=== PATIENT | male | born 1970 | race Caucasian/White ===

== ENCOUNTER 2021-05-03 09:24 | Inpatient (IN) | payer BC ==
[2021-05-03] MEDS ORDERED: REMDESIVIR 200 MG in Sodium Chloride 0.9% 250 ML IV ONE ×2 (09:53→10:30)
[2021-05-03] MEDS ORDERED: Dexamethasone 4 MG/ML SDV IVPUSH ONE (09:53)
[2021-05-03] MEDS ORDERED: Sodium Chloride 0.9% 1,000 ML IV SCH (10:00)
[2021-05-03] MEDS: Sodium Chloride 0.9% 10 ML Syringe FLUSH PRN (10:12)
--- NOTE | 2021-05-03 10:59 | CR ---
Chest: Portable view of the chest was obtained. Comparison: Prior chest CT of 12/24/10, no prior chest x-ray is available. Heart is enlarged. Pulmonary vessels are felt to be slightly increased. Lungs otherwise are clear. Bony structures show nothing acute. Impression: 1. Findings are suspicious for mild CHF. Diagnostic code #3
[2021-05-03] MEDS ORDERED: Sodium Chloride 0.9% 10 ML Syringe FLUSH PRN (11:10)
[2021-05-03] MEDS ORDERED: Iopamidol 755 Mg/ML 100 ML Bottle IVPUSH ONE (11:10)
[2021-05-03] MEDS ORDERED: Sodium Chloride 0.9% 45 ML IV SCH (11:15)
--- NOTE | 2021-05-03 12:11 | CT ---
CT chest Technique: Multiple axial sections through the chest were obtained. Intravenous contrast was utilized. Study performed as a pulmonary angiogram protocol. Findings: Ascending aorta is aneurysmal with AP dimension of 4.2 cm. Descending aorta is normal in measurement. Pulmonary arteries are well opacified. No filling defects are seen to indicate pulmonary embolism. No pericardial thickening is seen. Mediastinum and hilar regions show no adenopathy. No axillary adenopathy is appreciated. Heart is somewhat enlarged. Diffuse parenchymal change is seen within both lungs. This does not represent pulmonary vascular congestion but has the appearance of prominent Covid pneumonia. No pleural effusions are seen. Visualized upper abdominal structures show fatty infiltration within the liver. No acute upper abdominal anomaly is seen. Bone window settings were reviewed. No acute osseous abnormality is appreciated. Impression: 1. Dilated ascending aorta with AP dimension of 4.1 cm compatible with aneurysm. 2. No findings of pulmonary embolism. 3. Mild cardiomegaly. 4. Diffuse parenchymal densities within both sides of the chest having the appearance of prominent Covid pneumonia. Diagnostic code #3
--- NOTE | 2021-05-03 13:07 | EDM.PDOC ---
ED HPI GENERAL MEDICAL PROBLEM - General Chief Complaint: Respiratory Problem Stated Complaint: POSS COVID+ SOB Time Seen by Provider: 05/03/21 09:31 Source of Information: Reports: Patient History Limitations: Reports: No Limitations - History of Present Illness INITIAL COMMENTS - FREE TEXT/NARRATIVE: The patient presents with cough and shortness of breath. His is COVID positive so he figures he is positive. He said about 10 days his symptoms started but the last couple of days have been worse with more shortness of breath. He had a fever and chills but that is better. He has fatigue and generalized weakness. He has no chest pain, abdominal pain, nausea or vomiting. He did have diarrhea but that is better. He does not smoke. He has no history of lung problems. He has no history of heart disease, hypertension, hypercholesterolemia or diabetes. He did not get the vaccine. Onset: Gradual Duration: Day(s): (10) Severity: Moderate Improves with: Reports: None Worsens with: Reports: None Associated Symptoms: Reports: Cough, Fever/Chills, Shortness of Breath. Denies: Chest Pain, Headaches, Nausea/Vomiting - Related Data Allergies Allergy/AdvReac Type Severity Reaction Status Date / Time No Known Allergies Allergy Verified 05/03/21 09:44 Past Medical History - Past Health History Medical/Surgical History: Denies Medical/Surgical History Social & Family History - Tobacco Use Tobacco Use Status *Q: Current Every Day Tobacco User Years of Tobacco use: 25 Packs/Tins Daily: 1 ED ROS GENERAL - Review of Systems Review Of Systems: See Below Constitutional: Reports: Fever, Chills, Malaise, Weakness, Fatigue HEENT: Reports: No Symptoms Respiratory: Reports: Shortness of Breath, Cough Cardiovascular: Reports: No Symptoms Endocrine: Reports: No Symptoms GI/Abdominal: Reports: No Symptoms : Reports: No Symptoms Musculoskeletal: Reports: No Symptoms Skin: Reports: No Symptoms ED EXAM, GENERAL - Physical Exam Exam: See Below Exam Limited By: No Limitations General Appearance: Alert, No Apparent Distress Ears: Normal External Exam Nose: Normal Inspection Head: Atraumatic, Normocephalic Neck: Normal Inspection Respiratory/Chest: No Respiratory Distress, Decreased Breath Sounds Cardiovascular: Regular Rate, Rhythm, No Edema, No Murmur GI/Abdominal: Soft, Non-Tender, No Organomegaly, No Mass Back Exam: Normal Inspection Extremities: Normal Inspection #1 Interpretation EKG Date: 05/03/21 Time: 11:17 Rhythm: NSR Rate (Beats/Min): 74 [place]: Normal P-Wave: Present QRS: Normal ST-T: Normal QT: Normal Course - Vital Signs Last Recorded V/S: Last Vital Signs Temp 97.8 F 05/03/21 09:41 Pulse 76 05/03/21 09:41 Resp 18 05/03/21 09:41 BP 136/96 H 05/03/21 09:41 Pulse Ox 86 L 05/03/21 09:41 - Orders/Labs/Meds Orders: Active Orders 24 hr Category Date Time Status Cardiac Monitoring [RC] . DIRECTED Care 05/03/21 09:51 Active Oxygen Therapy [RC] PRN Care 05/03/21 09:51 Active Peripheral IV Care [RC] . DIRECTED Care 05/03/21 09:51 Active Sodium Chloride 0.9% [Normal Saline] 1,000 ml Med 05/03/21 10:00 Active IV .BOLUS Sodium Chloride 0.9% [Normal Saline] 45 ml Med 05/03/21 11:15 Active IV ASDIRECTED Sodium Chloride 0.9% [Saline Flush] Med 05/03/21 09:51 Active 10 ml FLUSH ASDIRECTED PRN Sodium Chloride 0.9% [Saline Flush] Med 05/03/21 11:10 Active 10 ml FLUSH ONETIME PRN Peripheral IV Insertion Adult [OM.PC] Stat Oth 05/03/21 09:51 Ordered EKG 12 Lead [EK] Stat Ther 05/03/21 10:58 Ordered Medication Orders Sodium Chloride (Normal Saline) 1,000 mls @ 1,000 mls/hr IV .BOLUS MOE Last Admin: 05/03/21 10:12 Dose: 1,000 mls/hr Documented by: THERESA Sodium Chloride (Normal Saline) 45 mls @ 40 mls/hr IV ASDIRECTED MOE Last Admin: 05/03/21 11:48 Dose: 40 mls/hr Documented by: EMERSON Sodium Chloride (Sodium Chloride 0.9% 10 Ml Syringe) 10 ml FLUSH ASDIRECTED PRN PRN Reason: Keep Vein Open Last Admin: 05/03/21 10:12 Dose: 10 ml Documented by: THERESA Sodium Chloride (Sodium Chloride 0.9% 10 Ml Syringe) 10 ml FLUSH ONETIME PRN PRN Reason: Keep Vein Open Last Admin: 05/03/21 11:47 Dose: 10 ml Documented by: EMERSON Labs: Laboratory Tests 05/03/21 05/03/21 05/03/21 Range/Units 09:35 10:02 10:02 WBC 10.52 H (4.23-9.07) K/mm3 RBC 5.60 (4.63-6.08) M/mm3 Hgb 16.8 (13.7-17.5) gm/dl Hct 49.6 (40.1-51.0) % MCV 88.6 (79.0-92.2) fl MCH 30.0 (25.7-32.2) pg MCHC 33.9 (32.2-35.5) g/dl RDW Std Deviation 41.1 (35.1-43.9) fL Plt Count 257 (163-337) K/mm3 MPV 9.5 (9.4-12.3) fl Neut % (Auto) 90.6 H (34.0-67.9) % Lymph % (Auto) 5.0 L (21.8-53.1) % [place] % (Auto) 3.8 L (5.3-12.2) % Eos % (Auto) 0 L (0.8-7.0) Baso % (Auto) 0.1 (0.1-1.2) % Neut # (Auto) 9.53 H (1.78-5.38) K/mm3 Lymph # (Auto) 0.53 L (1.32-3.57) K/mm3 [place] # (Auto) 0.40 (0.30-0.82) K/mm3 Eos # (Auto) 0.00 L (0.04-0.54) K/mm3 Baso # (Auto) 0.01 (0.01-0.08) K/mm3 Manual Slide Review Abnormal smear PT 10.3 (9.7-12.0) SECONDS INR 0.96 APTT 27.9 (21.7-31.4) SECONDS D-Dimer, Quantitative 1.52 H (0.19-0.50) mg/L Sodium (136-145) mEq/L Potassium (3.5-5.1) mEq/L Chloride (98-107) mEq/L Carbon Dioxide (21-32) mEq/L Anion Gap (5-15) BUN (7-18) mg/dL Creatinine (0.7-1.3) mg/dL Est Cr Clr Drug Dosing mL/min Estimated GFR (MDRD) (>60) mL/min BUN/Creatinine Ratio (14-18) Glucose (70-99) mg/dL Lactic Acid (0.4-2.0) mmol/L Calcium (8.5-10.1) mg/dL Ferritin (26-388) ng/ml Total Bilirubin (0.2-1.0) mg/dL AST (15-37) U/L ALT (16-63) U/L Alkaline Phosphatase (46-116) U/L Lactate Dehydrogenase (85-227) U/L C-Reactive Protein (<1.0) mg/dL NT-Pro-B Natriuret Pep (0-125) pg/mL Total Protein (6.4-8.2) g/dl Albumin (3.4-5.0) g/dl Globulin gm/dL Albumin/Globulin Ratio (1-2) SARS-CoV-2 RNA (KIMMIE) Positive H (NEGATIVE) 05/03/21 05/03/21 05/03/21 Range/Units 10:02 10:02 10:02 WBC (4.23-9.07) K/mm3 RBC (4.63-6.08) M/mm3 Hgb (13.7-17.5) gm/dl Hct (40.1-51.0) % MCV (79.0-92.2) fl MCH (25.7-32.2) pg MCHC (32.2-35.5) g/dl RDW Std Deviation (35.1-43.9) fL Plt Count (163-337) K/mm3 MPV (9.4-12.3) fl Neut % (Auto) (34.0-67.9) % Lymph % (Auto) (21.8-53.1) % [place] % (Auto) (5.3-12.2) % Eos % (Auto) (0.8-7.0) Baso % (Auto) (0.1-1.2) % Neut # (Auto) (1.78-5.38) K/mm3 Lymph # (Auto) (1.32-3.57) K/mm3 [place] # (Auto) (0.30-0.82) K/mm3 Eos # (Auto) (0.04-0.54) K/mm3 Baso # (Auto) (0.01-0.08) K/mm3 Manual Slide Review PT (9.7-12.0) SECONDS INR APTT (21.7-31.4) SECONDS D-Dimer, Quantitative (0.19-0.50) mg/L Sodium 139 (136-145) mEq/L Potassium 4.3 (3.5-5.1) mEq/L Chloride 102 (98-107) mEq/L Carbon Dioxide 29 (21-32) mEq/L Anion Gap 12.3 (5-15) BUN 26 H (7-18) mg/dL Creatinine 1.1 (0.7-1.3) mg/dL Est Cr Clr Drug Dosing 77.73 mL/min Estimated GFR (MDRD) > 60 (>60) mL/min BUN/Creatinine Ratio 23.6 H (14-18) Glucose 134 H (70-99) mg/dL Lactic Acid 1.5 (0.4-2.0) mmol/L Calcium 8.1 L (8.5-10.1) mg/dL Ferritin 3950 H (26-388) ng/ml Total Bilirubin 0.6 (0.2-1.0) mg/dL AST 62 H (15-37) U/L ALT 85 H (16-63) U/L Alkaline Phosphatase 67 (46-116) U/L Lactate Dehydrogenase 693 H (85-227) U/L C-Reactive Protein 4.9 H* (<1.0) mg/dL NT-Pro-B Natriuret Pep (0-125) pg/mL Total Protein 6.8 (6.4-8.2) g/dl Albumin 3.0 L (3.4-5.0) g/dl Globulin 3.8 gm/dL Albumin/Globulin Ratio 0.8 L (1-2) SARS-CoV-2 RNA (KIMMIE) (NEGATIVE) 05/03/21 Range/Units 10:02 WBC (4.23-9.07) K/mm3 RBC (4.63-6.08) M/mm3 Hgb (13.7-17.5) gm/dl Hct (40.1-51.0) % MCV (79.0-92.2) fl MCH (25.7-32.2) pg MCHC (32.2-35.5) g/dl RDW Std Deviation (35.1-43.9) fL Plt Count (163-337) K/mm3 MPV (9.4-12.3) fl Neut % (Auto) (34.0-67.9) % Lymph % (Auto) (21.8-53.1) % [place] % (Auto) (5.3-12.2) % Eos % (Auto) (0.8-7.0) Baso % (Auto) (0.1-1.2) % Neut # (Auto) (1.78-5.38) K/mm3 Lymph # (Auto) (1.32-3.57) K/mm3 [place] # (Auto) (0.30-0.82) K/mm3 Eos # (Auto) (0.04-0.54) K/mm3 Baso # (Auto) (0.01-0.08) K/mm3 Manual Slide Review PT (9.7-12.0) SECONDS INR APTT (21.7-31.4) SECONDS D-Dimer, Quantitative (0.19-0.50) mg/L Sodium (136-145) mEq/L Potassium (3.5-5.1) mEq/L Chloride (98-107) mEq/L Carbon Dioxide (21-32) mEq/L Anion Gap (5-15) BUN (7-18) mg/dL Creatinine (0.7-1.3) mg/dL Est Cr Clr Drug Dosing mL/min Estimated GFR (MDRD) (>60) mL/min BUN/Creatinine Ratio (14-18) Glucose (70-99) mg/dL Lactic Acid (0.4-2.0) mmol/L Calcium (8.5-10.1) mg/dL Ferritin (26-388) ng/ml Total Bilirubin (0.2-1.0) mg/dL AST (15-37) U/L ALT (16-63) U/L Alkaline Phosphatase (46-116) U/L Lactate Dehydrogenase (85-227) U/L C-Reactive Protein (<1.0) mg/dL NT-Pro-B Natriuret Pep 123 (0-125) pg/mL Total Protein (6.4-8.2) g/dl Albumin (3.4-5.0) g/dl Globulin gm/dL Albumin/Globulin Ratio (1-2) SARS-CoV-2 RNA (KIMMIE) (NEGATIVE) Meds: Medications Generic Name Dose Route Start Last Admin Trade Name Curtisq PRN Reason Stop Dose Admin Sodium Chloride 1,000 mls @ 1,000 mls/hr 05/03/21 10:00 05/03/21 10:12 Normal Saline IV 1,000 mls/hr .BOLUS MOE Administration Sodium Chloride 45 mls @ 40 mls/hr 05/03/21 11:15 05/03/21 11:48 Normal Saline IV 40 mls/hr ASDIRECTED MOE Administration Sodium Chloride 10 ml 05/03/21 09:51 05/03/21 10:12 Sodium Chloride 0.9% 10 Ml Syringe FLUSH 10 ml ASDIRECTED PRN Administration Keep Vein Open Sodium Chloride 10 ml 05/03/21 11:10 05/03/21 11:47 Sodium Chloride 0.9% 10 Ml Syringe FLUSH 10 ml ONETIME PRN Administration Keep Vein Open Discontinued Medications Generic Name Dose Route Start Last Admin Trade Name Curtisq PRN Reason Stop Dose Admin Dexamethasone 6 mg 05/03/21 09:53 05/03/21 10:12 Dexamethasone 4 Mg/Ml Sdv IVPUSH 05/03/21 09:54 6 mg ONETIME ONE Administration Remdesivir 200 mg/ Sodium 250 mls @ 250 mls/hr 05/03/21 09:53 05/03/21 10:30 Chloride IV 05/03/21 09:54 Not Given ONETIME ONE Remdesivir 200 mg/ Sodium 250 mls @ 250 mls/hr 05/03/21 10:30 05/03/21 10:30 Chloride IV 05/03/21 11:29 250 mls/hr ONETIME ONE Administration Iopamidol 100 ml 05/03/21 11:10 05/03/21 11:47 Iopamidol 755 Mg/Ml 100 Ml Bottle IVPUSH 05/03/21 11:11 100 ml ONETIME ONE Administration - Re-Assessments/Exams Free Text/Narrative Re-Assessment/Exam: 05/03/21 13:07 The patient came in and his oxygen saturations were 86%. It required 5L by NC to get him up to 93%. I ordered oxygen, IV NS 1L bolus, EKG, CXR and labs. His EKG shows a NSR with no acute changes. His WBC was elevated at 10.52. His D- dimer was elevated at 1.52. His glucose was elevated at 134. His lactic acid was normal at 1.5. His ferritin was elevated at 3950. His AST was elevated at 62. His ALT was elevated at 85. His LDH was elevated at 693. His CRP was elevated at 4.9. He is COVID positive. His CXR shows findings are suspicious for mild CHF. I have ordered a CT angio of his chest and it shows dilated ascending aorta with AP dimension of 4.1cm compatible with aneurysm. No findings of pulmonary embolism. Mild cardiomegaly. Diffuse parenchymal densities within both sides of the chest having the appearance of prominent COVID pneumonia. I have ordered dexamethasone 6mg IV and remdesivir 200mg IV. I feel he needs to be admitted. I called Dr Cummings our hospitalist. 05/03/21 13:30 Nursing had to talk and see if they could take the patient and the could. Dr Cummings accepted the patient. Departure - Departure Time of Disposition: 13:40 Disposition: Admitted As Inpatient 66 Condition: Serious Clinical Impression: COVID-19, Pneumonia due to COVID-19 virus, Ascending aortic aneurysm, Hypoxia - Discharge Information Referrals: PCP,None [Primary Care Provider] - Forms: ED Department Discharge Sepsis Event Note (ED) - Evaluation Sepsis Screening Result: No Definite Risk - Focused Exam Vital Signs: Vital Signs Temp Pulse Resp BP Pulse Ox 05/03/21 09:41 97.8 F 76 18 136/96 H 86 L - My Orders Last 24 Hours: My Active Orders 05/03/21 09:51 Cardiac Monitoring [RC] . DIRECTED Oxygen Therapy [RC] PRN Peripheral IV Care [RC] . DIRECTED Sodium Chloride 0.9% [Saline Flush] 10 ml FLUSH ASDIRECTED PRN Peripheral IV Insertion Adult [OM.PC] Stat 05/03/21 10:00 Sodium Chloride 0.9% [Normal Saline] 1,000 ml IV .BOLUS 05/03/21 10:58 EKG 12 Lead [EK] Stat 05/03/21 11:10 Sodium Chloride 0.9% [Saline Flush] 10 ml FLUSH ONETIME PRN 05/03/21 11:15 Sodium Chloride 0.9% [Normal Saline] 45 ml IV ASDIRECTED - Assessment/Plan Last 24 Hours: My Active Orders 05/03/21 09:51 Cardiac Monitoring [RC] . DIRECTED Oxygen Therapy [RC] PRN Peripheral IV Care [RC] . DIRECTED Sodium Chloride 0.9% [Saline Flush] 10 ml FLUSH ASDIRECTED PRN Peripheral IV Insertion Adult [OM.PC] Stat 05/03/21 10:00 Sodium Chloride 0.9% [Normal Saline] 1,000 ml IV .BOLUS 05/03/21 10:58 EKG 12 Lead [EK] Stat 05/03/21 11:10 Sodium Chloride 0.9% [Saline Flush] 10 ml FLUSH ONETIME PRN 05/03/21 11:15 Sodium Chloride 0.9% [Normal Saline] 45 ml IV ASDIRECTED
[2021-05-03] MEDS ORDERED: Acetaminophen 325 MG Tab PO PRN (14:15)
[2021-05-03] MEDS ORDERED: Ondansetron 4 MG Tab.DIS PO PRN (14:15)
[2021-05-03] MEDS ORDERED: Docusate Sodium 100 MG Cap PO PRN (14:15)
[2021-05-03] MEDS ORDERED: Albuterol/Ipratropium 3.0-0.5 MG/3 ML Neb Soln NEB PRN (14:15)
[2021-05-03] MEDS ORDERED: Morphine 2 MG/ML SYRINGE IVPUSH PRN (14:15)
[2021-05-03] MEDS ORDERED: oxyCODONE 5 MG Tab PO PRN (14:15)
--- NOTE | 2021-05-03 14:26 | PCM.HP.2 ---
H&P History of Present Illness - General Date of Service: 05/03/21 Admit Problem/Dx: Admission Diagnosis/Problem Admission Diagnosis/Problem Pneumonia due to COVID-19 with acute respiratory failure. Source of Information: Patient History Limitations: Reports: No Limitations - History of Present Illness Initial Comments - Free Text/Narative: The patient is a 50-year-old gentleman who presents to the emergency department with a primary complaint of severe fatigue and shortness of breath. The patient has tested positive for COVID-19. The patient says further that his symptoms started approximately 2 weeks ago. The patient also reports that his son and his were diagnosed with COVID-19 a week ago. The patient says that he has had some chills. The patient also has no other associated symptoms with the COVID-19 pneumonia. The patient uses smokeless tobacco but has not done in the past week. He is otherwise healthy and takes no medications. He has not been vaccinated. 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 Onset of Symptoms: Reports: Gradual Duration of Symptoms: Reports: Week(s): Location: Reports: Generalized Quality: Reports: Ache Severity: Moderate Improves with: Reports: Rest Worsens with: Reports: Breathing, Movement Context: Reports: Sick Contact Associated Symptoms: Reports: Fever/Chills - Related Data Allergies/Adverse Reactions: Allergies Allergy/AdvReac Type Severity Reaction Status Date / Time No Known Allergies Allergy Verified 05/03/21 14:29 Home Medications: Home Meds Ascorbic Acid [Vitamin C] 1,000 mg PO DAILY 05/03/21 [History] Aspirin [[place]] 80 mg PO DAILY 05/03/21 [History] Azithromycin [Zithromax] 250 mg PO DAILY 05/03/21 [History] Cholecalciferol (Vitamin D3) [Vitamin D] 5,000 unit PO DAILY 05/03/21 [History] Zinc 50 mg PO DAILY 05/03/21 [History] dexAMETHasone [Dexamethasone] 6 mg PO DAILY 05/03/21 [History] Past Medical History - Past Health History Medical/Surgical History: Denies Medical/Surgical History HEENT History: Reports: None Cardiovascular History: Reports: None Respiratory History: Reports: None Gastrointestinal History: Reports: None Genitourinary History: Reports: None Musculoskeletal History: Reports: None Neurological History: Reports: None Psychiatric History: Reports: None Endocrine/Metabolic History: Reports: None Hematologic History: Reports: None Immunologic History: Reports: None Oncologic (Cancer) History: Reports: None Dermatologic History: Reports: None - Infectious Disease History Infectious Disease History: Reports: Novel Coronavirus Social & Family History - Tobacco Use Tobacco Use Status *Q: Current Every Day Tobacco User Years of Tobacco use: 25 Packs/Tins Daily: 1 - Alcohol Use Alcohol Use History: No - Living Situation & Occupation Living situation: Reports: , with Spouse, with Family Occupation: Other (Alas/rancher) H&P Review of Systems - Review of Systems: Review Of Systems: See Below General: Reports: Malaise, Weakness, Fatigue HEENT: Reports: No Symptoms Pulmonary: Reports: Shortness of Breath, Cough Cardiovascular: Reports: No Symptoms Gastrointestinal: Reports: No Symptoms Genitourinary: Reports: No Symptoms Musculoskeletal: Reports: No Symptoms Skin: Reports: No Symptoms Psychiatric: Reports: No Symptoms Neurological: Reports: No Symptoms Hematologic/Lymphatic: Reports: No Symptoms Immunologic: Reports: No Symptoms Exam - Exam Exam: See Below - Vital Signs Vital Signs: Last Vital Signs Temp 36.6 C 05/03/21 09:41 Pulse 76 05/03/21 09:41 Resp 18 05/03/21 09:41 BP 136/96 H 05/03/21 09:41 Pulse Ox 86 L 05/03/21 09:41 Weight: 92.986 kg - Exam Quality Assessment: Supplemental Oxygen. No: DVT Prophylaxis General: Alert, Oriented, Cooperative HEENT: Conjunctiva Clear, EACs Clear, EOMI, Hearing Intact, Mucosa Moist & [place], Posterior Pharynx Clear, PERRLA Neck: Supple, Trachea Midline Lungs: Normal Respiratory Effort, Crackles (Scattered) Cardiovascular: Regular Rate, Regular Rhythm GI/Abdominal Exam: Normal Bowel Sounds, Soft, Non-Tender, No Distention (Male) Exam: Deferred Rectal (Males) Exam: Deferred Back Exam: Normal Inspection, Full Range of Motion Extremities: Normal Inspection, Normal Range of Motion, No Pedal Edema Skin: Warm, Dry, Intact Neurological: Cranial Nerves Intact, Normal Gait, Normal Speech, Normal Tone Psychiatric: Alert, Normal Affect, Normal Mood - Patient Data Lab Results Last 24 hrs: Laboratory Results - last 24 hr 05/03/21 05/03/21 05/03/21 Range/Units 09:35 10:02 10:02 WBC 10.52 H (4.23-9.07) K/mm3 RBC 5.60 (4.63-6.08) M/mm3 Hgb 16.8 (13.7-17.5) gm/dl Hct 49.6 (40.1-51.0) % MCV 88.6 (79.0-92.2) fl MCH 30.0 (25.7-32.2) pg MCHC 33.9 (32.2-35.5) g/dl RDW Std Deviation 41.1 (35.1-43.9) fL Plt Count 257 (163-337) K/mm3 MPV 9.5 (9.4-12.3) fl Neut % (Auto) 90.6 H (34.0-67.9) % Lymph % (Auto) 5.0 L (21.8-53.1) % [place] % (Auto) 3.8 L (5.3-12.2) % Eos % (Auto) 0 L (0.8-7.0) Baso % (Auto) 0.1 (0.1-1.2) % Neut # (Auto) 9.53 H (1.78-5.38) K/mm3 Lymph # (Auto) 0.53 L (1.32-3.57) K/mm3 [place] # (Auto) 0.40 (0.30-0.82) K/mm3 Eos # (Auto) 0.00 L (0.04-0.54) K/mm3 Baso # (Auto) 0.01 (0.01-0.08) K/mm3 Manual Slide Review Abnormal smear PT 10.3 (9.7-12.0) SECONDS INR 0.96 APTT 27.9 (21.7-31.4) SECONDS D-Dimer, Quantitative 1.52 H (0.19-0.50) mg/L Sodium (136-145) mEq/L Potassium (3.5-5.1) mEq/L Chloride (98-107) mEq/L Carbon Dioxide (21-32) mEq/L Anion Gap (5-15) BUN (7-18) mg/dL Creatinine (0.7-1.3) mg/dL Est Cr Clr Drug Dosing mL/min Estimated GFR (MDRD) (>60) mL/min BUN/Creatinine Ratio (14-18) Glucose (70-99) mg/dL Lactic Acid (0.4-2.0) mmol/L Calcium (8.5-10.1) mg/dL Ferritin (26-388) ng/ml Total Bilirubin (0.2-1.0) mg/dL AST (15-37) U/L ALT (16-63) U/L Alkaline Phosphatase (46-116) U/L Lactate Dehydrogenase (85-227) U/L C-Reactive Protein (<1.0) mg/dL NT-Pro-B Natriuret Pep (0-125) pg/mL Total Protein (6.4-8.2) g/dl Albumin (3.4-5.0) g/dl Globulin gm/dL Albumin/Globulin Ratio (1-2) SARS-CoV-2 RNA (KIMMIE) Positive H (NEGATIVE) 05/03/21 05/03/21 05/03/21 Range/Units 10:02 10:02 10:02 WBC (4.23-9.07) K/mm3 RBC (4.63-6.08) M/mm3 Hgb (13.7-17.5) gm/dl Hct (40.1-51.0) % MCV (79.0-92.2) fl MCH (25.7-32.2) pg MCHC (32.2-35.5) g/dl RDW Std Deviation (35.1-43.9) fL Plt Count (163-337) K/mm3 MPV (9.4-12.3) fl Neut % (Auto) (34.0-67.9) % Lymph % (Auto) (21.8-53.1) % [place] % (Auto) (5.3-12.2) % Eos % (Auto) (0.8-7.0) Baso % (Auto) (0.1-1.2) % Neut # (Auto) (1.78-5.38) K/mm3 Lymph # (Auto) (1.32-3.57) K/mm3 [place] # (Auto) (0.30-0.82) K/mm3 Eos # (Auto) (0.04-0.54) K/mm3 Baso # (Auto) (0.01-0.08) K/mm3 Manual Slide Review PT (9.7-12.0) SECONDS INR APTT (21.7-31.4) SECONDS D-Dimer, Quantitative (0.19-0.50) mg/L Sodium 139 (136-145) mEq/L Potassium 4.3 (3.5-5.1) mEq/L Chloride 102 (98-107) mEq/L Carbon Dioxide 29 (21-32) mEq/L Anion Gap 12.3 (5-15) BUN 26 H (7-18) mg/dL Creatinine 1.1 (0.7-1.3) mg/dL Est Cr Clr Drug Dosing 77.73 mL/min Estimated GFR (MDRD) > 60 (>60) mL/min BUN/Creatinine Ratio 23.6 H (14-18) Glucose 134 H (70-99) mg/dL Lactic Acid 1.5 (0.4-2.0) mmol/L Calcium 8.1 L (8.5-10.1) mg/dL Ferritin 3950 H (26-388) ng/ml Total Bilirubin 0.6 (0.2-1.0) mg/dL AST 62 H (15-37) U/L ALT 85 H (16-63) U/L Alkaline Phosphatase 67 (46-116) U/L Lactate Dehydrogenase 693 H (85-227) U/L C-Reactive Protein 4.9 H* (<1.0) mg/dL NT-Pro-B Natriuret Pep (0-125) pg/mL Total Protein 6.8 (6.4-8.2) g/dl Albumin 3.0 L (3.4-5.0) g/dl Globulin 3.8 gm/dL Albumin/Globulin Ratio 0.8 L (1-2) SARS-CoV-2 RNA (KIMMIE) (NEGATIVE) 05/03/21 Range/Units 10:02 WBC (4.23-9.07) K/mm3 RBC (4.63-6.08) M/mm3 Hgb (13.7-17.5) gm/dl Hct (40.1-51.0) % MCV (79.0-92.2) fl MCH (25.7-32.2) pg MCHC (32.2-35.5) g/dl RDW Std Deviation (35.1-43.9) fL Plt Count (163-337) K/mm3 MPV (9.4-12.3) fl Neut % (Auto) (34.0-67.9) % Lymph % (Auto) (21.8-53.1) % [place] % (Auto) (5.3-12.2) % Eos % (Auto) (0.8-7.0) Baso % (Auto) (0.1-1.2) % Neut # (Auto) (1.78-5.38) K/mm3 Lymph # (Auto) (1.32-3.57) K/mm3 [place] # (Auto) (0.30-0.82) K/mm3 Eos # (Auto) (0.04-0.54) K/mm3 Baso # (Auto) (0.01-0.08) K/mm3 Manual Slide Review PT (9.7-12.0) SECONDS INR APTT (21.7-31.4) SECONDS D-Dimer, Quantitative (0.19-0.50) mg/L Sodium (136-145) mEq/L Potassium (3.5-5.1) mEq/L Chloride (98-107) mEq/L Carbon Dioxide (21-32) mEq/L Anion Gap (5-15) BUN (7-18) mg/dL Creatinine (0.7-1.3) mg/dL Est Cr Clr Drug Dosing mL/min Estimated GFR (MDRD) (>60) mL/min BUN/Creatinine Ratio (14-18) Glucose (70-99) mg/dL Lactic Acid (0.4-2.0) mmol/L Calcium (8.5-10.1) mg/dL Ferritin (26-388) ng/ml Total Bilirubin (0.2-1.0) mg/dL AST (15-37) U/L ALT (16-63) U/L Alkaline Phosphatase (46-116) U/L Lactate Dehydrogenase (85-227) U/L C-Reactive Protein (<1.0) mg/dL NT-Pro-B Natriuret Pep 123 (0-125) pg/mL Total Protein (6.4-8.2) g/dl Albumin (3.4-5.0) g/dl Globulin gm/dL Albumin/Globulin Ratio (1-2) SARS-CoV-2 RNA (KIMMIE) (NEGATIVE) Result Diagrams: 05/03/21 10:02 05/03/21 10:02 Sepsis Event Note - Evaluation Sepsis Screening Result: No Definite Risk - Focused Exam Vital Signs: Vital Signs Temp Pulse Resp BP Pulse Ox 05/03/21 09:41 36.6 C 76 18 136/96 H 86 L - Problem List (1) Acute respiratory failure SNOMED Code(s): 38356569 ICD Code: J96.00 - ACUTE RESPIRATORY FAILURE, UNSP W HYPOXIA OR HYPERCAPNIA Status: Acute Priority: High Current Visit: Yes Qualifiers: Respiratory failure complication: hypoxia Qualified Code(s): J96.01 - Acute respiratory failure with hypoxia (2) Pneumonia due to COVID-19 virus SNOMED Code(s): 016947185400458820 ICD Code: U07.1 - COVID-19; J12.82 - PNEUMONIA DUE TO CORONAVIRUS DISEASE 2018 Status: Acute Current Visit: Yes (3) Fatigue SNOMED Code(s): 67799908 ICD Code: R53.83 - OTHER FATIGUE Status: Acute Current Visit: Yes Qualifiers: Fatigue type: unspecified Qualified Code(s): R53.83 - Other fatigue (4) Ascending aortic aneurysm Status: Chronic Priority: Medium Current Visit: No Problem List Initiated/Reviewed/Updated: Yes Orders Last 24hrs: Active Orders 24 hr Category Date Time Status Patient Status [ADT] Routine ADT 05/03/21 14:15 Ordered Patient Status [ADT] Routine ADT 05/03/21 14:18 Active Cardiac Monitoring [RC] . DIRECTED Care 05/03/21 09:51 Active Cardiac Monitoring [RC] CONTINUOUS Care 05/03/21 14:16 Ordered Oxygen Therapy [RC] PRN Care 05/03/21 09:51 Active Oxygen Therapy [RC] PRN Care 05/03/21 14:15 Ordered Peripheral IV Care [RC] . DIRECTED Care 05/03/21 09:51 Active RT Aerosol Therapy [RC] ASDIRECTED Care 05/03/21 14:21 Ordered Up ad Gabrielle [RC] ASDIRECTED Care 05/03/21 14:15 Ordered VTE/DVT Education [RC] PER UNIT ROUTINE Care 05/03/21 14:15 Ordered Vital Signs [RC] Q4H Care 05/03/21 14:15 Ordered Regular Diet [DIET] Diet 05/03/21 Dinner Ordered C-REACTIVE PROTEIN [CHEM] AM Lab 05/04/21 05:11 Ordered CBC WITH AUTO DIFF [HEME] AM Lab 05/04/21 05:11 Ordered COMPREHENSIVE METABOLIC PN,CMP [CHEM] AM Lab 05/04/21 05:11 Ordered D-DIMER QUANTITATIVE [COAG] AM Lab 05/04/21 05:11 Ordered MAGNESIUM [CHEM] AM Lab 05/04/21 05:11 Ordered Acetaminophen [TylenoL] Med 05/03/21 14:15 Ordered 650 mg PO Q4H PRN Albuterol/Ipratropium [DuoNeb 3.0-0.5 MG/3 ML] Med 05/03/21 14:15 Ordered 3 ml NEB Q4H PRN Azithromycin [Zithromax] 500 mg Med 05/03/21 14:30 Ordered Sodium Chloride 0.9% [Normal Saline (AdvBag)] 250 ml IV Q24H Docusate Sodium [Colace] Med 05/03/21 14:15 Ordered 100 mg PO BID PRN Enoxaparin [Lovenox] Med 05/03/21 14:30 Ordered 40 mg SUBCUT DAILY Morphine Med 05/03/21 14:15 Ordered 2 mg IVPUSH Q2H PRN Nicotine [Habitrol] Med 05/04/21 09:00 Ordered 14 mg TRDERM DAILY Ondansetron [Zofran ODT] Med 05/03/21 14:15 Ordered 4 mg PO Q4H PRN Sodium Chloride 0.9% [Normal Saline] 1,000 ml Med 05/03/21 10:00 Active IV .BOLUS Sodium Chloride 0.9% [Normal Saline] 45 ml Med 05/03/21 11:15 Active IV ASDIRECTED Sodium Chloride 0.9% [Saline Flush] Med 05/03/21 09:51 Active 10 ml FLUSH ASDIRECTED PRN Sodium Chloride 0.9% [Saline Flush] Med 05/03/21 11:10 Active 10 ml FLUSH ONETIME PRN Temazepam [Restoril] Med 05/03/21 14:15 Ordered 15 mg PO BEDTIME PRN dexAMETHasone Med 05/04/21 09:00 Ordered 6 mg PO DAILY oxyCODONE Med 05/03/21 14:15 Ordered 5 mg PO Q4H PRN Peripheral IV Insertion Adult [OM.PC] Stat Oth 05/03/21 09:51 Ordered Resuscitation Status Routine Resus Stat 05/03/21 14:15 Ordered EKG 12 Lead [EK] Stat Ther 05/03/21 10:58 Ordered Medication Orders Acetaminophen (Acetaminophen 325 Mg Tab) 650 mg PO Q4H PRN PRN Reason: Pain (Mild 1-3)/fever Albuterol/Ipratropium (Albuterol/Ipratropium 3.0-0.5 Mg/3 Ml Neb Soln) 3 ml NEB Q4H PRN PRN Reason: Shortness Of Breath/wheezing Dexamethasone (Dexamethasone 4 Mg Tab) 6 mg PO DAILY [facility] Docusate Sodium (Docusate Sodium 100 Mg Cap) 100 mg PO BID PRN PRN Reason: Constipation Enoxaparin Sodium (Enoxaparin 40 Mg/0.4 Ml Syringe) 40 mg SUBCUT DAILY [facility] Sodium Chloride (Normal Saline) 1,000 mls @ 1,000 mls/hr IV .BOLUS [facility] Last Admin: 05/03/21 10:12 Dose: 1,000 mls/hr Documented by: THERESA Sodium Chloride (Normal Saline) 45 mls @ 40 mls/hr IV ASDIRECTED MOE Last Admin: 05/03/21 11:48 Dose: 40 mls/hr Documented by: EMERSON Azithromycin 500 mg/ Sodium (Chloride) 250 mls @ 250 mls/hr IV Q24H MOE Morphine Sulfate (Morphine 2 Mg/Ml Syringe) 2 mg IVPUSH Q2H PRN PRN Reason: Pain (severe 7-10) Stop: 05/04/21 14:17 Nicotine (Nicotine 14 Mg/24 Hr Patch) 14 mg TRDERM DAILY [facility] Ondansetron HCl (Ondansetron 4 Mg Tab.Dis) 4 mg PO Q4H PRN PRN Reason: nausea, able to take PO Oxycodone HCl (Oxycodone 5 Mg Tab) 5 mg PO Q4H PRN PRN Reason: Pain (moderate 4-6) Sodium Chloride (Sodium Chloride 0.9% 10 Ml Syringe) 10 ml FLUSH ASDIRECTED PRN PRN Reason: Keep Vein Open Last Admin: 05/03/21 10:12 Dose: 10 ml Documented by: THERESA Sodium Chloride (Sodium Chloride 0.9% 10 Ml Syringe) 10 ml FLUSH ONETIME PRN PRN Reason: Keep Vein Open Last Admin: 05/03/21 11:47 Dose: 10 ml Documented by: EMERSON Temazepam (Temazepam 15 Mg Cap) 15 mg PO BEDTIME PRN PRN Reason: Sleep Assessment/Plan Comment:: The patient is a 50-year-old gentleman who has been admitted to acute inpatient hospitalization due to COVID-19 pneumonia. The patient is outside the window for remdesivir treatment. The patient will be started on remdesivir 6 mg p.o. daily. He will be maintained on oxygen titrated to keep his saturations around 92%. The patient will also be started on a azithromycin 500 mg IV daily for superimposed infection. The patient also has been anticoagulated with the use of Lovenox at 40 mg subcutaneously daily. Repeat laboratory studies to include D-dimer and CRP have also been ordered. The patient is to have a regular diet as tolerated. 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 Current guidelines have recommended that this be observed by annual CT scans. I have d iscussed the case of the aneurysm with the patient. The patient will need to follow-up with the primary care physician after discharge. He should be appropriate for discharge in 1 to 2 days depending upon his oxygen demands or symptoms. - Mortality Measure Prognosis:: Good
[2021-05-03] MEDS: Enoxaparin 40 MG/0.4 ML Syringe SUBCUT SCH (15:48)
[2021-05-03] MEDS: Azithromycin 500 MG in Sodium Chloride 0.9% 250 ML IV SCH (15:48)
[2021-05-03] MEDS: Albuterol 6.7 GM Inhaler INH PRN (20:57)
[2021-05-03] MEDS: Temazepam 15 MG Cap PO PRN (21:16)
[2021-05-04] MEDS: Nicotine 14 MG/24 Hr Patch TRDERM SCH (08:54)
[2021-05-04] MEDS: Cholecalciferol (Vitamin D3) 5,000 UNIT Cap PO SCH (08:56)
[2021-05-04] MEDS: Ascorbic Acid 500 MG Tab PO SCH (08:56)
[2021-05-04] MEDS: Zinc Sulfate 220 MG Cap PO SCH (08:56)
[2021-05-04] MEDS: Dexamethasone 4 MG Tab PO SCH (08:56)
[2021-05-04] MEDS: Enoxaparin 40 MG/0.4 ML Syringe SUBCUT SCH (08:57)
[2021-05-04] MEDS ORDERED: Sodium Chloride 0.9% 0 ML ONE (10:55)
[2021-05-04] MEDS: REMDESIVIR 100 MG in Sodium Chloride 0.9% 100 ML IV SCH (11:08)
--- NOTE | 2021-05-04 12:28 | PCM.PN ---
- General Info Date of Service: 05/04/21 Admission Dx/Problem (Free Text): Admission Diagnosis/Problem Admission Diagnosis/Problem Pneumonia due to COVID-19 with acute respiratory failure. Subjective Update: The patient is a 50-year-old gentleman who had been admitted through the emergency department due to worsening COVID-19 symptoms. The patient had initial dose of remdesivir in the emergency department. Today the patient says that he feels short of breath. He has required high flow oxygen. He is denied any pain. The patient also has been tolerating his diet. Functional Status: Reports: Pain Controlled, Tolerating Diet - Review of Systems General: Reports: Weakness, Fatigue HEENT: Reports: No Symptoms Pulmonary: Reports: Shortness of Breath, Cough Cardiovascular: Reports: No Symptoms Gastrointestinal: Reports: No Symptoms Genitourinary: Reports: No Symptoms Musculoskeletal: Reports: No Symptoms Skin: Reports: No Symptoms Neurological: Reports: No Symptoms Psychiatric: Reports: No Symptoms - Patient Data Vitals - Most Recent: Last Vital Signs Temp 37.3 C 05/04/21 11:35 Pulse 78 05/04/21 11:35 Resp 20 05/04/21 11:35 BP 134/88 05/04/21 11:35 Pulse Ox 88 L 05/04/21 11:35 Weight - Most Recent: 95.209 kg I&O - Last 24 Hours: Intake & Output 05/03/21 05/04/21 05/04/21 22:59 06:59 14:59 Intake Total 370 1200 Output Total 950 Balance 370 250 Lab Results Last 24 Hours: Laboratory Results - last 24 hr 05/04/21 05/04/21 05/04/21 Range/Units 05:34 05:34 05:34 WBC 9.08 H (4.23-9.07) K/mm3 RBC 5.31 (4.63-6.08) M/mm3 Hgb 15.9 (13.7-17.5) gm/dl Hct 47.1 (40.1-51.0) % MCV 88.7 (79.0-92.2) fl MCH 29.9 (25.7-32.2) pg MCHC 33.8 (32.2-35.5) g/dl RDW Std Deviation 41.1 (35.1-43.9) fL Plt Count 272 (163-337) K/mm3 MPV 9.5 (9.4-12.3) fl Neut % (Auto) 87.7 H (34.0-67.9) % Lymph % (Auto) 6.9 L (21.8-53.1) % [place] % (Auto) 4.8 L (5.3-12.2) % Eos % (Auto) 0 L (0.8-7.0) Baso % (Auto) 0.2 (0.1-1.2) % Neut # (Auto) 7.95 H (1.78-5.38) K/mm3 Lymph # (Auto) 0.63 L (1.32-3.57) K/mm3 [place] # (Auto) 0.44 (0.30-0.82) K/mm3 Eos # (Auto) 0.00 L (0.04-0.54) K/mm3 Baso # (Auto) 0.02 (0.01-0.08) K/mm3 Manual Slide Review Abnormal smear D-Dimer, Quantitative 1.22 H (0.19-0.50) mg/L Sodium 140 (136-145) mEq/L Potassium 4.6 (3.5-5.1) mEq/L Chloride 105 (98-107) mEq/L Carbon Dioxide 25 (21-32) mEq/L Anion Gap 14.6 (5-15) BUN 21 H (7-18) mg/dL Creatinine 0.8 (0.7-1.3) mg/dL Est Cr Clr Drug Dosing 106.88 mL/min Estimated GFR (MDRD) > 60 (>60) mL/min BUN/Creatinine Ratio 26.3 H (14-18) Glucose 128 H (70-99) mg/dL Calcium 7.7 L (8.5-10.1) mg/dL Magnesium 2.4 (1.8-2.4) mg/dL Total Bilirubin 0.6 (0.2-1.0) mg/dL AST 58 H (15-37) U/L ALT 85 H (16-63) U/L Alkaline Phosphatase 64 (46-116) U/L C-Reactive Protein 6.8 H* (<1.0) mg/dL Total Protein 6.4 (6.4-8.2) g/dl Albumin 2.7 L (3.4-5.0) g/dl Globulin 3.7 gm/dL Albumin/Globulin Ratio 0.7 L (1-2) Med Orders - Current: Current Medications Acetaminophen (Acetaminophen 325 Mg Tab) 650 mg PO Q4H PRN PRN Reason: Pain (Mild 1-3)/fever Albuterol (Albuterol 6.7 Gm Inhaler) 0 gm INH Q4H PRN PRN Reason: sob/wheezing Last Admin: 05/03/21 20:57 Dose: 2 puff Documented by: Albuterol/Ipratropium (Albuterol/Ipratropium 3.0-0.5 Mg/3 Ml Neb Soln) 3 ml NEB Q4H PRN PRN Reason: Shortness Of Breath/wheezing Ascorbic Acid (Ascorbic Acid 500 Mg Tab) 1,000 mg PO DAILY [facility] Last Admin: 05/04/21 08:56 Dose: 1,000 mg Documented by: Cholecalciferol (Cholecalciferol (Vitamin D3) 5,000 Unit Cap) 5,000 unit PO DAILY [facility] Last Admin: 05/04/21 08:56 Dose: 5,000 unit Documented by: Dexamethasone (Dexamethasone 4 Mg Tab) 6 mg PO DAILY [facility] Last Admin: 05/04/21 08:56 Dose: 6 mg Documented by: Docusate Sodium (Docusate Sodium 100 Mg Cap) 100 mg PO BID PRN PRN Reason: Constipation Enoxaparin Sodium (Enoxaparin 40 Mg/0.4 Ml Syringe) 40 mg SUBCUT DAILY [facility] Last Admin: 05/04/21 08:57 Dose: 40 mg Documented by: Sodium Chloride (Normal Saline) 1,000 mls @ 1,000 mls/hr IV .BOLUS [facility] Last Admin: 05/03/21 10:12 Dose: 1,000 mls/hr Documented by: Azithromycin 500 mg/ Sodium (Chloride) 250 mls @ 250 mls/hr IV Q24H [facility] Last Admin: 05/03/21 15:48 Dose: 250 mls/hr Documented by: Remdesivir 100 mg/ Sodium (Chloride) 100 mls @ 100 mls/hr IV Q24H [facility] Stop: 05/07/21 11:29 Last Admin: 05/04/21 11:08 Dose: 100 mls/hr Documented by: Morphine Sulfate (Morphine 2 Mg/Ml Syringe) 2 mg IVPUSH Q2H PRN PRN Reason: Pain (severe 7-10) Stop: 05/04/21 14:17 Nicotine (Nicotine 14 Mg/24 Hr Patch) 14 mg TRDERM DAILY [facility] Last Admin: 05/04/21 08:54 Dose: Not Given Documented by: Ondansetron HCl (Ondansetron 4 Mg Tab.Dis) 4 mg PO Q4H PRN PRN Reason: nausea, able to take PO Oxycodone HCl (Oxycodone 5 Mg Tab) 5 mg PO Q4H PRN PRN Reason: Pain (moderate 4-6) Sodium Chloride (Sodium Chloride 0.9% 10 Ml Syringe) 10 ml FLUSH ASDIRECTED PRN PRN Reason: Keep Vein Open Last Admin: 05/03/21 10:12 Dose: 10 ml Documented by: Sodium Chloride (Sodium Chloride 0.9% 10 Ml Syringe) 10 ml FLUSH ONETIME PRN PRN Reason: Keep Vein Open Last Admin: 05/03/21 11:47 Dose: 10 ml Documented by: Temazepam (Temazepam 15 Mg Cap) 15 mg PO BEDTIME PRN PRN Reason: Sleep Last Admin: 05/03/21 21:16 Dose: 15 mg Documented by: Zinc Sulfate (Zinc Sulfate 220 Mg Cap) 220 mg PO DAILY [facility] Last Admin: 05/04/21 08:56 Dose: 220 mg Documented by: Discontinued Medications Dexamethasone (Dexamethasone 4 Mg/Ml Sdv) 6 mg IVPUSH ONETIME ONE Stop: 05/03/21 09:54 Last Admin: 05/03/21 10:12 Dose: 6 mg Documented by: Remdesivir 200 mg/ Sodium (Chloride) 250 mls @ 250 mls/hr IV ONETIME ONE Stop: 05/03/21 09:54 Last Admin: 05/03/21 10:30 Dose: Not Given Documented by: Remdesivir 200 mg/ Sodium (Chloride) 250 mls @ 250 mls/hr IV ONETIME ONE Stop: 05/03/21 11:29 Last Admin: 05/03/21 10:30 Dose: 250 mls/hr Documented by: Sodium Chloride (Normal Saline) 45 mls @ 40 mls/hr IV ASDIRECTED [facility] Last Admin: 05/03/21 11:48 Dose: 40 mls/hr Documented by: Sodium Chloride (Normal Saline) Confirm Administered Dose 100 mls @ as directed .ROUTE .[facility] Stop: 05/04/21 10:56 Iopamidol (Iopamidol 755 Mg/Ml 100 Ml Bottle) 100 ml IVPUSH ONETIME ONE Stop: 05/03/21 11:11 Last Admin: 05/03/21 11:47 Dose: 100 ml Documented by: - Exam Quality Assessment: Supplemental Oxygen, DVT Prophylaxis General: Alert, Oriented, Cooperative, Mild Distress HEENT: Pupils Equal, Pupils Reactive, EOMI, Mucous Membr. Moist/[place] Neck: Supple, Trachea Midline Lungs: Decreased Breath Sounds, Crackles, Rales Cardiovascular: Regular Rate, Regular Rhythm GI/Abdominal Exam: Normal Bowel Sounds, Soft, Non-Tender, No Distention (Male) Exam: Deferred Back Exam: Normal Inspection, Full Range of Motion Extremities: Normal Inspection, Normal Range of Motion, No Pedal Edema Skin: Warm, Dry, Intact Neurological: No New Focal Deficit, Normal Gait, Normal Speech Psy/Mental Status: Alert, Normal Affect, Normal Mood - Patient Data Lab Results Last 24 hrs: Laboratory Results - last 24 hr 05/04/21 05/04/21 05/04/21 Range/Units 05:34 05:34 05:34 WBC 9.08 H (4.23-9.07) K/mm3 RBC 5.31 (4.63-6.08) M/mm3 Hgb 15.9 (13.7-17.5) gm/dl Hct 47.1 (40.1-51.0) % MCV 88.7 (79.0-92.2) fl MCH 29.9 (25.7-32.2) pg MCHC 33.8 (32.2-35.5) g/dl RDW Std Deviation 41.1 (35.1-43.9) fL Plt Count 272 (163-337) K/mm3 MPV 9.5 (9.4-12.3) fl Neut % (Auto) 87.7 H (34.0-67.9) % Lymph % (Auto) 6.9 L (21.8-53.1) % [place] % (Auto) 4.8 L (5.3-12.2) % Eos % (Auto) 0 L (0.8-7.0) Baso % (Auto) 0.2 (0.1-1.2) % Neut # (Auto) 7.95 H (1.78-5.38) K/mm3 Lymph # (Auto) 0.63 L (1.32-3.57) K/mm3 [place] # (Auto) 0.44 (0.30-0.82) K/mm3 Eos # (Auto) 0.00 L (0.04-0.54) K/mm3 Baso # (Auto) 0.02 (0.01-0.08) K/mm3 Manual Slide Review Abnormal smear D-Dimer, Quantitative 1.22 H (0.19-0.50) mg/L Sodium 140 (136-145) mEq/L Potassium 4.6 (3.5-5.1) mEq/L Chloride 105 (98-107) mEq/L Carbon Dioxide 25 (21-32) mEq/L Anion Gap 14.6 (5-15) BUN 21 H (7-18) mg/dL Creatinine 0.8 (0.7-1.3) mg/dL Est Cr Clr Drug Dosing 106.88 mL/min Estimated GFR (MDRD) > 60 (>60) mL/min BUN/Creatinine Ratio 26.3 H (14-18) Glucose 128 H (70-99) mg/dL Calcium 7.7 L (8.5-10.1) mg/dL Magnesium 2.4 (1.8-2.4) mg/dL Total Bilirubin 0.6 (0.2-1.0) mg/dL AST 58 H (15-37) U/L ALT 85 H (16-63) U/L Alkaline Phosphatase 64 (46-116) U/L C-Reactive Protein 6.8 H* (<1.0) mg/dL Total Protein 6.4 (6.4-8.2) g/dl Albumin 2.7 L (3.4-5.0) g/dl Globulin 3.7 gm/dL Albumin/Globulin Ratio 0.7 L (1-2) Result Diagrams: 05/04/21 05:34 05/04/21 05:34 Sepsis Event Note - Evaluation Sepsis Screening Result: No Definite Risk - Focused Exam Vital Signs: Vital Signs Temp Pulse Resp BP Pulse Ox Pulse Ox 05/04/21 11:35 37.3 C 78 20 134/88 88 L 05/04/21 09:51 92 L 05/04/21 09:44 92 L 05/04/21 08:51 36.4 C 70 26 H 117/85 83 L 05/04/21 07:47 36.7 C 84 18 110/77 90 L 05/04/21 05:00 91 L 05/04/21 04:57 36.6 C 78 15 116/88 89 L - Problem List & Annotations (1) Acute respiratory failure SNOMED Code(s): 82206999 Code(s): J96.00 - ACUTE RESPIRATORY FAILURE, UNSP W HYPOXIA OR HYPERCAPNIA Status: Acute Priority: High Current Visit: Yes Qualifiers: Respiratory failure complication: hypoxia Qualified Code(s): J96.01 - Acute respiratory failure with hypoxia (2) Pneumonia due to COVID-19 virus SNOMED Code(s): 887015048190842455 Code(s): U07.1 - COVID-19; J12.82 - PNEUMONIA DUE TO CORONAVIRUS DISEASE 2019 Status: Acute Current Visit: Yes (3) Fatigue SNOMED Code(s): 78899023 Code(s): R53.83 - OTHER FATIGUE Status: Acute Current Visit: Yes Qualifiers: Fatigue type: unspecified Qualified Code(s): R53.83 - Other fatigue (4) Ascending aortic aneurysm Status: Chronic Priority: Medium Current Visit: No - Problem List Review Problem List Initiated/Reviewed/Updated: Yes - My Orders Last 24 Hours: My Active Orders 05/03/21 14:15 Patient Status [ADT] Routine Oxygen Therapy [RC] PRN Up ad Gabrielle [RC] QSHIFT VTE/DVT Education [RC] Vital Signs [RC] Q4HR Acetaminophen [TylenoL] 650 mg PO Q4H PRN Albuterol/Ipratropium [DuoNeb 3.0-0.5 MG/3 ML] 3 ml NEB Q4H PRN Docusate Sodium [Colace] 100 mg PO BID PRN Morphine 2 mg IVPUSH Q2H PRN Ondansetron [Zofran ODT] 4 mg PO Q4H PRN Temazepam [Restoril] 15 mg PO BEDTIME PRN oxyCODONE 5 mg PO Q4H PRN Resuscitation Status Routine 05/03/21 14:16 Cardiac Monitoring [RC] CONTINUOUS 05/03/21 14:21 RT Aerosol Therapy [RC] ASDIRECTED 05/03/21 14:30 Azithromycin [Zithromax] 500 mg Sodium Chloride 0.9% [Normal Saline (AdvBag)] 250 ml IV Q24H Enoxaparin [Lovenox] 40 mg SUBCUT DAILY 05/03/21 15:11 Albuterol [Proventil HFA] See Dose Instructions INH Q4H PRN 05/03/21 15:12 Chest Physiotherapy [RT Chest Physiotherapy] [RC] ASDIRECTED Incentive Spirometry [RT Incentive Spirometry] [RC] Q1HWA 05/03/21 Dinner Regular Diet [DIET] 05/04/21 09:00 Ascorbic Acid [Vitamin C] 1,000 mg PO DAILY Baricitinib [Olumiant] 4 mg PO DAILY Cholecalciferol (Vitamin D3) [Vitamin D3] 5,000 unit PO DAILY Nicotine [Habitrol] 14 mg TRDERM DAILY Zinc Sulfate [Zincate] 220 mg PO DAILY dexAMETHasone 6 mg PO DAILY 05/04/21 10:30 Remdesivir 100 mg Sodium Chloride 0.9% [Normal Saline] 100 ml IV Q24H - Assessment Assessment:: The patient is a 50-year-old gentleman who was initially admitted due to Covid pneumonia. The patient has had difficulty in maintaining his oxygen saturations around 92% and is on high flow oxygen. Regardless of the length of time for the patient's illness I have elected to place the patient on remdesivir 100 mg IV daily. He also meets qualifications for baricitinib and this was started with consultation from pharmacy. The patient is currently anticoagulated with Lovenox 40 mg subcutaneous daily. Continue with diet as tolerated. He is also on nicotine patch for smoking. The patient will be continued on telemetry. Repeat laboratory studies have been ordered. The patient should have a repeat chest x-ray in 1 to 2 days. The patient has been encouraged to ambulate in the room. The patient should be appropriate for discharge after finishing remdesivir. - Plan Plan:: The patient is a 50-year-old gentleman who has been admitted to acute inpatient hospitalization due to COVID-19 pneumonia. The patient is outside the window for remdesivir treatment. The patient will be started on remdesivir 6 mg p.o. daily. He will be maintained on oxygen titrated to keep his saturations around 92%. The patient will also be started on a azithromycin 500 mg IV daily for superimposed infection. The patient also has been anticoagulated with the use of Lovenox at 40 mg subcutaneously daily. Repeat laboratory studies to include D-dimer and CRP have also been ordered. The patient is to have a regular diet as tolerated. 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 Current guidelines have recommended that this be observed by annual CT scans. I have discussed the case of the aneurysm with the patient. The patient will need to follow-up with the primary care physician after discharge. He should be appropriate for discharge in 1 to 2 days depending upon his oxygen demands or symptoms.
[2021-05-04] MEDS: Azithromycin 500 MG in Sodium Chloride 0.9% 250 ML IV SCH (13:57)
[2021-05-05] MEDS: Cholecalciferol (Vitamin D3) 5,000 UNIT Cap PO SCH (08:15)
[2021-05-05] MEDS: Zinc Sulfate 220 MG Cap PO SCH (08:15)
[2021-05-05] MEDS: Ascorbic Acid 500 MG Tab PO SCH (08:15)
[2021-05-05] MEDS: Dexamethasone 4 MG Tab PO SCH (08:16)
[2021-05-05] MEDS: Enoxaparin 40 MG/0.4 ML Syringe SUBCUT SCH (08:17)
[2021-05-05] MEDS: Nicotine 14 MG/24 Hr Patch TRDERM SCH (08:18)
[2021-05-05] MEDS: Albuterol 6.7 GM Inhaler INH PRN ×4 (08:30→20:45)
[2021-05-05] MEDS: REMDESIVIR 100 MG in Sodium Chloride 0.9% 100 ML IV SCH (10:33)
--- NOTE | 2021-05-05 10:42 | PCM.PN ---
<Tim Carr - Last Filed: 05/05/21 14:01> - General Info Date of Service: 05/05/21 Admission Dx/Problem (Free Text): Admission Diagnosis/Problem Admission Diagnosis/Problem Pneumonia due to COVID-19 with acute respiratory failure. - Review of Systems General: Reports: Weakness, Fatigue, Malaise. Denies: Fever, Chills HEENT: Reports: No Symptoms. Denies: Headaches, Sore Throat Pulmonary: Reports: No Symptoms, Shortness of Breath, Cough, Sputum. Denies: Pleuritic Chest Pain, Wheezing Cardiovascular: Reports: No Symptoms, Dyspnea on Exertion. Denies: Chest Pain, Palpitations, Edema Gastrointestinal: Reports: No Symptoms. Denies: Abdominal Pain, Constipation, Diarrhea, Nausea, Vomiting Genitourinary: Reports: No Symptoms. Denies: Pain Musculoskeletal: Reports: No Symptoms Skin: Reports: No Symptoms. Denies: Cyanosis Neurological: Reports: No Symptoms. Denies: Confusion, Dizziness, Headache, Numbness, Pre-Existing Deficit, Seizure, Syncope, Tingling, Difficulty Walking, Gait Disturbance Psychiatric: Reports: No Symptoms - Patient Data Vitals - Most Recent: Last Vital Signs Temp 97.9 F 05/05/21 07:35 Pulse 80 05/05/21 07:35 Resp 20 05/05/21 07:35 BP 132/84 05/05/21 07:35 Pulse Ox 92 L 05/05/21 08:30 Weight - Most Recent: 207 lb 14.4 oz I&O - Last 24 Hours: Intake & Output 05/04/21 05/05/21 05/05/21 22:59 06:59 14:59 Intake Total 2080 900 Output Total 1675 1400 Balance 405 -500 Med Orders - Current: Current Medications Acetaminophen (Acetaminophen 325 Mg Tab) 650 mg PO Q4H PRN PRN Reason: Pain (Mild 1-3)/fever Albuterol (Albuterol 6.7 Gm Inhaler) 0 gm INH Q4H PRN PRN Reason: sob/wheezing Last Admin: 05/05/21 08:30 Dose: 2 puff Documented by: Albuterol/Ipratropium (Albuterol/Ipratropium 3.0-0.5 Mg/3 Ml Neb Soln) 3 ml NEB Q4H PRN PRN Reason: Shortness Of Breath/wheezing Ascorbic Acid (Ascorbic Acid 500 Mg Tab) 1,000 mg PO DAILY [facility] Last Admin: 05/05/21 08:15 Dose: 1,000 mg Documented by: Cholecalciferol (Cholecalciferol (Vitamin D3) 5,000 Unit Cap) 5,000 unit PO DAILY [facility] Last Admin: 05/05/21 08:15 Dose: 5,000 unit Documented by: Dexamethasone (Dexamethasone 4 Mg Tab) 6 mg PO DAILY [facility] Last Admin: 05/05/21 08:16 Dose: 6 mg Documented by: Docusate Sodium (Docusate Sodium 100 Mg Cap) 100 mg PO BID PRN PRN Reason: Constipation Enoxaparin Sodium (Enoxaparin 40 Mg/0.4 Ml Syringe) 40 mg SUBCUT DAILY [facility] Last Admin: 05/05/21 08:17 Dose: 40 mg Documented by: Azithromycin 500 mg/ Sodium (Chloride) 250 mls @ 250 mls/hr IV Q24H [facility] Last Admin: 05/04/21 13:57 Dose: 250 mls/hr Documented by: Remdesivir 100 mg/ Sodium (Chloride) 100 mls @ 100 mls/hr IV Q24H [facility] Stop: 05/07/21 11:29 Last Admin: 05/04/21 11:08 Dose: 100 mls/hr Documented by: Nicotine (Nicotine 14 Mg/24 Hr Patch) 14 mg TRDERM DAILY [facility] Last Admin: 05/05/21 08:18 Dose: Not Given Documented by: Ondansetron HCl (Ondansetron 4 Mg Tab.Dis) 4 mg PO Q4H PRN PRN Reason: nausea, able to take PO Oxycodone HCl (Oxycodone 5 Mg Tab) 5 mg PO Q4H PRN PRN Reason: Pain (moderate 4-6) Sodium Chloride (Sodium Chloride 0.9% 10 Ml Syringe) 10 ml FLUSH ASDIRECTED PRN PRN Reason: Keep Vein Open Last Admin: 05/03/21 10:12 Dose: 10 ml Documented by: Temazepam (Temazepam 15 Mg Cap) 15 mg PO BEDTIME PRN PRN Reason: Sleep Last Admin: 05/03/21 21:16 Dose: 15 mg Documented by: Zinc Sulfate (Zinc Sulfate 220 Mg Cap) 220 mg PO DAILY [facility] Last Admin: 05/05/21 08:15 Dose: 220 mg Documented by: Discontinued Medications Dexamethasone (Dexamethasone 4 Mg/Ml Sdv) 6 mg IVPUSH ONETIME ONE Stop: 05/03/21 09:54 Last Admin: 05/03/21 10:12 Dose: 6 mg Documented by: Sodium Chloride (Normal Saline) 1,000 mls @ 1,000 mls/hr IV .BOLUS [facility] Last Admin: 05/03/21 10:12 Dose: 1,000 mls/hr Documented by: Remdesivir 200 mg/ Sodium (Chloride) 250 mls @ 250 mls/hr IV ONETIME ONE Stop: 05/03/21 09:54 Last Admin: 05/03/21 10:30 Dose: Not Given Documented by: Remdesivir 200 mg/ Sodium (Chloride) 250 mls @ 250 mls/hr IV ONETIME ONE Stop: 05/03/21 11:29 Last Admin: 05/03/21 10:30 Dose: 250 mls/hr Documented by: Sodium Chloride (Normal Saline) 45 mls @ 40 mls/hr IV ASDIRECTED [facility] Last Admin: 05/03/21 11:48 Dose: 40 mls/hr Documented by: Sodium Chloride (Normal Saline) Confirm Administered Dose 100 mls @ as directed .ROUTE .STK-MED ONE Stop: 05/04/21 10:56 Last Admin: 05/04/21 13:37 Dose: Not Given Documented by: Iopamidol (Iopamidol 755 Mg/Ml 100 Ml Bottle) 100 ml IVPUSH ONETIME ONE Stop: 05/03/21 11:11 Last Admin: 05/03/21 11:47 Dose: 100 ml Documented by: Morphine Sulfate (Morphine 2 Mg/Ml Syringe) 2 mg IVPUSH Q2H PRN PRN Reason: Pain (severe 7-10) Stop: 05/04/21 14:17 Sodium Chloride (Sodium Chloride 0.9% 10 Ml Syringe) 10 ml FLUSH ONETIME PRN PRN Reason: Keep Vein Open Last Admin: 05/03/21 11:47 Dose: 10 ml Documented by: - Exam Quality Assessment: Supplemental Oxygen (High flow 50 L at 65% FiO2), DVT Prophylaxis. No: Urine Catheter General: Alert, Oriented, Cooperative, Mild Distress (Looks ill) HEENT: Pupils Equal, Pupils Reactive, Mucous Membr. Moist/[place] Neck: Supple, Trachea Midline Lungs: Normal Respiratory Effort, Decreased Breath Sounds, Crackles, Rhonchi Cardiovascular: Regular Rate, Regular Rhythm GI/Abdominal Exam: Normal Bowel Sounds, Soft, Non-Tender, No Distention (Male) Exam: Deferred Back Exam: Normal Inspection, Full Range of Motion Extremities: Normal Inspection, Normal Range of Motion, Non-Tender, No Pedal Edema, Normal Capillary Refill Peripheral Pulses: 3+: Radial (L), Radial (R), Dorsalis Pedis (L), Dorsalis Pedis (R) Skin: Warm, Dry, Intact Neurological: No New Focal Deficit Psy/Mental Status: Alert, Normal Affect, Normal Mood - Patient Data Result Diagrams: 05/04/21 05:34 05/04/21 05:34 Sepsis Event Note - Evaluation Sepsis Screening Result: Possible Sepsis Risk - Focused Exam Vital Signs: Vital Signs Temp Pulse Resp BP Pulse Ox Pulse Ox 05/05/21 08:30 92 L 05/05/21 07:35 97.9 F 80 20 132/84 88 L 05/05/21 06:22 92 L 05/05/21 05:05 89 L 05/05/21 04:16 97.0 F 87 24 H 104/82 93 L 05/05/21 01:50 91 L 05/05/21 01:45 89 L 05/05/21 00:25 97.5 F 64 22 H 134/94 H 95 - Problem List & Annotations (1) Elevated d-dimer SNOMED Code(s): 402991738 Code(s): R79.89 - OTHER SPECIFIED ABNORMAL FINDINGS OF BLOOD CHEMISTRY Status: Acute Priority: High Current Visit: Yes (2) Acute respiratory failure SNOMED Code(s): 49954030 Code(s): J96.00 - ACUTE RESPIRATORY FAILURE, UNSP W HYPOXIA OR HYPERCAPNIA Status: Acute Priority: High Current Visit: Yes Qualifiers: Respiratory failure complication: hypoxia Qualified Code(s): J96.01 - Acute respiratory failure with hypoxia (3) Hypoxia SNOMED Code(s): 399262522 Code(s): R09.02 - HYPOXEMIA Status: Acute Priority: High Current Visit: Yes (4) Pneumonia due to COVID-19 virus SNOMED Code(s): 468983535852429740 Code(s): U07.1 - COVID-19; J12.82 - PNEUMONIA DUE TO CORONAVIRUS DISEASE 2019 Status: Acute Current Visit: Yes (5) Ascending aortic aneurysm Status: Chronic Priority: Medium Current Visit: Yes (6) Smokes tobacco daily SNOMED Code(s): 201768669 Code(s): F17.200 - NICOTINE DEPENDENCE, UNSPECIFIED, UNCOMPLICATED Status: Chronic Priority: Medium Current Visit: Yes - Problem List Review Problem List Initiated/Reviewed/Updated: Yes - Assessment Assessment:: Day of admission - 05/03/2021 The patient is a 50-year-old gentleman who has been admitted to acute inpatient hospitalization due to COVID-19 pneumonia. The patient is outside the window for remdesivir treatment. The patient will be started on remdesivir 6 mg p.o. daily. He will be maintained on oxygen titrated to keep his saturations around 92%. The patient will also be started on a azithromycin 500 mg IV daily for superimposed infection. The patient also has been anticoagulated with the use of Lovenox at 40 mg subcutaneously daily. Repeat laboratory studies to include D-dimer and CRP have also been ordered. The patient is to have a regular diet as tolerated. 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 Current guidelines have recommended that this be observed by annual CT scans. I have discussed the case of the aneurysm with the patient. The patient will need to follow-up with the primary care physician after discharge. He should be appropriate for discharge in 1 to 2 days depending upon his oxygen demands or symptoms. 05/04/2021 The patient is a 50-year-old gentleman who was initially admitted due to Covid pneumonia. The patient has had difficulty in maintaining his oxygen saturations around 92% and is on high flow oxygen. Regardless of the length of time for the patient's illness I have elected to place the patient on remdesivir 100 mg IV daily. He also meets qualifications for baricitinib and this was started with consultation from pharmacy. The patient is currently anticoagulated with Lovenox 40 mg subcutaneous daily. Continue with diet as tolerated. He is also on nicotine patch for smoking. The patient will be continued on telemetry. Repeat laboratory studies have been ordered. The patient should have a repeat chest x-ray in 1 to 2 days. The patient has been encouraged to ambulate in the room. The patient should be appropriate for discharge after finishing remdesivir. 05/05/2021 Is a 50-year-old male who was admitted to the hospital for COVID-19 pneumonia. Incidentally on CTA he was noted to have an ascending aortic aneurysm. No signs of any rupture. Today labs show a WBC of 9.08. Hemoglobin 15.9. He is no rmocytic. Platelet 272,000. Neutrophils are elevated 87.7%. D-dimer is 1.22. Sodium 140. Potassium 4.6. Chloride 105. Carbon dioxide 25. Anion gap is 14.6. BUN is 21. Creatinine 0.8. GFR greater than 60. Glucose 128. Calcium 7.7. Magnesium 2.4. Bilirubin 0.6. AST is 58, ALT 85. Alkaline phosphatase 64. CRP is 6.8. Protein 6.4. Albumin 2.7. He is receiving azithromycin, dexamethasone, remdesivir, and Baricitinib. He is on 50 L with an FiO2 of 65% for high flow. Added aspirin 81 mg, 20 mg twice daily Pepcid, and we will check his vitamin D today as well. We will recheck daily labs tomorrow. He has been utilizing his incentive spirometer and Acapella. He was again encouraged to prone whenever p ossible. Unknown length of stay due to severity of symptoms. - Plan Plan:: Pneumonia due to COVID-19 virus Elevated d-dimer Acute respiratory failure Hypoxia * Negative CTA for PE * Remdesivir day 11/07 * Dexamethasone day 11/12 * O2 to keep saturation between 88 to 95%. * High flow oxygen as directed * As needed albuterol MDI * As needed DuoNeb's * Daily labs * Check D-dimer every 48 hours * I-S/Acapella * RT consult * Lovenox for VTE prophylaxis * Prone whenever able * Ambulate around room * Azithromycin day 10/08 * Start 81 mg daily aspirin * Baricitinib day 10/19 * Telemetry * Airborne/contact isolation * Continuous pulse oximetry * Daily zinc supplementation * Famotidine 20 mg twice daily * Check vitamin D level Ascending aortic aneurysm * 4.1 cm * No acute concerns * PCP follow-up/monitoring Smokes tobacco daily * Daily nicotine patch * Cessation counseling * Offered nicotine patches at discharge Code status: Full code PCP: None - needs to establish DVT prophylaxis: Lovenox Disposition: Patient will remain hospitalized for duration of COVID-19 treatment. Unknown length of stay due to severity of symptoms. Length of stay greater than 96 hours due to need for continued COVID-19 treatment. <Melissa Dahl - Last Filed: 05/05/21 14:12> - Patient Data Vitals - Most Recent: Last Vital Signs Temp 99.7 F 05/05/21 11:41 Pulse 109 H 05/05/21 11:41 Resp 22 H 05/05/21 11:41 BP 112/81 05/05/21 11:41 Pulse Ox 91 L 05/05/21 12:41 I&O - Last 24 Hours: Intake & Output 05/04/21 05/05/21 05/05/21 22:59 06:59 14:59 Intake Total 2080 900 Output Total 1675 1400 Balance 405 -500 Med Orders - Current: Current Medications Acetaminophen (Acetaminophen 325 Mg Tab) 650 mg PO Q4H PRN PRN Reason: Pain (Mild 1-3)/fever Albuterol (Albuterol 6.7 Gm Inhaler) 0 gm INH Q4H PRN PRN Reason: sob/wheezing Last Admin: 05/05/21 12:41 Dose: 2 puff Documented by: Albuterol/Ipratropium (Albuterol/Ipratropium 3.0-0.5 Mg/3 Ml Neb Soln) 3 ml NEB Q4H PRN PRN Reason: Shortness Of Breath/wheezing Ascorbic Acid (Ascorbic Acid 500 Mg Tab) 1,000 mg PO DAILY [facility] Last Admin: 05/05/21 08:15 Dose: 1,000 mg Documented by: Aspirin (Aspirin 81 Mg Tab.Chew) 81 mg PO BEDTIME [facility] Cholecalciferol (Cholecalciferol (Vitamin D3) 5,000 Unit Cap) 5,000 unit PO DAILY [facility] Last Admin: 05/05/21 08:15 Dose: 5,000 unit Documented by: Dexamethasone (Dexamethasone 4 Mg Tab) 6 mg PO DAILY [facility] Stop: 05/12/21 09:01 Last Admin: 05/05/21 08:16 Dose: 6 mg Documented by: Docusate Sodium (Docusate Sodium 100 Mg Cap) 100 mg PO BID PRN PRN Reason: Constipation Enoxaparin Sodium (Enoxaparin 40 Mg/0.4 Ml Syringe) 40 mg SUBCUT DAILY [facility] Last Admin: 05/05/21 08:17 Dose: 40 mg Documented by: Famotidine (Famotidine 20 Mg Tab) 20 mg PO BID [facility] Azithromycin 500 mg/ Sodium (Chloride) 250 mls @ 250 mls/hr IV Q24H [facility] Stop: 05/05/21 15:29 Last Admin: 05/04/21 13:57 Dose: 250 mls/hr Documented by: Remdesivir 100 mg/ Sodium (Chloride) 100 mls @ 100 mls/hr IV Q24H [facility] Stop: 05/07/21 11:29 Last Admin: 05/05/21 10:33 Dose: 100 mls/hr Documented by: Nicotine (Nicotine 14 Mg/24 Hr Patch) 14 mg TRDERM DAILY [facility] Last Admin: 05/05/21 08:18 Dose: Not Given Documented by: Ondansetron HCl (Ondansetron 4 Mg Tab.Dis) 4 mg PO Q4H PRN PRN Reason: nausea, able to take PO Oxycodone HCl (Oxycodone 5 Mg Tab) 5 mg PO Q4H PRN PRN Reason: Pain (moderate 4-6) Sodium Chloride (Sodium Chloride 0.9% 10 Ml Syringe) 10 ml FLUSH ASDIRECTED PRN PRN Reason: Keep Vein Open Last Admin: 05/03/21 10:12 Dose: 10 ml Documented by: Temazepam (Temazepam 15 Mg Cap) 15 mg PO BEDTIME PRN PRN Reason: Sleep Last Admin: 05/03/21 21:16 Dose: 15 mg Documented by: Zinc Sulfate (Zinc Sulfate 220 Mg Cap) 220 mg PO DAILY [facility] Last Admin: 05/05/21 08:15 Dose: 220 mg Documented by: Discontinued Medications Dexamethasone (Dexamethasone 4 Mg/Ml Sdv) 6 mg IVPUSH ONETIME ONE Stop: 05/03/21 09:54 Last Admin: 05/03/21 10:12 Dose: 6 mg Documented by: Sodium Chloride (Normal Saline) 1,000 mls @ 1,000 mls/hr IV .BOLUS [facility] Last Admin: 05/03/21 10:12 Dose: 1,000 mls/hr Documented by: Remdesivir 200 mg/ Sodium (Chloride) 250 mls @ 250 mls/hr IV ONETIME ONE Stop: 05/03/21 09:54 Last Admin: 05/03/21 10:30 Dose: Not Given Documented by: Remdesivir 200 mg/ Sodium (Chloride) 250 mls @ 250 mls/hr IV ONETIME ONE Stop: 05/03/21 11:29 Last Admin: 05/03/21 10:30 Dose: 250 mls/hr Documented by: Sodium Chloride (Normal Saline) 45 mls @ 40 mls/hr IV ASDIRECTED [facility] Last Admin: 05/03/21 11:48 Dose: 40 mls/hr Documented by: Sodium Chloride (Normal Saline) Confirm Administered Dose 100 mls @ as directed .ROUTE .STK-MED ONE Stop: 05/04/21 10:56 Last Admin: 05/04/21 13:37 Dose: Not Given Documented by: Iopamidol (Iopamidol 755 Mg/Ml 100 Ml Bottle) 100 ml IVPUSH ONETIME ONE Stop: 05/03/21 11:11 Last Admin: 05/03/21 11:47 Dose: 100 ml Documented by: Morphine Sulfate (Morphine 2 Mg/Ml Syringe) 2 mg IVPUSH Q2H PRN PRN Reason: Pain (severe 7-10) Stop: 05/04/21 14:17 Sodium Chloride (Sodium Chloride 0.9% 10 Ml Syringe) 10 ml FLUSH ONETIME PRN PRN Reason: Keep Vein Open Last Admin: 05/03/21 11:47 Dose: 10 ml Documented by: - Patient Data Result Diagrams: 05/04/21 05:34 05/04/21 05:34 Sepsis Event Note - Focused Exam Vital Signs: Vital Signs Temp Pulse Resp BP Pulse Ox Pulse Ox 05/05/21 12:41 91 L 05/05/21 11:41 99.7 F 109 H 22 H 112/81 89 L 05/05/21 08:30 92 L 05/05/21 08:25 98.4 F 79 24 H 128/84 91 L 05/05/21 07:35 97.9 F 80 20 132/84 88 L 05/05/21 06:22 92 L 05/05/21 05:05 89 L 05/05/21 04:16 97.0 F 87 24 H 104/82 93 L - Plan Plan:: 05/05/21 patient seen and examined, agree with assessment and plan. No changes to present management. physical examination: CVS: [id number] Resp: Crackles, rales, rhonchi Abd : S/NT/ND Ext: no edema
[2021-05-05] MEDS: Azithromycin 500 MG in Sodium Chloride 0.9% 250 ML IV SCH (14:38)
[2021-05-05] MEDS: Famotidine 20 MG Tab PO SCH (20:51)
[2021-05-05] MEDS: Aspirin 81 MG Tab.Chew PO SCH (20:51)
[2021-05-05] MEDS: Temazepam 15 MG Cap PO PRN (20:51)
--- NOTE | 2021-05-06 07:16 | PCM.PN ---
- General Info Date of Service: 05/06/21 Admission Dx/Problem (Free Text): Admission Diagnosis/Problem Admission Diagnosis/Problem Pneumonia due to COVID-19 with acute respiratory failure. Functional Status: Reports: Pain Controlled, Tolerating Diet, Ambulating, Urinat ing, Incentive Spirometry, Other (Acapella). Denies: New Symptoms - Review of Systems General: Reports: Weakness, Fatigue, Malaise. Denies: Fever, Chills HEENT: Reports: Sore Throat (From coughing). Denies: Headaches Pulmonary: Reports: Shortness of Breath, Cough, Sputum, Wheezing. Denies: Pleuritic Chest Pain, Hemoptysis Cardiovascular: Reports: Dyspnea on Exertion. Denies: Chest Pain, Palpitations, Edema, Lightheadedness Gastrointestinal: Reports: Diarrhea. Denies: Abdominal Pain, Constipation, Nausea, Vomiting Genitourinary: Reports: No Symptoms Musculoskeletal: Reports: No Symptoms Skin: Reports: No Symptoms. Denies: Cyanosis Neurological: Reports: No Symptoms. Denies: Confusion, Dizziness, Headache, Numbness, Pre-Existing Deficit, Syncope, Tingling, Difficulty Walking, Gait Disturbance Psychiatric: Reports: No Symptoms - Patient Data Vitals - Most Recent: Last Vital Signs Temp 97.9 F 05/06/21 06:39 Pulse 76 05/06/21 06:39 Resp 22 H 05/06/21 06:39 BP 110/55 L 05/05/21 20:57 Pulse Ox 98 05/06/21 06:39 Weight - Most Recent: 206 lb 1.6 oz I&O - Last 24 Hours: Intake & Output 05/05/21 05/06/21 05/06/21 22:59 06:59 14:59 Intake Total 1770 1000 Output Total 1225 1550 Balance 545 -550 Lab Results Last 24 Hours: Laboratory Results - last 24 hr 05/04/21 05/06/21 05/06/21 Range/Units 05:34 05:04 05:04 WBC 12.27 H (4.23-9.07) K/mm3 RBC 5.71 (4.63-6.08) M/mm3 Hgb 17.1 (13.7-17.5) gm/dl Hct 50.5 (40.1-51.0) % MCV 88.4 (79.0-92.2) fl MCH 29.9 (25.7-32.2) pg MCHC 33.9 (32.2-35.5) g/dl RDW Std Deviation 40.7 (35.1-43.9) fL Plt Count 389 H D (163-337) K/mm3 MPV 9.5 (9.4-12.3) fl Neut % (Auto) 89.5 H (34.0-67.9) % Lymph % (Auto) 5.5 L (21.8-53.1) % Posey % (Auto) 4.0 L (5.3-12.2) % Eos % (Auto) 0.1 L (0.8-7.0) Baso % (Auto) 0.2 (0.1-1.2) % Neut # (Auto) 10.99 H (1.78-5.38) K/mm3 Lymph # (Auto) 0.67 L (1.32-3.57) K/mm3 Posey # (Auto) 0.49 (0.30-0.82) K/mm3 Eos # (Auto) 0.01 L (0.04-0.54) K/mm3 Baso # (Auto) 0.02 (0.01-0.08) K/mm3 Manual Slide Review Normal smear Sodium 138 (136-145) mEq/L Potassium 4.6 (3.5-5.1) mEq/L Chloride 103 (98-107) mEq/L Carbon Dioxide 25 (21-32) mEq/L Anion Gap 14.6 (5-15) BUN 23 H (7-18) mg/dL Creatinine 1.0 (0.7-1.3) mg/dL Est Cr Clr Drug Dosing 85.50 mL/min Estimated GFR (MDRD) > 60 (>60) mL/min BUN/Creatinine Ratio 23.0 H (14-18) Glucose 190 H (70-99) mg/dL Calcium 8.2 L (8.5-10.1) mg/dL Magnesium 2.2 (1.8-2.4) mg/dL Total Bilirubin 0.6 (0.2-1.0) mg/dL AST 44 H (15-37) U/L ALT 97 H (16-63) U/L Alkaline Phosphatase 76 (46-116) U/L Total Protein 6.9 (6.4-8.2) g/dl Albumin 2.9 L (3.4-5.0) g/dl Globulin 4.0 gm/dL Albumin/Globulin Ratio 0.7 L (1-2) Vitamin D 25-Hydroxy 33.2 (30.0-100.0) ng/ml Med Orders - Current: Current Medications Acetaminophen (Acetaminophen 325 Mg Tab) 650 mg PO Q4H PRN PRN Reason: Pain (Mild 1-3)/fever Albuterol (Albuterol 6.7 Gm Inhaler) 0 gm INH Q4H PRN PRN Reason: sob/wheezing Last Admin: 05/05/21 20:45 Dose: 2 puff Documented by: Albuterol/Ipratropium (Albuterol/Ipratropium 3.0-0.5 Mg/3 Ml Neb Soln) 3 ml NEB Q4H PRN PRN Reason: Shortness Of Breath/wheezing Ascorbic Acid (Ascorbic Acid 500 Mg Tab) 1,000 mg PO DAILY [facility] Last Admin: 05/05/21 08:15 Dose: 1,000 mg Documented by: Aspirin (Aspirin 81 Mg Tab.Chew) 81 mg PO BEDTIME [facility] Last Admin: 05/05/21 20:51 Dose: 81 mg Documented by: Cholecalciferol (Cholecalciferol (Vitamin D3) 5,000 Unit Cap) 5,000 unit PO DAILY [facility] Last Admin: 05/05/21 08:15 Dose: 5,000 unit Documented by: Dexamethasone (Dexamethasone 4 Mg Tab) 6 mg PO DAILY [facility] Stop: 05/12/21 09:01 Last Admin: 05/05/21 08:16 Dose: 6 mg Documented by: Docusate Sodium (Docusate Sodium 100 Mg Cap) 100 mg PO BID PRN PRN Reason: Constipation Enoxaparin Sodium (Enoxaparin 40 Mg/0.4 Ml Syringe) 40 mg SUBCUT DAILY [facility] Last Admin: 05/05/21 08:17 Dose: 40 mg Documented by: Famotidine (Famotidine 20 Mg Tab) 20 mg PO BID [facility] Last Admin: 05/05/21 20:51 Dose: 20 mg Documented by: Remdesivir 100 mg/ Sodium (Chloride) 100 mls @ 100 mls/hr IV Q24H [facility] Stop: 05/07/21 11:29 Last Admin: 05/05/21 10:33 Dose: 100 mls/hr Documented by: Nicotine (Nicotine 14 Mg/24 Hr Patch) 14 mg TRDERM DAILY [facility] Last Admin: 05/05/21 08:18 Dose: Not Given Documented by: Ondansetron HCl (Ondansetron 4 Mg Tab.Dis) 4 mg PO Q4H PRN PRN Reason: nausea, able to take PO Oxycodone HCl (Oxycodone 5 Mg Tab) 5 mg PO Q4H PRN PRN Reason: Pain (moderate 4-6) Sodium Chloride (Sodium Chloride 0.9% 10 Ml Syringe) 10 ml FLUSH ASDIRECTED PRN PRN Reason: Keep Vein Open Last Admin: 05/03/21 10:12 Dose: 10 ml Documented by: Temazepam (Temazepam 15 Mg Cap) 15 mg PO BEDTIME PRN PRN Reason: Sleep Last Admin: 05/05/21 20:51 Dose: 15 mg Documented by: Zinc Sulfate (Zinc Sulfate 220 Mg Cap) 220 mg PO DAILY [facility] Last Admin: 05/05/21 08:15 Dose: 220 mg Documented by: Discontinued Medications Dexamethasone (Dexamethasone 4 Mg/Ml Sdv) 6 mg IVPUSH ONETIME ONE Stop: 05/03/21 09:54 Last Admin: 05/03/21 10:12 Dose: 6 mg Documented by: Sodium Chloride (Normal Saline) 1,000 mls @ 1,000 mls/hr IV .BOLUS [facility] Last Admin: 05/03/21 10:12 Dose: 1,000 mls/hr Documented by: Remdesivir 200 mg/ Sodium (Chloride) 250 mls @ 250 mls/hr IV ONETIME ONE Stop: 05/03/21 09:54 Last Admin: 05/03/21 10:30 Dose: Not Given Documented by: Remdesivir 200 mg/ Sodium (Chloride) 250 mls @ 250 mls/hr IV ONETIME ONE Stop: 05/03/21 11:29 Last Admin: 05/03/21 10:30 Dose: 250 mls/hr Documented by: Sodium Chloride (Normal Saline) 45 mls @ 40 mls/hr IV ASDIRECTED MOE Last Admin: 05/03/21 11:48 Dose: 40 mls/hr Documented by: Azithromycin 500 mg/ Sodium (Chloride) 250 mls @ 250 mls/hr IV Q24H MOE Stop: 05/05/21 15:29 Last Admin: 05/05/21 14:38 Dose: 250 mls/hr Documented by: Sodium Chloride (Normal Saline) Confirm Administered Dose 100 mls @ as directed .ROUTE .STK-MED ONE Stop: 05/04/21 10:56 Last Admin: 05/04/21 13:37 Dose: Not Given Documented by: Iopamidol (Iopamidol 755 Mg/Ml 100 Ml Bottle) 100 ml IVPUSH ONETIME ONE Stop: 05/03/21 11:11 Last Admin: 05/03/21 11:47 Dose: 100 ml Documented by: Morphine Sulfate (Morphine 2 Mg/Ml Syringe) 2 mg IVPUSH Q2H PRN PRN Reason: Pain (severe 7-10) Stop: 05/04/21 14:17 Sodium Chloride (Sodium Chloride 0.9% 10 Ml Syringe) 10 ml FLUSH ONETIME PRN PRN Reason: Keep Vein Open Last Admin: 05/03/21 11:47 Dose: 10 ml Documented by: - Exam Quality Assessment: Supplemental Oxygen (High flow 55 L at 70% FiO2), DVT Prophylaxis. No: Urine Catheter General: Alert, Oriented, Cooperative, Mild Distress (Looks uncomfortable and appears ill) HEENT: Pupils Equal, Pupils Reactive, Mucous Membr. Moist/Zephyr Neck: Supple, Trachea Midline Lungs: Normal Respiratory Effort, Decreased Breath Sounds, Crackles, Rales, Rhonchi. No: Wheezing Cardiovascular: Regular Rate, Regular Rhythm GI/Abdominal Exam: Normal Bowel Sounds, Soft, Non-Tender, No Distention (Male) Exam: Deferred Back Exam: Normal Inspection, Full Range of Motion Extremities: Normal Inspection, Normal Range of Motion, Non-Tender, No Pedal Edema, Normal Capillary Refill Peripheral Pulses: 3+: Radial (L), Radial (R), Dorsalis Pedis (L), Dorsalis Pedis (R) Skin: Warm, Dry, Intact Neurological: No New Focal Deficit Psy/Mental Status: Alert, Anxious - Patient Data Lab Results Last 24 hrs: Laboratory Results - last 24 hr 05/04/21 05/06/21 05/06/21 Range/Units 05:34 05:04 05:04 WBC 12.27 H (4.23-9.07) K/mm3 RBC 5.71 (4.63-6.08) M/mm3 Hgb 17.1 (13.7-17.5) gm/dl Hct 50.5 (40.1-51.0) % MCV 88.4 (79.0-92.2) fl MCH 29.9 (25.7-32.2) pg MCHC 33.9 (32.2-35.5) g/dl RDW Std Deviation 40.7 (35.1-43.9) fL Plt Count 389 H D (163-337) K/mm3 MPV 9.5 (9.4-12.3) fl Neut % (Auto) 89.5 H (34.0-67.9) % Lymph % (Auto) 5.5 L (21.8-53.1) % Posey % (Auto) 4.0 L (5.3-12.2) % Eos % (Auto) 0.1 L (0.8-7.0) Baso % (Auto) 0.2 (0.1-1.2) % Neut # (Auto) 10.99 H (1.78-5.38) K/mm3 Lymph # (Auto) 0.67 L (1.32-3.57) K/mm3 Posey # (Auto) 0.49 (0.30-0.82) K/mm3 Eos # (Auto) 0.01 L (0.04-0.54) K/mm3 Baso # (Auto) 0.02 (0.01-0.08) K/mm3 Manual Slide Review Normal smear Sodium 138 (136-145) mEq/L Potassium 4.6 (3.5-5.1) mEq/L Chloride 103 (98-107) mEq/L Carbon Dioxide 25 (21-32) mEq/L Anion Gap 14.6 (5-15) BUN 23 H (7-18) mg/dL Creatinine 1.0 (0.7-1.3) mg/dL Est Cr Clr Drug Dosing 85.50 mL/min Estimated GFR (MDRD) > 60 (>60) mL/min BUN/Creatinine Ratio 23.0 H (14-18) Glucose 190 H (70-99) mg/dL Calcium 8.2 L (8.5-10.1) mg/dL Magnesium 2.2 (1.8-2.4) mg/dL Total Bilirubin 0.6 (0.2-1.0) mg/dL AST 44 H (15-37) U/L ALT 97 H (16-63) U/L Alkaline Phosphatase 76 (46-116) U/L Total Protein 6.9 (6.4-8.2) g/dl Albumin 2.9 L (3.4-5.0) g/dl Globulin 4.0 gm/dL Albumin/Globulin Ratio 0.7 L (1-2) Vitamin D 25-Hydroxy 33.2 (30.0-100.0) ng/ml Result Diagrams: 05/06/21 05:04 05/06/21 05:04 Sepsis Event Note - Evaluation Sepsis Screening Result: Possible Sepsis Risk - Focused Exam Vital Signs: Vital Signs Temp Pulse Resp BP Pulse Ox Pulse Ox 05/06/21 06:39 97.9 F 76 22 H 98 05/06/21 03:07 91 L 05/05/21 20:58 93 89 L 05/05/21 20:57 97.7 F 104 H 22 H 110/55 L 84 L 05/05/21 20:45 94 L - Problem List & Annotations (1) Elevated d-dimer SNOMED Code(s): 193190249 Code(s): R79.89 - OTHER SPECIFIED ABNORMAL FINDINGS OF BLOOD CHEMISTRY Status: Acute Priority: High Current Visit: Yes (2) Acute respiratory failure SNOMED Code(s): 62501105 Code(s): J96.00 - ACUTE RESPIRATORY FAILURE, UNSP W HYPOXIA OR HYPERCAPNIA Status: Acute Priority: High Current Visit: Yes Qualifiers: Respiratory failure complication: hypoxia Qualified Code(s): J96.01 - Acute respiratory failure with hypoxia (3) Hypoxia SNOMED Code(s): 669300490 Code(s): R09.02 - HYPOXEMIA Status: Acute Priority: High Current Visit: Yes (4) Pneumonia due to COVID-19 virus SNOMED Code(s): 478187987044789944 Code(s): U07.1 - COVID-19; J12.82 - PNEUMONIA DUE TO CORONAVIRUS DISEASE 2019 Status: Acute Current Visit: Yes (5) Ascending aortic aneurysm Status: Chronic Priority: Medium Current Visit: Yes (6) Smokes tobacco daily SNOMED Code(s): 196014119 Code(s): F17.200 - NICOTINE DEPENDENCE, UNSPECIFIED, UNCOMPLICATED Status: Chronic Priority: Medium Current Visit: Yes - Problem List Review Problem List Initiated/Reviewed/Updated: Yes - My Orders Last 24 Hours: My Active Orders 05/05/21 12:13 RT Oxygen High Flow [RESPCARE] Routine 05/05/21 13:50 Consult to Respiratory Therapy [Respiratory Care Assess and Treatment] [CONS] Routine 05/05/21 21:00 Aspirin 81 mg PO BEDTIME Famotidine [Pepcid] 20 mg PO BID 05/07/21 05:11 CBC WITH AUTO DIFF [HEME] AM CMP [COMPREHENSIVE METABOLIC PN,CMP] [CHEM] AM DD [D-DIMER QUANTITATIVE] [COAG] Q48H MAGNESIUM [CHEM] AM 05/08/21 05:11 CBC WITH AUTO DIFF [HEME] AM CMP [COMPREHENSIVE METABOLIC PN,CMP] [CHEM] AM MAGNESIUM [CHEM] AM 05/09/21 05:11 CBC WITH AUTO DIFF [HEME] AM CMP [COMPREHENSIVE METABOLIC PN,CMP] [CHEM] AM DD [D-DIMER QUANTITATIVE] [COAG] Q48H MAGNESIUM [CHEM] AM 05/11/21 05:11 DD [D-DIMER QUANTITATIVE] [COAG] Q48H - Assessment Assessment:: Day of admission - 05/03/2021 The patient is a 50-year-old gentleman who has been admitted to acute inpatient hospitalization due to COVID-19 pneumonia. The patient is outside the window for remdesivir treatment. The patient will be started on remdesivir 6 mg p.o. daily. He will be maintained on oxygen titrated to keep his saturations around 92%. The patient will also be started on a azithromycin 500 mg IV daily for superimposed infection. The patient also has been anticoagulated with the use of Lovenox at 40 mg subcutaneously daily. Repeat laboratory studies to include D-dimer and CRP have also been ordered. The patient is to have a regular diet as tolerated. 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 Current guidelines have recommended that this be observed by annual CT scans. I have discussed the case of the aneurysm with the patient. The patient will need to follow-up with the primary care physician after discharge. He should be appropriate for discharge in 1 to 2 days depending upon his oxygen demands or symptoms. 05/04/2021 The patient is a 50-year-old gentleman who was initially admitted due to Covid pneumonia. The patient has had difficulty in maintaining his oxygen saturations around 92% and is on high flow oxygen. Regardless of the length of time for the patient's illness I have elected to place the patient on remdesivir 100 mg IV daily. He also meets qualifications for baricitinib and this was started with consultation from pharmacy. The patient is currently anticoagulated with Lovenox 40 mg subcutaneous daily. Continue with diet as tolerated. He is also on nicotine patch for smoking. The patient will be continued on telemetry. Repeat laboratory studies have been ordered. The patient should have a repeat chest x-ray in 1 to 2 days. The patient has been encouraged to ambulate in the room. The patient should be appropriate for discharge after finishing remdesivir. 05/05/2021 Is a 50-year-old male who was admitted to the hospital for COVID-19 pneumonia. Incidentally on CTA he was noted to have an ascending aortic aneurysm. No signs of any rupture. Today labs show a WBC of 9.08. Hemoglobin 15.9. He is normocytic. Platelet 272,000. Neutrophils are elevated 87.7%. D-dimer is 1.22. Sodium 140. Potassium 4.6. Chloride 105. Carbon dioxide 25. Anion gap is 14.6. BUN is 21. Creatinine 0.8. GFR greater than 60. Glucose 128. Calcium 7.7. Magnesium 2.4. Bilirubin 0.6. AST is 58, ALT 85. Alkaline phosphatase 64. CRP is 6.8. Protein 6.4. Albumin 2.7. He is receiving azithromycin, dexamethasone, remdesivir, and Baricitinib. He is on 50 L with an FiO2 of 65% for high flow. Added aspirin 81 mg, 20 mg twice daily Pepcid, and we will check his vitamin D today as well. We will recheck daily labs tomorrow. He has been utilizing his incentive spirometer and Acapella. He was again encouraged to prone whenever possible. Unknown length of stay due to severity of symptoms. 05/06/2021 This is a 50-year-old male who was admitted for COVID-19 pneumonia. He is on day 4 of remdesivir and dexamethasone. Day 3 of Baricitinib. His oxygen demand has increased to 50 L with an FiO2 of 75%. He continues to prone and utilize incentive spirometer and Acapella. Nicotine patch is in place. Labs today show an elevated WBC of 12.27, likely secondary to steroid use. Platelets are 389,000. Neutrophils are elevated 89.5%. We will recheck D-dimer tomorrow. Sodium 138. Potassium 4.6. Chloride 103. Carbon dioxide 25. Anion gap 14.6. BUN is 23. Creatinine 1.0. GFR greater than 60. Glucose is 190. Calcium 8.2. Bilirubin 0.6. AST is 40, ALT is 97, alkaline phosphatase 76. CRP is down to 3.8. Protein is 6.9. Albumin is 2.9. Vitamin D was obtained and was on the low end of normal at 33.2. Patient is requesting a spiritual care consult and this will be placed. Unknown length of stay due to severity of COVID-19 symptoms. We will continue to try to wean oxygen as patient tolerates. Overall he states he feels about the same as yesterday. He continues to have significant cough and sputum production. Reports his throat is sore from coughing so much so we will add Cepacol lozenges as needed. - Plan Plan:: Pneumonia due to COVID-19 virus Elevated d-dimer Acute respiratory failure Hypoxia * Negative CTA for PE * Remdesivir day 12/08 * Dexamethasone day 12/13 * O2 to keep saturation between 88 to 95%. * High flow oxygen as directed * As needed albuterol MDI * As needed DuoNeb's * Daily labs * Check D-dimer every 48 hours * I-S/Acapella * RT consult * Lovenox for VTE prophylaxis * Prone whenever able * Ambulate around room * Azithromycin day 11/05 * Start 81 mg daily aspirin * Baricitinib day 11/16 * Telemetry * Airborne/contact isolation * Continuous pulse oximetry * Daily zinc supplementation * Famotidine 20 mg twice daily Ascending aortic aneurysm * 4.1 cm * No acute concerns * PCP follow-up/monitoring Smokes tobacco daily * Daily nicotine patch * Cessation counseling * Offered nicotine patches at discharge Code status: Full code PCP: None - needs to establish DVT prophylaxis: Lovenox Disposition: Patient will remain hospitalized for duration of COVID-19 treatment. Unknown length of stay due to severity of symptoms. Length of stay greater than 96 hours due to need for continued COVID-19 treatment.
[2021-05-06] MEDS: Albuterol 6.7 GM Inhaler INH PRN ×3 (08:18→20:22)
[2021-05-06] MEDS: Nicotine 14 MG/24 Hr Patch TRDERM SCH (09:17)
[2021-05-06] MEDS: REMDESIVIR 100 MG in Sodium Chloride 0.9% 100 ML IV SCH (09:37)
[2021-05-06] MEDS: Enoxaparin 40 MG/0.4 ML Syringe SUBCUT SCH (09:41)
[2021-05-06] MEDS: Ascorbic Acid 500 MG Tab PO SCH (09:42)
[2021-05-06] MEDS: Zinc Sulfate 220 MG Cap PO SCH (09:42)
[2021-05-06] MEDS: Dexamethasone 4 MG Tab PO SCH (09:43)
[2021-05-06] MEDS: Famotidine 20 MG Tab PO SCH ×2 (09:43→21:26)
[2021-05-06] MEDS: Cholecalciferol (Vitamin D3) 5,000 UNIT Cap PO SCH (09:43)
[2021-05-06] MEDS: Aspirin 81 MG Tab.Chew PO SCH (21:26)
[2021-05-06] MEDS: Temazepam 15 MG Cap PO PRN (21:26)
[2021-05-07] MEDS: Albuterol 6.7 GM Inhaler INH PRN ×2 (08:37→14:32)
[2021-05-07] MEDS ORDERED: REMDESIVIR 100 MG in Sodium Chloride 0.9% 100 ML IV SCH (09:00)
[2021-05-07] MEDS: Cholecalciferol (Vitamin D3) 5,000 UNIT Cap PO SCH (09:40)
[2021-05-07] MEDS: Famotidine 20 MG Tab PO SCH ×2 (09:40→21:07)
[2021-05-07] MEDS: Dexamethasone 4 MG Tab PO SCH (09:40)
[2021-05-07] MEDS: Zinc Sulfate 220 MG Cap PO SCH (09:41)
[2021-05-07] MEDS: Ascorbic Acid 500 MG Tab PO SCH (09:41)
--- NOTE | 2021-05-07 10:28 | PCM.PN ---
<AnaJorden M - Last Filed: 05/07/21 12:02> - General Info Date of Service: 05/07/21 Admission Dx/Problem (Free Text): Admission Diagnosis/Problem Admission Diagnosis/Problem Pneumonia due to COVID-19 with acute respiratory failure. Subjective Update: Patient states he still feeling pretty short of breath. States his appetite has been poor other than eating fruits. He has not been proning and this was discussed at length. He states he will try and start doing that more. Continues on oxygen at 55 L with an FiO2 of 70% Functional Status: Reports: Pain Controlled - Review of Systems General: Reports: Weakness, Fatigue HEENT: Reports: No Symptoms Pulmonary: Reports: Shortness of Breath, Cough. Denies: Sputum Cardiovascular: Reports: No Symptoms Gastrointestinal: Reports: Decreased Appetite. Denies: Nausea, Vomiting Genitourinary: Reports: No Symptoms Musculoskeletal: Reports: No Symptoms Skin: Reports: No Symptoms Neurological: Reports: No Symptoms Psychiatric: Reports: No Symptoms - Patient Data Vitals - Most Recent: Last Vital Signs Temp 97.5 F 05/07/21 04:06 Pulse 81 05/07/21 04:06 Resp 20 05/07/21 04:06 BP 107/77 05/07/21 04:06 Pulse Ox 96 05/07/21 08:38 Weight - Most Recent: 203 lb 9.6 oz I&O - Last 24 Hours: Intake & Output 05/06/21 05/07/21 05/07/21 22:59 06:59 14:59 Intake Total 1730 800 Output Total 1100 Balance 630 800 Lab Results Last 24 Hours: Laboratory Results - last 24 hr 05/07/21 05/07/21 05/07/21 Range/Units 04:35 06:30 06:30 WBC 12.03 H (4.23-9.07) K/mm3 RBC 5.82 (4.63-6.08) M/mm3 Hgb 17.2 (13.7-17.5) gm/dl Hct 50.2 (40.1-51.0) % MCV 86.3 (79.0-92.2) fl MCH 29.6 (25.7-32.2) pg MCHC 34.3 (32.2-35.5) g/dl RDW Std Deviation 39.3 (35.1-43.9) fL Plt Count 392 H (163-337) K/mm3 MPV 9.3 L (9.4-12.3) fl Neut % (Auto) 90.2 H (34.0-67.9) % Lymph % (Auto) 5.2 L (21.8-53.1) % [place] % (Auto) 3.0 L (5.3-12.2) % Eos % (Auto) 0.4 L (0.8-7.0) Baso % (Auto) 0.1 (0.1-1.2) % Neut # (Auto) 10.85 H (1.78-5.38) K/mm3 Lymph # (Auto) 0.63 L (1.32-3.57) K/mm3 [place] # (Auto) 0.36 (0.30-0.82) K/mm3 Eos # (Auto) 0.05 (0.04-0.54) K/mm3 Baso # (Auto) 0.01 (0.01-0.08) K/mm3 Manual Slide Review Abnormal smear D-Dimer, Quantitative 3.76 H (0.19-0.50) mg/L Sodium 137 (136-145) mEq/L Potassium 4.8 (3.5-5.1) mEq/L Chloride 104 (98-107) mEq/L Carbon Dioxide 24 (21-32) mEq/L Anion Gap 13.8 (5-15) BUN 26 H (7-18) mg/dL Creatinine 0.9 (0.7-1.3) mg/dL Est Cr Clr Drug Dosing 95.00 mL/min Estimated GFR (MDRD) > 60 (>60) mL/min BUN/Creatinine Ratio 28.9 H (14-18) Glucose 143 H (70-99) mg/dL Calcium 8.5 (8.5-10.1) mg/dL Magnesium 2.2 (1.8-2.4) mg/dL Total Bilirubin 0.6 (0.2-1.0) mg/dL AST 46 H (15-37) U/L ALT 102 H (16-63) U/L Alkaline Phosphatase 72 (46-116) U/L C-Reactive Protein 4.3 H* (<1.0) mg/dL Total Protein 6.6 (6.4-8.2) g/dl Albumin 2.7 L (3.4-5.0) g/dl Globulin 3.9 gm/dL Albumin/Globulin Ratio 0.7 L (1-2) Med Orders - Current: Current Medications Acetaminophen (Acetaminophen 325 Mg Tab) 650 mg PO Q4H PRN PRN Reason: Pain (Mild 1-3)/fever Albuterol (Albuterol 6.7 Gm Inhaler) 0 gm INH Q4H PRN PRN Reason: sob/wheezing Last Admin: 05/07/21 08:37 Dose: 2 puff Documented by: Albuterol/Ipratropium (Albuterol/Ipratropium 3.0-0.5 Mg/3 Ml Neb Soln) 3 ml NEB Q4H PRN PRN Reason: Shortness Of Breath/wheezing Ascorbic Acid (Ascorbic Acid 500 Mg Tab) 1,000 mg PO DAILY [facility] Last Admin: 05/07/21 09:41 Dose: 1,000 mg Documented by: Aspirin (Aspirin 81 Mg Tab.Chew) 81 mg PO BEDTIME [facility] Last Admin: 05/06/21 21:26 Dose: 81 mg Documented by: Cholecalciferol (Cholecalciferol (Vitamin D3) 5,000 Unit Cap) 5,000 unit PO DAILY [facility] Last Admin: 05/07/21 09:40 Dose: 5,000 unit Documented by: Dexamethasone (Dexamethasone 4 Mg Tab) 6 mg PO DAILY [facility] Stop: 05/12/21 09:01 Last Admin: 05/07/21 09:40 Dose: 6 mg Documented by: Docusate Sodium (Docusate Sodium 100 Mg Cap) 100 mg PO BID PRN PRN Reason: Constipation Famotidine (Famotidine 20 Mg Tab) 20 mg PO BID [facility] Last Admin: 05/07/21 09:40 Dose: 20 mg Documented by: Heparin Sodium (Porcine) (Heparin Sodium 5,000 Units/Ml Vial) 7,500 units SUBCUT Q8H [facility] Ondansetron HCl (Ondansetron 4 Mg Tab.Dis) 4 mg PO Q4H PRN PRN Reason: nausea, able to take PO Oxycodone HCl (Oxycodone 5 Mg Tab) 5 mg PO Q4H PRN PRN Reason: Pain (moderate 4-6) Sodium Chloride (Sodium Chloride 0.9% 10 Ml Syringe) 10 ml FLUSH ASDIRECTED PRN PRN Reason: Keep Vein Open Last Admin: 05/03/21 10:12 Dose: 10 ml Documented by: Temazepam (Temazepam 15 Mg Cap) 15 mg PO BEDTIME PRN PRN Reason: Sleep Last Admin: 05/06/21 21:26 Dose: 15 mg Documented by: Zinc Sulfate (Zinc Sulfate 220 Mg Cap) 220 mg PO DAILY [facility] Last Admin: 05/07/21 09:41 Dose: 220 mg Documented by: Discontinued Medications Dexamethasone (Dexamethasone 4 Mg/Ml Sdv) 6 mg IVPUSH ONETIME ONE Stop: 05/03/21 09:54 Last Admin: 05/03/21 10:12 Dose: 6 mg Documented by: Enoxaparin Sodium (Enoxaparin 40 Mg/0.4 Ml Syringe) 40 mg SUBCUT DAILY [facility] Last Admin: 05/06/21 09:41 Dose: 40 mg Documented by: Sodium Chloride (Normal Saline) 1,000 mls @ 1,000 mls/hr IV .BOLUS [facility] Last Admin: 05/03/21 10:12 Dose: 1,000 mls/hr Documented by: Remdesivir 200 mg/ Sodium (Chloride) 250 mls @ 250 mls/hr IV ONETIME ONE Stop: 05/03/21 09:54 Last Admin: 05/03/21 10:30 Dose: Not Given Documented by: Remdesivir 200 mg/ Sodium (Chloride) 250 mls @ 250 mls/hr IV ONETIME ONE Stop: 05/03/21 11:29 Last Admin: 05/03/21 10:30 Dose: 250 mls/hr Documented by: Sodium Chloride (Normal Saline) 45 mls @ 40 mls/hr IV ASDIRECTED [facility] Last Admin: 05/03/21 11:48 Dose: 40 mls/hr Documented by: Azithromycin 500 mg/ Sodium (Chloride) 250 mls @ 250 mls/hr IV Q24H [facility] Stop: 05/05/21 15:29 Last Admin: 05/05/21 14:38 Dose: 250 mls/hr Documented by: Remdesivir 100 mg/ Sodium (Chloride) 100 mls @ 100 mls/hr IV Q24H [facility] Stop: 05/07/21 11:29 Last Admin: 05/06/21 09:37 Dose: 100 mls/hr Documented by: Sodium Chloride (Normal Saline) Confirm Administered Dose 100 mls @ as directed .ROUTE .STK-MED ONE Stop: 05/04/21 10:56 Last Admin: 05/04/21 13:37 Dose: Not Given Documented by: Remdesivir 100 mg/ Sodium (Chloride) 100 mls @ 100 mls/hr IV Q24H [facility] Stop: 05/07/21 09:59 Last Admin: 05/07/21 09:41 Dose: 100 mls/hr Documented by: Iopamidol (Iopamidol 755 Mg/Ml 100 Ml Bottle) 100 ml IVPUSH ONETIME ONE Stop: 05/03/21 11:11 Last Admin: 05/03/21 11:47 Dose: 100 ml Documented by: Morphine Sulfate (Morphine 2 Mg/Ml Syringe) 2 mg IVPUSH Q2H PRN PRN Reason: Pain (severe 7-10) Stop: 05/04/21 14:17 Nicotine (Nicotine 14 Mg/24 Hr Patch) 14 mg TRDERM DAILY [facility] Last Admin: 05/06/21 09:17 Dose: Not Given Documented by: Sodium Chloride (Sodium Chloride 0.9% 10 Ml Syringe) 10 ml FLUSH ONETIME PRN PRN Reason: Keep Vein Open Last Admin: 05/03/21 11:47 Dose: 10 ml Documented by: - Exam Quality Assessment: Supplemental Oxygen (55 L and 70%), DVT Prophylaxis (Heparin) General: Alert, Oriented, Moderate Distress HEENT: Pupils Equal, Mucous Membr. Moist/[place] Neck: Supple, Trachea Midline Lungs: Decreased Breath Sounds Cardiovascular: Regular Rate, Regular Rhythm, No Murmurs GI/Abdominal Exam: Normal Bowel Sounds, Soft, Non-Tender, No Distention (Male) Exam: Deferred Back Exam: Normal Inspection Extremities: Normal Inspection, Normal Range of Motion, Non-Tender, No Pedal Edema, Normal Capillary Refill Peripheral Pulses: 2+: Radial (L), Radial (R) Skin: Warm, Dry, Intact Neurological: No New Focal Deficit Psy/Mental Status: Alert, Normal Affect, Normal Mood - Patient Data Lab Results Last 24 hrs: Laboratory Results - last 24 hr 05/07/21 05/07/21 05/07/21 Range/Units 04:35 06:30 06:30 WBC 12.03 H (4.23-9.07) K/mm3 RBC 5.82 (4.63-6.08) M/mm3 Hgb 17.2 (13.7-17.5) gm/dl Hct 50.2 (40.1-51.0) % MCV 86.3 (79.0-92.2) fl MCH 29.6 (25.7-32.2) pg MCHC 34.3 (32.2-35.5) g/dl RDW Std Deviation 39.3 (35.1-43.9) fL Plt Count 392 H (163-337) K/mm3 MPV 9.3 L (9.4-12.3) fl Neut % (Auto) 90.2 H (34.0-67.9) % Lymph % (Auto) 5.2 L (21.8-53.1) % [place] % (Auto) 3.0 L (5.3-12.2) % Eos % (Auto) 0.4 L (0.8-7.0) Baso % (Auto) 0.1 (0.1-1.2) % Neut # (Auto) 10.85 H (1.78-5.38) K/mm3 Lymph # (Auto) 0.63 L (1.32-3.57) K/mm3 [place] # (Auto) 0.36 (0.30-0.82) K/mm3 Eos # (Auto) 0.05 (0.04-0.54) K/mm3 Baso # (Auto) 0.01 (0.01-0.08) K/mm3 Manual Slide Review Abnormal smear D-Dimer, Quantitative 3.76 H (0.19-0.50) mg/L Sodium 137 (136-145) mEq/L Potassium 4.8 (3.5-5.1) mEq/L Chloride 104 (98-107) mEq/L Carbon Dioxide 24 (21-32) mEq/L Anion Gap 13.8 (5-15) BUN 26 H (7-18) mg/dL Creatinine 0.9 (0.7-1.3) mg/dL Est Cr Clr Drug Dosing 95.00 mL/min Estimated GFR (MDRD) > 60 (>60) mL/min BUN/Creatinine Ratio 28.9 H (14-18) Glucose 143 H (70-99) mg/dL Calcium 8.5 (8.5-10.1) mg/dL Magnesium 2.2 (1.8-2.4) mg/dL Total Bilirubin 0.6 (0.2-1.0) mg/dL AST 46 H (15-37) U/L ALT 102 H (16-63) U/L Alkaline Phosphatase 72 (46-116) U/L C-Reactive Protein 4.3 H* (<1.0) mg/dL Total Protein 6.6 (6.4-8.2) g/dl Albumin 2.7 L (3.4-5.0) g/dl Globulin 3.9 gm/dL Albumin/Globulin Ratio 0.7 L (1-2) Result Diagrams: 05/07/21 06:30 05/07/21 06:30 Sepsis Event Note - Evaluation Sepsis Screening Result: Possible Sepsis Risk - Focused Exam Vital Signs: Vital Signs Temp Pulse Resp BP Pulse Ox Pulse Ox 05/07/21 08:38 96 05/07/21 06:35 95 05/07/21 06:04 97 05/07/21 04:06 97.5 F 81 20 107/77 94 L - Problem List & Annotations (1) Acute respiratory failure SNOMED Code(s): 33284354 Code(s): J96.00 - ACUTE RESPIRATORY FAILURE, UNSP W HYPOXIA OR HYPERCAPNIA Status: Acute Priority: High Current Visit: Yes Qualifiers: Respiratory failure complication: hypoxia Qualified Code(s): J96.01 - Acute respiratory failure with hypoxia (2) COVID-19 SNOMED Code(s): 309939851 Code(s): U07.1 - COVID-19 Status: Acute Priority: High Current Visit: Yes (3) Elevated d-dimer SNOMED Code(s): 676308360 Code(s): R79.89 - OTHER SPECIFIED ABNORMAL FINDINGS OF BLOOD CHEMISTRY Status: Acute Priority: High Current Visit: Yes (4) Fatigue SNOMED Code(s): 47177297 Code(s): R53.83 - OTHER FATIGUE Status: Acute Priority: High Current Visit: Yes Qualifiers: Fatigue type: unspecified Qualified Code(s): R53.83 - Other fatigue (5) Hypoxia SNOMED Code(s): 611950773 Code(s): R09.02 - HYPOXEMIA Status: Acute Priority: High Current Visit: Yes (6) Pneumonia due to COVID-19 virus SNOMED Code(s): 786660698315990224 Code(s): U07.1 - COVID-19; J12.82 - PNEUMONIA DUE TO CORONAVIRUS DISEASE 2018 Status: Acute Priority: High Current Visit: Yes (7) Ascending aortic aneurysm Status: Chronic Priority: Medium Current Visit: Yes (8) Smokes tobacco daily SNOMED Code(s): 453059351 Code(s): F17.200 - NICOTINE DEPENDENCE, UNSPECIFIED, UNCOMPLICATED Status: Chronic Priority: Medium Current Visit: Yes - Problem List Review Problem List Initiated/Reviewed/Updated: Yes - My Orders Last 24 Hours: My Active Orders 05/07/21 09:00 Heparin Sodium 7,500 units SUBCUT Q8H - Assessment Assessment:: Day of admission - 05/03/2021 The patient is a 50-year-old gentleman who has been admitted to acute inpatient hospitalization due to COVID-19 pneumonia. The patient is outside the window fo r remdesivir treatment. The patient will be started on remdesivir 6 mg p.o. daily. He will be maintained on oxygen titrated to keep his saturations around 92%. The patient will also be started on a azithromycin 500 mg IV daily for superimposed infection. The patient also has been anticoagulated with the use of Lovenox at 40 mg subcutaneously daily. Repeat laboratory studies to include D-dimer and CRP have also been ordered. The patient is to have a regular diet as tolerated. 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 Current guidelines have recommended that this be observed by annual CT scans. I have discussed the case of the aneurysm with the patient. The patient will need to follow-up with the primary care physician after discharge. He should be appropriate for discharge in 1 to 2 days depending upon his oxygen demands or symptoms. 05/04/2021 The patient is a 50-year-old gentleman who was initially admitted due to Covid pneumonia. The patient has had difficulty in maintaining his oxygen saturations around 92% and is on high flow oxygen. Regardless of the length of time for the patient's illness I have elected to place the patient on remdesivir 100 mg IV daily. He also meets qualifications for baricitinib and this was started with consultation from pharmacy. The patient is currently anticoagulated with Lovenox 40 mg subcutaneous daily. Continue with diet as tolerated. He is also on nicotine patch for smoking. The patient will be continued on telemetry. R epeat laboratory studies have been ordered. The patient should have a repeat chest x-ray in 1 to 2 days. The patient has been encouraged to ambulate in the room. The patient should be appropriate for discharge after finishing remdesivir. 05/05/2021 Is a 50-year-old male who was admitted to the hospital for COVID-19 pneumonia. Incidentally on CTA he was noted to have an ascending aortic aneurysm. No signs of any rupture. Today labs show a WBC of 9.08. Hemoglobin 15.9. He is normocytic. Platelet 272,000. Neutrophils are elevated 87.7%. D-dimer is 1.22. Sodium 140. Potassium 4.6. Chloride 105. Carbon dioxide 25. Anion gap is 14.6. BUN is 21. Creatinine 0.8. GFR greater than 60. Glucose 128. Calcium 7.7. Magnesium 2.4. Bilirubin 0.6. AST is 58, ALT 85. Alkaline phosphatase 64. CRP is 6.8. Protein 6.4. Albumin 2.7. He is receiving azithromycin, dexamethasone, remdesivir, and Baricitinib. He is on 50 L with an FiO2 of 65% for high flow. Added aspirin 81 mg, 20 mg twice daily Pepcid, and we will check his vitamin D today as well. We will recheck daily labs tomorrow. He has been utilizing his incentive spirometer and Acapella. He was again encouraged to prone whenever possible. Unknown length of stay due to severity of symptoms. 05/06/2021 This is a 50-year-old male who was admitted for COVID-19 pneumonia. He is on day 4 of remdesivir and dexamethasone. Day 3 of Baricitinib. His oxygen demand has increased to 50 L with an FiO2 of 75%. He continues to prone and utilize incentive spirometer and Acapella. Nicotine patch is in place. Labs today show an elevated WBC of 12.27, likely secondary to steroid use. Platelets are 389,0 00. Neutrophils are elevated 89.5%. We will recheck D-dimer tomorrow. Sodium 138. Potassium 4.6. Chloride 103. Carbon dioxide 25. Anion gap 14.6. BUN is 23. Creatinine 1.0. GFR greater than 60. Glucose is 190. Calcium 8.2. Bilirubin 0.6. AST is 40, ALT is 97, alkaline phosphatase 76. CRP is down to 3.8. Protein is 6.9. Albumin is 2.9. Vitamin D was obtained and was on the low end of normal at 33.2. Patient is requesting a spiritual care consult and this will be placed. Unknown length of stay due to severity of COVID-19 symptoms. We will continue to try to wean oxygen as patient tolerates. Overall he states he feels about the same as yesterday. He continues to have sign ificant cough and sputum production. Reports his throat is sore from coughing so much so we will add Cepacol lozenges as needed. 05/07/2021 50-year-old male who is admitted with Covid pneumonia. He is on day 5 of remdesivir and dexamethasone. Day 4 of Baricitinib. His oxygen demand has increased to 55 L with an FiO2 of 70%. He tells me that he has not been proning. I have had a lengthy discussion with him regarding this and he states that he will try to do that more he has been using his I-S and Acapella. Labs today show a WBC of 12.03, hemoglobin 17.2, platelet count 392, D-dimer 3.76, C- reactive protein 4.3. Unknown length of stay due to severity of Covid. Continue to have respiratory therapy attempt to wean oxygen as tolerated. Patient states he feels a little worse today than yesterday. He states he has had not much of an appetite other than for a few fruits. He does continue to complain of cough which is productive of [place] sputum. - Plan Plan:: Pneumonia due to COVID-19 virus Elevated d-dimer Acute respiratory failure Hypoxia * Negative CTA for PE * Remdesivir day 01/07 * Dexamethasone day 01/12 * O2 to keep saturation between 88 to 95%. * High flow oxygen as directed * As needed albuterol MDI * As needed DuoNeb's * Daily labs * Check D-dimer every 48 hours * I-S/Acapella * RT consult * Discontinue lovenox and start Heparin 7500 units Q 8 hours d/t elevation of ddimer * Prone whenever able * Ambulate around room * Azithromycin completed course * Start 81 mg daily aspirin * Baricitinib day 12/17 * Telemetry * Airborne/contact isolation * Continuous pulse oximetry * Daily zinc supplementation * Famotidine 20 mg twice daily Ascending aortic aneurysm * 4.1 cm * No acute concerns * PCP follow-up/monitoring Smokes tobacco daily * Daily nicotine patch * Cessation counseling * Offered nicotine patches at discharge Code status: Full code PCP: None - needs to establish DVT prophylaxis: Heparin Disposition: Patient will remain hospitalized for duration of COVID-19 treatment. Unknown length of stay due to severity of symptoms. Length of stay greater than 96 hours due to need for continued COVID-19 treatment. <Melissa Dahl - Last Filed: 05/07/21 13:46> - Patient Data Vitals - Most Recent: Last Vital Signs Temp 98.1 F 05/07/21 12:55 Pulse 94 05/07/21 12:55 Resp 25 H 05/07/21 11:20 BP 117/78 05/07/21 12:55 Pulse Ox 92 L 05/07/21 12:55 I&O - Last 24 Hours: Intake & Output 05/06/21 05/07/21 05/07/21 22:59 06:59 14:59 Intake Total 1730 800 240 Output Total 1100 Balance 630 800 240 Lab Results Last 24 Hours: Laboratory Results - last 24 hr 05/07/21 05/07/21 05/07/21 Range/Units 04:35 06:30 06:30 WBC 12.03 H (4.23-9.07) K/mm3 RBC 5.82 (4.63-6.08) M/mm3 Hgb 17.2 (13.7-17.5) gm/dl Hct 50.2 (40.1-51.0) % MCV 86.3 (79.0-92.2) fl MCH 29.6 (25.7-32.2) pg MCHC 34.3 (32.2-35.5) g/dl RDW Std Deviation 39.3 (35.1-43.9) fL Plt Count 392 H (163-337) K/mm3 MPV 9.3 L (9.4-12.3) fl Neut % (Auto) 90.2 H (34.0-67.9) % Lymph % (Auto) 5.2 L (21.8-53.1) % [place] % (Auto) 3.0 L (5.3-12.2) % Eos % (Auto) 0.4 L (0.8-7.0) Baso % (Auto) 0.1 (0.1-1.2) % Neut # (Auto) 10.85 H (1.78-5.38) K/mm3 Lymph # (Auto) 0.63 L (1.32-3.57) K/mm3 [place] # (Auto) 0.36 (0.30-0.82) K/mm3 Eos # (Auto) 0.05 (0.04-0.54) K/mm3 Baso # (Auto) 0.01 (0.01-0.08) K/mm3 Manual Slide Review Abnormal smear D-Dimer, Quantitative 3.76 H (0.19-0.50) mg/L Sodium 137 (136-145) mEq/L Potassium 4.8 (3.5-5.1) mEq/L Chloride 104 (98-107) mEq/L Carbon Dioxide 24 (21-32) mEq/L Anion Gap 13.8 (5-15) BUN 26 H (7-18) mg/dL Creatinine 0.9 (0.7-1.3) mg/dL Est Cr Clr Drug Dosing 95.00 mL/min Estimated GFR (MDRD) > 60 (>60) mL/min BUN/Creatinine Ratio 28.9 H (14-18) Glucose 143 H (70-99) mg/dL Calcium 8.5 (8.5-10.1) mg/dL Magnesium 2.2 (1.8-2.4) mg/dL Total Bilirubin 0.6 (0.2-1.0) mg/dL AST 46 H (15-37) U/L ALT 102 H (16-63) U/L Alkaline Phosphatase 72 (46-116) U/L C-Reactive Protein 4.3 H* (<1.0) mg/dL Total Protein 6.6 (6.4-8.2) g/dl Albumin 2.7 L (3.4-5.0) g/dl Globulin 3.9 gm/dL Albumin/Globulin Ratio 0.7 L (1-2) Med Orders - Current: Current Medications Acetaminophen (Acetaminophen 325 Mg Tab) 650 mg PO Q4H PRN PRN Reason: Pain (Mild 1-3)/fever Albuterol (Albuterol 6.7 Gm Inhaler) 0 gm INH Q4H PRN PRN Reason: sob/wheezing Last Admin: 05/07/21 08:37 Dose: 2 puff Documented by: Albuterol/Ipratropium (Albuterol/Ipratropium 3.0-0.5 Mg/3 Ml Neb Soln) 3 ml NEB Q4H PRN PRN Reason: Shortness Of Breath/wheezing Ascorbic Acid (Ascorbic Acid 500 Mg Tab) 1,000 mg PO DAILY [facility] Last Admin: 05/07/21 09:41 Dose: 1,000 mg Documented by: Aspirin (Aspirin 81 Mg Tab.Chew) 81 mg PO BEDTIME [facility] Last Admin: 05/06/21 21:26 Dose: 81 mg Documented by: Cholecalciferol (Cholecalciferol (Vitamin D3) 5,000 Unit Cap) 5,000 unit PO DAILY [facility] Last Admin: 05/07/21 09:40 Dose: 5,000 unit Documented by: Dexamethasone (Dexamethasone 4 Mg Tab) 6 mg PO DAILY [facility] Stop: 05/12/21 09:01 Last Admin: 05/07/21 09:40 Dose: 6 mg Documented by: Docusate Sodium (Docusate Sodium 100 Mg Cap) 100 mg PO BID PRN PRN Reason: Constipation Famotidine (Famotidine 20 Mg Tab) 20 mg PO BID [facility] Last Admin: 05/07/21 09:40 Dose: 20 mg Documented by: Heparin Sodium (Porcine) (Heparin Sodium 5,000 Units/Ml Vial) 7,500 units SUBCUT Q8H [facility] Last Admin: 05/07/21 10:59 Dose: 7,500 units Documented by: Ondansetron HCl (Ondansetron 4 Mg Tab.Dis) 4 mg PO Q4H PRN PRN Reason: nausea, able to take PO Oxycodone HCl (Oxycodone 5 Mg Tab) 5 mg PO Q4H PRN PRN Reason: Pain (moderate 4-6) Sodium Chloride (Sodium Chloride 0.9% 10 Ml Syringe) 10 ml FLUSH ASDIRECTED PRN PRN Reason: Keep Vein Open Last Admin: 05/03/21 10:12 Dose: 10 ml Documented by: Temazepam (Temazepam 15 Mg Cap) 15 mg PO BEDTIME PRN PRN Reason: Sleep Last Admin: 05/06/21 21:26 Dose: 15 mg Documented by: Zinc Sulfate (Zinc Sulfate 220 Mg Cap) 220 mg PO DAILY [facility] Last Admin: 05/07/21 09:41 Dose: 220 mg Documented by: Discontinued Medications Dexamethasone (Dexamethasone 4 Mg/Ml Sdv) 6 mg IVPUSH ONETIME ONE Stop: 05/03/21 09:54 Last Admin: 05/03/21 10:12 Dose: 6 mg Documented by: Enoxaparin Sodium (Enoxaparin 40 Mg/0.4 Ml Syringe) 40 mg SUBCUT DAILY [facility] Last Admin: 05/06/21 09:41 Dose: 40 mg Documented by: Sodium Chloride (Normal Saline) 1,000 mls @ 1,000 mls/hr IV .BOLUS [facility] Last Admin: 05/03/21 10:12 Dose: 1,000 mls/hr Documented by: Remdesivir 200 mg/ Sodium (Chloride) 250 mls @ 250 mls/hr IV ONETIME ONE Stop: 05/03/21 09:54 Last Admin: 05/03/21 10:30 Dose: Not Given Documented by: Remdesivir 200 mg/ Sodium (Chloride) 250 mls @ 250 mls/hr IV ONETIME ONE Stop: 05/03/21 11:29 Last Admin: 05/03/21 10:30 Dose: 250 mls/hr Documented by: Sodium Chloride (Normal Saline) 45 mls @ 40 mls/hr IV ASDIRECTED [facility] Last Admin: 05/03/21 11:48 Dose: 40 mls/hr Documented by: Azithromycin 500 mg/ Sodium (Chloride) 250 mls @ 250 mls/hr IV Q24H [facility] Stop: 05/05/21 15:29 Last Admin: 05/05/21 14:38 Dose: 250 mls/hr Documented by: Remdesivir 100 mg/ Sodium (Chloride) 100 mls @ 100 mls/hr IV Q24H [facility] Stop: 05/07/21 11:29 Last Admin: 05/06/21 09:37 Dose: 100 mls/hr Documented by: Sodium Chloride (Normal Saline) Confirm Administered Dose 100 mls @ as directed .ROUTE .STK-MED ONE Stop: 05/04/21 10:56 Last Admin: 05/04/21 13:37 Dose: Not Given Documented by: Remdesivir 100 mg/ Sodium (Chloride) 100 mls @ 100 mls/hr IV Q24H [facility] Stop: 05/07/21 09:59 Last Admin: 05/07/21 09:41 Dose: 100 mls/hr Documented by: Iopamidol (Iopamidol 755 Mg/Ml 100 Ml Bottle) 100 ml IVPUSH ONETIME ONE Stop: 05/03/21 11:11 Last Admin: 05/03/21 11:47 Dose: 100 ml Documented by: Morphine Sulfate (Morphine 2 Mg/Ml Syringe) 2 mg IVPUSH Q2H PRN PRN Reason: Pain (severe 7-10) Stop: 05/04/21 14:17 Nicotine (Nicotine 14 Mg/24 Hr Patch) 14 mg TRDERM DAILY [facility] Last Admin: 05/06/21 09:17 Dose: Not Given Documented by: Sodium Chloride (Sodium Chloride 0.9% 10 Ml Syringe) 10 ml FLUSH ONETIME PRN PRN Reason: Keep Vein Open Last Admin: 05/03/21 11:47 Dose: 10 ml Documented by: - Patient Data Lab Results Last 24 hrs: Laboratory Results - last 24 hr 05/07/21 05/07/21 05/07/21 Range/Units 04:35 06:30 06:30 WBC 12.03 H (4.23-9.07) K/mm3 RBC 5.82 (4.63-6.08) M/mm3 Hgb 17.2 (13.7-17.5) gm/dl Hct 50.2 (40.1-51.0) % MCV 86.3 (79.0-92.2) fl MCH 29.6 (25.7-32.2) pg MCHC 34.3 (32.2-35.5) g/dl RDW Std Deviation 39.3 (35.1-43.9) fL Plt Count 392 H (163-337) K/mm3 MPV 9.3 L (9.4-12.3) fl Neut % (Auto) 90.2 H (34.0-67.9) % Lymph % (Auto) 5.2 L (21.8-53.1) % [place] % (Auto) 3.0 L (5.3-12.2) % Eos % (Auto) 0.4 L (0.8-7.0) Baso % (Auto) 0.1 (0.1-1.2) % Neut # (Auto) 10.85 H (1.78-5.38) K/mm3 Lymph # (Auto) 0.63 L (1.32-3.57) K/mm3 [place] # (Auto) 0.36 (0.30-0.82) K/mm3 Eos # (Auto) 0.05 (0.04-0.54) K/mm3 Baso # (Auto) 0.01 (0.01-0.08) K/mm3 Manual Slide Review Abnormal smear D-Dimer, Quantitative 3.76 H (0.19-0.50) mg/L Sodium 137 (136-145) mEq/L Potassium 4.8 (3.5-5.1) mEq/L Chloride 104 (98-107) mEq/L Carbon Dioxide 24 (21-32) mEq/L Anion Gap 13.8 (5-15) BUN 26 H (7-18) mg/dL Creatinine 0.9 (0.7-1.3) mg/dL Est Cr Clr Drug Dosing 95.00 mL/min Estimated GFR (MDRD) > 60 (>60) mL/min BUN/Creatinine Ratio 28.9 H (14-18) Glucose 143 H (70-99) mg/dL Calcium 8.5 (8.5-10.1) mg/dL Magnesium 2.2 (1.8-2.4) mg/dL Total Bilirubin 0.6 (0.2-1.0) mg/dL AST 46 H (15-37) U/L ALT 102 H (16-63) U/L Alkaline Phosphatase 72 (46-116) U/L C-Reactive Protein 4.3 H* (<1.0) mg/dL Total Protein 6.6 (6.4-8.2) g/dl Albumin 2.7 L (3.4-5.0) g/dl Globulin 3.9 gm/dL Albumin/Globulin Ratio 0.7 L (1-2) Result Diagrams: 05/07/21 06:30 05/07/21 06:30 Sepsis Event Note - Focused Exam Vital Signs: Vital Signs Temp Pulse Resp BP Pulse Ox Pulse Ox 05/07/21 12:55 98.1 F 94 117/78 92 L 05/07/21 11:59 88 L 05/07/21 11:20 100.2 F 96 25 H 119/87 89 L 09/02/21 11:09 92 L 05/07/21 11:08 85 L 05/07/21 11:00 80 L 05/07/21 08:38 96 05/07/21 06:35 95 05/07/21 06:04 97 05/07/21 04:06 97.5 F 81 20 107/77 94 L - Plan Plan:: 05/07/21 patient has been seen and examined. Patient has improved compared to yesterday. Patient is ambulating with less effort. No changes to present melanie gement, agree with assessment and plan. physical examination: cvs: [id number] Resp: Course soft lower bilateral Abd: sntnd Ext no edema
[2021-05-07] MEDS: Heparin Sodium 5,000 Units/ML Vial SUBCUT SCH ×2 (10:59→16:36)
[2021-05-07] MEDS: Benzocaine/Cetylpyridinium/Menthol Lozenge MUCMEM PRN ×2 (16:36→19:48)
[2021-05-07] MEDS: Temazepam 15 MG Cap PO PRN (21:07)
[2021-05-07] MEDS: Aspirin 81 MG Tab.Chew PO SCH (21:07)
[2021-05-08] MEDS: Heparin Sodium 5,000 Units/ML Vial SUBCUT SCH ×3 (00:20→17:20)
[2021-05-08] MEDS: Albuterol 6.7 GM Inhaler INH PRN ×2 (08:00→21:07)
[2021-05-08] MEDS: Cholecalciferol (Vitamin D3) 5,000 UNIT Cap PO SCH (08:55)
[2021-05-08] MEDS: Zinc Sulfate 220 MG Cap PO SCH (08:55)
[2021-05-08] MEDS: Famotidine 20 MG Tab PO SCH ×2 (08:55→21:44)
[2021-05-08] MEDS: Dexamethasone 4 MG Tab PO SCH (08:55)
[2021-05-08] MEDS: Ascorbic Acid 500 MG Tab PO SCH (08:57)
--- NOTE | 2021-05-08 09:46 | PCM.PN ---
- General Info Date of Service: 05/08/21 Admission Dx/Problem (Free Text): Admission Diagnosis/Problem Admission Diagnosis/Problem Pneumonia due to COVID-19 with acute respiratory failure. Subjective Update: Patient is having visit him through the window, he is feeling better and sitting up eating breakfast. he is still on highflow 60% but color is better and he is gettingup and moving around faster without dizziness or weakness. - Review of Systems General: Reports: Fatigue (improved) HEENT: Reports: No Symptoms Pulmonary: Reports: Shortness of Breath (improved) Cardiovascular: Reports: No Symptoms Gastrointestinal: Reports: No Symptoms Musculoskeletal: Reports: No Symptoms Neurological: Reports: No Symptoms Psychiatric: Reports: No Symptoms - Patient Data Vitals - Most Recent: Last Vital Signs Temp 98.2 F 05/08/21 03:26 Pulse 90 05/08/21 03:26 Resp 20 05/08/21 03:26 BP 116/75 05/08/21 03:26 Pulse Ox 96 05/08/21 08:46 Weight - Most Recent: 205 lb 4.8 oz I&O - Last 24 Hours: Intake & Output 05/07/21 05/08/21 05/08/21 22:59 06:59 14:59 Intake Total 1400 800 Output Total 950 1725 Balance 450 -925 Lab Results Last 24 Hours: Laboratory Results - last 24 hr 05/08/21 05/08/21 Range/Units 06:50 06:50 WBC 11.28 H (4.23-9.07) K/mm3 RBC 5.52 (4.63-6.08) M/mm3 Hgb 16.6 (13.7-17.5) gm/dl Hct 48.3 (40.1-51.0) % MCV 87.5 (79.0-92.2) fl MCH 30.1 (25.7-32.2) pg MCHC 34.4 (32.2-35.5) g/dl RDW Std Deviation 39.5 (35.1-43.9) fL Plt Count 406 H (163-337) K/mm3 MPV 9.3 L (9.4-12.3) fl Neut % (Auto) 91.2 H (34.0-67.9) % Lymph % (Auto) 4.8 L (21.8-53.1) % Gulf % (Auto) 2.5 L (5.3-12.2) % Eos % (Auto) 0.5 L (0.8-7.0) Baso % (Auto) 0.1 (0.1-1.2) % Neut # (Auto) 10.29 H (1.78-5.38) K/mm3 Lymph # (Auto) 0.54 L (1.32-3.57) K/mm3 [place] # (Auto) 0.28 L (0.30-0.82) K/mm3 Eos # (Auto) 0.06 (0.04-0.54) K/mm3 Baso # (Auto) 0.01 (0.01-0.08) K/mm3 Manual Slide Review Abnormal smear Sodium 137 (136-145) mEq/L Potassium 4.8 (3.5-5.1) mEq/L Chloride 102 (98-107) mEq/L Carbon Dioxide 28 (21-32) mEq/L Anion Gap 11.8 (5-15) BUN 27 H (7-18) mg/dL Creatinine 1.0 (0.7-1.3) mg/dL Est Cr Clr Drug Dosing 85.50 mL/min Estimated GFR (MDRD) > 60 (>60) mL/min BUN/Creatinine Ratio 27.0 H (14-18) Glucose 181 H (70-99) mg/dL Calcium 8.4 L (8.5-10.1) mg/dL Magnesium 2.2 (1.8-2.4) mg/dL Total Bilirubin 0.6 (0.2-1.0) mg/dL AST 32 (15-37) U/L ALT 78 H (16-63) U/L Alkaline Phosphatase 70 (46-116) U/L C-Reactive Protein 4.2 H* (<1.0) mg/dL Total Protein 6.5 (6.4-8.2) g/dl Albumin 2.7 L (3.4-5.0) g/dl Globulin 3.8 gm/dL Albumin/Globulin Ratio 0.7 L (1-2) Med Orders - Current: Current Medications Acetaminophen (Acetaminophen 325 Mg Tab) 650 mg PO Q4H PRN PRN Reason: Pain (Mild 1-3)/fever Albuterol (Albuterol 6.7 Gm Inhaler) 0 gm INH Q4H PRN PRN Reason: sob/wheezing Last Admin: 05/08/21 08:00 Dose: 2 puff Documented by: Albuterol/Ipratropium (Albuterol/Ipratropium 3.0-0.5 Mg/3 Ml Neb Soln) 3 ml NEB Q4H PRN PRN Reason: Shortness Of Breath/wheezing Last Admin: 05/07/21 20:25 Dose: 3 ml Documented by: Ascorbic Acid (Ascorbic Acid 500 Mg Tab) 1,000 mg PO DAILY [facility] Last Admin: 05/08/21 08:57 Dose: 1,000 mg Documented by: Aspirin (Aspirin 81 Mg Tab.Chew) 81 mg PO BEDTIME [facility] Last Admin: 05/07/21 21:07 Dose: 81 mg Documented by: Benzocaine/Menthol (Benzocaine/Cetylpyridinium/Menthol Lozenge) 1 lozenge MUCMEM Q1H PRN PRN Reason: Sore Throat Last Admin: 05/07/21 19:48 Dose: 1 lozenge Documented by: Cholecalciferol (Cholecalciferol (Vitamin D3) 5,000 Unit Cap) 5,000 unit PO DAILY [facility] Last Admin: 05/08/21 08:55 Dose: 5,000 unit Documented by: Dexamethasone (Dexamethasone 4 Mg Tab) 6 mg PO DAILY [facility] Stop: 05/12/21 09:01 Last Admin: 05/08/21 08:55 Dose: 6 mg Documented by: Docusate Sodium (Docusate Sodium 100 Mg Cap) 100 mg PO BID PRN PRN Reason: Constipation Famotidine (Famotidine 20 Mg Tab) 20 mg PO BID [facility] Last Admin: 05/08/21 08:55 Dose: 20 mg Documented by: Heparin Sodium (Porcine) (Heparin Sodium 5,000 Units/Ml Vial) 7,500 units SUBCUT Q8H [facility] Last Admin: 05/08/21 08:55 Dose: 7,500 units Documented by: Ondansetron HCl (Ondansetron 4 Mg Tab.Dis) 4 mg PO Q4H PRN PRN Reason: nausea, able to take PO Oxycodone HCl (Oxycodone 5 Mg Tab) 5 mg PO Q4H PRN PRN Reason: Pain (moderate 4-6) Sodium Chloride (Sodium Chloride 0.9% 10 Ml Syringe) 10 ml FLUSH ASDIRECTED PRN PRN Reason: Keep Vein Open Last Admin: 05/03/21 10:12 Dose: 10 ml Documented by: Temazepam (Temazepam 15 Mg Cap) 15 mg PO BEDTIME PRN PRN Reason: Sleep Last Admin: 05/07/21 21:07 Dose: 15 mg Documented by: Zinc Sulfate (Zinc Sulfate 220 Mg Cap) 220 mg PO DAILY [facility] Last Admin: 05/08/21 08:55 Dose: 220 mg Documented by: Discontinued Medications Dexamethasone (Dexamethasone 4 Mg/Ml Sdv) 6 mg IVPUSH ONETIME ONE Stop: 05/03/21 09:54 Last Admin: 05/03/21 10:12 Dose: 6 mg Documented by: Enoxaparin Sodium (Enoxaparin 40 Mg/0.4 Ml Syringe) 40 mg SUBCUT DAILY [facility] Last Admin: 05/06/21 09:41 Dose: 40 mg Documented by: Sodium Chloride (Normal Saline) 1,000 mls @ 1,000 mls/hr IV .BOLUS [facility] Last Admin: 05/03/21 10:12 Dose: 1,000 mls/hr Documented by: Remdesivir 200 mg/ Sodium (Chloride) 250 mls @ 250 mls/hr IV ONETIME ONE Stop: 05/03/21 09:54 Last Admin: 05/03/21 10:30 Dose: Not Given Documented by: Remdesivir 200 mg/ Sodium (Chloride) 250 mls @ 250 mls/hr IV ONETIME ONE Stop: 05/03/21 11:29 Last Admin: 05/03/21 10:30 Dose: 250 mls/hr Documented by: Sodium Chloride (Normal Saline) 45 mls @ 40 mls/hr IV ASDIRECTED [facility] Last Admin: 05/03/21 11:48 Dose: 40 mls/hr Documented by: Azithromycin 500 mg/ Sodium (Chloride) 250 mls @ 250 mls/hr IV Q24H [facility] Stop: 05/05/21 15:29 Last Admin: 05/05/21 14:38 Dose: 250 mls/hr Documented by: Remdesivir 100 mg/ Sodium (Chloride) 100 mls @ 100 mls/hr IV Q24H [facility] Stop: 05/07/21 11:29 Last Admin: 05/06/21 09:37 Dose: 100 mls/hr Documented by: Sodium Chloride (Normal Saline) Confirm Administered Dose 100 mls @ as directed .ROUTE .STK-MED ONE Stop: 05/04/21 10:56 Last Admin: 05/04/21 13:37 Dose: Not Given Documented by: Remdesivir 100 mg/ Sodium (Chloride) 100 mls @ 100 mls/hr IV Q24H [facility] Stop: 05/07/21 09:59 Last Admin: 05/07/21 09:41 Dose: 100 mls/hr Documented by: Iopamidol (Iopamidol 755 Mg/Ml 100 Ml Bottle) 100 ml IVPUSH ONETIME ONE Stop: 05/03/21 11:11 Last Admin: 05/03/21 11:47 Dose: 100 ml Documented by: Morphine Sulfate (Morphine 2 Mg/Ml Syringe) 2 mg IVPUSH Q2H PRN PRN Reason: Pain (severe 7-10) Stop: 05/04/21 14:17 Nicotine (Nicotine 14 Mg/24 Hr Patch) 14 mg TRDERM DAILY [facility] Last Admin: 05/06/21 09:17 Dose: Not Given Documented by: Sodium Chloride (Sodium Chloride 0.9% 10 Ml Syringe) 10 ml FLUSH ONETIME PRN PRN Reason: Keep Vein Open Last Admin: 05/03/21 11:47 Dose: 10 ml Documented by: - Exam General: Alert, Oriented, Cooperative HEENT: Pupils Equal, Pupils Reactive, EOMI Lungs: Decreased Breath Sounds (improved, soft course BS lower lobes only), Rhonchi Cardiovascular: Regular Rate, Regular Rhythm Extremities: No Pedal Edema Skin: Warm, Dry (no pallor, looks like normal skin color) Neurological: No New Focal Deficit, Normal Speech Psy/Mental Status: Alert, Normal Affect, Normal Mood - Patient Data Lab Results Last 24 hrs: Laboratory Results - last 24 hr 05/08/21 05/08/21 Range/Units 06:50 06:50 WBC 11.28 H (4.23-9.07) K/mm3 RBC 5.52 (4.63-6.08) M/mm3 Hgb 16.6 (13.7-17.5) gm/dl Hct 48.3 (40.1-51.0) % MCV 87.5 (79.0-92.2) fl MCH 30.1 (25.7-32.2) pg MCHC 34.4 (32.2-35.5) g/dl RDW Std Deviation 39.5 (35.1-43.9) fL Plt Count 406 H (163-337) K/mm3 MPV 9.3 L (9.4-12.3) fl Neut % (Auto) 91.2 H (34.0-67.9) % Lymph % (Auto) 4.8 L (21.8-53.1) % Gulf % (Auto) 2.5 L (5.3-12.2) % Eos % (Auto) 0.5 L (0.8-7.0) Baso % (Auto) 0.1 (0.1-1.2) % Neut # (Auto) 10.29 H (1.78-5.38) K/mm3 Lymph # (Auto) 0.54 L (1.32-3.57) K/mm3 [place] # (Auto) 0.28 L (0.30-0.82) K/mm3 Eos # (Auto) 0.06 (0.04-0.54) K/mm3 Baso # (Auto) 0.01 (0.01-0.08) K/mm3 Manual Slide Review Abnormal smear Sodium 137 (136-145) mEq/L Potassium 4.8 (3.5-5.1) mEq/L Chloride 102 (98-107) mEq/L Carbon Dioxide 28 (21-32) mEq/L Anion Gap 11.8 (5-15) BUN 27 H (7-18) mg/dL Creatinine 1.0 (0.7-1.3) mg/dL Est Cr Clr Drug Dosing 85.50 mL/min Estimated GFR (MDRD) > 60 (>60) mL/min BUN/Creatinine Ratio 27.0 H (14-18) Glucose 181 H (70-99) mg/dL Calcium 8.4 L (8.5-10.1) mg/dL Magnesium 2.2 (1.8-2.4) mg/dL Total Bilirubin 0.6 (0.2-1.0) mg/dL AST 32 (15-37) U/L ALT 78 H (16-63) U/L Alkaline Phosphatase 70 (46-116) U/L C-Reactive Protein 4.2 H* (<1.0) mg/dL Total Protein 6.5 (6.4-8.2) g/dl Albumin 2.7 L (3.4-5.0) g/dl Globulin 3.8 gm/dL Albumin/Globulin Ratio 0.7 L (1-2) Result Diagrams: 05/08/21 06:50 05/08/21 06:50 Sepsis Event Note - Evaluation Sepsis Screening Result: No Definite Risk - Focused Exam Vital Signs: Vital Signs Temp Pulse Resp BP Pulse Ox Pulse Ox 05/08/21 08:46 96 05/08/21 06:27 98 05/08/21 03:26 98.2 F 90 20 116/75 93 L - Problem List Review Problem List Initiated/Reviewed/Updated: Yes - Assessment Assessment:: Day of admission - 05/03/2021 The patient is a 50-year-old gentleman who has been admitted to acute inpatient hospitalization due to COVID-19 pneumonia. The patient is outside the window for remdesivir treatment. The patient will be started on remdesivir 6 mg p.o. daily. He will be maintained on oxygen titrated to keep his saturations around 92%. The patient will also be started on a azithromycin 500 mg IV daily for superimposed infection. The patient also has been anticoagulated with the use of Lovenox at 40 mg subcutaneously daily. Repeat laboratory studies to include D-dimer and CRP have also been ordered. The patient is to have a regular diet as tolerated. 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 Current guidel usman have recommended that this be observed by annual CT scans. I have discussed the case of the aneurysm with the patient. The patient will need to follow-up with the primary care physician after discharge. He should be appropriate for discharge in 1 to 2 days depending upon his oxygen demands or symptoms. 05/04/2021 The patient is a 50-year-old gentleman who was initially admitted due to Covid pneumonia. The patient has had difficulty in maintaining his oxygen saturations around 92% and is on high flow oxygen. Regardless of the length of time for the patient's illness I have elected to place the patient on remdesivir 100 mg IV daily. He also meets qualifications for baricitinib and this was started with consultation from pharmacy. The patient is currently anticoagulated with Lovenox 40 mg subcutaneous daily. Continue with diet as tolerated. He is also on nicotine patch for smoking. The patient will be continued on telemetry. Repeat laboratory studies have been ordered. The patient should have a repeat chest x-ray in 1 to 2 days. The patient has been encouraged to ambulate in the room. The patient should be appropriate for discharge after finishing remdesivir. 05/05/2021 Is a 50-year-old male who was admitted to the hospital for COVID-19 pneumonia. Incidentally on CTA he was noted to have an ascending aortic aneurysm. No signs of any rupture. Today labs show a WBC of 9.08. Hemoglobin 15.9. He is normocytic. Platelet 272,000. Neutrophils are elevated 87.7%. D-dimer is 1.22. Sodium 140. Potassium 4.6. Chloride 105. Carbon dioxide 25. Anion gap is 14.6. BUN is 21. Creatinine 0.8. GFR greater than 60. Glucose 128. Calcium 7.7. Magnesium 2.4. Bilirubin 0.6. AST is 58, ALT 85. Alkaline phosphatase 64. CRP is 6.8. Protein 6.4. Albumin 2.7. He is receiving azithromycin, dexamethasone, remdesivir, and Baricitinib. He is on 50 L with an FiO2 of 65% for high flow. Added aspirin 81 mg, 20 mg twice daily Pepcid, and we will check his vitamin D today as well. We will recheck daily labs tomorrow. He has been utilizing his incentive spirometer and Acapella. He was again encouraged to prone whenever possible. Unknown length of stay due to severity of symptoms. 05/06/2021 This is a 50-year-old male who was admitted for COVID-19 pneumonia. He is on day 4 of remdesivir and dexamethasone. Day 3 of Baricitinib. His oxygen demand has increased to 50 L with an FiO2 of 75%. He continues to prone and utilize incentive spirometer and Acapella. Nicotine patch is in place. Labs today show an elevated WBC of 12.27, likely secondary to steroid use. Platelets are 389,000. Neutrophils are elevated 89.5%. We will recheck D-dimer tomorrow. Sodium 138. Potassium 4.6. Chloride 103. Carbon dioxide 25. Anion gap 14.6. BUN is 23. Creatinine 1.0. GFR greater than 60. Glucose is 190. Calcium 8.2. Bilirubin 0.6. AST is 40, ALT is 97, alkaline phosphatase 76. CRP is down to 3.8. Protein is 6.9. Albumin is 2.9. Vitamin D was obtained and was on the low end of normal at 33.2. Patient is requesting a spiritual care consult and this will be placed. Unknown length of stay due to severity of COVID-19 symptoms. We will continue to try to wean oxygen as patient tolerates. Overall he states he feels about the same as yesterday. He continues to have significant cough and sputum production. Reports his throat is sore from coughing so much so we will add Cepacol lozenges as needed. 05/07/2021 50-year-old male who is admitted with Covid pneumonia. He is on day 5 of remdesivir and dexamethasone. Day 4 of Baricitinib. His oxygen demand has increased to 55 L with an FiO2 of 70%. He tells me that he has not been proning. I have had a lengthy discussion with him regarding this and he states that he will try to do that more he has been using his I-S and Acapella. Labs today show a WBC of 12.03, hemoglobin 17.2, platelet count 392, D-dimer 3.76, C- reactive protein 4.3. Unknown length of stay due to severity of Covid. Continue to have respiratory therapy attempt to wean oxygen as tolerated. Patient states he feels a little worse today than yesterday. He states he has had not much of an appetite other than for a few fruits. He does continue to complain of cough which is productive of [place] sputum. 05/07/21 patient has been seen and examined. Patient has improved compared to yesterday. Patient is ambulating with less effort. No changes to present management, agree with assessment and plan. physical examination: cvs: [id number] Resp: Course soft lower bilateral Abd: sntnd Ext no edema 05/08/21 Covid 19 pneumonia/ acute respiratory failure with hypoxia- Patient has improved, now on high flow 60% sitting up and speech to through the window. He is eating better yet appetite is still decreased patient is trying to prone at night but difficult.Using IS and acapella. Wbc 11 this am. Cont with present management and RT therapy. Cont with ptot for strengthening. Complaint of productive sputum and may use Mucomyst to break this up further this afternoon. Total time is 36 min
[2021-05-08] MEDS: Benzocaine/Cetylpyridinium/Menthol Lozenge MUCMEM PRN (21:43)
[2021-05-08] MEDS: Temazepam 15 MG Cap PO PRN (21:44)
[2021-05-08] MEDS: Aspirin 81 MG Tab.Chew PO SCH (21:44)
[2021-05-09] MEDS: Heparin Sodium 5,000 Units/ML Vial SUBCUT SCH ×3 (01:06→17:25)
[2021-05-09] MEDS: Zinc Sulfate 220 MG Cap PO SCH (08:59)
[2021-05-09] MEDS: Cholecalciferol (Vitamin D3) 5,000 UNIT Cap PO SCH (08:59)
[2021-05-09] MEDS: Dexamethasone 4 MG Tab PO SCH (08:59)
[2021-05-09] MEDS: Famotidine 20 MG Tab PO SCH ×2 (08:59→21:26)
[2021-05-09] MEDS: Ascorbic Acid 500 MG Tab PO SCH (09:00)
--- NOTE | 2021-05-09 09:14 | PCM.PN ---
- General Info Date of Service: 05/09/21 Admission Dx/Problem (Free Text): Admission Diagnosis/Problem Admission Diagnosis/Problem Pneumonia due to COVID-19 with acute respiratory failure. Subjective Update: Patient is alert and states he is feeling a little better each day. he wants to wean more from o2 Functional Status: Reports: Pain Controlled, Tolerating Diet, Ambulating (still desaturating with ambulation but non symptomatic now) - Review of Systems General: Reports: Weakness HEENT: Reports: No Symptoms Pulmonary: Reports: Shortness of Breath (improving) Cardiovascular: Reports: No Symptoms Gastrointestinal: Reports: No Symptoms Genitourinary: Reports: No Symptoms Musculoskeletal: Reports: No Symptoms Skin: Reports: No Symptoms Neurological: Reports: No Symptoms Psychiatric: Reports: No Symptoms - Patient Data Vitals - Most Recent: Last Vital Signs Temp 98.2 F 05/09/21 04:37 Pulse 75 05/09/21 04:37 Resp 18 05/09/21 04:37 BP 110/79 05/09/21 04:37 Pulse Ox 90 L 05/09/21 04:39 Weight - Most Recent: 204 lb 14.4 oz I&O - Last 24 Hours: Intake & Output 05/08/21 05/09/21 05/09/21 22:59 06:59 14:59 Intake Total 1370 800 Output Total 550 975 Balance 820 -175 Lab Results Last 24 Hours: Laboratory Results - last 24 hr 05/09/21 05/09/21 05/09/21 Range/Units 05:24 05:24 05:24 WBC 11.59 H (4.23-9.07) K/mm3 RBC 5.61 (4.63-6.08) M/mm3 Hgb 16.9 (13.7-17.5) gm/dl Hct 49.0 (40.1-51.0) % MCV 87.3 (79.0-92.2) fl MCH 30.1 (25.7-32.2) pg MCHC 34.5 (32.2-35.5) g/dl RDW Std Deviation 39.2 (35.1-43.9) fL Plt Count 428 H (163-337) K/mm3 MPV 9.4 (9.4-12.3) fl Neut % (Auto) 93.0 H (34.0-67.9) % Lymph % (Auto) 3.6 L (21.8-53.1) % Kay % (Auto) 2.2 L (5.3-12.2) % Eos % (Auto) 0.3 L (0.8-7.0) Baso % (Auto) 0.1 (0.1-1.2) % Neut # (Auto) 10.78 H (1.78-5.38) K/mm3 Lymph # (Auto) 0.42 L (1.32-3.57) K/mm3 Kay # (Auto) 0.25 L (0.30-0.82) K/mm3 Eos # (Auto) 0.04 (0.04-0.54) K/mm3 Baso # (Auto) 0.01 (0.01-0.08) K/mm3 Manual Slide Review Abnormal smear D-Dimer, Quantitative 2.82 H (0.19-0.50) mg/L Sodium 138 (136-145) mEq/L Potassium 4.8 (3.5-5.1) mEq/L Chloride 100 (98-107) mEq/L Carbon Dioxide 28 (21-32) mEq/L Anion Gap 14.8 (5-15) BUN 29 H (7-18) mg/dL Creatinine 1.0 (0.7-1.3) mg/dL Est Cr Clr Drug Dosing 85.50 mL/min Estimated GFR (MDRD) > 60 (>60) mL/min BUN/Creatinine Ratio 29.0 H (14-18) Glucose 197 H (70-99) mg/dL Calcium 8.6 (8.5-10.1) mg/dL Magnesium 2.3 (1.8-2.4) mg/dL Total Bilirubin 0.6 (0.2-1.0) mg/dL AST 34 (15-37) U/L ALT 75 H (16-63) U/L Alkaline Phosphatase 74 (46-116) U/L C-Reactive Protein 3.4 H* (<1.0) mg/dL Total Protein 6.6 (6.4-8.2) g/dl Albumin 2.8 L (3.4-5.0) g/dl Globulin 3.8 gm/dL Albumin/Globulin Ratio 0.7 L (1-2) Med Orders - Current: Current Medications Acetaminophen (Acetaminophen 325 Mg Tab) 650 mg PO Q4H PRN PRN Reason: Pain (Mild 1-3)/fever Albuterol (Albuterol 6.7 Gm Inhaler) 0 gm INH Q4H PRN PRN Reason: sob/wheezing Last Admin: 05/08/21 21:07 Dose: 2 puff Documented by: Albuterol/Ipratropium (Albuterol/Ipratropium 3.0-0.5 Mg/3 Ml Neb Soln) 3 ml NEB Q4H PRN PRN Reason: Shortness Of Breath/wheezing Last Admin: 05/07/21 20:25 Dose: 3 ml Documented by: Ascorbic Acid (Ascorbic Acid 500 Mg Tab) 1,000 mg PO DAILY [facility] Last Admin: 05/09/21 09:00 Dose: 1,000 mg Documented by: Aspirin (Aspirin 81 Mg Tab.Chew) 81 mg PO BEDTIME [facility] Last Admin: 05/08/21 21:44 Dose: 81 mg Documented by: Benzocaine/Menthol (Benzocaine/Cetylpyridinium/Menthol Lozenge) 1 lozenge MUCMEM Q1H PRN PRN Reason: Sore Throat Last Admin: 05/08/21 21:43 Dose: 1 lozenge Documented by: Cholecalciferol (Cholecalciferol (Vitamin D3) 5,000 Unit Cap) 5,000 unit PO DAILY [facility] Last Admin: 05/09/21 08:59 Dose: 5,000 unit Documented by: Dexamethasone (Dexamethasone 4 Mg Tab) 6 mg PO DAILY [facility] Stop: 05/12/21 09:01 Last Admin: 05/09/21 08:59 Dose: 6 mg Documented by: Docusate Sodium (Docusate Sodium 100 Mg Cap) 100 mg PO BID PRN PRN Reason: Constipation Famotidine (Famotidine 20 Mg Tab) 20 mg PO BID [facility] Last Admin: 05/09/21 08:59 Dose: 20 mg Documented by: Heparin Sodium (Porcine) (Heparin Sodium 5,000 Units/Ml Vial) 7,500 units SUBCUT Q8H [facility] Last Admin: 05/09/21 09:00 Dose: 7,500 units Documented by: Ondansetron HCl (Ondansetron 4 Mg Tab.Dis) 4 mg PO Q4H PRN PRN Reason: nausea, able to take PO Oxycodone HCl (Oxycodone 5 Mg Tab) 5 mg PO Q4H PRN PRN Reason: Pain (moderate 4-6) Sodium Chloride (Sodium Chloride 0.9% 10 Ml Syringe) 10 ml FLUSH ASDIRECTED PRN PRN Reason: Keep Vein Open Last Admin: 05/03/21 10:12 Dose: 10 ml Documented by: Temazepam (Temazepam 15 Mg Cap) 15 mg PO BEDTIME PRN PRN Reason: Sleep Last Admin: 05/08/21 21:44 Dose: 15 mg Documented by: Zinc Sulfate (Zinc Sulfate 220 Mg Cap) 220 mg PO DAILY [facility] Last Admin: 05/09/21 08:59 Dose: 220 mg Documented by: Discontinued Medications Dexamethasone (Dexamethasone 4 Mg/Ml Sdv) 6 mg IVPUSH ONETIME ONE Stop: 05/03/21 09:54 Last Admin: 05/03/21 10:12 Dose: 6 mg Documented by: Enoxaparin Sodium (Enoxaparin 40 Mg/0.4 Ml Syringe) 40 mg SUBCUT DAILY [facility] Last Admin: 05/06/21 09:41 Dose: 40 mg Documented by: Sodium Chloride (Normal Saline) 1,000 mls @ 1,000 mls/hr IV .BOLUS [facility] Last Admin: 05/03/21 10:12 Dose: 1,000 mls/hr Documented by: Remdesivir 200 mg/ Sodium (Chloride) 250 mls @ 250 mls/hr IV ONETIME ONE Stop: 05/03/21 09:54 Last Admin: 05/03/21 10:30 Dose: Not Given Documented by: Remdesivir 200 mg/ Sodium (Chloride) 250 mls @ 250 mls/hr IV ONETIME ONE Stop: 05/03/21 11:29 Last Admin: 05/03/21 10:30 Dose: 250 mls/hr Documented by: Sodium Chloride (Normal Saline) 45 mls @ 40 mls/hr IV ASDIRECTED [facility] Last Admin: 05/03/21 11:48 Dose: 40 mls/hr Documented by: Azithromycin 500 mg/ Sodium (Chloride) 250 mls @ 250 mls/hr IV Q24H MOE Stop: 05/05/21 15:29 Last Admin: 05/05/21 14:38 Dose: 250 mls/hr Documented by: Remdesivir 100 mg/ Sodium (Chloride) 100 mls @ 100 mls/hr IV Q24H [facility] Stop: 05/07/21 11:29 Last Admin: 05/06/21 09:37 Dose: 100 mls/hr Documented by: Sodium Chloride (Normal Saline) Confirm Administered Dose 100 mls @ as directed .ROUTE .STK-MED ONE Stop: 05/04/21 10:56 Last Admin: 05/04/21 13:37 Dose: Not Given Documented by: Remdesivir 100 mg/ Sodium (Chloride) 100 mls @ 100 mls/hr IV Q24H [facility] Stop: 05/07/21 09:59 Last Admin: 05/07/21 09:41 Dose: 100 mls/hr Documented by: Iopamidol (Iopamidol 755 Mg/Ml 100 Ml Bottle) 100 ml IVPUSH ONETIME ONE Stop: 05/03/21 11:11 Last Admin: 05/03/21 11:47 Dose: 100 ml Documented by: Morphine Sulfate (Morphine 2 Mg/Ml Syringe) 2 mg IVPUSH Q2H PRN PRN Reason: Pain (severe 7-10) Stop: 05/04/21 14:17 Nicotine (Nicotine 14 Mg/24 Hr Patch) 14 mg TRDERM DAILY [facility] Last Admin: 05/06/21 09:17 Dose: Not Given Documented by: Sodium Chloride (Sodium Chloride 0.9% 10 Ml Syringe) 10 ml FLUSH ONETIME PRN PRN Reason: Keep Vein Open Last Admin: 05/03/21 11:47 Dose: 10 ml Documented by: - Exam Quality Assessment: Supplemental Oxygen (hi flow 60L 80% and weaning today) General: Alert, Oriented, Cooperative, No Acute Distress HEENT: Pupils Equal, Pupils Reactive, EOMI Neck: Supple Lungs: Decreased Breath Sounds, Crackles (only hearing mild crackles bilateral lower) GI/Abdominal Exam: Normal Bowel Sounds Extremities: No Pedal Edema - Patient Data Lab Results Last 24 hrs: Laboratory Results - last 24 hr 05/09/21 05/09/21 05/09/21 Range/Units 05:24 05:24 05:24 WBC 11.59 H (4.23-9.07) K/mm3 RBC 5.61 (4.63-6.08) M/mm3 Hgb 16.9 (13.7-17.5) gm/dl Hct 49.0 (40.1-51.0) % MCV 87.3 (79.0-92.2) fl MCH 30.1 (25.7-32.2) pg MCHC 34.5 (32.2-35.5) g/dl RDW Std Deviation 39.2 (35.1-43.9) fL Plt Count 428 H (163-337) K/mm3 MPV 9.4 (9.4-12.3) fl Neut % (Auto) 93.0 H (34.0-67.9) % Lymph % (Auto) 3.6 L (21.8-53.1) % Kay % (Auto) 2.2 L (5.3-12.2) % Eos % (Auto) 0.3 L (0.8-7.0) Baso % (Auto) 0.1 (0.1-1.2) % Neut # (Auto) 10.78 H (1.78-5.38) K/mm3 Lymph # (Auto) 0.42 L (1.32-3.57) K/mm3 Kay # (Auto) 0.25 L (0.30-0.82) K/mm3 Eos # (Auto) 0.04 (0.04-0.54) K/mm3 Baso # (Auto) 0.01 (0.01-0.08) K/mm3 Manual Slide Review Abnormal smear D-Dimer, Quantitative 2.82 H (0.19-0.50) mg/L Sodium 138 (136-145) mEq/L Potassium 4.8 (3.5-5.1) mEq/L Chloride 100 (98-107) mEq/L Carbon Dioxide 28 (21-32) mEq/L Anion Gap 14.8 (5-15) BUN 29 H (7-18) mg/dL Creatinine 1.0 (0.7-1.3) mg/dL Est Cr Clr Drug Dosing 85.50 mL/min Estimated GFR (MDRD) > 60 (>60) mL/min BUN/Creatinine Ratio 29.0 H (14-18) Glucose 197 H (70-99) mg/dL Calcium 8.6 (8.5-10.1) mg/dL Magnesium 2.3 (1.8-2.4) mg/dL Total Bilirubin 0.6 (0.2-1.0) mg/dL AST 34 (15-37) U/L ALT 75 H (16-63) U/L Alkaline Phosphatase 74 (46-116) U/L C-Reactive Protein 3.4 H* (<1.0) mg/dL Total Protein 6.6 (6.4-8.2) g/dl Albumin 2.8 L (3.4-5.0) g/dl Globulin 3.8 gm/dL Albumin/Globulin Ratio 0.7 L (1-2) Result Diagrams: 05/09/21 05:24 05/09/21 05:24 Sepsis Event Note - Evaluation Sepsis Screening Result: No Definite Risk - Focused Exam Vital Signs: Vital Signs Temp Pulse Resp BP Pulse Ox 05/09/21 04:39 90 L 05/09/21 04:37 98.2 F 75 18 110/79 85 L 05/08/21 21:40 98.2 F 82 18 116/69 93 L - Problem List Review Problem List Initiated/Reviewed/Updated: Yes - Assessment Assessment:: Day of admission - 05/03/2021 The patient is a 50-year-old gentleman who has been admitted to acute inpatient hospitalization due to COVID-19 pneumonia. The patient is outside the window for remdesivir treatment. The patient will be started on remdesivir 6 mg p.o. daily. He will be maintained on oxygen titrated to keep his saturations around 92%. The patient will also be started on a azithromycin 500 mg IV daily for superimposed infection. The patient also has been anticoagulated with the use of Lovenox at 40 mg subcutaneously daily. Repeat laboratory studies to include D-dimer and CRP have also been ordered. The patient is to have a regular diet as tolerated. The patient has had CT scan of his chest which had showed inc idental finding of a descending aortic aneurysm at 4.1 cm. Current guidelines have recommended that this be observed by annual CT scans. I have discussed the case of the aneurysm with the patient. The patient will need to follow-up with the primary care physician after discharge. He should be appropriate for discharge in 1 to 2 days depending upon his oxygen demands or symptoms. 05/04/2021 The patient is a 50-year-old gentleman who was initially admitted due to Covid pneumonia. The patient has had difficulty in maintaining his oxygen saturations around 92% and is on high flow oxygen. Regardless of the length of time for the patient's illness I have elected to place the patient on remdesivir 100 mg IV daily. He also meets qualifications for baricitinib and this was started with consultation from pharmacy. The patient is currently anticoagulated with Loveno x 40 mg subcutaneous daily. Continue with diet as tolerated. He is also on nicotine patch for smoking. The patient will be continued on telemetry. Repeat laboratory studies have been ordered. The patient should have a repeat chest x- ray in 1 to 2 days. The patient has been encouraged to ambulate in the room. The patient should be appropriate for discharge after finishing remdesivir. 05/05/2021 Is a 50-year-old male who was admitted to the hospital for COVID-19 pneumonia. Incidentally on CTA he was noted to have an ascending aortic aneurysm. No signs of any rupture. Today labs show a WBC of 9.08. Hemoglobin 15.9. He is normocytic. Platelet 272,000. Neutrophils are elevated 87.7%. D-dimer is 1.22. Sodium 140. Potassium 4.6. Chloride 105. Carbon dioxide 25. Anion gap is 14.6. BUN is 21. Creatinine 0.8. GFR greater than 60. Glucose 128. Calcium 7.7. Magnesium 2.4. Bilirubin 0.6. AST is 58, ALT 85. Alkaline phosphatase 64. CRP is 6.8. Protein 6.4. Albumin 2.7. He is receiving azithromycin, dexamethasone, remdesivir, and Baricitinib. He is on 50 L with an FiO2 of 65% for high flow. Added aspirin 81 mg, 20 mg twice daily Pepcid, and we will check his vitamin D today as well. We will recheck daily labs tomorrow. He has been utilizing his incentive spirometer and Acapella. He was again encouraged to prone whenever possible. Unknown length of stay due to severity of symptoms. 05/06/2021 This is a 50-year-old male who was admitted for COVID-19 pneumonia. He is on day 4 of remdesivir and dexamethasone. Day 3 of Baricitinib. His oxygen demand has increased to 50 L with an FiO2 of 75%. He continues to prone and utilize incentive spirometer and Acapella. Nicotine patch is in place. Labs today show an elevated WBC of 12.27, likely secondary to steroid use. Platelets are 389,000. Neutrophils are elevated 89.5%. We will recheck D-dimer tomorrow. Sodium 138. Potassium 4.6. Chloride 103. Carbon dioxide 25. Anion gap 14.6. BUN is 23. Creatinine 1.0. GFR greater than 60. Glucose is 190. Calcium 8.2. Bilirubin 0.6. AST is 40, ALT is 97, alkaline phosphatase 76. CRP is down to 3.8. Protein is 6.9. Albumin is 2.9. Vitamin D was obtained and was on the low end of normal at 33.2. Patient is requesting a spiritual care consult and this will be placed. Unknown length of stay due to severity of COVID-19 sym ptoms. We will continue to try to wean oxygen as patient tolerates. Overall he states he feels about the same as yesterday. He continues to have significant cough and sputum production. Reports his throat is sore from coughing so much so we will add Cepacol lozenges as needed. 05/07/2021 50-year-old male who is admitted with Covid pneumonia. He is on day 5 of remdesivir and dexamethasone. Day 4 of Baricitinib. His oxygen demand has increased to 55 L with an FiO2 of 70%. He tells me that he has not been proning. I have had a lengthy discussion with him regarding this and he states that he will try to do that more he has been using his I-S and Acapella. Labs today show a WBC of 12.03, hemoglobin 17.2, platelet count 392, D-dimer 3.76, C- reactive protein 4.3. Unknown length of stay due to severity of Covid. Continue to have respiratory therapy attempt to wean oxygen as tolerated. Patient states he feels a little worse today than yesterday. He states he has had not much of an appetite other than for a few fruits. He does continue to complain of cough which is productive of [place] sputum. 05/07/21 patient has been seen and examined. Patient has improved compared to yesterday. Patient is ambulating with less effort. No changes to present management, agree with assessment and plan. physical examination: cvs: [id number] Resp: Course soft lower bilateral Abd: sntnd Ext no edema 05/08/21 Covid 19 pneumonia/ acute respiratory failure with hypoxia- Patient has improved, now on high flow 60% sitting up and speech to through the window. He is eating better yet appetite is still decreased patient is trying to prone at night but difficult.Using IS and acapella. Wbc 11 this am. Cont with present management and RT therapy. Cont with ptot for strengthening. Complaint of productive sputum and may use Mucomyst to break this up further this afternoon. 05/09/21 patient is ambulating without sympotms but still desaturating, we should be able to start weaning more o2 due to saturating in high 90's today. requested to place between 88-92%. He is still this am on 60L 80%. Will get ABg this am and see how he is oxygenating. otherwise slow improvement but on track. Productive sputum and will try a one time mucomyst treatment.Patient is going over 96hour due to ongoing symptoms of covid pneumonia and acute respiratory failure. Will remain inpatient.
[2021-05-09] MEDS ORDERED: Acetylcysteine 20% 200 MG/ML 30 ML Nebulizer Soln SDV NEB ONE (09:15)
[2021-05-09] MEDS ORDERED: Acetylcysteine 20% 200 MG/ML 4 ML Nebulizer Soln SDV NEB ONE (09:45)
[2021-05-09] MEDS: Albuterol 6.7 GM Inhaler INH PRN (09:50)
[2021-05-09] MEDS: Benzocaine/Cetylpyridinium/Menthol Lozenge MUCMEM PRN ×3 (13:19→21:25)
[2021-05-09] MEDS: Aspirin 81 MG Tab.Chew PO SCH (21:26)
[2021-05-09] MEDS: guaiFENesin 600 MG Tab.ER PO SCH (21:26)
[2021-05-09] MEDS: Temazepam 15 MG Cap PO PRN (21:27)
[2021-05-10] MEDS: Heparin Sodium 5,000 Units/ML Vial SUBCUT SCH ×3 (00:51→17:50)
[2021-05-10] MEDS: guaiFENesin 600 MG Tab.ER PO SCH ×2 (08:40→21:42)
[2021-05-10] MEDS: Cholecalciferol (Vitamin D3) 5,000 UNIT Cap PO SCH (08:40)
[2021-05-10] MEDS: Famotidine 20 MG Tab PO SCH ×2 (08:41→21:43)
[2021-05-10] MEDS: Zinc Sulfate 220 MG Cap PO SCH (08:41)
[2021-05-10] MEDS: Ascorbic Acid 500 MG Tab PO SCH (08:42)
[2021-05-10] MEDS: Dexamethasone 4 MG Tab PO SCH (09:19)
--- NOTE | 2021-05-10 10:25 | PCM.PN ---
- General Info Date of Service: 05/10/21 Admission Dx/Problem (Free Text): Admission Diagnosis/Problem Admission Diagnosis/Problem Pneumonia due to COVID-19 with acute respiratory failure. Subjective Update: Patient had a significant coughing episode last night after getting 1 dose of Mucomyst. Shortly after the episode of coughing, in which he coughed up a quite a bit of sputum, he developed some swelling around his neck. When I saw the patient this morning it was apparent he had some subcutaneous air around his neck, his neck measuring [address] of the soft tissues of the neck were performed. CT scan did show diffuse mediastinal air. Diffuse air is noted throughout the right and left side of the neck anteriorly and posteriorly. Air is noted within the right axillary region. Air is also noted posteriorly within the chest. Small amount of pneumothorax is seen medially within the right chest. Dr. Williamson evaluated the small pneumothorax and feels that it is stable at this time and does not need specific treatment. Respiratory therapy has been decreasing the flow rate of his high flow nasal cannula secondary to the changes both in his diffuse mediastinal air and improvement in his oxygenation status. Patient does state that his neck is tight but it does not appear to be causing worsening shortness of breath. Functional Status: Reports: Pain Controlled - Review of Systems General: Reports: Fatigue HEENT: Reports: Other Pulmonary: Reports: Shortness of Breath, Cough Cardiovascular: Reports: No Symptoms Gastrointestinal: Reports: No Symptoms - Patient Data Vitals - Most Recent: Last Vital Signs Temp 97.5 F 05/10/21 05:10 Pulse 74 05/10/21 05:10 Resp 14 05/10/21 05:10 BP 117/65 05/10/21 05:10 Pulse Ox 89 L 05/10/21 08:27 Weight - Most Recent: 206 lb 1.6 oz I&O - Last 24 Hours: Intake & Output 05/09/21 05/10/21 05/10/21 22:59 06:59 14:59 Intake Total 1300 800 Output Total 600 1700 Balance 700 -900 Lab Results Last 24 Hours: Laboratory Results - last 24 hr 05/09/21 05/10/21 Range/Units 09:14 05:42 Puncture Site Lt radial ABG pH 7.49 H (7.35-7.45) ABG pCO2 31.1 L (35.0-45.0) mmHg ABG pO2 58.0 L (80.0-100.0) mmHg ABG HCO3 23.1 (22.0-26.0) meq/L ABG O2 Saturation 90.0 L (96.0-97.0) % ABG Base Excess 1.3 (-2-2.0) Teodoro Test Positive A-a Gradient 438 mmHg O2 Delivery Device Hiflow nasal cannula Oxygen Flow Rate 60.0 C-Reactive Protein 3.0 H* (<1.0) mg/dL Med Orders - Current: Current Medications Acetaminophen (Acetaminophen 325 Mg Tab) 650 mg PO Q4H PRN PRN Reason: Pain (Mild 1-3)/fever Albuterol (Albuterol 6.7 Gm Inhaler) 0 gm INH Q4H PRN PRN Reason: sob/wheezing Last Admin: 05/09/21 09:50 Dose: 2 puff Documented by: Albuterol/Ipratropium (Albuterol/Ipratropium 3.0-0.5 Mg/3 Ml Neb Soln) 3 ml NEB Q4H PRN PRN Reason: Shortness Of Breath/wheezing Last Admin: 05/07/21 20:25 Dose: 3 ml Documented by: Ascorbic Acid (Ascorbic Acid 500 Mg Tab) 1,000 mg PO DAILY [facility] Last Admin: 05/10/21 08:42 Dose: 1,000 mg Documented by: Aspirin (Aspirin 81 Mg Tab.Chew) 81 mg PO BEDTIME [facility] Last Admin: 05/09/21 21:26 Dose: 81 mg Documented by: Benzocaine/Menthol (Benzocaine/Cetylpyridinium/Menthol Lozenge) 1 lozenge MUCMEM Q1H PRN PRN Reason: Sore Throat Last Admin: 05/09/21 21:25 Dose: 1 lozenge Documented by: Cholecalciferol (Cholecalciferol (Vitamin D3) 5,000 Unit Cap) 5,000 unit PO DAILY [facility] Last Admin: 05/10/21 08:40 Dose: 5,000 unit Documented by: Dexamethasone (Dexamethasone 4 Mg Tab) 6 mg PO DAILY [facility] Stop: 05/12/21 09:01 Last Admin: 05/10/21 09:19 Dose: 6 mg Documented by: Docusate Sodium (Docusate Sodium 100 Mg Cap) 100 mg PO BID PRN PRN Reason: Constipation Famotidine (Famotidine 20 Mg Tab) 20 mg PO BID [facility] Last Admin: 05/10/21 08:41 Dose: 20 mg Documented by: Guaifenesin (Guaifenesin 600 Mg Tab.Er) 600 mg PO BID [facility] Last Admin: 05/10/21 08:40 Dose: 600 mg Documented by: Heparin Sodium (Porcine) (Heparin Sodium 5,000 Units/Ml Vial) 7,500 units SUBCUT Q8H [facility] Last Admin: 05/10/21 08:44 Dose: 7,500 units Documented by: Ondansetron HCl (Ondansetron 4 Mg Tab.Dis) 4 mg PO Q4H PRN PRN Reason: nausea, able to take PO Oxycodone HCl (Oxycodone 5 Mg Tab) 5 mg PO Q4H PRN PRN Reason: Pain (moderate 4-6) Sodium Chloride (Sodium Chloride 0.9% 10 Ml Syringe) 10 ml FLUSH ASDIRECTED PRN PRN Reason: Keep Vein Open Last Admin: 05/03/21 10:12 Dose: 10 ml Documented by: Temazepam (Temazepam 15 Mg Cap) 15 mg PO BEDTIME PRN PRN Reason: Sleep Last Admin: 05/09/21 21:27 Dose: 15 mg Documented by: Zinc Sulfate (Zinc Sulfate 220 Mg Cap) 220 mg PO DAILY [facility] Last Admin: 05/10/21 08:41 Dose: 220 mg Documented by: Discontinued Medications Acetylcysteine (Acetylcysteine 20% 200 Mg/Ml 30 Ml Nebulizer Soln Sdv) 800 mg NEB ONETIME ONE Stop: 05/09/21 09:16 Last Admin: 05/09/21 13:42 Dose: Not Given Documented by: Acetylcysteine (Acetylcysteine 20% 200 Mg/Ml 4 Ml Nebulizer Soln Sdv) 800 mg NEB ONETIME ONE Stop: 05/09/21 09:46 Last Admin: 05/09/21 09:44 Dose: 800 mg Documented by: Dexamethasone (Dexamethasone 4 Mg/Ml Sdv) 6 mg IVPUSH ONETIME ONE Stop: 05/03/21 09:54 Last Admin: 05/03/21 10:12 Dose: 6 mg Documented by: Enoxaparin Sodium (Enoxaparin 40 Mg/0.4 Ml Syringe) 40 mg SUBCUT DAILY [facility] Last Admin: 05/06/21 09:41 Dose: 40 mg Documented by: Sodium Chloride (Normal Saline) 1,000 mls @ 1,000 mls/hr IV .BOLUS [facility] Last Admin: 05/03/21 10:12 Dose: 1,000 mls/hr Documented by: Remdesivir 200 mg/ Sodium (Chloride) 250 mls @ 250 mls/hr IV ONETIME ONE Stop: 05/03/21 09:54 Last Admin: 05/03/21 10:30 Dose: Not Given Documented by: Remdesivir 200 mg/ Sodium (Chloride) 250 mls @ 250 mls/hr IV ONETIME ONE Stop: 05/03/21 11:29 Last Admin: 05/03/21 10:30 Dose: 250 mls/hr Documented by: Sodium Chloride (Normal Saline) 45 mls @ 40 mls/hr IV ASDIRECTED [facility] Last Admin: 05/03/21 11:48 Dose: 40 mls/hr Documented by: Azithromycin 500 mg/ Sodium (Chloride) 250 mls @ 250 mls/hr IV Q24H [facility] Stop: 05/05/21 15:29 Last Admin: 05/05/21 14:38 Dose: 250 mls/hr Documented by: Remdesivir 100 mg/ Sodium (Chloride) 100 mls @ 100 mls/hr IV Q24H [facility] Stop: 05/07/21 11:29 Last Admin: 05/06/21 09:37 Dose: 100 mls/hr Documented by: Sodium Chloride (Normal Saline) Confirm Administered Dose 100 mls @ as directed .ROUTE .STK-MED ONE Stop: 05/04/21 10:56 Last Admin: 05/04/21 13:37 Dose: Not Given Documented by: Remdesivir 100 mg/ Sodium (Chloride) 100 mls @ 100 mls/hr IV Q24H [facility] Stop: 05/07/21 09:59 Last Admin: 05/07/21 09:41 Dose: 100 mls/hr Documented by: Iopamidol (Iopamidol 755 Mg/Ml 100 Ml Bottle) 100 ml IVPUSH ONETIME ONE Stop: 05/03/21 11:11 Last Admin: 05/03/21 11:47 Dose: 100 ml Documented by: Morphine Sulfate (Morphine 2 Mg/Ml Syringe) 2 mg IVPUSH Q2H PRN PRN Reason: Pain (severe 7-10) Stop: 08/30/21 14:17 Nicotine (Nicotine 14 Mg/24 Hr Patch) 14 mg TRDERM DAILY [facility] Last Admin: 05/06/21 09:17 Dose: Not Given Documented by: Sodium Chloride (Sodium Chloride 0.9% 10 Ml Syringe) 10 ml FLUSH ONETIME PRN PRN Reason: Keep Vein Open Last Admin: 05/03/21 11:47 Dose: 10 ml Documented by: - Exam Quality Assessment: Supplemental Oxygen General: Alert, Oriented HEENT: Pupils Equal, Mucous Membr. Moist/[place] Neck: Supple, Trachea Midline, Other (Severe palpable subcutaneous air along the entire neck. Neck measures 50 cm in circumference.) Lungs: Normal Respiratory Effort, Crackles (Minimal crackles at the base. Mainly on the right side.) Cardiovascular: Regular Rate, Regular Rhythm GI/Abdominal Exam: Normal Bowel Sounds, Soft, Non-Tender, No Organomegaly, No Distention Extremities: Normal Inspection, Normal Range of Motion, No Pedal Edema Skin: Warm, Dry, Intact Psy/Mental Status: Alert, Normal Affect, Normal Mood - Patient Data Lab Results Last 24 hrs: Laboratory Results - last 24 hr 05/09/21 05/10/21 Range/Units 09:14 05:42 Puncture Site Lt radial ABG pH 7.49 H (7.35-7.45) ABG pCO2 31.1 L (35.0-45.0) mmHg ABG pO2 58.0 L (80.0-100.0) mmHg ABG HCO3 23.1 (22.0-26.0) meq/L ABG O2 Saturation 90.0 L (96.0-97.0) % ABG Base Excess 1.3 (-2-2.0) Teodoro Test Positive A-a Gradient 438 mmHg O2 Delivery Device Hiflow nasal cannula Oxygen Flow Rate 60.0 C-Reactive Protein 3.0 H* (<1.0) mg/dL Result Diagrams: 05/09/21 05:24 05/09/21 05:24 Sepsis Event Note - Evaluation Sepsis Screening Result: No Definite Risk - Focused Exam Vital Signs: Vital Signs Temp Pulse Resp BP Pulse Ox Pulse Ox 05/10/21 08:27 89 L 05/10/21 06:30 97 05/10/21 05:11 91 L 05/10/21 05:10 97.5 F 74 14 117/65 85 L - Problem List & Annotations (1) Mediastinal emphysema (pneumomediastinum) SNOMED Code(s): 09880729 Code(s): J98.2 - INTERSTITIAL EMPHYSEMA Status: Acute Current Visit: Yes (2) COVID-19 SNOMED Code(s): 248749432 Code(s): U07.1 - COVID-19 Status: Acute Priority: High Current Visit: Yes (3) Pneumonia due to COVID-19 virus SNOMED Code(s): 414852351507742508 Code(s): U07.1 - COVID-19; J12.82 - PNEUMONIA DUE TO CORONAVIRUS DISEASE 2019 Status: Acute Priority: High Current Visit: Yes - Problem List Review Problem List Initiated/Reviewed/Updated: Yes - My Orders Last 24 Hours: My Active Orders 05/10/21 10:21 Soft Tissue Neck wo Cont [CT] Routine 05/11/21 05:11 C-REACTIVE PROTEIN [CHEM] AM CBC WITH AUTO DIFF [HEME] AM CMP [COMPREHENSIVE METABOLIC PN,CMP] [CHEM] AM MAGNESIUM [CHEM] AM PHOSPHORUS [CHEM] AM - Assessment Assessment:: Day of admission - 05/03/2021 The patient is a 50-year-old gentleman who has been admitted to acute inpatient hospitalization due to COVID-19 pneumonia. The patient is outside the window for remdesivir treatment. The patient will be started on remdesivir 6 mg p.o. daily. He will be maintained on oxygen titrated to keep his saturations around 92%. The patient will also be started on a azithromycin 500 mg IV daily for superimposed infection. The patient also has been anticoagulated with the use of Lovenox at 40 mg subcutaneously daily. Repeat laboratory studies to include D-dimer and CRP have also been ordered. The patient is to have a regular diet as tolerated. The patient has had CT scan of his chest which had showed inc idental finding of a descending aortic aneurysm at 4.1 cm. Current guidelines have recommended that this be observed by annual CT scans. I have discussed the case of the aneurysm with the patient. The patient will need to follow-up with the primary care physician after discharge. He should be appropriate for discharge in 1 to 2 days depending upon his oxygen demands or symptoms. 05/04/2021 The patient is a 50-year-old gentleman who was initially admitted due to Covid pneumonia. The patient has had difficulty in maintaining his oxygen saturations around 92% and is on high flow oxygen. Regardless of the length of time for the patient's illness I have elected to place the patient on remdesivir 100 mg IV daily. He also meets qualifications for baricitinib and this was started with consultation from pharmacy. The patient is currently anticoagulated with Lovenox 40 mg subcutaneous daily. Continue with diet as tolerated. He is also on nicotine patch for smoking. The patient will be continued on telemetry. Repeat laboratory studies have been ordered. The patient should have a repeat chest x-ray in 1 to 2 days. The patient has been encouraged to ambulate in the room. The patient should be appropriate for discharge after finishing remdesivir. 05/05/2021 Is a 50-year-old male who was admitted to the hospital for COVID-19 pneumonia. Incidentally on CTA he was noted to have an ascending aortic aneurysm. No signs of any rupture. Today labs show a WBC of 9.08. Hemoglobin 15.9. He is normocytic. Platelet 272,000. Neutrophils are elevated 87.7%. D-dimer is 1.22. Sodium 140. Potassium 4.6. Chloride 105. Carbon dioxide 25. Anion gap is 14.6. BUN is 21. Creatinine 0.8. GFR greater than 60. Glucose 128. Calcium 7.7. Magnesium 2.4. Bilirubin 0.6. AST is 58, ALT 85. Alkaline phosphatase 64. CRP is 6.8. Protein 6.4. Albumin 2.7. He is receiving azithromycin, dexamethasone, remdesivir, and Baricitinib. He is on 50 L with an FiO2 of 65% for high flow. Added aspirin 81 mg, 20 mg twice daily Pepcid, and we will check his vitamin D today as well. We will recheck daily labs tomorrow. He has been utilizing his incentive spirometer and Acapella. He was again encouraged to prone whenever possible. Unknown length of stay due to severity of symptoms. 05/06/2021 This is a 50-year-old male who was admitted for COVID-19 pneumonia. He is on day 4 of remdesivir and dexamethasone. Day 3 of Baricitinib. His oxygen demand has increased to 50 L with an FiO2 of 75%. He continues to prone and utilize incentive spirometer and Acapella. Nicotine patch is in place. Labs today show an elevated WBC of 12.27, likely secondary to steroid use. Platelets are 389,000. Neutrophils are elevated 89.5%. We will recheck D-dimer tomorrow. Sodium 138. Potassium 4.6. Chloride 103. Carbon dioxide 25. Anion gap 14.6. BUN is 23. Creatinine 1.0. GFR greater than 60. Glucose is 190. Calcium 8.2. Bilirubin 0.6. AST is 40, ALT is 97, alkaline phosphatase 76. CRP is down to 3.8. Protein is 6.9. Albumin is 2.9. Vitamin D was obtained and was on the low end of normal at 33.2. Patient is requesting a spiritual care consult and this will be placed. Unknown length of stay due to severity of COVID-19 symptoms. We will continue to try to wean oxygen as patient tolerates. Overall he states he feels about the same as yesterday. He continues to have significant cough and sputum production. Reports his throat is sore from coughing so much so we will add Cepacol lozenges as needed. 05/07/2021 50-year-old male who is admitted with Covid pneumonia. He is on day 5 of remdesivir and dexamethasone. Day 4 of Baricitinib. His oxygen demand has increased to 55 L with an FiO2 of 70%. He tells me that he has not been proning. I have had a lengthy discussion with him regarding this and he states that he will try to do that more he has been using his I-S and Acapella. Labs today show a WBC of 12.03, hemoglobin 17.2, platelet count 392, D-dimer 3.76, C- reactive protein 4.3. Unknown length of stay due to severity of Covid. Continue to have respiratory therapy attempt to wean oxygen as tolerated. Patient states he feels a little worse today than yesterday. He states he has had not much of an appetite other than for a few fruits. He does continue to complain of cough which is productive of [place] sputum. 05/07/21 patient has been seen and examined. Patient has improved compared to yesterday. Patient is ambulating with less effort. No changes to present management, agree with assessment and plan. physical examination: cvs: [id number] Resp: Course soft lower bilateral Abd: sntnd Ext no edema 05/08/21 Covid 19 pneumonia/ acute respiratory failure with hypoxia- Patient has improved, now on high flow 60% sitting up and speech to through the window. He is eating better yet appetite is still decreased patient is trying to prone at night but difficult.Using IS and acapella. Wbc 11 this am. Cont with present management and RT therapy. Cont with ptot for strengthening. Complaint of productive sputum and may use Mucomyst to break this up further this afternoon. 05/09/21 patient is ambulating without sympotms but still desaturating, we should be able to start weaning more o2 due to saturating in high 90's today. requested to place between 88-92%. He is still this am on 60L 80%. Will get ABg this am and see how he is oxygenating. otherwise slow improvement but on track. Productive sputum and will try a one time mucomyst treatment.Patient is going over 96hour due to ongoing symptoms of covid pneumonia and acute respiratory failure. Will remain inpatient. 05/10/2021 Oxygen saturations have improved all day. He is currently on only 30 L of high flow nasal cannula at 60% FiO2. Oxygen saturations are staying in the mid 90s. Unfortunately patient developed a significant extravasation of air after having a severe coughing episode with a small right-sided pneumothorax. This is likely going to be a self-limiting condition, but it is very uncomfortable at this time. Neck measures 50 cm and we will continue to monitor this very closely. Goal will be to decrease or stop the high flow nasal cannula to decrease the trauma to the airway. Also, control his cough as well as possible and avoid Mucomyst. Labs were not done today and we will repeat routine COVID labs in the morning. Spoke with and explained to her his condition and him and his understand his current treatment plan.
--- NOTE | 2021-05-10 12:27 | CT ---
CT neck Technique: Multiple axial sections through the neck were obtained. Intravenous contrast was not utilized. Comparison: Prior CT chest study of 05/03/21. Findings: Diffuse mediastinal air is seen. Diffuse air is noted throughout the right and left side of the neck anteriorly and posteriorly. Air is noted within the right axillary region. Air is also noted posteriorly within the chest. Small amount of pneumothorax is seen medially within the right chest. Right and left globes that are seen appear normal in size. Visualized mastoid sinuses are clear. Parotid salivary glands show no focal abnormality. Submandibular salivary glands show no focal abnormality. No adenopathy or other neck masses seen. Bone window settings show scattered degenerative change within the spine which is most prominent at the C5-6 level with posterior spurring and anterior osteophytes. Lesser degenerative change is seen within other portions of the visualized spine. No acute osseous abnormality is appreciated. Impression: 1. Diffuse air as described above. Small amount of pneumothorax is seen medially within the right lung. 2. Diffuse COVID changes within the chest. 3. Degenerative change within the spine. Diagnostic code #5
--- NOTE | 2021-05-10 16:10 | PCM.CONS ---
H&P History of Present Illness - General Date of Service: 05/10/21 Admit Problem/Dx: Admission Diagnosis/Problem Admission Diagnosis/Problem Pneumonia due to COVID-19 with acute respiratory failure. Source of Information: Patient History Limitations: Reports: No Limitations - History of Present Illness Initial Comments - Free Text/Narative: Patient is being treated for Covid-19 symptoms including oxygen desaturations and SOB since 05/03. He has been making slow progress in the hospital. Yesterday, the patient received mycomist to assist with clearance of secretions. However, the patient has a violent episode of cough and soon thereafter his neck got bigger but he did not have any chest pains or worsening of his oxygen saturations. CT neck was performed as a result and pneumomediastimun and subcutaneous emphysema was noted, along with a sliver of pneumothorax. I was asked to see the patient for surgical opinion on his pneumothorax. Onset of Symptoms: Reports: Sudden Duration of Symptoms: Reports: Day(s): (1) Location: Reports: Neck, Chest Improves with: Reports: None Worsens with: Reports: None Context: Reports: Other (cough) Associated Symptoms: Reports: No Other Symptoms - Related Data Allergies/Adverse Reactions: Allergies Allergy/AdvReac Type Severity Reaction Status Date / Time No Known Allergies Allergy Verified 05/03/21 14:29 Home Medications: Home Meds Ascorbic Acid [Vitamin C] 1,000 mg PO DAILY 05/03/21 [History] Aspirin [[place]] 80 mg PO DAILY 05/03/21 [History] Azithromycin [Zithromax] 250 mg PO DAILY 05/03/21 [History] Cholecalciferol (Vitamin D3) [Vitamin D] 5,000 unit PO DAILY 05/03/21 [History] Zinc 50 mg PO DAILY 05/03/21 [History] dexAMETHasone [Dexamethasone] 6 mg PO DAILY 05/03/21 [History] Past Medical History - Past Health History Medical/Surgical History: Denies Medical/Surgical History HEENT History: Reports: None Cardiovascular History: Reports: None Respiratory History: Reports: None Other Respiratory History: had pneumonia was hospitalized for about 10 days Gastrointestinal History: Reports: None Genitourinary History: Reports: None Musculoskeletal History: Reports: None Neurological History: Reports: None Psychiatric History: Reports: None Endocrine/Metabolic History: Reports: None Hematologic History: Reports: None Immunologic History: Reports: None Oncologic (Cancer) History: Reports: None Dermatologic History: Reports: None - Infectious Disease History Infectious Disease History: Reports: Chicken Pox, Novel Coronavirus - Past Surgical History HEENT Surgical History: Reports: None Cardiovascular Surgical History: Reports: None Respiratory Surgical History: Reports: None Social & Family History - Family History Cardiac: Reports: Heart Failure, Heart Murmur, High Cholesterol Musculoskeletal: Reports: Arthritis Neurological: Reports: Parkinson's Dermatologic: Reports: Eczema Oncologic: Reports: Skin - Tobacco Use Tobacco Use Status *Q: Former Tobacco User Years of Tobacco use: 40 Packs/Tins Daily: 0.5 Used Tobacco, but Quit: No Month/Year Tobacco Last Used: pt states he has not used tobacco in over a week. Second Hand Smoke Exposure: No - Caffeine Use Caffeine Use: Reports: Coffee, Soda - Alcohol Use Days Per Week of Alcohol Use: 0 - Recreational Drug Use Recreational Drug Use: No - Living Situation & Occupation Living situation: Reports: , with Spouse, with Family Occupation: Other (Alas/rancher) H&P Review of Systems - Review of Systems: Review Of Systems: See Below General: Reports: No Symptoms HEENT: Reports: No Symptoms Pulmonary: Reports: Shortness of Breath Cardiovascular: Reports: No Symptoms, Blood Pressure Problem Gastrointestinal: Reports: No Symptoms Genitourinary: Reports: No Symptoms Musculoskeletal: Reports: No Symptoms Skin: Reports: No Symptoms Psychiatric: Reports: No Symptoms Exam - Exam Exam: See Below - Vital Signs Vital Signs: Last Vital Signs Temp 97.2 F 05/10/21 07:39 Pulse 78 05/10/21 07:39 Resp 20 05/10/21 07:39 BP 110/82 05/10/21 07:39 Pulse Ox 93 L 05/10/21 13:00 Weight: 93.485 kg - Exam Quality Assessment: Supplemental Oxygen General: Alert, Oriented, Cooperative Neck: Full Range of Motion, Other (suncutaneous emphysema) Lungs: Other (subcutaneous emphysema) - Patient Data Lab Results Last 24 hrs: Laboratory Results - last 24 hr 05/10/21 Range/Units 05:42 C-Reactive Protein 3.0 H* (<1.0) mg/dL Result Diagrams: 05/09/21 05:24 05/09/21 05:24 Sepsis Event Note - Evaluation Sepsis Screening Result: No Definite Risk - Focused Exam Vital Signs: Vital Signs Temp Pulse Resp BP Pulse Ox Pulse Ox 05/10/21 13:00 93 L 05/10/21 08:27 89 L 05/10/21 07:39 97.2 F 78 20 110/82 91 L 05/10/21 06:30 97 05/10/21 05:11 91 L 05/10/21 05:10 97.5 F 74 14 117/65 85 L Consult PN Assessment/Plan Procedures: Procedures ASSAY OF BLOOD/URIC ACID (03/30/21) FIBRIN DEGRADATION QUANT (03/29/16) ROUTINE VENIPUNCTURE (03/30/21) Problem List Initiated/Reviewed/Updated: No Plan: Patient has tiny right sided medial and apical pneumothorax, mediastinal emphysema in the context of moderate COVID-19 infection. This has not been worsening and he denies any chest pain or trouble swallowing. Plan - Pneumothorax, right - tiny - likely secondary to mediastinal emphysema. No need for surgical intervention. If sats or breathing worsens, then we will do an Xray to re-evaluate. But if pt continues to be stable or improving, then no need for repeat imaging. - Pneumomediastinum and subcutaneous emphysema - likely due to Covid-19 infection and severe cough yesterday. No need for surgical intervention. Continue to monitor the patient for signs of developing mediastinitis such as worsening chest pains or worsening inflammatory markers. Thank you for letting me be part of this patient's care. Please call with any additional questions or concerns.
[2021-05-10] MEDS: Aspirin 81 MG Tab.Chew PO SCH (21:42)
[2021-05-10] MEDS: Temazepam 15 MG Cap PO PRN (21:43)
[2021-05-11] MEDS: Heparin Sodium 5,000 Units/ML Vial SUBCUT SCH ×3 (01:26→17:22)
[2021-05-11] MEDS: Albuterol 6.7 GM Inhaler INH PRN (08:33)
[2021-05-11] MEDS: Famotidine 20 MG Tab PO SCH ×2 (09:13→20:41)
[2021-05-11] MEDS: Dexamethasone 4 MG Tab PO SCH (09:13)
[2021-05-11] MEDS: guaiFENesin 600 MG Tab.ER PO SCH ×2 (09:13→20:41)
[2021-05-11] MEDS: Zinc Sulfate 220 MG Cap PO SCH (09:13)
[2021-05-11] MEDS: Cholecalciferol (Vitamin D3) 5,000 UNIT Cap PO SCH (09:13)
[2021-05-11] MEDS: Ascorbic Acid 500 MG Tab PO SCH (09:13)
--- NOTE | 2021-05-11 09:54 | CR ---
Chest: Portable view of the chest was obtained. Comparison: Prior chest CT performed on 05/10/21 and chest x-ray on 05/03/21. Air is noted on both sides of the chest as well as mediastinum and air extending into the neck off the superior edge of the film. Diffuse pulmonary densities are seen throughout both sides of the chest. Heart size and mediastinum are normal. Bony structures show nothing acute. Minimal pneumothoraces seen on CT study are not definitely appreciated on this exam. Impression: 1. Diffuse soft tissue air and mediastinal air. 2. No definite pneumothorax is seen as noted on prior CT study. 3. Diffuse parenchymal densities are seen in both sides of the chest which has significantly increased from previous chest x-ray. These are most likely due to areas of COVID pneumonia. Diagnostic code #3
--- NOTE | 2021-05-11 15:37 | PCM.PN ---
- General Info Date of Service: 05/11/21 Admission Dx/Problem (Free Text): Admission Diagnosis/Problem Admission Diagnosis/Problem Pneumonia due to COVID-19 with acute respiratory failure. Subjective Update: Patient is doing well. He is having less shortness of breath and less oxygen support. He has less neck fullness. Functional Status: Reports: Pain Controlled - Review of Systems General: Reports: No Symptoms HEENT: Reports: No Symptoms Pulmonary: Reports: Shortness of Breath, Cough Cardiovascular: Reports: No Symptoms - Patient Data Vitals - Most Recent: Last Vital Signs Temp 97.9 F 05/11/21 15:00 Pulse 79 05/11/21 15:00 Resp 18 05/11/21 15:00 BP 120/84 05/11/21 15:00 Pulse Ox 94 L 05/11/21 15:00 Weight - Most Recent: 206 lb 14.4 oz I&O - Last 24 Hours: Intake & Output 05/11/21 05/11/21 05/11/21 06:59 14:59 22:59 Intake Total 800 240 Output Total 1325 Balance -525 240 Lab Results Last 24 Hours: Laboratory Results - last 24 hr 05/11/21 05/11/21 05/11/21 Range/Units 06:26 06:26 06:26 WBC 15.46 H (4.23-9.07) K/mm3 RBC 5.38 (4.63-6.08) M/mm3 Hgb 16.3 (13.7-17.5) gm/dl Hct 46.9 (40.1-51.0) % MCV 87.2 (79.0-92.2) fl MCH 30.3 (25.7-32.2) pg MCHC 34.8 (32.2-35.5) g/dl RDW Std Deviation 39.5 (35.1-43.9) fL Plt Count 483 H (163-337) K/mm3 MPV 9.3 L (9.4-12.3) fl Neut % (Auto) 91.2 H (34.0-67.9) % Lymph % (Auto) 4.1 L (21.8-53.1) % [place] % (Auto) 3.4 L (5.3-12.2) % Eos % (Auto) 0.4 L (0.8-7.0) Baso % (Auto) 0.1 (0.1-1.2) % Neut # (Auto) 14.12 H (1.78-5.38) K/mm3 Lymph # (Auto) 0.63 L (1.32-3.57) K/mm3 [place] # (Auto) 0.52 (0.30-0.82) K/mm3 Eos # (Auto) 0.06 (0.04-0.54) K/mm3 Baso # (Auto) 0.01 (0.01-0.08) K/mm3 Manual Slide Review Abnormal smear D-Dimer, Quantitative 2.10 H (0.19-0.50) mg/L Sodium 138 (136-145) mEq/L Potassium 4.5 (3.5-5.1) mEq/L Chloride 100 (98-107) mEq/L Carbon Dioxide 26 (21-32) mEq/L Anion Gap 16.5 H (5-15) BUN 30 H (7-18) mg/dL Creatinine 0.9 (0.7-1.3) mg/dL Est Cr Clr Drug Dosing 95.00 mL/min Estimated GFR (MDRD) > 60 (>60) mL/min BUN/Creatinine Ratio 33.3 H (14-18) Glucose 184 H (70-99) mg/dL Calcium 8.4 L (8.5-10.1) mg/dL Phosphorus 3.6 (2.6-4.7) mg/dL Magnesium 2.3 (1.8-2.4) mg/dL Total Bilirubin 0.5 (0.2-1.0) mg/dL AST 26 (15-37) U/L ALT 92 H (16-63) U/L Alkaline Phosphatase 70 (46-116) U/L C-Reactive Protein 1.6 H* (<1.0) mg/dL Total Protein 6.3 L (6.4-8.2) g/dl Albumin 2.7 L (3.4-5.0) g/dl Globulin 3.6 gm/dL Albumin/Globulin Ratio 0.8 L (1-2) Med Orders - Current: Current Medications Acetaminophen (Acetaminophen 325 Mg Tab) 650 mg PO Q4H PRN PRN Reason: Pain (Mild 1-3)/fever Albuterol (Albuterol 6.7 Gm Inhaler) 0 gm INH Q4H PRN PRN Reason: sob/wheezing Last Admin: 05/11/21 08:33 Dose: 2 puff Documented by: Albuterol/Ipratropium (Albuterol/Ipratropium 3.0-0.5 Mg/3 Ml Neb Soln) 3 ml NEB Q4H PRN PRN Reason: Shortness Of Breath/wheezing Last Admin: 05/07/21 20:25 Dose: 3 ml Documented by: Ascorbic Acid (Ascorbic Acid 500 Mg Tab) 1,000 mg PO DAILY [facility] Last Admin: 05/11/21 09:13 Dose: 1,000 mg Documented by: Aspirin (Aspirin 81 Mg Tab.Chew) 81 mg PO BEDTIME [facility] Last Admin: 05/10/21 21:42 Dose: 81 mg Documented by: Benzocaine/Menthol (Benzocaine/Cetylpyridinium/Menthol Lozenge) 1 lozenge MUCMEM Q1H PRN PRN Reason: Sore Throat Last Admin: 05/09/21 21:25 Dose: 1 lozenge Documented by: Cholecalciferol (Cholecalciferol (Vitamin D3) 5,000 Unit Cap) 5,000 unit PO DAILY [facility] Last Admin: 05/11/21 09:13 Dose: 5,000 unit Documented by: Dexamethasone (Dexamethasone 4 Mg Tab) 6 mg PO DAILY [facility] Stop: 05/12/21 09:01 Last Admin: 05/11/21 09:13 Dose: 6 mg Documented by: Docusate Sodium (Docusate Sodium 100 Mg Cap) 100 mg PO BID PRN PRN Reason: Constipation Famotidine (Famotidine 20 Mg Tab) 20 mg PO BID [facility] Last Admin: 05/11/21 09:13 Dose: 20 mg Documented by: Guaifenesin (Guaifenesin 600 Mg Tab.Er) 600 mg PO BID [facility] Last Admin: 05/11/21 09:13 Dose: 600 mg Documented by: Heparin Sodium (Porcine) (Heparin Sodium 5,000 Units/Ml Vial) 7,500 units SUBCUT Q8H [facility] Last Admin: 05/11/21 09:14 Dose: 7,500 units Documented by: Ondansetron HCl (Ondansetron 4 Mg Tab.Dis) 4 mg PO Q4H PRN PRN Reason: nausea, able to take PO Oxycodone HCl (Oxycodone 5 Mg Tab) 5 mg PO Q4H PRN PRN Reason: Pain (moderate 4-6) Sodium Chloride (Sodium Chloride 0.9% 10 Ml Syringe) 10 ml FLUSH ASDIRECTED PRN PRN Reason: Keep Vein Open Last Admin: 05/03/21 10:12 Dose: 10 ml Documented by: Temazepam (Temazepam 15 Mg Cap) 15 mg PO BEDTIME PRN PRN Reason: Sleep Last Admin: 05/10/21 21:43 Dose: 15 mg Documented by: Zinc Sulfate (Zinc Sulfate 220 Mg Cap) 220 mg PO DAILY [facility] Last Admin: 05/11/21 09:13 Dose: 220 mg Documented by: Discontinued Medications Acetylcysteine (Acetylcysteine 20% 200 Mg/Ml 30 Ml Nebulizer Soln Sdv) 800 mg NEB ONETIME ONE Stop: 05/09/21 09:16 Last Admin: 05/09/21 13:42 Dose: Not Given Documented by: Acetylcysteine (Acetylcysteine 20% 200 Mg/Ml 4 Ml Nebulizer Soln Sdv) 800 mg NEB ONETIME ONE Stop: 05/09/21 09:46 Last Admin: 05/09/21 09:44 Dose: 800 mg Documented by: Dexamethasone (Dexamethasone 4 Mg/Ml Sdv) 6 mg IVPUSH ONETIME ONE Stop: 05/03/21 09:54 Last Admin: 05/03/21 10:12 Dose: 6 mg Documented by: Enoxaparin Sodium (Enoxaparin 40 Mg/0.4 Ml Syringe) 40 mg SUBCUT DAILY [facility] Last Admin: 05/06/21 09:41 Dose: 40 mg Documented by: Sodium Chloride (Normal Saline) 1,000 mls @ 1,000 mls/hr IV .BOLUS [facility] Last Admin: 05/03/21 10:12 Dose: 1,000 mls/hr Documented by: Remdesivir 200 mg/ Sodium (Chloride) 250 mls @ 250 mls/hr IV ONETIME ONE Stop: 05/03/21 09:54 Last Admin: 05/03/21 10:30 Dose: Not Given Documented by: Remdesivir 200 mg/ Sodium (Chloride) 250 mls @ 250 mls/hr IV ONETIME ONE Stop: 05/03/21 11:29 Last Admin: 05/03/21 10:30 Dose: 250 mls/hr Documented by: Sodium Chloride (Normal Saline) 45 mls @ 40 mls/hr IV ASDIRECTED [facility] Last Admin: 05/03/21 11:48 Dose: 40 mls/hr Documented by: Azithromycin 500 mg/ Sodium (Chloride) 250 mls @ 250 mls/hr IV Q24H [facility] Stop: 05/05/21 15:29 Last Admin: 05/05/21 14:38 Dose: 250 mls/hr Documented by: Remdesivir 100 mg/ Sodium (Chloride) 100 mls @ 100 mls/hr IV Q24H [facility] Stop: 05/07/21 11:29 Last Admin: 05/06/21 09:37 Dose: 100 mls/hr Documented by: Sodium Chloride (Normal Saline) Confirm Administered Dose 100 mls @ as directed .ROUTE .STK-MED ONE Stop: 05/04/21 10:56 Last Admin: 05/04/21 13:37 Dose: Not Given Documented by: Remdesivir 100 mg/ Sodium (Chloride) 100 mls @ 100 mls/hr IV Q24H [facility] Stop: 05/07/21 09:59 Last Admin: 05/07/21 09:41 Dose: 100 mls/hr Documented by: Iopamidol (Iopamidol 755 Mg/Ml 100 Ml Bottle) 100 ml IVPUSH ONETIME ONE Stop: 05/03/21 11:11 Last Admin: 05/03/21 11:47 Dose: 100 ml Documented by: Morphine Sulfate (Morphine 2 Mg/Ml Syringe) 2 mg IVPUSH Q2H PRN PRN Reason: Pain (severe 7-10) Stop: 05/04/21 14:17 Nicotine (Nicotine 14 Mg/24 Hr Patch) 14 mg TRDERM DAILY [facility] Last Admin: 05/06/21 09:17 Dose: Not Given Documented by: Sodium Chloride (Sodium Chloride 0.9% 10 Ml Syringe) 10 ml FLUSH ONETIME PRN PRN Reason: Keep Vein Open Last Admin: 05/03/21 11:47 Dose: 10 ml Documented by: - Exam Quality Assessment: Supplemental Oxygen (Nasal cannula) General: Alert, Oriented HEENT: Pupils Equal, Mucous Membr. Moist/[place] Neck: Supple, Other (Circumference 49 cm) Lungs: Normal Respiratory Effort, Rales (Scattered) Cardiovascular: Regular Rate, Regular Rhythm GI/Abdominal Exam: Normal Bowel Sounds, Soft, Non-Tender, No Distention Extremities: Normal Inspection, Normal Range of Motion, Non-Tender, No Pedal Edema Skin: Warm, Dry, Intact Psy/Mental Status: Alert, Normal Affect, Normal Mood - Patient Data Lab Results Last 24 hrs: Laboratory Results - last 24 hr 05/11/21 05/11/21 05/11/21 Range/Units 06:26 06:26 06:26 WBC 15.46 H (4.23-9.07) K/mm3 RBC 5.38 (4.63-6.08) M/mm3 Hgb 16.3 (13.7-17.5) gm/dl Hct 46.9 (40.1-51.0) % MCV 87.2 (79.0-92.2) fl MCH 30.3 (25.7-32.2) pg MCHC 34.8 (32.2-35.5) g/dl RDW Std Deviation 39.5 (35.1-43.9) fL Plt Count 483 H (163-337) K/mm3 MPV 9.3 L (9.4-12.3) fl Neut % (Auto) 91.2 H (34.0-67.9) % Lymph % (Auto) 4.1 L (21.8-53.1) % [place] % (Auto) 3.4 L (5.3-12.2) % Eos % (Auto) 0.4 L (0.8-7.0) Baso % (Auto) 0.1 (0.1-1.2) % Neut # (Auto) 14.12 H (1.78-5.38) K/mm3 Lymph # (Auto) 0.63 L (1.32-3.57) K/mm3 [place] # (Auto) 0.52 (0.30-0.82) K/mm3 Eos # (Auto) 0.06 (0.04-0.54) K/mm3 Baso # (Auto) 0.01 (0.01-0.08) K/mm3 Manual Slide Review Abnormal smear D-Dimer, Quantitative 2.10 H (0.19-0.50) mg/L Sodium 138 (136-145) mEq/L Potassium 4.5 (3.5-5.1) mEq/L Chloride 100 (98-107) mEq/L Carbon Dioxide 26 (21-32) mEq/L Anion Gap 16.5 H (5-15) BUN 30 H (7-18) mg/dL Creatinine 0.9 (0.7-1.3) mg/dL Est Cr Clr Drug Dosing 95.00 mL/min Estimated GFR (MDRD) > 60 (>60) mL/min BUN/Creatinine Ratio 33.3 H (14-18) Glucose 184 H (70-99) mg/dL Calcium 8.4 L (8.5-10.1) mg/dL Phosphorus 3.6 (2.6-4.7) mg/dL Magnesium 2.3 (1.8-2.4) mg/dL Total Bilirubin 0.5 (0.2-1.0) mg/dL AST 26 (15-37) U/L ALT 92 H (16-63) U/L Alkaline Phosphatase 70 (46-116) U/L C-Reactive Protein 1.6 H* (<1.0) mg/dL Total Protein 6.3 L (6.4-8.2) g/dl Albumin 2.7 L (3.4-5.0) g/dl Globulin 3.6 gm/dL Albumin/Globulin Ratio 0.8 L (1-2) Result Diagrams: 05/11/21 06:26 05/11/21 06:26 Sepsis Event Note - Evaluation Sepsis Screening Result: Possible Sepsis Risk - Focused Exam Vital Signs: Vital Signs Temp Temp Pulse Pulse Resp BP BP 05/11/21 15:00 97.9 F 79 18 120/84 05/11/21 08:34 05/11/21 07:53 97.3 F 80 20 118/82 05/11/21 05:19 97.3 F 72 15 119/72 Pulse Ox Pulse Ox 05/11/21 15:00 94 L 05/11/21 08:34 88 L 05/11/21 07:53 87 L 05/11/21 05:19 94 L - Problem List & Annotations (1) Mediastinal emphysema (pneumomediastinum) SNOMED Code(s): 55790158 Code(s): J98.2 - INTERSTITIAL EMPHYSEMA Status: Acute Current Visit: Yes (2) COVID-19 SNOMED Code(s): 785044169 Code(s): U07.1 - COVID-19 Status: Acute Priority: High Current Visit: Yes (3) Pneumonia due to COVID-19 virus SNOMED Code(s): 536255699869755452 Code(s): U07.1 - COVID-19; J12.82 - PNEUMONIA DUE TO CORONAVIRUS DISEASE 2018 Status: Acute Priority: High Current Visit: Yes - Problem List Review Problem List Initiated/Reviewed/Updated: Yes - Assessment Assessment:: Day of admission - 05/03/2021 The patient is a 50-year-old gentleman who has been admitted to acute inpatient hospitalization due to COVID-19 pneumonia. The patient is outside the window for remdesivir treatment. The patient will be started on remdesivir 6 mg p.o. daily. He will be maintained on oxygen titrated to keep his saturations around 92%. The patient will also be started on a azithromycin 500 mg IV daily for superimposed infection. The patient also has been anticoagulated with the use of Lovenox at 40 mg subcutaneously daily. Repeat laboratory studies to include D-dimer and CRP have also been ordered. The patient is to have a regular diet as tolerated. 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 Current guidelines have recommended that this be observed by annual CT scans. I have discussed the case of the aneurysm with the patient. The patient will need to follow-up with the primary care physician after discharge. He should be appropriate for discharge in 1 to 2 days depending upon his oxygen demands or symptoms. 05/04/2021 The patient is a 50-year-old gentleman who was initially admitted due to Covid pneumonia. The patient has had difficulty in maintaining his oxygen saturations around 92% and is on high flow oxygen. Regardless of the length of time for the patient's illness I have elected to place the patient on remdesivir 100 mg IV daily. He also meets qualifications for baricitinib and this was started with consultation from pharmacy. The patient is currently anticoagulated with Lovenox 40 mg subcutaneous daily. Continue with diet as tolerated. He is also on nicotine patch for smoking. The patient will be continued on telemetry. Repeat laboratory studies have been ordered. The patient should have a repeat chest x-ray in 1 to 2 days. The patient has been encouraged to ambulate in the room. The patient should be appropriate for discharge after finishing remdesivir. 05/05/2021 Is a 50-year-old male who was admitted to the hospital for COVID-19 pneumonia. Incidentally on CTA he was noted to have an ascending aortic aneurysm. No signs of any rupture. Today labs show a WBC of 9.08. Hemoglobin 15.9. He is normocytic. Platelet 272,000. Neutrophils are elevated 87.7%. D-dimer is 1.22. Sodium 140. Potassium 4.6. Chloride 105. Carbon dioxide 25. Anion gap is 14.6. BUN is 21. Creatinine 0.8. GFR greater than 60. Glucose 128. Calcium 7.7. Magnesium 2.4. Bilirubin 0.6. AST is 58, ALT 85. Alkaline phosphatase 64. CRP is 6.8. Protein 6.4. Albumin 2.7. He is receiving azithromycin, dexamethasone, remdesivir, and Baricitinib. He is on 50 L with an FiO2 of 65% for high flow. Added aspirin 81 mg, 20 mg twice daily Pepcid, and we will check his vitamin D today as well. We will recheck daily labs tomorrow. He has been utilizing his incentive spirometer and Acapella. He was again encouraged to prone whenever possible. Unknown length of stay due to severity of symptoms. 05/06/2021 This is a 50-year-old male who was admitted for COVID-19 pneumonia. He is on day 4 of remdesivir and dexamethasone. Day 3 of Baricitinib. His oxygen demand has increased to 50 L with an FiO2 of 75%. He continues to prone and utilize incentive spirometer and Acapella. Nicotine patch is in place. Labs today show an elevated WBC of 12.27, likely secondary to steroid use. Platelets are 389,000. Neutrophils are elevated 89.5%. We will recheck D-dimer tomorrow. Sodium 138. Potassium 4.6. Chloride 103. Carbon dioxide 25. Anion gap 14.6. BUN is 23. Creatinine 1.0. GFR greater than 60. Glucose is 190. Calcium 8.2. Bilirubin 0.6. AST is 40, ALT is 97, alkaline phosphatase 76. CRP is down to 3.8. Protein is 6.9. Albumin is 2.9. Vitamin D was obtained and was on the low end of normal at 33.2. Patient is requesting a spiritual care consult and this will be placed. Unknown length of stay due to severity of COVID-19 symptoms. We will continue to try to wean oxygen as patient tolerates. Overall he states he feels about the same as yesterday. He continues to have signifi cant cough and sputum production. Reports his throat is sore from coughing so much so we will add Cepacol lozenges as needed. 05/07/2021 50-year-old male who is admitted with Covid pneumonia. He is on day 5 of remdesivir and dexamethasone. Day 4 of Baricitinib. His oxygen demand has increased to 55 L with an FiO2 of 70%. He tells me that he has not been proning. I have had a lengthy discussion with him regarding this and he states that he will try to do that more he has been using his I-S and Acapella. Labs today show a WBC of 12.03, hemoglobin 17.2, platelet count 392, D-dimer 3.76, C- reactive protein 4.3. Unknown length of stay due to severity of Covid. C ontinue to have respiratory therapy attempt to wean oxygen as tolerated. Patient states he feels a little worse today than yesterday. He states he has had not much of an appetite other than for a few fruits. He does continue to complain of cough which is productive of [place] sputum. 05/07/21 patient has been seen and examined. Patient has improved compared to yesterday. Patient is ambulating with less effort. No changes to present management, agree with assessment and plan. physical examination: cvs: [id number] Resp: Course soft lower bilateral Abd: sntnd Ext no edema 05/08/21 Covid 19 pneumonia/ acute respiratory failure with hypoxia- Patient has improved, now on high flow 60% sitting up and speech to through the window. He is eating better yet appetite is still decreased patient is trying to prone at night but difficult.Using IS and acapella. Wbc 11 this am. Cont with present management and RT therapy. Cont with ptot for strengthening. Complaint of productive sputum and may use Mucomyst to break this up further this afternoon. 05/09/21 patient is ambulating without sympotms but still desaturating, we should be able to start weaning more o2 due to saturating in high 90's today. requested to place between 88-92%. He is still this am on 60L 80%. Will get ABg this am and see how he is oxygenating. otherwise slow improvement but on track. Productive sputum and will try a one time mucomyst treatment.Patient is going over 96hour due to ongoing symptoms of covid pneumonia and acute respiratory failure. Will remain inpatient. 05/10/2021 Oxygen saturations have improved all day. He is currently on only 30 L of high flow nasal cannula at 60% FiO2. Oxygen saturations are staying in the mid 90s. Unfortunately patient developed a significant extravasation of air after having a severe coughing episode with a small right-sided pneumothorax. This is likely going to be a self-limiting condition, but it is very uncomfortable at this time. Neck measures 50 cm and we will continue to monitor this very closely. Goal will be to decrease or stop the high flow nasal cannula to decrease the trauma to the airway. Also, control his cough as well as possible and avoid Mucomyst. Labs were not done today and we will repeat routine COVID labs in the morning. Spoke with and explained to her his condition and him and his understand his current treatment plan. 05/11/2021 Patient has had continued improvement. He is down to 6 L nasal cannula and his neck circumference is also decreased. He has less next discomfort. Chest x-ray showed no pneumothorax, diffuse soft tissue air and mediastinal air, increased diffuse parenchymal densities from Covid pneumonia. Patient clinically much better. Hopefully over the next couple days patient will be able to be sent home on nasal cannula. We will continue on current treatment of dexamethasone and baricitinib. White count did increase to 15.5, but C-reactive protein dropped in half to 1.6. Also, D-dimer decreased to 2.1. - Plan Plan:: x
[2021-05-11] MEDS: Aspirin 81 MG Tab.Chew PO SCH (20:41)
[2021-05-11] MEDS: Temazepam 15 MG Cap PO PRN (20:42)
[2021-05-12] MEDS: Heparin Sodium 5,000 Units/ML Vial SUBCUT SCH ×3 (02:01→17:42)
--- NOTE | 2021-05-12 08:38 | PCM.PN ---
- General Info Date of Service: 05/12/21 Admission Dx/Problem (Free Text): Admission Diagnosis/Problem Admission Diagnosis/Problem Pneumonia due to COVID-19 with acute respiratory failure. Functional Status: Reports: Pain Controlled, Tolerating Diet, Ambulating, Urinat ing, Incentive Spirometry, Other (Acapella ). Denies: New Symptoms - Review of Systems General: Reports: Weakness, Fatigue. Denies: Fever, Malaise, Chills HEENT: Reports: Other (Neck distended with subcutaneous emphysema. Patient den ies any neck pain.). Denies: Headaches, Sore Throat Pulmonary: Reports: Shortness of Breath, Cough. Denies: Wheezing Cardiovascular: Reports: No Symptoms, Dyspnea on Exertion. Denies: Chest Pain, Palpitations, Edema Gastrointestinal: Reports: No Symptoms. Denies: Abdominal Pain, Constipation, Diarrhea, Nausea, Vomiting Genitourinary: Reports: No Symptoms. Denies: Pain Musculoskeletal: Reports: No Symptoms. Denies: Neck Pain Skin: Reports: No Symptoms. Denies: Cyanosis Neurological: Reports: No Symptoms. Denies: Confusion, Dizziness, Headache, Numbness, Pre-Existing Deficit, Syncope, Tingling, Difficulty Walking, Gait Disturbance Psychiatric: Reports: No Symptoms - Patient Data Vitals - Most Recent: Last Vital Signs Temp 97.9 F 05/12/21 02:06 Pulse 82 05/12/21 02:06 Resp 20 05/12/21 02:06 BP 132/90 05/12/21 02:06 Pulse Ox 89 L 05/12/21 02:06 Weight - Most Recent: 208 lb 6.4 oz I&O - Last 24 Hours: Intake & Output 05/11/21 05/12/21 05/12/21 22:59 06:59 14:59 Intake Total 500 Output Total 1250 Balance -750 Lab Results Last 24 Hours: Laboratory Results - last 24 hr 05/11/21 05/12/21 05/12/21 Range/Units 06:26 05:56 05:56 WBC 18.08 H (4.23-9.07) K/mm3 RBC 5.58 (4.63-6.08) M/mm3 Hgb 16.6 (13.7-17.5) gm/dl Hct 48.4 (40.1-51.0) % MCV 86.7 (79.0-92.2) fl MCH 29.7 (25.7-32.2) pg MCHC 34.3 (32.2-35.5) g/dl RDW Std Deviation 39.8 (35.1-43.9) fL Plt Count 532 H (163-337) K/mm3 MPV 9.3 L (9.4-12.3) fl Neut % (Auto) 90.2 H (34.0-67.9) % Lymph % (Auto) 4.0 L (21.8-53.1) % Mclean % (Auto) 4.1 L (5.3-12.2) % Eos % (Auto) 0.2 L (0.8-7.0) Baso % (Auto) 0.1 (0.1-1.2) % Neut # (Auto) 16.30 H (1.78-5.38) K/mm3 Lymph # (Auto) 0.73 L (1.32-3.57) K/mm3 Mclean # (Auto) 0.75 (0.30-0.82) K/mm3 Eos # (Auto) 0.04 (0.04-0.54) K/mm3 Baso # (Auto) 0.01 (0.01-0.08) K/mm3 Manual Slide Review Abnormal smear Abnormal smear D-Dimer, Quantitative 1.51 H (0.19-0.50) mg/L Sodium (136-145) mEq/L Potassium (3.5-5.1) mEq/L Chloride (98-107) mEq/L Carbon Dioxide (21-32) mEq/L Anion Gap (5-15) BUN (7-18) mg/dL Creatinine (0.7-1.3) mg/dL Est Cr Clr Drug Dosing mL/min Estimated GFR (MDRD) (>60) mL/min BUN/Creatinine Ratio (14-18) Glucose (70-99) mg/dL Calcium (8.5-10.1) mg/dL Phosphorus (2.6-4.7) mg/dL Magnesium (1.8-2.4) mg/dL Total Bilirubin (0.2-1.0) mg/dL AST (15-37) U/L ALT (16-63) U/L Alkaline Phosphatase (46-116) U/L C-Reactive Protein (<1.0) mg/dL Total Protein (6.4-8.2) g/dl Albumin (3.4-5.0) g/dl Globulin gm/dL Albumin/Globulin Ratio (1-2) 05/12/21 Range/Units 05:56 WBC (4.23-9.07) K/mm3 RBC (4.63-6.08) M/mm3 Hgb (13.7-17.5) gm/dl Hct (40.1-51.0) % MCV (79.0-92.2) fl MCH (25.7-32.2) pg MCHC (32.2-35.5) g/dl RDW Std Deviation (35.1-43.9) fL Plt Count (163-337) K/mm3 MPV (9.4-12.3) fl Neut % (Auto) (34.0-67.9) % Lymph % (Auto) (21.8-53.1) % Mclean % (Auto) (5.3-12.2) % Eos % (Auto) (0.8-7.0) Baso % (Auto) (0.1-1.2) % Neut # (Auto) (1.78-5.38) K/mm3 Lymph # (Auto) (1.32-3.57) K/mm3 Mclean # (Auto) (0.30-0.82) K/mm3 Eos # (Auto) (0.04-0.54) K/mm3 Baso # (Auto) (0.01-0.08) K/mm3 Manual Slide Review D-Dimer, Quantitative (0.19-0.50) mg/L Sodium 138 (136-145) mEq/L Potassium 4.6 (3.5-5.1) mEq/L Chloride 103 (98-107) mEq/L Carbon Dioxide 24 (21-32) mEq/L Anion Gap 15.6 H (5-15) BUN 30 H (7-18) mg/dL Creatinine 1.0 (0.7-1.3) mg/dL Est Cr Clr Drug Dosing 85.50 mL/min Estimated GFR (MDRD) > 60 (>60) mL/min BUN/Creatinine Ratio 30.0 H (14-18) Glucose 170 H (70-99) mg/dL Calcium 8.7 (8.5-10.1) mg/dL Phosphorus 3.9 (2.6-4.7) mg/dL Magnesium 2.2 (1.8-2.4) mg/dL Total Bilirubin 0.6 (0.2-1.0) mg/dL AST 32 (15-37) U/L ALT 117 H (16-63) U/L Alkaline Phosphatase 70 (46-116) U/L C-Reactive Protein 0.7 (<1.0) mg/dL Total Protein 6.7 (6.4-8.2) g/dl Albumin 2.9 L (3.4-5.0) g/dl Globulin 3.8 gm/dL Albumin/Globulin Ratio 0.8 L (1-2) Med Orders - Current: Current Medications Acetaminophen (Acetaminophen 325 Mg Tab) 650 mg PO Q4H PRN PRN Reason: Pain (Mild 1-3)/fever Albuterol (Albuterol 6.7 Gm Inhaler) 0 gm INH Q4H PRN PRN Reason: sob/wheezing Last Admin: 05/11/21 08:33 Dose: 2 puff Documented by: Albuterol/Ipratropium (Albuterol/Ipratropium 3.0-0.5 Mg/3 Ml Neb Soln) 3 ml NEB Q4H PRN PRN Reason: Shortness Of Breath/wheezing Last Admin: 05/07/21 20:25 Dose: 3 ml Documented by: Ascorbic Acid (Ascorbic Acid 500 Mg Tab) 1,000 mg PO DAILY [facility] Last Admin: 05/11/21 09:13 Dose: 1,000 mg Documented by: Aspirin (Aspirin 81 Mg Tab.Chew) 81 mg PO BEDTIME [facility] Last Admin: 05/11/21 20:41 Dose: 81 mg Documented by: Benzocaine/Menthol (Benzocaine/Cetylpyridinium/Menthol Lozenge) 1 lozenge MUCMEM Q1H PRN PRN Reason: Sore Throat Last Admin: 05/09/21 21:25 Dose: 1 lozenge Documented by: Cholecalciferol (Cholecalciferol (Vitamin D3) 5,000 Unit Cap) 5,000 unit PO DAILY [facility] Last Admin: 05/11/21 09:13 Dose: 5,000 unit Documented by: Dexamethasone (Dexamethasone 4 Mg Tab) 6 mg PO DAILY [facility] Stop: 05/12/21 09:01 Last Admin: 05/11/21 09:13 Dose: 6 mg Documented by: Docusate Sodium (Docusate Sodium 100 Mg Cap) 100 mg PO BID PRN PRN Reason: Constipation Famotidine (Famotidine 20 Mg Tab) 20 mg PO BID [facility] Last Admin: 05/11/21 20:41 Dose: 20 mg Documented by: Guaifenesin (Guaifenesin 600 Mg Tab.Er) 600 mg PO BID [facility] Last Admin: 05/11/21 20:41 Dose: 600 mg Documented by: Heparin Sodium (Porcine) (Heparin Sodium 5,000 Units/Ml Vial) 7,500 units SUBCUT Q8H [facility] Last Admin: 05/12/21 02:01 Dose: 7,500 units Documented by: Ondansetron HCl (Ondansetron 4 Mg Tab.Dis) 4 mg PO Q4H PRN PRN Reason: nausea, able to take PO Oxycodone HCl (Oxycodone 5 Mg Tab) 5 mg PO Q4H PRN PRN Reason: Pain (moderate 4-6) Sodium Chloride (Sodium Chloride 0.9% 10 Ml Syringe) 10 ml FLUSH ASDIRECTED PRN PRN Reason: Keep Vein Open Last Admin: 05/03/21 10:12 Dose: 10 ml Documented by: Temazepam (Temazepam 15 Mg Cap) 15 mg PO BEDTIME PRN PRN Reason: Sleep Last Admin: 05/11/21 20:42 Dose: 15 mg Documented by: Zinc Sulfate (Zinc Sulfate 220 Mg Cap) 220 mg PO DAILY [facility] Last Admin: 05/11/21 09:13 Dose: 220 mg Documented by: Discontinued Medications Acetylcysteine (Acetylcysteine 20% 200 Mg/Ml 30 Ml Nebulizer Soln Sdv) 800 mg NEB ONETIME ONE Stop: 05/09/21 09:16 Last Admin: 05/09/21 13:42 Dose: Not Given Documented by: Acetylcysteine (Acetylcysteine 20% 200 Mg/Ml 4 Ml Nebulizer Soln Sdv) 800 mg NEB ONETIME ONE Stop: 05/09/21 09:46 Last Admin: 05/09/21 09:44 Dose: 800 mg Documented by: Dexamethasone (Dexamethasone 4 Mg/Ml Sdv) 6 mg IVPUSH ONETIME ONE Stop: 05/03/21 09:54 Last Admin: 05/03/21 10:12 Dose: 6 mg Documented by: Enoxaparin Sodium (Enoxaparin 40 Mg/0.4 Ml Syringe) 40 mg SUBCUT DAILY [facility] Last Admin: 05/06/21 09:41 Dose: 40 mg Documented by: Sodium Chloride (Normal Saline) 1,000 mls @ 1,000 mls/hr IV .BOLUS [facility] Last Admin: 05/03/21 10:12 Dose: 1,000 mls/hr Documented by: Remdesivir 200 mg/ Sodium (Chloride) 250 mls @ 250 mls/hr IV ONETIME ONE Stop: 05/03/21 09:54 Last Admin: 05/03/21 10:30 Dose: Not Given Documented by: Remdesivir 200 mg/ Sodium (Chloride) 250 mls @ 250 mls/hr IV ONETIME ONE Stop: 05/03/21 11:29 Last Admin: 05/03/21 10:30 Dose: 250 mls/hr Documented by: Sodium Chloride (Normal Saline) 45 mls @ 40 mls/hr IV ASDIRECTED [facility] Last Admin: 05/03/21 11:48 Dose: 40 mls/hr Documented by: Azithromycin 500 mg/ Sodium (Chloride) 250 mls @ 250 mls/hr IV Q24H [facility] Stop: 05/05/21 15:29 Last Admin: 05/05/21 14:38 Dose: 250 mls/hr Documented by: Remdesivir 100 mg/ Sodium (Chloride) 100 mls @ 100 mls/hr IV Q24H [facility] Stop: 05/07/21 11:29 Last Admin: 05/06/21 09:37 Dose: 100 mls/hr Documented by: Sodium Chloride (Normal Saline) Confirm Administered Dose 100 mls @ as directed .ROUTE .STK-MED ONE Stop: 05/04/21 10:56 Last Admin: 05/04/21 13:37 Dose: Not Given Documented by: Remdesivir 100 mg/ Sodium (Chloride) 100 mls @ 100 mls/hr IV Q24H [facility] Stop: 05/07/21 09:59 Last Admin: 05/07/21 09:41 Dose: 100 mls/hr Documented by: Iopamidol (Iopamidol 755 Mg/Ml 100 Ml Bottle) 100 ml IVPUSH ONETIME ONE Stop: 05/03/21 11:11 Last Admin: 05/03/21 11:47 Dose: 100 ml Documented by: Morphine Sulfate (Morphine 2 Mg/Ml Syringe) 2 mg IVPUSH Q2H PRN PRN Reason: Pain (severe 7-10) Stop: 05/04/21 14:17 Nicotine (Nicotine 14 Mg/24 Hr Patch) 14 mg TRDERM DAILY [facility] Last Admin: 05/06/21 09:17 Dose: Not Given Documented by: Sodium Chloride (Sodium Chloride 0.9% 10 Ml Syringe) 10 ml FLUSH ONETIME PRN PRN Reason: Keep Vein Open Last Admin: 05/03/21 11:47 Dose: 10 ml Documented by: - Exam Quality Assessment: Supplemental Oxygen (4L), DVT Prophylaxis. No: Urine Catheter General: Alert, Oriented, Cooperative, No Acute Distress HEENT: Pupils Equal, Pupils Reactive, Mucous Membr. Moist/[place] Neck: Other (Neck distended with subcutaneous emphysema.) Lungs: Normal Respiratory Effort, Decreased Breath Sounds, Crackles (Bilateral lower marley). No: Wheezing Cardiovascular: Regular Rate, Regular Rhythm GI/Abdominal Exam: Normal Bowel Sounds, Soft, Non-Tender, No Distention (Male) Exam: Deferred Back Exam: Normal Inspection, Full Range of Motion Extremities: Normal Inspection, Normal Range of Motion, Non-Tender, No Pedal Edema, Normal Capillary Refill Peripheral Pulses: 2+: Radial (L), Radial (R), Dorsalis Pedis (L), Dorsalis Pedis (R) Skin: Warm, Dry, Intact Neurological: No New Focal Deficit Psy/Mental Status: Alert, Normal Affect, Normal Mood - Patient Data Lab Results Last 24 hrs: Laboratory Results - last 24 hr 05/11/21 05/12/21 05/12/21 Range/Units 06:26 05:56 05:56 WBC 18.08 H (4.23-9.07) K/mm3 RBC 5.58 (4.63-6.08) M/mm3 Hgb 16.6 (13.7-17.5) gm/dl Hct 48.4 (40.1-51.0) % MCV 86.7 (79.0-92.2) fl MCH 29.7 (25.7-32.2) pg MCHC 34.3 (32.2-35.5) g/dl RDW Std Deviation 39.8 (35.1-43.9) fL Plt Count 532 H (163-337) K/mm3 MPV 9.3 L (9.4-12.3) fl Neut % (Auto) 90.2 H (34.0-67.9) % Lymph % (Auto) 4.0 L (21.8-53.1) % Mclean % (Auto) 4.1 L (5.3-12.2) % Eos % (Auto) 0.2 L (0.8-7.0) Baso % (Auto) 0.1 (0.1-1.2) % Neut # (Auto) 16.30 H (1.78-5.38) K/mm3 Lymph # (Auto) 0.73 L (1.32-3.57) K/mm3 Mclean # (Auto) 0.75 (0.30-0.82) K/mm3 Eos # (Auto) 0.04 (0.04-0.54) K/mm3 Baso # (Auto) 0.01 (0.01-0.08) K/mm3 Manual Slide Review Abnormal smear Abnormal smear D-Dimer, Quantitative 1.51 H (0.19-0.50) mg/L Sodium (136-145) mEq/L Potassium (3.5-5.1) mEq/L Chloride (98-107) mEq/L Carbon Dioxide (21-32) mEq/L Anion Gap (5-15) BUN (7-18) mg/dL Creatinine (0.7-1.3) mg/dL Est Cr Clr Drug Dosing mL/min Estimated GFR (MDRD) (>60) mL/min BUN/Creatinine Ratio (14-18) Glucose (70-99) mg/dL Calcium (8.5-10.1) mg/dL Phosphorus (2.6-4.7) mg/dL Magnesium (1.8-2.4) mg/dL Total Bilirubin (0.2-1.0) mg/dL AST (15-37) U/L ALT (16-63) U/L Alkaline Phosphatase (46-116) U/L C-Reactive Protein (<1.0) mg/dL Total Protein (6.4-8.2) g/dl Albumin (3.4-5.0) g/dl Globulin gm/dL Albumin/Globulin Ratio (1-2) 05/12/21 Range/Units 05:56 WBC (4.23-9.07) K/mm3 RBC (4.63-6.08) M/mm3 Hgb (13.7-17.5) gm/dl Hct (40.1-51.0) % MCV (79.0-92.2) fl MCH (25.7-32.2) pg MCHC (32.2-35.5) g/dl RDW Std Deviation (35.1-43.9) fL Plt Count (163-337) K/mm3 MPV (9.4-12.3) fl Neut % (Auto) (34.0-67.9) % Lymph % (Auto) (21.8-53.1) % Mclean % (Auto) (5.3-12.2) % Eos % (Auto) (0.8-7.0) Baso % (Auto) (0.1-1.2) % Neut # (Auto) (1.78-5.38) K/mm3 Lymph # (Auto) (1.32-3.57) K/mm3 Mclean # (Auto) (0.30-0.82) K/mm3 Eos # (Auto) (0.04-0.54) K/mm3 Baso # (Auto) (0.01-0.08) K/mm3 Manual Slide Review D-Dimer, Quantitative (0.19-0.50) mg/L Sodium 138 (136-145) mEq/L Potassium 4.6 (3.5-5.1) mEq/L Chloride 103 (98-107) mEq/L Carbon Dioxide 24 (21-32) mEq/L Anion Gap 15.6 H (5-15) BUN 30 H (7-18) mg/dL Creatinine 1.0 (0.7-1.3) mg/dL Est Cr Clr Drug Dosing 85.50 mL/min Estimated GFR (MDRD) > 60 (>60) mL/min BUN/Creatinine Ratio 30.0 H (14-18) Glucose 170 H (70-99) mg/dL Calcium 8.7 (8.5-10.1) mg/dL Phosphorus 3.9 (2.6-4.7) mg/dL Magnesium 2.2 (1.8-2.4) mg/dL Total Bilirubin 0.6 (0.2-1.0) mg/dL AST 32 (15-37) U/L ALT 117 H (16-63) U/L Alkaline Phosphatase 70 (46-116) U/L C-Reactive Protein 0.7 (<1.0) mg/dL Total Protein 6.7 (6.4-8.2) g/dl Albumin 2.9 L (3.4-5.0) g/dl Globulin 3.8 gm/dL Albumin/Globulin Ratio 0.8 L (1-2) Result Diagrams: 05/12/21 05:56 05/12/21 05:56 Sepsis Event Note - Evaluation Sepsis Screening Result: No Definite Risk - Focused Exam Vital Signs: Vital Signs Temp Pulse Resp BP Pulse Ox Pulse Ox 05/12/21 02:06 97.9 F 82 20 132/90 89 L 05/11/21 21:00 93 L 05/11/21 20:45 97.9 F 81 18 141/97 H 91 L - Problem List & Annotations (1) Elevated d-dimer SNOMED Code(s): 516715323 Code(s): R79.89 - OTHER SPECIFIED ABNORMAL FINDINGS OF BLOOD CHEMISTRY St atus: Acute Priority: High Current Visit: Yes (2) Acute respiratory failure SNOMED Code(s): 93026473 Code(s): J96.00 - ACUTE RESPIRATORY FAILURE, UNSP W HYPOXIA OR HYPERCAPNIA Status: Acute Priority: High Current Visit: Yes Qualifiers: Respiratory failure complication: hypoxia Qualified Code(s): J96.01 - Acute respiratory failure with hypoxia (3) Hypoxia SNOMED Code(s): 542591475 Code(s): R09.02 - HYPOXEMIA Status: Acute Priority: High Current Visit: Yes (4) Pneumonia due to COVID-19 virus SNOMED Code(s): 121377845079629404 Code(s): U07.1 - COVID-19; J12.82 - PNEUMONIA DUE TO CORONAVIRUS DISEASE 2019 Status: Acute Priority: High Current Visit: Yes (5) Ascending aortic aneurysm Status: Chronic Priority: Medium Current Visit: Yes (6) Smokes tobacco daily SNOMED Code(s): 274000238 Code(s): F17.200 - NICOTINE DEPENDENCE, UNSPECIFIED, UNCOMPLICATED Status: Chronic Priority: Medium Current Visit: Yes (7) Mediastinal emphysema (pneumomediastinum) SNOMED Code(s): 20694636 Code(s): J98.2 - INTERSTITIAL EMPHYSEMA Status: Acute Priority: High Current Visit: Yes (8) Subcutaneous emphysema SNOMED Code(s): 0372833 Code(s): T79.7XXA - TRAUMATIC SUBCUTANEOUS EMPHYSEMA, INITIAL ENCOUNTER Status: Acute Priority: High Current Visit: Yes Qualifiers: Encounter type: initial encounter Qualified Code(s): T79.7XXA - Traumatic subcutaneous emphysema, initial encounter (9) Pneumothorax SNOMED Code(s): 04630236 Code(s): J93.9 - PNEUMOTHORAX, UNSPECIFIED Status: Acute Priority: High Current Visit: Yes Qualifiers: Pneumothorax type: other pneumothorax Qualified Code(s): J93.83 - Other pneumothorax - Problem List Review Problem List Initiated/Reviewed/Updated: Yes - Assessment Assessment:: Day of admission - 05/03/2021 The patient is a 50-year-old gentleman who has been admitted to acute inpatient hospitalization due to COVID-19 pneumonia. The patient is outside the window for remdesivir treatment. The patient will be started on remdesivir 6 mg p.o. daily. He will be maintained on oxygen titrated to keep his saturations around 92%. The patient will also be started on a azithromycin 500 mg IV daily for superimposed infection. The patient also has been anticoagulated with the use of Lovenox at 40 mg subcutaneously daily. Repeat laboratory studies to include D-dimer and CRP have also been ordered. The patient is to have a regular diet as tolerated. 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 Current guidelines have recommended that this be observed by annual CT scans. I have discussed the case of the aneurysm with the patient. The patient will need to follow-up with the primary care physician after discharge. He should be appropriate for discharge in 1 to 2 days depending upon his oxygen demands or symptoms. 05/04/2021 The patient is a 50-year-old gentleman who was initially admitted due to Covid pneumonia. The patient has had difficulty in maintaining his oxygen saturations around 92% and is on high flow oxygen. Regardless of the length of time for the patient's illness I have elected to place the patient on remdesivir 100 mg IV daily. He also meets qualifications for baricitinib and this was started with consultation from pharmacy. The patient is currently anticoagulated with Lo venox 40 mg subcutaneous daily. Continue with diet as tolerated. He is also on nicotine patch for smoking. The patient will be continued on telemetry. Repeat laboratory studies have been ordered. The patient should have a repeat chest x- ray in 1 to 2 days. The patient has been encouraged to ambulate in the room. The patient should be appropriate for discharge after finishing remdesivir. 05/05/2021 Is a 50-year-old male who was admitted to the hospital for COVID-19 pneumonia. Incidentally on CTA he was noted to have an ascending aortic aneurysm. No signs of any rupture. Today labs show a WBC of 9.08. Hemoglobin 15.9. He is normocytic. Platelet 272,000. Neutrophils are elevated 87.7%. D-dimer is 1.22. Sodium 140. Potassium 4.6. Chloride 105. Carbon dioxide 25. Anion gap is 14.6. BUN is 21. Creatinine 0.8. GFR greater than 60. Glucose 128. Calcium 7.7. Magnes ium 2.4. Bilirubin 0.6. AST is 58, ALT 85. Alkaline phosphatase 64. CRP is 6.8. Protein 6.4. Albumin 2.7. He is receiving azithromycin, dexamethasone, remdesivir, and Baricitinib. He is on 50 L with an FiO2 of 65% for high flow. Added aspirin 81 mg, 20 mg twice daily Pepcid, and we will check his vitamin D today as well. We will recheck daily labs tomorrow. He has been utilizing his incentive spirometer and Acapella. He was again encouraged to prone whenever possible. Unknown length of stay due to severity of symptoms. 05/06/2021 This is a 50-year-old male who was admitted for COVID-19 pneumonia. He is on day 4 of remdesivir and dexamethasone. Day 3 of Baricitinib. His oxygen demand has increased to 50 L with an FiO2 of 75%. He continues to prone and utilize incentive spirometer and Acapella. Nicotine patch is in place. Labs today show an elevated WBC of 12.27, likely secondary to steroid use. Platelets are 389,000. Neutrophils are elevated 89.5%. We will recheck D-dimer tomorrow. Sodium 138. Potassium 4.6. Chloride 103. Carbon dioxide 25. Anion gap 14.6. BUN is 23. Creatinine 1.0. GFR greater than 60. Glucose is 190. Calcium 8.2. Bilirubin 0.6. AST is 40, ALT is 97, alkaline phosphatase 76. CRP is down to 3.8. Protein is 6.9. Albumin is 2.9. Vitamin D was obtained and was on the low end of normal at 33.2. Patient is requesting a spiritual care consult and this will be placed. Unknown length of stay due to severity of COVID-19 symptoms. We will continue to try to wean oxygen as patient tolerates. Overall he states he feels about the same as yesterday. He continues to have significant cough and sputum production. Reports his throat is sore from coughing so much so we will add Cepacol lozenges as needed. 05/07/2021 50-year-old male who is admitted with Covid pneumonia. He is on day 5 of rem desivir and dexamethasone. Day 4 of Baricitinib. His oxygen demand has increased to 55 L with an FiO2 of 70%. He tells me that he has not been proning. I have had a lengthy discussion with him regarding this and he states that he will try to do that more he has been using his I-S and Acapella. Labs today show a WBC of 12.03, hemoglobin 17.2, platelet count 392, D-dimer 3.76, C- reactive protein 4.3. Unknown length of stay due to severity of Covid. Continue to have respiratory therapy attempt to wean oxygen as tolerated. Patient states he feels a little worse today than yesterday. He states he has had not much of an appetite other than for a few fruits. He does continue to complain of cough which is productive of [place] sputum. 05/07/21 patient has been seen and examined. Patient has improved compared to yesterday. Patient is ambulating with less effort. No changes to present ma nagement, agree with assessment and plan. physical examination: cvs: [id number] Resp: Course soft lower bilateral Abd: sntnd Ext no edema 05/08/21 Covid 19 pneumonia/ acute respiratory failure with hypoxia- Patient has improved, now on high flow 60% sitting up and speech to through the window. He is eating better yet appetite is still decreased patient is trying to prone at night but difficult.Using IS and acapella. Wbc 11 this am. Cont with present management and RT therapy. Cont with ptot for strengthening. Complaint of productive sputum and may use Mucomyst to break this up further this afternoon. 05/09/21 patient is ambulating without sympotms but still desaturating, we should be able to start weaning more o2 due to saturating in high 90's today. requested to place between 88-92%. He is still this am on 60L 80%. Will get ABg this am and see how he is oxygenating. otherwise slow improvement but on track. Productive sputum and will try a one time mucomyst treatment.Patient is going over 96hour due to ongoing symptoms of covid pneumonia and acute respiratory failure. Will remain inpatient. 05/10/2021 Oxygen saturations have improved all day. He is currently on only 30 L of high flow nasal cannula at 60% FiO2. Oxygen saturations are staying in the mid 90s. Unfortunately patient developed a significant extravasation of air after having a severe coughing episode with a small right-sided pneumothorax. This is likely going to be a self-limiting condition, but it is very uncomfortable at this time . Neck measures 50 cm and we will continue to monitor this very closely. Goal will be to decrease or stop the high flow nasal cannula to decrease the trauma to the airway. Also, control his cough as well as possible and avoid Mucomyst. Labs were not done today and we will repeat routine COVID labs in the morning. Spoke with and explained to her his condition and him and his jose nd his current treatment plan. 05/11/2021 Patient has had continued improvement. He is down to 6 L nasal cannula and his neck circumference is also decreased. He has less next discomfort. Chest x-ray showed no pneumothorax, diffuse soft tissue air and mediastinal air, increased diffuse parenchymal densities from Covid pneumonia. Patient clinically much better. Hopefully over the next couple days patient will be able to be sent home on nasal cannula. We will continue on current treatment of dexamethasone and baricitinib. White count did increase to 15.5, but C-reactive protein dropped in half to 1.6. Also, D-dimer decreased to 2.1. 05/12/2021 This is a 50-year-old male admitted for COVID-19 pneumonia and incidentally found to have a stable aortic aneurysm. Patient has completed dexamethasone, remdesivir, and azithromycin. Unfortunately during his stay after a Mucomyst inhalation patient had a coughing fit resulting in small right-sided pneumothorax, subcutaneous emphysema, and pneumomediastinum. General surgery, Dr. Williamson, was consulted and does not feel this is a surgical problem at this time. Neck circumference has been going down since. Nursing instructed to take it twice daily and alert provider should it increase greater than 1 cm. He continues on baricitinib. He is down to 4 L of oxygen today. WBC is up to 18 .08, likely steroid related. Hemoglobin 16.6. Platelet 532,000. D-dimer is 1.51. Sodium 138. Potassium 4.6. Chloride 103. Carbon dioxide 24. Anion gap is 15.6. BUN is 30. Creatinine 1.0. GFR in 60. Glucose is 170. Calcium 8.7. Phosphorus 3.9. Magnesium 2.2. Total bilirubin 0.6. AST is 32, ALT 117, alkaline phosphatase 70. CRP 0.7. Protein 6.7. Albumin is up to 2.9. Overall patient reports he feels better. He will remain hospitalized with goal oxygen therapy of 2 L or less. - Plan Plan:: Pneumonia due to COVID-19 virus Elevated d-dimer Acute respiratory failure Hypoxia * Negative CTA for PE * Completed Remdesivir * Completed Dexamethasone * O2 to keep saturation between 88 to 95%. * As needed albuterol MDI * As needed DuoNeb's * Daily labs * Check D-dimer every 48 hours * I-S/Acapella * RT consult * Discontinue lovenox and start Heparin 7500 units Q 8 hours d/t elevation of ddimer * Prone whenever able * Ambulate around room * Completed Azithromycin * 81 mg daily aspirin * Baricitinib day 05/19 * Telemetry * Airborne/contact isolation * Continuous pulse oximetry * Daily zinc supplementation * Famotidine 20 mg twice daily * Mucinex BID * Cepacol lozenges for sore throat Mediastinal emphysema Subcutaneous emphysema Pneumothorax * General surgery - Dr. Williamson consulted * No surgical interventions needed * Limit IS * Monitor * BID neck measurements by nursing - alert provider if >1cm increase. Ascending aortic aneurysm * 4.1 cm * No acute concerns * PCP follow-up/monitoring Smokes tobacco daily * Daily nicotine patch * Cessation counseling * Offered nicotine patches at discharge Code status: Full code PCP: None - needs to establish DVT prophylaxis: Heparin Disposition: Patient will remain hospitalized for duration of COVID-19 treatment. Unknown length of stay due to severity of symptoms. Length of stay greater than 96 hours due to need for continued COVID-19 treatment.
[2021-05-12] MEDS: Zinc Sulfate 220 MG Cap PO SCH (09:10)
[2021-05-12] MEDS: guaiFENesin 600 MG Tab.ER PO SCH ×2 (09:10→20:57)
[2021-05-12] MEDS: Cholecalciferol (Vitamin D3) 5,000 UNIT Cap PO SCH (09:10)
[2021-05-12] MEDS: Ascorbic Acid 500 MG Tab PO SCH (09:10)
[2021-05-12] MEDS: Famotidine 20 MG Tab PO SCH ×2 (09:10→20:58)
[2021-05-12] MEDS: Dexamethasone 4 MG Tab PO SCH (09:11)
[2021-05-12] MEDS: Albuterol 6.7 GM Inhaler INH PRN ×3 (09:25→20:38)
[2021-05-12] MEDS: Aspirin 81 MG Tab.Chew PO SCH (20:58)
[2021-05-13] MEDS: Heparin Sodium 5,000 Units/ML Vial SUBCUT SCH ×3 (00:40→16:44)
[2021-05-13] MEDS: Temazepam 15 MG Cap PO PRN ×2 (00:55→21:20)
--- NOTE | 2021-05-13 07:08 | PCM.PN ---
- General Info Date of Service: 05/13/21 Admission Dx/Problem (Free Text): Admission Diagnosis/Problem Admission Diagnosis/Problem Pneumonia due to COVID-19 with acute respiratory failure. Functional Status: Reports: Pain Controlled, Tolerating Diet, Ambulating, Urinat ing, New Symptoms, Incentive Spirometry, Other (Acapella ) - Review of Systems General: Reports: Weakness, Fatigue. Denies: Fever, Malaise, Chills HEENT: Reports: Other (Subcutaneous emphysema has moved up into his face with significant bulging of his left eyelid.). Denies: Headaches, Sore Throat Pulmonary: Reports: Shortness of Breath, Cough, Sputum. Denies: Wheezing Cardiovascular: Reports: No Symptoms, Dyspnea on Exertion. Denies: Chest Pain, Palpitations, Edema Gastrointestinal: Reports: No Symptoms. Denies: Abdominal Pain, Constipation, Diarrhea, Nausea, Vomiting Genitourinary: Reports: No Symptoms. Denies: Pain Musculoskeletal: Reports: No Symptoms Skin: Reports: No Symptoms. Denies: Cyanosis Neurological: Reports: No Symptoms. Denies: Confusion, Dizziness, Headache, Numbness, Pre-Existing Deficit, Seizure, Syncope, Tingling, Tremors, Difficulty Walking, Gait Disturbance Psychiatric: Reports: No Symptoms - Patient Data Vitals - Most Recent: Last Vital Signs Temp 97.7 F 05/13/21 06:23 Pulse 80 05/13/21 06:23 Resp 18 05/13/21 06:23 BP 132/68 05/13/21 06:28 Pulse Ox 90 L 05/13/21 06:23 Weight - Most Recent: 209 lb 6.4 oz I&O - Last 24 Hours: Intake & Output 05/12/21 05/13/21 05/13/21 22:59 06:59 14:59 Intake Total 600 500 Output Total 400 500 Balance 200 0 Lab Results Last 24 Hours: Laboratory Results - last 24 hr 05/13/21 05/13/21 Range/Units 06:04 06:04 WBC 20.53 H (4.23-9.07) K/mm3 RBC 5.62 (4.63-6.08) M/mm3 Hgb 16.7 (13.7-17.5) gm/dl Hct 48.7 (40.1-51.0) % MCV 86.7 (79.0-92.2) fl MCH 29.7 (25.7-32.2) pg MCHC 34.3 (32.2-35.5) g/dl RDW Std Deviation 39.8 (35.1-43.9) fL Plt Count 536 H (163-337) K/mm3 MPV 9.1 L (9.4-12.3) fl Neut % (Auto) 87.8 H (34.0-67.9) % Lymph % (Auto) 4.9 L (21.8-53.1) % [place] % (Auto) 4.7 L (5.3-12.2) % Eos % (Auto) 0.2 L (0.8-7.0) Baso % (Auto) 0.0 L (0.1-1.2) % Neut # (Auto) 18.00 H (1.78-5.38) K/mm3 Lymph # (Auto) 1.00 L (1.32-3.57) K/mm3 [place] # (Auto) 0.97 H (0.30-0.82) K/mm3 Eos # (Auto) 0.05 (0.04-0.54) K/mm3 Baso # (Auto) 0.01 (0.01-0.08) K/mm3 Sodium 136 (136-145) mEq/L Potassium 4.6 (3.5-5.1) mEq/L Chloride 100 (98-107) mEq/L Carbon Dioxide 26 (21-32) mEq/L Anion Gap 14.6 (5-15) BUN 30 H (7-18) mg/dL Creatinine 1.0 (0.7-1.3) mg/dL Est Cr Clr Drug Dosing 85.50 mL/min Estimated GFR (MDRD) > 60 (>60) mL/min BUN/Creatinine Ratio 30.0 H (14-18) Glucose 141 H (70-99) mg/dL Calcium 8.7 (8.5-10.1) mg/dL Med Orders - Current: Current Medications Acetaminophen (Acetaminophen 325 Mg Tab) 650 mg PO Q4H PRN PRN Reason: Pain (Mild 1-3)/fever Albuterol (Albuterol 6.7 Gm Inhaler) 0 gm INH Q4H PRN PRN Reason: sob/wheezing Last Admin: 05/12/21 20:38 Dose: 2 puff Documented by: Albuterol/Ipratropium (Albuterol/Ipratropium 3.0-0.5 Mg/3 Ml Neb Soln) 3 ml NEB Q4H PRN PRN Reason: Shortness Of Breath/wheezing Last Admin: 05/07/21 20:25 Dose: 3 ml Documented by: Ascorbic Acid (Ascorbic Acid 500 Mg Tab) 1,000 mg PO DAILY [facility] Last Admin: 05/12/21 09:10 Dose: 1,000 mg Documented by: Aspirin (Aspirin 81 Mg Tab.Chew) 81 mg PO BEDTIME [facility] Last Admin: 05/12/21 20:58 Dose: 81 mg Documented by: Benzocaine/Menthol (Benzocaine/Cetylpyridinium/Menthol Lozenge) 1 lozenge MUCMEM Q1H PRN PRN Reason: Sore Throat Last Admin: 05/09/21 21:25 Dose: 1 lozenge Documented by: Cholecalciferol (Cholecalciferol (Vitamin D3) 5,000 Unit Cap) 5,000 unit PO DAILY [facility] Last Admin: 05/12/21 09:10 Dose: 5,000 unit Documented by: Docusate Sodium (Docusate Sodium 100 Mg Cap) 100 mg PO BID PRN PRN Reason: Constipation Famotidine (Famotidine 20 Mg Tab) 20 mg PO BID [facility] Last Admin: 05/12/21 20:58 Dose: 20 mg Documented by: Guaifenesin (Guaifenesin 600 Mg Tab.Er) 600 mg PO BID [facility] Last Admin: 05/12/21 20:57 Dose: 600 mg Documented by: Heparin Sodium (Porcine) (Heparin Sodium 5,000 Units/Ml Vial) 7,500 units SUBCUT Q8H [facility] Last Admin: 05/13/21 00:40 Dose: 7,500 units Documented by: Ondansetron HCl (Ondansetron 4 Mg Tab.Dis) 4 mg PO Q4H PRN PRN Reason: nausea, able to take PO Oxycodone HCl (Oxycodone 5 Mg Tab) 5 mg PO Q4H PRN PRN Reason: Pain (moderate 4-6) Sodium Chloride (Sodium Chloride 0.9% 10 Ml Syringe) 10 ml FLUSH ASDIRECTED PRN PRN Reason: Keep Vein Open Last Admin: 05/03/21 10:12 Dose: 10 ml Documented by: Temazepam (Temazepam 15 Mg Cap) 15 mg PO BEDTIME PRN PRN Reason: Sleep Last Admin: 05/13/21 00:55 Dose: 15 mg Documented by: Zinc Sulfate (Zinc Sulfate 220 Mg Cap) 220 mg PO DAILY [facility] Last Admin: 05/12/21 09:10 Dose: 220 mg Documented by: Discontinued Medications Acetylcysteine (Acetylcysteine 20% 200 Mg/Ml 30 Ml Nebulizer Soln Sdv) 800 mg NEB ONETIME ONE Stop: 05/09/21 09:16 Last Admin: 05/09/21 13:42 Dose: Not Given Documented by: Acetylcysteine (Acetylcysteine 20% 200 Mg/Ml 4 Ml Nebulizer Soln Sdv) 800 mg NEB ONETIME ONE Stop: 05/09/21 09:46 Last Admin: 05/09/21 09:44 Dose: 800 mg Documented by: Dexamethasone (Dexamethasone 4 Mg/Ml Sdv) 6 mg IVPUSH ONETIME ONE Stop: 05/03/21 09:54 Last Admin: 05/03/21 10:12 Dose: 6 mg Documented by: Dexamethasone (Dexamethasone 4 Mg Tab) 6 mg PO DAILY [facility] Stop: 05/12/21 09:01 Last Admin: 05/12/21 09:11 Dose: 6 mg Documented by: Enoxaparin Sodium (Enoxaparin 40 Mg/0.4 Ml Syringe) 40 mg SUBCUT DAILY [facility] Last Admin: 05/06/21 09:41 Dose: 40 mg Documented by: Sodium Chloride (Normal Saline) 1,000 mls @ 1,000 mls/hr IV .BOLUS [facility] Last Admin: 05/03/21 10:12 Dose: 1,000 mls/hr Documented by: Remdesivir 200 mg/ Sodium (Chloride) 250 mls @ 250 mls/hr IV ONETIME ONE Stop: 05/03/21 09:54 Last Admin: 05/03/21 10:30 Dose: Not Given Documented by: Remdesivir 200 mg/ Sodium (Chloride) 250 mls @ 250 mls/hr IV ONETIME ONE Stop: 05/03/21 11:29 Last Admin: 05/03/21 10:30 Dose: 250 mls/hr Documented by: Sodium Chloride (Normal Saline) 45 mls @ 40 mls/hr IV ASDIRECTED [facility] Last Admin: 05/03/21 11:48 Dose: 40 mls/hr Documented by: Azithromycin 500 mg/ Sodium (Chloride) 250 mls @ 250 mls/hr IV Q24H [facility] Stop: 05/05/21 15:29 Last Admin: 05/05/21 14:38 Dose: 250 mls/hr Documented by: Remdesivir 100 mg/ Sodium (Chloride) 100 mls @ 100 mls/hr IV Q24H [facility] Stop: 05/07/21 11:29 Last Admin: 05/06/21 09:37 Dose: 100 mls/hr Documented by: Sodium Chloride (Normal Saline) Confirm Administered Dose 100 mls @ as directed .ROUTE .STK-MED ONE Stop: 05/04/21 10:56 Last Admin: 05/04/21 13:37 Dose: Not Given Documented by: Remdesivir 100 mg/ Sodium (Chloride) 100 mls @ 100 mls/hr IV Q24H [facility] Stop: 05/07/21 09:59 Last Admin: 05/07/21 09:41 Dose: 100 mls/hr Documented by: Iopamidol (Iopamidol 755 Mg/Ml 100 Ml Bottle) 100 ml IVPUSH ONETIME ONE Stop: 05/03/21 11:11 Last Admin: 05/03/21 11:47 Dose: 100 ml Documented by: Morphine Sulfate (Morphine 2 Mg/Ml Syringe) 2 mg IVPUSH Q2H PRN PRN Reason: Pain (severe 7-10) Stop: 05/04/21 14:17 Nicotine (Nicotine 14 Mg/24 Hr Patch) 14 mg TRDERM DAILY [facility] Last Admin: 05/06/21 09:17 Dose: Not Given Documented by: Sodium Chloride (Sodium Chloride 0.9% 10 Ml Syringe) 10 ml FLUSH ONETIME PRN PRN Reason: Keep Vein Open Last Admin: 05/03/21 11:47 Dose: 10 ml Documented by: - Exam Quality Assessment: Supplemental Oxygen (2L), DVT Prophylaxis. No: Urine Catheter General: Alert, Oriented, Cooperative, No Acute Distress HEENT: Pupils Equal, Pupils Reactive, EOMI, Mucous Membr. Moist/[place], Other (Significant swelling to left eyelid. Good range of motion. Patient's vision is intact. Swelling to patient's face noted as well.) Neck: Trachea Midline, Other (Improved but continued subcutaneous emphysema in patient's neck) Lungs: Normal Respiratory Effort, Decreased Breath Sounds (Improved), Crackles Cardiovascular: Regular Rate, Regular Rhythm GI/Abdominal Exam: Normal Bowel Sounds, Soft, Non-Tender, No Distention (Male) Exam: Deferred Back Exam: Normal Inspection, Full Range of Motion Extremities: Normal Inspection, Normal Range of Motion, Non-Tender, No Pedal Edema, Normal Capillary Refill Peripheral Pulses: 3+: Radial (L), Radial (R), Dorsalis Pedis (L), Dorsalis Pedis (R) Skin: Warm, Dry, Intact Neurological: No New Focal Deficit Psy/Mental Status: Alert, Normal Affect, Normal Mood - Patient Data Lab Results Last 24 hrs: Laboratory Results - last 24 hr 05/13/21 05/13/21 Range/Units 06:04 06:04 WBC 20.53 H (4.23-9.07) K/mm3 RBC 5.62 (4.63-6.08) M/mm3 Hgb 16.7 (13.7-17.5) gm/dl Hct 48.7 (40.1-51.0) % MCV 86.7 (79.0-92.2) fl MCH 29.7 (25.7-32.2) pg MCHC 34.3 (32.2-35.5) g/dl RDW Std Deviation 39.8 (35.1-43.9) fL Plt Count 536 H (163-337) K/mm3 MPV 9.1 L (9.4-12.3) fl Neut % (Auto) 87.8 H (34.0-67.9) % Lymph % (Auto) 4.9 L (21.8-53.1) % [place] % (Auto) 4.7 L (5.3-12.2) % Eos % (Auto) 0.2 L (0.8-7.0) Baso % (Auto) 0.0 L (0.1-1.2) % Neut # (Auto) 18.00 H (1.78-5.38) K/mm3 Lymph # (Auto) 1.00 L (1.32-3.57) K/mm3 [place] # (Auto) 0.97 H (0.30-0.82) K/mm3 Eos # (Auto) 0.05 (0.04-0.54) K/mm3 Baso # (Auto) 0.01 (0.01-0.08) K/mm3 Sodium 136 (136-145) mEq/L Potassium 4.6 (3.5-5.1) mEq/L Chloride 100 (98-107) mEq/L Carbon Dioxide 26 (21-32) mEq/L Anion Gap 14.6 (5-15) BUN 30 H (7-18) mg/dL Creatinine 1.0 (0.7-1.3) mg/dL Est Cr Clr Drug Dosing 85.50 mL/min Estimated GFR (MDRD) > 60 (>60) mL/min BUN/Creatinine Ratio 30.0 H (14-18) Glucose 141 H (70-99) mg/dL Calcium 8.7 (8.5-10.1) mg/dL Result Diagrams: 05/13/21 06:04 05/13/21 06:04 Sepsis Event Note - Evaluation Sepsis Screening Result: No Definite Risk - Focused Exam Vital Signs: Vital Signs Temp Pulse Resp BP BP Pulse Ox Pulse Ox 05/13/21 06:28 132/68 05/13/21 06:23 97.7 F 80 18 135/103 H 90 L 05/13/21 06:19 94 L 05/13/21 02:00 94 L 05/12/21 21:02 96.4 F L 108 H 18 138/82 90 L 05/12/21 20:39 91 L - Problem List & Annotations (1) Elevated d-dimer SNOMED Code(s): 678256422 Code(s): R79.89 - OTHER SPECIFIED ABNORMAL FINDINGS OF BLOOD CHEMISTRY Status: Acute Priority: High Current Visit: Yes (2) Acute respiratory failure SNOMED Code(s): 83042674 Code(s): J96.00 - ACUTE RESPIRATORY FAILURE, UNSP W HYPOXIA OR HYPERCAPNIA Status: Acute Priority: High Current Visit: Yes Qualifiers: Respiratory failure complication: hypoxia Qualified Code(s): J96.01 - Acute respiratory failure with hypoxia (3) Hypoxia SNOMED Code(s): 401481358 Code(s): R09.02 - HYPOXEMIA Status: Acute Priority: High Current Visit: Yes (4) Pneumonia due to COVID-19 virus SNOMED Code(s): 602083914193992633 Code(s): U07.1 - COVID-19; J12.82 - PNEUMONIA DUE TO CORONAVIRUS DISEASE 2018 Status: Acute Priority: High Current Visit: Yes (5) Ascending aortic aneurysm Status: Chronic Priority: Medium Current Visit: Yes (6) Smokes tobacco daily SNOMED Code(s): 944446782 Code(s): F17.200 - NICOTINE DEPENDENCE, UNSPECIFIED, UNCOMPLICATED Status: Chronic Priority: Medium Current Visit: Yes (7) Mediastinal emphysema (pneumomediastinum) SNOMED Code(s): 94430559 Code(s): J98.2 - INTERSTITIAL EMPHYSEMA Status: Acute Priority: High Current Visit: Yes (8) Subcutaneous emphysema SNOMED Code(s): 9161890 Code(s): T79.7XXA - TRAUMATIC SUBCUTANEOUS EMPHYSEMA, INITIAL ENCOUNTER Status: Acute Priority: High Current Visit: Yes Qualifiers: Encounter type: initial encounter Qualified Code(s): T79.7XXA - Traumatic subcutaneous emphysema, initial encounter (9) Pneumothorax SNOMED Code(s): 26472984 Code(s): J93.9 - PNEUMOTHORAX, UNSPECIFIED Status: Acute Priority: High Current Visit: Yes Qualifiers: Pneumothorax type: other pneumothorax Qualified Code(s): J93.83 - Other pneumothorax - Problem List Review Problem List Initiated/Reviewed/Updated: Yes - My Orders Last 24 Hours: My Active Orders 05/12/21 11:00 Communication Order [RC] BID 05/14/21 05:11 BASIC METABOLIC PANEL,BMP [CHEM] AM CBC WITH AUTO DIFF [HEME] AM DD [D-DIMER QUANTITATIVE] [COAG] Q48H 05/15/21 05:11 BASIC METABOLIC PANEL,BMP [CHEM] AM CBC WITH AUTO DIFF [HEME] AM 05/16/21 05:11 BASIC METABOLIC PANEL,BMP [CHEM] AM CBC WITH AUTO DIFF [HEME] AM DD [D-DIMER QUANTITATIVE] [COAG] Q48H 05/18/21 05:11 DD [D-DIMER QUANTITATIVE] [COAG] Q48H - Assessment Assessment:: Day of admission - 05/03/2021 The patient is a 50-year-old gentleman who has been admitted to acute inpatient hospitalization due to COVID-19 pneumonia. The patient is outside the window for remdesivir treatment. The patient will be started on remdesivir 6 mg p.o. daily. He will be maintained on oxygen titrated to keep his saturations around 92%. The patient will also be started on a azithromycin 500 mg IV daily for superimposed infection. The patient also has been anticoagulated with the use of Lovenox at 40 mg subcutaneously daily. Repeat laboratory studies to include D-dimer and CRP have also been ordered. The patient is to have a regular diet as tolerated. 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 Current guidelines have recommended that this be observed by annual CT scans. I have discussed the case of the aneurysm with the patient. The patient will need to follow-up with the primary care physician after discharge. He should be appropriate for discharge in 1 to 2 days depending upon his oxygen demands or symptoms. 05/04/2021 The patient is a 50-year-old gentleman who was initially admitted due to Covid pneumonia. The patient has had difficulty in maintaining his oxygen saturations around 92% and is on high flow oxygen. Regardless of the length of time for the patient's illness I have elected to place the patient on remdesivir 100 mg IV daily. He also meets qualifications for baricitinib and this was started with consultation from pharmacy. The patient is currently anticoagulated with Lovenox 40 mg subcutaneous daily. Continue with diet as tolerated. He is also on nicotine patch for smoking. The patient will be continued on telemetry. Repeat laboratory studies have been ordered. The patient should have a repeat chest x-ray in 1 to 2 days. The patient has been encouraged to ambulate in the room. The patient should be appropriate for discharge after finishing remdesivir. 05/05/2021 Is a 50-year-old male who was admitted to the hospital for COVID-19 pneumonia. Incidentally on CTA he was noted to have an ascending aortic aneurysm. No signs of any rupture. Today labs show a WBC of 9.08. Hemoglobin 15.9. He is normocytic. Platelet 272,000. Neutrophils are elevated 87.7%. D-dimer is 1.22. Sodium 140. Potassium 4.6. Chloride 105. Carbon dioxide 25. Anion gap is 14.6. BUN is 21. Creatinine 0.8. GFR greater than 60. Glucose 128. Calcium 7.7. Magnesium 2.4. Bilirubin 0.6. AST is 58, ALT 85. Alkaline phosphatase 64. CRP is 6.8. Protein 6.4. Albumin 2.7. He is receiving azithromycin, dexamethasone, remdesivir, and Baricitinib. He is on 50 L with an FiO2 of 65% for high flow. Added aspirin 81 mg, 20 mg twice daily Pepcid, and we will check his vitamin D today as well. We will recheck daily labs tomorrow. He has been utilizing his incentive spirometer and Acapella. He was again encouraged to prone whenever possible. Unknown length of stay due to severity of symptoms. 05/06/2021 This is a 50-year-old male who was admitted for COVID-19 pneumonia. He is on day 4 of remdesivir and dexamethasone. Day 3 of Baricitinib. His oxygen demand has increased to 50 L with an FiO2 of 75%. He continues to prone and utilize incentive spirometer and Acapella. Nicotine patch is in place. Labs today show an elevated WBC of 12.27, likely secondary to steroid use. Platelets are 389,000. Neutrophils are elevated 89.5%. We will recheck D-dimer tomorrow. Sodium 138. Potassium 4.6. Chloride 103. Carbon dioxide 25. Anion gap 14.6. BUN is 23. Creatinine 1.0. GFR greater than 60. Glucose is 190. Calcium 8.2. Bilirubin 0.6. AST is 40, ALT is 97, alkaline phosphatase 76. CRP is down to 3.8. Protein is 6.9. Albumin is 2.9. Vitamin D was obtained and was on the low end of normal at 33.2. Patient is requesting a spiritual care consult and this will be placed. Unknown length of stay due to severity of COVID-19 symptoms. We will continue to try to wean oxygen as patient tolerates. Overall he states he feels about the same as yesterday. He continues to have significant cough and sputum production. Reports his throat is sore from coughing so much so we will add Cepacol lozenges as needed. 05/07/2021 50-year-old male who is admitted with Covid pneumonia. He is on day 5 of remdesivir and dexamethasone. Day 4 of Baricitinib. His oxygen demand has increased to 55 L with an FiO2 of 70%. He tells me that he has not been proning. I have had a lengthy discussion with him regarding this and he states that he will try to do that more he has been using his I-S and Acapella. Labs today show a WBC of 12.03, hemoglobin 17.2, platelet count 392, D-dimer 3.76, C- reactive protein 4.3. Unknown length of stay due to severity of Covid. Co ntinue to have respiratory therapy attempt to wean oxygen as tolerated. Patient states he feels a little worse today than yesterday. He states he has had not much of an appetite other than for a few fruits. He does continue to complain of cough which is productive of [place] sputum. 05/07/21 patient has been seen and examined. Patient has improved compared to yesterday. Patient is ambulating with less effort. No changes to present management, agree with assessment and plan. physical examination: cvs: [id number] Resp: Course soft lower bilateral Abd: sntnd Ext no edema 05/08/21 Covid 19 pneumonia/ acute respiratory failure with hypoxia- Patient has improved, now on high flow 60% sitting up and speech to through the window. He is eating better yet appetite is still decreased patient is trying to prone at night but difficult.Using IS and acapella. Wbc 11 this am. Cont with present management and RT therapy. Cont with ptot for strengthening. Complaint of productive sputum and may use Mucomyst to break this up further this afternoon. 05/09/21 patient is ambulating without sympotms but still desaturating, we should be able to start weaning more o2 due to saturating in high 90's today. requested to place between 88-92%. He is still this am on 60L 80%. Will get ABg this am and see how he is oxygenating. otherwise slow improvement but on track. Productive sputum and will try a one time mucomyst treatment.Patient is going over 96hour due to ongoing symptoms of covid pneumonia and acute respiratory failure. Will remain inpatient. 05/10/2021 Oxygen saturations have improved all day. He is currently on only 30 L of high flow nasal cannula at 60% FiO2. Oxygen saturations are staying in the mid 90s. Unfortunately patient developed a significant extravasation of air after having a severe coughing episode with a small right-sided pneumothorax. This is likely going to be a self-limiting condition, but it is very uncomfortable at this time. Neck measures 50 cm and we will continue to monitor this very closely. Goal will be to decrease or stop the high flow nasal cannula to decrease the trauma to the airway. Also, control his cough as well as possible and avoid Mucomyst. Labs were not done today and we will repeat routine COVID labs in the morning. Spoke with and explained to her his condition and him and his understand his current treatment plan. 05/11/2021 Patient has had continued improvement. He is down to 6 L nasal cannula and his neck circumference is also decreased. He has less next discomfort. Chest x-ray showed no pneumothorax, diffuse soft tissue air and mediastinal air, increased diffuse parenchymal densities from Covid pneumonia. Patient clinically much better. Hopefully over the next couple days patient will be able to be sent home on nasal cannula. We will continue on current treatment of dexamethasone and baricitinib. White count did increase to 15.5, but C-reactive protein dropped in half to 1.6. Also, D-dimer decreased to 2.1. 05/12/2021 This is a 50-year-old male admitted for COVID-19 pneumonia and incidentally found to have a stable aortic aneurysm. Patient has completed dexamethasone, r emdesivir, and azithromycin. Unfortunately during his stay after a Mucomyst inhalation patient had a coughing fit resulting in small right-sided pneumothorax, subcutaneous emphysema, and pneumomediastinum. General surgery, Dr. Williamson, was consulted and does not feel this is a surgical problem at this time. Neck circumference has been going down since. Nursing instructed to take it twice daily and alert provider should it increase greater than 1 cm. He continues on baricitinib. He is down to 4 L of oxygen today. WBC is up to 18.08, likely steroid related. Hemoglobin 16.6. Platelet 532,000. D-dimer is 1.51. Sodium 138. Potassium 4.6. Chloride 103. Carbon dioxide 24. Anion gap is 15.6. BUN is 30. Creatinine 1.0. GFR in 60. Glucose is 170. Calcium 8.7. Phosphorus 3.9. Magnesium 2.2. Total bilirubin 0.6. AST is 32, ALT 117, alkaline phosphatase 70. CRP 0.7. Protein 6.7. Albumin is up to 2.9. Overall patient reports he feels better. He will remain hospitalized with goal oxygen therapy of 2 L or less. 05/13/2021 50-year-old male admitted to the floor with COVID-19. Unfortunately he was noted to have a small pneumothorax and subcutaneous emphysema, possibly due to possible airway rupture secondary to coughing fit. Yesterday patient's neck was noted to enlarge slightly however patient had no pain or difficulty breathing. Repeat chest x-ray today shows minimally worse pneumothorax. Subcutaneous emphysema has now moved up into patient's face is left eyelid is very large. Patient is still able to see well reports no eye pain. No acute changes in vision. Patient does have a somewhat high sounding voice. Otherwise patient st ates he feels better and he is looking forward to getting out of the hospital in the near future. He is down to 2 L of oxygen via nasal cannula today. WBC today is 20.53. Hemoglobin 16.7. Platelet 536,000. Neutrophils are elevated at 87.8%. Sodium is 136. Potassium 4.6. Chloride 100. Carbon dioxide 26. Anion gap is 14.6. BUN is 30. Creatinine 1.0. GFR greater than 60. Glucose is 141. CRP was not rechecked as it had been normal yesterday. Plan will be to continue to hospitalize patient pending improvement of subcutaneous emphysema. Hopeful for discharge in next 24 to 72 hours. - Plan Plan:: Pneumonia due to COVID-19 virus Elevated d-dimer Acute respiratory failure Hypoxia * Negative CTA for PE * Completed Remdesivir * Completed Dexamethasone * O2 to keep saturation between 88 to 95%. * As needed albuterol MDI * As needed DuoNeb's * Daily labs * Check D-dimer every 48 hours * I-S/Acapella * RT consult * Discontinue lovenox and start Heparin 7500 units Q 8 hours d/t elevation of ddimer * Prone whenever able * Ambulate around room * Completed Azithromycin * 81 mg daily aspirin * Baricitinib day 06/18 * Telemetry * Airborne/contact isolation * Continuous pulse oximetry * Daily zinc supplementation * Famotidine 20 mg twice daily * Mucinex BID * Cepacol lozenges for sore throat Mediastinal emphysema Subcutaneous emphysema Pneumothorax * General surgery - Dr. Williamson consulted * No surgical interventions needed * Limit IS * Monitor * BID neck measurements by nursing - alert provider if >1cm increase. Ascending aortic aneurysm * 4.1 cm * No acute concerns * PCP follow-up/monitoring Smokes tobacco daily * Daily nicotine patch * Cessation counseling * Offered nicotine patches at discharge Code status: Full code PCP: None - needs to establish DVT prophylaxis: Heparin Disposition: Patient will remain hospitalized for duration of COVID-19 treatment. Unknown length of stay due to severity of symptoms. Length of stay greater than 96 hours due to need for continued COVID-19 treatment.
--- NOTE | 2021-05-13 07:46 | CR ---
Chest: Portable view of the chest was obtained. Comparison: Prior chest x-ray on 05/13/21. Diffuse parenchymal densities are seen on both sides of the chest which appear stable. Diffuse soft tissue air is seen within the mediastinum. Soft tissue air is also noted within the chest wong as well as within the neck and extending superiorly. Soft tissue air is minimally increased from prior exam. No definite pneumothorax is seen. Heart size and mediastinum are within normal limits. Bony structures show nothing acute. Impression: 1. Slight soft tissue air and mediastinal air as described above. These findings have minimally increased in amount from previous exam. 2. Diffuse changes of COVID pneumonia which remain stable. Diagnostic code #3
[2021-05-13] MEDS: Famotidine 20 MG Tab PO SCH ×2 (09:52→21:20)
[2021-05-13] MEDS: Ascorbic Acid 500 MG Tab PO SCH (09:53)
[2021-05-13] MEDS: guaiFENesin 600 MG Tab.ER PO SCH ×2 (09:53→21:20)
[2021-05-13] MEDS: Cholecalciferol (Vitamin D3) 5,000 UNIT Cap PO SCH (09:53)
[2021-05-13] MEDS: Zinc Sulfate 220 MG Cap PO SCH (09:53)
[2021-05-13] MEDS: Aspirin 81 MG Tab.Chew PO SCH (21:20)
[2021-05-14] MEDS: Heparin Sodium 5,000 Units/ML Vial SUBCUT SCH ×2 (02:20→09:32)
[2021-05-14] MEDS: Cholecalciferol (Vitamin D3) 5,000 UNIT Cap PO SCH (08:16)
[2021-05-14] MEDS: guaiFENesin 600 MG Tab.ER PO SCH ×2 (08:16→20:59)
[2021-05-14] MEDS: Ascorbic Acid 500 MG Tab PO SCH (08:16)
[2021-05-14] MEDS: Famotidine 20 MG Tab PO SCH ×2 (08:16→20:59)
[2021-05-14] MEDS: Zinc Sulfate 220 MG Cap PO SCH (08:16)
[2021-05-14] MEDS: Albuterol 6.7 GM Inhaler INH PRN ×3 (08:43→20:06)
[2021-05-14] MEDS ORDERED: Sodium Chloride 0.9% 10 ML Syringe FLUSH ONE (09:32)
[2021-05-14] MEDS ORDERED: Iopamidol 755 Mg/ML 100 ML Bottle IVPUSH ONE (09:32)
[2021-05-14] MEDS ORDERED: Sodium Chloride 0.9% 100 ML IV SCH (09:45)
--- NOTE | 2021-05-14 09:45 | CR ---
Chest: Portable view of the chest was obtained. Comparison: Prior chest x-ray of 05/13/21. Air is noted within the chest wong, mediastinum and within the soft tissues of the neck. No significant change is seen from previous study. Diffuse parenchymal density is seen within both lungs which are stable. Heart size and mediastinum are within normal limits. Impression: 1. Stable soft tissue air and mediastinal air from prior exam. 2. Other portions of the chest are stable. Diagnostic code #3
[2021-05-14] MEDS: Sodium Chloride 0.9% 10 ML Syringe FLUSH PRN (10:31)
--- NOTE | 2021-05-14 11:04 | CT ---
CT chest Technique: Multiple axial sections through the chest were obtained. Intravenous contrast was utilized. Study has been performed as a pulmonary angiogram protocol. Comparison: Previous chest CT of 05/03/21. Findings: Pulmonary emboli are identified within the segmental branches within the right lower lung. No additional pulmonary emboli are seen. Ascending aorta is slightly aneurysmal and continues to measure 4.1 cm. Heart is mildly enlarged. There is slight bowing of the intraventricular septum into the left ventricle suspicious for elevated right heart pressures. Small portion of the visualized upper abdominal structures show nothing acute. Lung window settings were reviewed. Diffuse parenchymal densities are seen throughout both sides of the chest. These findings have slightly worsened from previous exam. Diffuse air is noted within the mediastinum which extends along the inferior mediastinum to the abdomen. Diffuse air within the subcutaneous tissues within the chest are noted. Diffuse air is seen extending into the neck. No definite findings of pneumothorax are seen. Bone window settings were reviewed which show no acute osseous finding. Impression: 1. Diffuse mediastinal air as well as chest wall air and air extending into the neck. This air has mildly increased from prior study. 2. No definite pneumothorax is appreciated. 3. Increasing densities are noted within both sides of the chest compatible with worsening COVID pneumonia. 4. Right ventricular pressures are likely increased as the intraventricular septum is slightly bowed. 5. Mild pulmonary emboli are seen within the subsegmental branches within the right lower lobe. 6. Stable mild aneurysm of the ascending aorta. Diagnostic code #5
--- NOTE | 2021-05-14 13:46 | PCM.PN ---
- General Info Date of Service: 05/14/21 Admission Dx/Problem (Free Text): Admission Diagnosis/Problem Admission Diagnosis/Problem Pneumonia due to COVID-19 with acute respiratory failure. Subjective Update: Patient was seen on rounds this morning and stated that he was feeling much better. He was down to 2 L of oxygen per nasal cannula. However, he had an episode of tachycardia with a rate in the 120s and hypoxia resulting in an increase in the need of O2 per nasal cannula. Patient denied any chest pressure/pain or dizziness. Functional Status: Reports: Pain Controlled, Tolerating Diet, Ambulating, Urinating, Incentive Spirometry - Review of Systems General: Reports: No Symptoms HEENT: Reports: No Symptoms, Other (Left and right eye swelling to the upper and lower eyelid due to subcu air; left greater than right) Pulmonary: Reports: Shortness of Breath (With exertion), Cough. Denies: Sputum, Wheezing Cardiovascular: Reports: Dyspnea on Exertion, Edema (Bilateral eyes, neck and chest due to subcu air) Gastrointestinal: Reports: No Symptoms Genitourinary: Reports: No Symptoms Musculoskeletal: Reports: No Symptoms Skin: Reports: No Symptoms Neurological: Reports: No Symptoms Psychiatric: Reports: No Symptoms - Patient Data Vitals - Most Recent: Last Vital Signs Temp 97.3 F 05/14/21 08:19 Pulse 125 H 05/14/21 08:24 Resp 12 05/14/21 08:19 BP 131/85 05/14/21 08:19 Pulse Ox 92 L 05/14/21 09:59 Weight - Most Recent: 209 lb 14.4 oz I&O - Last 24 Hours: Intake & Output 05/13/21 05/14/21 05/14/21 22:59 06:59 14:59 Intake Total 1400 600 Output Total 800 Balance 600 600 Lab Results Last 24 Hours: Laboratory Results - last 24 hr 05/14/21 05/14/21 05/14/21 Range/Units 06:16 06:16 06:16 WBC 17.08 H (4.23-9.07) K/mm3 RBC 5.76 (4.63-6.08) M/mm3 Hgb 17.2 (13.7-17.5) gm/dl Hct 50.4 (40.1-51.0) % MCV 87.5 (79.0-92.2) fl MCH 29.9 (25.7-32.2) pg MCHC 34.1 (32.2-35.5) g/dl RDW Std Deviation 41.6 (35.1-43.9) fL Plt Count 527 H (163-337) K/mm3 MPV 9.4 (9.4-12.3) fl Neut % (Auto) 79.6 H (34.0-67.9) % Lymph % (Auto) 11.5 L (21.8-53.1) % [place] % (Auto) 4.0 L (5.3-12.2) % Eos % (Auto) 1.0 (0.8-7.0) Baso % (Auto) 0.2 (0.1-1.2) % Neut # (Auto) 13.60 H (1.78-5.38) K/mm3 Lymph # (Auto) 1.97 (1.32-3.57) K/mm3 [place] # (Auto) 0.68 (0.30-0.82) K/mm3 Eos # (Auto) 0.17 (0.04-0.54) K/mm3 Baso # (Auto) 0.03 (0.01-0.08) K/mm3 Manual Slide Review Abnormal smear D-Dimer, Quantitative 3.67 H (0.19-0.50) mg/L Sodium 136 (136-145) mEq/L Potassium 4.5 (3.5-5.1) mEq/L Chloride 101 (98-107) mEq/L Carbon Dioxide 25 (21-32) mEq/L Anion Gap 14.5 (5-15) BUN 36 H (7-18) mg/dL Creatinine 1.0 (0.7-1.3) mg/dL Est Cr Clr Drug Dosing 85.50 mL/min Estimated GFR (MDRD) > 60 (>60) mL/min BUN/Creatinine Ratio 36.0 H (14-18) Glucose 104 H (70-99) mg/dL Calcium 8.6 (8.5-10.1) mg/dL Troponin I (0.00-0.056) ng/mL NT-Pro-B Natriuret Pep (0-125) pg/mL 05/14/21 05/14/21 Range/Units 06:16 06:16 WBC (4.23-9.07) K/mm3 RBC (4.63-6.08) M/mm3 Hgb (13.7-17.5) gm/dl Hct (40.1-51.0) % MCV (79.0-92.2) fl MCH (25.7-32.2) pg MCHC (32.2-35.5) g/dl RDW Std Deviation (35.1-43.9) fL Plt Count (163-337) K/mm3 MPV (9.4-12.3) fl Neut % (Auto) (34.0-67.9) % Lymph % (Auto) (21.8-53.1) % [place] % (Auto) (5.3-12.2) % Eos % (Auto) (0.8-7.0) Baso % (Auto) (0.1-1.2) % Neut # (Auto) (1.78-5.38) K/mm3 Lymph # (Auto) (1.32-3.57) K/mm3 [place] # (Auto) (0.30-0.82) K/mm3 Eos # (Auto) (0.04-0.54) K/mm3 Baso # (Auto) (0.01-0.08) K/mm3 Manual Slide Review D-Dimer, Quantitative (0.19-0.50) mg/L Sodium (136-145) mEq/L Potassium (3.5-5.1) mEq/L Chloride (98-107) mEq/L Carbon Dioxide (21-32) mEq/L Anion Gap (5-15) BUN (7-18) mg/dL Creatinine (0.7-1.3) mg/dL Est Cr Clr Drug Dosing mL/min Estimated GFR (MDRD) (>60) mL/min BUN/Creatinine Ratio (14-18) Glucose (70-99) mg/dL Calcium (8.5-10.1) mg/dL Troponin I < 0.017 (0.00-0.056) ng/mL NT-Pro-B Natriuret Pep 106 (0-125) pg/mL Med Orders - Current: Current Medications Acetaminophen (Acetaminophen 325 Mg Tab) 650 mg PO Q4H PRN PRN Reason: Pain (Mild 1-3)/fever Albuterol (Albuterol 6.7 Gm Inhaler) 0 gm INH Q4H PRN PRN Reason: sob/wheezing Last Admin: 05/14/21 08:43 Dose: 2 puff Documented by: Albuterol/Ipratropium (Albuterol/Ipratropium 3.0-0.5 Mg/3 Ml Neb Soln) 3 ml NEB Q4H PRN PRN Reason: Shortness Of Breath/wheezing Last Admin: 05/07/21 20:25 Dose: 3 ml Documented by: Ascorbic Acid (Ascorbic Acid 500 Mg Tab) 1,000 mg PO DAILY [facility] Last Admin: 05/14/21 08:16 Dose: 1,000 mg Documented by: Aspirin (Aspirin 81 Mg Tab.Chew) 81 mg PO BEDTIME [facility] Last Admin: 05/13/21 21:20 Dose: 81 mg Documented by: Benzocaine/Menthol (Benzocaine/Cetylpyridinium/Menthol Lozenge) 1 lozenge MUCMEM Q1H PRN PRN Reason: Sore Throat Last Admin: 05/09/21 21:25 Dose: 1 lozenge Documented by: Cholecalciferol (Cholecalciferol (Vitamin D3) 5,000 Unit Cap) 5,000 unit PO DAILY [facility] Last Admin: 05/14/21 08:16 Dose: 5,000 unit Documented by: Docusate Sodium (Docusate Sodium 100 Mg Cap) 100 mg PO BID PRN PRN Reason: Constipation Enoxaparin Sodium (Enoxaparin 100 Mg/1 Ml Syringe) 95 mg SUBCUT Q12H [facility] Famotidine (Famotidine 20 Mg Tab) 20 mg PO BID [facility] Last Admin: 05/14/21 08:16 Dose: 20 mg Documented by: Guaifenesin (Guaifenesin 600 Mg Tab.Er) 600 mg PO BID [facility] Last Admin: 05/14/21 08:16 Dose: 600 mg Documented by: Ondansetron HCl (Ondansetron 4 Mg Tab.Dis) 4 mg PO Q4H PRN PRN Reason: nausea, able to take PO Oxycodone HCl (Oxycodone 5 Mg Tab) 5 mg PO Q4H PRN PRN Reason: Pain (moderate 4-6) Sodium Chloride (Sodium Chloride 0.9% 10 Ml Syringe) 10 ml FLUSH ASDIRECTED PRN PRN Reason: Keep Vein Open Last Admin: 05/14/21 10:31 Dose: 10 ml Documented by: Temazepam (Temazepam 15 Mg Cap) 15 mg PO BEDTIME PRN PRN Reason: Sleep Last Admin: 05/13/21 21:20 Dose: 15 mg Documented by: Zinc Sulfate (Zinc Sulfate 220 Mg Cap) 220 mg PO DAILY [facility] Last Admin: 05/14/21 08:16 Dose: 220 mg Documented by: Discontinued Medications Acetylcysteine (Acetylcysteine 20% 200 Mg/Ml 30 Ml Nebulizer Soln Sdv) 800 mg NEB ONETIME ONE Stop: 05/09/21 09:16 Last Admin: 05/09/21 13:42 Dose: Not Given Documented by: Acetylcysteine (Acetylcysteine 20% 200 Mg/Ml 4 Ml Nebulizer Soln Sdv) 800 mg NEB ONETIME ONE Stop: 05/09/21 09:46 Last Admin: 05/09/21 09:44 Dose: 800 mg Documented by: Dexamethasone (Dexamethasone 4 Mg/Ml Sdv) 6 mg IVPUSH ONETIME ONE Stop: 05/03/21 09:54 Last Admin: 05/03/21 10:12 Dose: 6 mg Documented by: Dexamethasone (Dexamethasone 4 Mg Tab) 6 mg PO DAILY [facility]E Stop: 05/12/21 09:01 Last Admin: 05/12/21 09:11 Dose: 6 mg Documented by: Enoxaparin Sodium (Enoxaparin 40 Mg/0.4 Ml Syringe) 40 mg SUBCUT DAILY [facility] Last Admin: 05/06/21 09:41 Dose: 40 mg Documented by: Heparin Sodium (Porcine) (Heparin Sodium 5,000 Units/Ml Vial) 7,500 units SUBCUT Q8H [facility] Last Admin: 05/14/21 09:32 Dose: 7,500 units Documented by: Sodium Chloride (Normal Saline) 1,000 mls @ 1,000 mls/hr IV .BOLUS [facility] Last Admin: 05/03/21 10:12 Dose: 1,000 mls/hr Documented by: Remdesivir 200 mg/ Sodium (Chloride) 250 mls @ 250 mls/hr IV ONETIME ONE Stop: 05/03/21 09:54 Last Admin: 05/03/21 10:30 Dose: Not Given Documented by: Remdesivir 200 mg/ Sodium (Chloride) 250 mls @ 250 mls/hr IV ONETIME ONE Stop: 05/03/21 11:29 Last Admin: 05/03/21 10:30 Dose: 250 mls/hr Documented by: Sodium Chloride (Normal Saline) 45 mls @ 40 mls/hr IV ASDIRECTED [facility] Last Admin: 05/03/21 11:48 Dose: 40 mls/hr Documented by: Azithromycin 500 mg/ Sodium (Chloride) 250 mls @ 250 mls/hr IV Q24H [facility] Stop: 05/05/21 15:29 Last Admin: 05/05/21 14:38 Dose: 250 mls/hr Documented by: Remdesivir 100 mg/ Sodium (Chloride) 100 mls @ 100 mls/hr IV Q24H [facility] Stop: 05/07/21 11:29 Last Admin: 05/06/21 09:37 Dose: 100 mls/hr Documented by: Sodium Chloride (Normal Saline) Confirm Administered Dose 100 mls @ as directed .ROUTE .STK-MED ONE Stop: 05/04/21 10:56 Last Admin: 05/04/21 13:37 Dose: Not Given Documented by: Remdesivir 100 mg/ Sodium (Chloride) 100 mls @ 100 mls/hr IV Q24H [facility] Stop: 05/07/21 09:59 Last Admin: 05/07/21 09:41 Dose: 100 mls/hr Documented by: Sodium Chloride (Normal Saline) 100 mls @ 60 mls/hr IV ASDIRECTED [facility] Stop: 05/14/21 11:00 Last Admin: 05/14/21 10:32 Dose: 60 mls/hr Documented by: Iopamidol (Iopamidol 755 Mg/Ml 100 Ml Bottle) 100 ml IVPUSH ONETIME ONE Stop: 05/03/21 11:11 Last Admin: 05/03/21 11:47 Dose: 100 ml Documented by: Iopamidol (Iopamidol 755 Mg/Ml 100 Ml Bottle) 100 ml IVPUSH ONETIME ONE Stop: 05/14/21 09:33 Last Admin: 05/14/21 10:31 Dose: 100 ml Documented by: Morphine Sulfate (Morphine 2 Mg/Ml Syringe) 2 mg IVPUSH Q2H PRN PRN Reason: Pain (severe 7-10) Stop: 05/04/21 14:17 Nicotine (Nicotine 14 Mg/24 Hr Patch) 14 mg TRDERM DAILY [facility] Last Admin: 05/06/21 09:17 Dose: Not Given Documented by: Sodium Chloride (Sodium Chloride 0.9% 10 Ml Syringe) 10 ml FLUSH ONETIME PRN PRN Reason: Keep Vein Open Last Admin: 05/03/21 11:47 Dose: 10 ml Documented by: Sodium Chloride (Sodium Chloride 0.9% 10 Ml Syringe) 10 ml FLUSH ONETIME ONE Stop: 05/14/21 09:33 - Exam Quality Assessment: Supplemental Oxygen (3 L per nasal cannula), DVT Prophylaxis General: Alert, Oriented, Cooperative HEENT: Mucous Membr. Moist/[place], Other (Left and right eye swelling due to subcu air; left eye is almost completely swollen shut to upper and lower eyelid) Neck: Supple, Other (Subcu air; nursing staff is measuring circumference daily) Lungs: Normal Respiratory Effort, Crackles (Bilateral bases). No: Clear to Auscultation Cardiovascular: Regular Rate, Regular Rhythm, No Murmurs, Other (Episode of tachycardia this morning at a rate of 125) GI/Abdominal Exam: Normal Bowel Sounds, Soft, Non-Tender, No Distention (Male) Exam: Deferred Back Exam: Normal Inspection Extremities: Normal Inspection, Normal Range of Motion, Non-Tender, No Pedal Edema, Normal Capillary Refill Peripheral Pulses: 2+: Radial (L), Radial (R) Skin: Warm, Dry, Intact Neurological: No New Focal Deficit Psy/Mental Status: Alert, Normal Affect, Normal Mood #1 Interpretation EKG Date: 05/14/21 Time: 08:37 Rhythm: NSR Rate (Beats/Min): 105 [place]: Normal P-Wave: Present QRS: Normal ST-T: Normal QT: Normal EKG Interpretation Comments: Per Dr. Mehta interpretation: Sinus tachycardia at 105 bpm; probable left atrial enlargement; no change compared to previous EKG - Patient Data Lab Results Last 24 hrs: Laboratory Results - last 24 hr 05/14/21 05/14/21 05/14/21 Range/Units 06:16 06:16 06:16 WBC 17.08 H (4.23-9.07) K/mm3 RBC 5.76 (4.63-6.08) M/mm3 Hgb 17.2 (13.7-17.5) gm/dl Hct 50.4 (40.1-51.0) % MCV 87.5 (79.0-92.2) fl MCH 29.9 (25.7-32.2) pg MCHC 34.1 (32.2-35.5) g/dl RDW Std Deviation 41.6 (35.1-43.9) fL Plt Count 527 H (163-337) K/mm3 MPV 9.4 (9.4-12.3) fl Neut % (Auto) 79.6 H (34.0-67.9) % Lymph % (Auto) 11.5 L (21.8-53.1) % [place] % (Auto) 4.0 L (5.3-12.2) % Eos % (Auto) 1.0 (0.8-7.0) Baso % (Auto) 0.2 (0.1-1.2) % Neut # (Auto) 13.60 H (1.78-5.38) K/mm3 Lymph # (Auto) 1.97 (1.32-3.57) K/mm3 [place] # (Auto) 0.68 (0.30-0.82) K/mm3 Eos # (Auto) 0.17 (0.04-0.54) K/mm3 Baso # (Auto) 0.03 (0.01-0.08) K/mm3 Manual Slide Review Abnormal smear D-Dimer, Quantitative 3.67 H (0.19-0.50) mg/L Sodium 136 (136-145) mEq/L Potassium 4.5 (3.5-5.1) mEq/L Chloride 101 (98-107) mEq/L Carbon Dioxide 25 (21-32) mEq/L Anion Gap 14.5 (5-15) BUN 36 H (7-18) mg/dL Creatinine 1.0 (0.7-1.3) mg/dL Est Cr Clr Drug Dosing 85.50 mL/min Estimated GFR (MDRD) > 60 (>60) mL/min BUN/Creatinine Ratio 36.0 H (14-18) Glucose 104 H (70-99) mg/dL Calcium 8.6 (8.5-10.1) mg/dL Troponin I (0.00-0.056) ng/mL NT-Pro-B Natriuret Pep (0-125) pg/mL 05/14/21 05/14/21 Range/Units 06:16 06:16 WBC (4.23-9.07) K/mm3 RBC (4.63-6.08) M/mm3 Hgb (13.7-17.5) gm/dl Hct (40.1-51.0) % MCV (79.0-92.2) fl MCH (25.7-32.2) pg MCHC (32.2-35.5) g/dl RDW Std Deviation (35.1-43.9) fL Plt Count (163-337) K/mm3 MPV (9.4-12.3) fl Neut % (Auto) (34.0-67.9) % Lymph % (Auto) (21.8-53.1) % [place] % (Auto) (5.3-12.2) % Eos % (Auto) (0.8-7.0) Baso % (Auto) (0.1-1.2) % Neut # (Auto) (1.78-5.38) K/mm3 Lymph # (Auto) (1.32-3.57) K/mm3 [place] # (Auto) (0.30-0.82) K/mm3 Eos # (Auto) (0.04-0.54) K/mm3 Baso # (Auto) (0.01-0.08) K/mm3 Manual Slide Review D-Dimer, Quantitative (0.19-0.50) mg/L Sodium (136-145) mEq/L Potassium (3.5-5.1) mEq/L Chloride (98-107) mEq/L Carbon Dioxide (21-32) mEq/L Anion Gap (5-15) BUN (7-18) mg/dL Creatinine (0.7-1.3) mg/dL Est Cr Clr Drug Dosing mL/min Estimated GFR (MDRD) (>60) mL/min BUN/Creatinine Ratio (14-18) Glucose (70-99) mg/dL Calcium (8.5-10.1) mg/dL Troponin I < 0.017 (0.00-0.056) ng/mL NT-Pro-B Natriuret Pep 106 (0-125) pg/mL Result Diagrams: 05/14/21 06:16 05/14/21 06:16 Sepsis Event Note - Evaluation Sepsis Screening Result: Possible Sepsis Risk - Focused Exam Vital Signs: Vital Signs Temp Pulse Resp BP Pulse Ox Pulse Ox 05/14/21 09:59 92 L 05/14/21 08:44 91 L 05/14/21 08:24 125 H 90 L 05/14/21 08:19 97.3 F 128 H 12 131/85 84 L 05/14/21 02:16 98.1 F 110 H 20 111/79 92 L - Problem List & Annotations (1) Acute respiratory failure SNOMED Code(s): 49633341 Code(s): J96.00 - ACUTE RESPIRATORY FAILURE, UNSP W HYPOXIA OR HYPERCAPNIA Status: Acute Priority: High Current Visit: Yes Qualifiers: Respiratory failure complication: hypoxia Qualified Code(s): J96.01 - Acute respiratory failure with hypoxia (2) COVID-19 SNOMED Code(s): 403867718 Code(s): U07.1 - COVID-19 Status: Acute Priority: High Current Visit: Yes (3) Elevated d-dimer SNOMED Code(s): 332804423 Code(s): R79.89 - OTHER SPECIFIED ABNORMAL FINDINGS OF BLOOD CHEMISTRY Status: Acute Priority: High Current Visit: Yes (4) Fatigue SNOMED Code(s): 37075541 Code(s): R53.83 - OTHER FATIGUE Status: Acute Priority: High Current Visit: Yes Qualifiers: Fatigue type: unspecified Qualified Code(s): R53.83 - Other fatigue (5) Hypoxia SNOMED Code(s): 104064070 Code(s): R09.02 - HYPOXEMIA Status: Acute Priority: High Current Visit: Yes (6) Pneumonia due to COVID-19 virus SNOMED Code(s): 152299267213628693 Code(s): U07.1 - COVID-19; J12.82 - PNEUMONIA DUE TO CORONAVIRUS DISEASE 2019 Status: Acute Priority: High Current Visit: Yes (7) Ascending aortic aneurysm Status: Chronic Priority: Medium Current Visit: Yes (8) Smokes tobacco daily SNOMED Code(s): 800223713 Code(s): F17.200 - NICOTINE DEPENDENCE, UNSPECIFIED, UNCOMPLICATED Status: Chronic Priority: Medium Current Visit: Yes (9) Multiple subsegmental pulmonary emboli without acute cor pulmonale SNOMED Code(s): 02922759 Code(s): I26.94 - MULT SUBSEGMENTAL PULMON EMBOLI WITHOUT ACUTE COR PULMONALE Status: Acute Priority: High Current Visit: Yes - Problem List Review Problem List Initiated/Reviewed/Updated: Yes - My Orders Last 24 Hours: My Active Orders 05/14/21 18:00 Enoxaparin [Lovenox] 95 mg SUBCUT Q12H - Assessment Assessment:: Day of admission - 05/03/2021 The patient is a 50-year-old gentleman who has been admitted to acute inpatient hospitalization due to COVID-19 pneumonia. The patient is outside the window for remdesivir treatment. The patient will be started on remdesivir 6 mg p.o. daily. He will be maintained on oxygen titrated to keep his saturations around 92%. The patient will also be started on a azithromycin 500 mg IV daily for superimposed infection. The patient also has been anticoagulated with the use of Lovenox at 40 mg subcutaneously daily. Repeat laboratory studies to include D-dimer and CRP have also been ordered. The patient is to have a regular diet as tolerated. 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 Current guidelines have recommended that this be observed by annual CT scans. I have discussed the case of the aneurysm with the patient. The patient will need to follow-up with the primary care physician after discharge. He should be appropriate for discharge in 1 to 2 days depending upon his oxygen demands or symptoms. 05/04/2021 The patient is a 50-year-old gentleman who was initially admitted due to Covid pneumonia. The patient has had difficulty in maintaining his oxygen saturations around 92% and is on high flow oxygen. Regardless of the length of time for the patient's illness I have elected to place the patient on remdesivir 100 mg IV daily. He also meets qualifications for baricitinib and this was started with consultation from pharmacy. The patient is currently anticoagulated with Lovenox 40 mg subcutaneous daily. Continue with diet as tolerated. He is also on nicotine patch for smoking. The patient will be continued on telemetry. Repeat laboratory studies have been ordered. The patient should have a repeat chest x-ray in 1 to 2 days. The patient has been encouraged to ambulate in the room. The patient should be appropriate for discharge after finishing remdesivir. 05/05/2021 Is a 50-year-old male who was admitted to the hospital for COVID-19 pneumonia. Incidentally on CTA he was noted to have an ascending aortic aneurysm. No signs of any rupture. Today labs show a WBC of 9.08. Hemoglobin 15.9. He is normocytic. Platelet 272,000. Neutrophils are elevated 87.7%. D-dimer is 1.22. Sodium 140. Potassium 4.6. Chloride 105. Carbon dioxide 25. Anion gap is 14.6. BUN is 21. Creatinine 0.8. GFR greater than 60. Glucose 128. Calcium 7.7. Magnesium 2.4. Bilirubin 0.6. AST is 58, ALT 85. Alkaline phosphatase 64. CRP is 6.8. Protein 6.4. Albumin 2.7. He is receiving azithromycin, dexamethasone, remdesivir, and Baricitinib. He is on 50 L with an FiO2 of 65% for high flow. Added aspirin 81 mg, 20 mg twice daily Pepcid, and we will check his vitamin D today as well. We will recheck daily labs tomorrow. He has been utilizing his incentive spirometer and Acapella. He was again encouraged to prone whenever possible. Unknown length of stay due to severity of symptoms. 05/06/2021 This is a 50-year-old male who was admitted for COVID-19 pneumonia. He is on day 4 of remdesivir and dexamethasone. Day 3 of Baricitinib. His oxygen demand has increased to 50 L with an FiO2 of 75%. He continues to prone and utilize incentive spirometer and Acapella. Nicotine patch is in place. Labs today show an elevated WBC of 12.27, likely secondary to steroid use. Platelets are 389,000. Neutrophils are elevated 89.5%. We will recheck D-dimer tomorrow. Sodium 138. Potassium 4.6. Chloride 103. Carbon dioxide 25. Anion gap 14.6. BUN is 23. Creatinine 1.0. GFR greater than 60. Glucose is 190. Calcium 8.2. Bilirubin 0.6. AST is 40, ALT is 97, alkaline phosphatase 76. CRP is down to 3.8. Protein is 6.9. Albumin is 2.9. Vitamin D was obtained and was on the low end of normal at 33.2. Patient is requesting a spiritual care consult and this will be placed. Unknown length of stay due to severity of COVID-19 symptoms. We will continue to try to wean oxygen as patient tolerates. Overall he states he feels about the same as yesterday. He continues to have significant cough and sputum production. Reports his throat is sore from coughing so much so we will add Cepacol lozenges as needed. 05/07/2021 50-year-old male who is admitted with Covid pneumonia. He is on day 5 of remdesivir and dexamethasone. Day 4 of Baricitinib. His oxygen demand has increased to 55 L with an FiO2 of 70%. He tells me that he has not been proning. I have had a lengthy discussion with him regarding this and he states that he will try to do that more he has been using his I-S and Acapella. Labs today show a WBC of 12.03, hemoglobin 17.2, platelet count 392, D-dimer 3.76, C- reactive protein 4.3. Unknown length of stay due to severity of Covid. Co ntinue to have respiratory therapy attempt to wean oxygen as tolerated. Patient states he feels a little worse today than yesterday. He states he has had not much of an appetite other than for a few fruits. He does continue to complain of cough which is productive of [place] sputum. 05/07/21 patient has been seen and examined. Patient has improved compared to yesterday. Patient is ambulating with less effort. No changes to present management, agree with assessment and plan. physical examination: cvs: [id number] Resp: Course soft lower bilateral Abd: sntnd Ext no edema 05/08/21 Covid 19 pneumonia/ acute respiratory failure with hypoxia- Patient has improved, now on high flow 60% sitting up and speech to through the window. He is eating better yet appetite is still decreased patient is trying to prone at night but difficult.Using IS and acapella. Wbc 11 this am. Cont with present management and RT therapy. Cont with ptot for strengthening. Complaint of productive sputum and may use Mucomyst to break this up further this afternoon. 05/09/21 patient is ambulating without sympotms but still desaturating, we should be able to start weaning more o2 due to saturating in high 90's today. requested to place between 88-92%. He is still this am on 60L 80%. Will get ABg this am and see how he is oxygenating. otherwise slow improvement but on track. Productive sputum and will try a one time mucomyst treatment.Patient is going over 96hour due to ongoing symptoms of covid pneumonia and acute respiratory failure. Will remain inpatient. 05/10/2021 Oxygen saturations have improved all day. He is currently on only 30 L of high flow nasal cannula at 60% FiO2. Oxygen saturations are staying in the mid 90s. Unfortunately patient developed a significant extravasation of air after having a severe coughing episode with a small right-sided pneumothorax. This is likely going to be a self-limiting condition, but it is very uncomfortable at this time. Neck measures 50 cm and we will continue to monitor this very closely. Goal will be to decrease or stop the high flow nasal cannula to decrease the trauma to the airway. Also, control his cough as well as possible and avoid Mucomyst. Labs were not done today and we will repeat routine COVID labs in the morning. Spoke with and explained to her his condition and him and his understand his current treatment plan. 05/11/2021 Patient has had continued improvement. He is down to 6 L nasal cannula and his neck circumference is also decreased. He has less next discomfort. Chest x-ray showed no pneumothorax, diffuse soft tissue air and mediastinal air, increased diffuse parenchymal densities from Covid pneumonia. Patient clinically much better. Hopefully over the next couple days patient will be able to be sent home on nasal cannula. We will continue on current treatment of dexamethasone and baricitinib. White count did increase to 15.5, but C-reactive protein dropped in half to 1.6. Also, D-dimer decreased to 2.1. 05/12/2021 This is a 50-year-old male admitted for COVID-19 pneumonia and incidentally found to have a stable aortic aneurysm. Patient has completed dexamethasone, r emdesivir, and azithromycin. Unfortunately during his stay after a Mucomyst inhalation patient had a coughing fit resulting in small right-sided pneumothorax, subcutaneous emphysema, and pneumomediastinum. General surgery, Dr. Williamson, was consulted and does not feel this is a surgical problem at this time. Neck circumference has been going down since. Nursing instructed to take it twice daily and alert provider should it increase greater than 1 cm. He continues on baricitinib. He is down to 4 L of oxygen today. WBC is up to 18.08, likely steroid related. Hemoglobin 16.6. Platelet 532,000. D-dimer is 1.51. Sodium 138. Potassium 4.6. Chloride 103. Carbon dioxide 24. Anion gap is 15.6. BUN is 30. Creatinine 1.0. GFR in 60. Glucose is 170. Calcium 8.7. Phosphorus 3.9. Magnesium 2.2. Total bilirubin 0.6. AST is 32, ALT 117, alkaline phosphatase 70. CRP 0.7. Protein 6.7. Albumin is up to 2.9. Overall patient reports he feels better. He will remain hospitalized with goal oxygen therapy of 2 L or less. 05/13/2021 50-year-old male admitted to the floor with COVID-19. Unfortunately he was noted to have a small pneumothorax and subcutaneous emphysema, possibly due to possible airway rupture secondary to coughing fit. Yesterday patient's neck was noted to enlarge slightly however patient had no pain or difficulty breathing. Repeat chest x-ray today shows minimally worse pneumothorax. Subcutaneous emphysema has now moved up into patient's face is left eyelid is very large. Patient is still able to see well reports no eye pain. No acute changes in vision. Patient does have a somewhat high sounding voice. Otherwise patient st ates he feels better and he is looking forward to getting out of the hospital in the near future. He is down to 2 L of oxygen via nasal cannula today. WBC today is 20.53. Hemoglobin 16.7. Platelet 536,000. Neutrophils are elevated at 87.8%. Sodium is 136. Potassium 4.6. Chloride 100. Carbon dioxide 26. Anion gap is 14.6. BUN is 30. Creatinine 1.0. GFR greater than 60. Glucose is 141. CRP was not rechecked as it had been normal yesterday. Plan will be to continue to hospitalize patient pending improvement of subcutaneous emphysema. Hopeful for discharge in next 24 to 72 hours. 05/14/2021 50-year-old male admitted to the floor with COVID-19. History of small pneumothorax with subcu emphysema. Subcu emphysema noted to chest, neck and bilateral eyes with the left eye being almost completely swollen shut. Neck circumference is being measured daily per nursing staff. Patient did have an episode of tachycardia with associated hypoxia this morning. CTA of the lungs was ordered which showed: 1. Diffuse mediastinal air as well as chest wall air and air extending into the neck. This area has mildly increased from prior study. 2. No definite pneumothorax is appreciated. 3. Increasing densities are noted within both sides of the chest compatible with worsening Covid pneumonia. 4. Right ventricular pressures are likely increased as interventricular septum is slightly bowed. 5. Mild pulmonary emboli are seen within the subsegmental branches within the right lower lobe. 6. Stable mild aneurysm of the ascending aorta. Labs today reveal a WBC of 17.08, platelet count 527,000, D-dimer 3.67, sodium 136, potassium 4.5, anion gap 14.5, BUN 36, creatinine 1.0, GFR greater than 60, glucose 104, troponin less than 0.017, proBNP 106 Twelve-lead EKG was obtained which showed no changes from initial EKG. Echocardiogram was obtained. Report is pending. Patient's heparin was discontinued and patient was started on Lovenox 95 mg/kg every 12 hours. I spoke with [facility] director of undergraduate admissions, Dr. Deleon, regarding this patient. He states that the patient does not need to be transferred to a higher level of care. He states that everything of that we are doing and have been doing for the patient is exactly what they would be doing in [place]. He states that these things are typical of what he has been seeing with Covid. He does state that we could change the patient to Eliquis 10 mg twice daily to treat the PE however while the patient's in the hospital Lovenox is appropriate. Case was discussed with Dr. Mehta, hospitalist, and he would like the patient to remain on Lovenox at this time as the patient could developed infection in the mediastinum or require surgery due to subcu swelling. Upon discharge the patient will need an anticoagulant to treat PEs. Patient's tachycardia did resolve on its own and oxygen has been titrated down to 3 L per nasal cannula. - Plan Plan:: Pneumonia due to COVID-19 virus Elevated d-dimer Acute respiratory failure Hypoxia Multiple subsegmental pulmonary emboli without acute cor pulmonale * CTA positive for subsegmental PE in L 05/14/2021 * Completed Remdesivir * Completed Dexamethasone * O2 to keep saturation between 88 to 95%. * As needed albuterol MDI * As needed DuoNeb's * Daily labs * Check D-dimer every 48 hours * I-S/Acapella * RT consult * Heparin and start Lovenox 1mg/kg subq Q12 hrs * Prone whenever able * Ambulate around room * Completed Azithromycin * 81 mg daily aspirin * Baricitinib day 07/19 * Telemetry * Airborne/contact isolation * Continuous pulse oximetry * Daily zinc supplementation * Famotidine 20 mg twice daily * Mucinex BID * Cepacol lozenges for sore throat Mediastinal emphysema Subcutaneous emphysema Pneumothorax * General surgery - Dr. Williamson consulted * No surgical interventions needed * Limit IS * Monitor * BID neck measurements by nursing - alert provider if >1cm increase. Ascending aortic aneurysm * 4.1 cm * No acute concerns * PCP follow-up/monitoring Smokes tobacco daily * Daily nicotine patch * Cessation counseling * Offered nicotine patches at discharge Code status: Full code PCP: None - needs to establish DVT prophylaxis: Lovenox Disposition: Patient will remain hospitalized for duration of COVID-19 jason tment. Unknown length of stay due to severity of symptoms. Length of stay greater than 96 hours due to need for continued COVID-19 treatment.
[2021-05-14] MEDS: Enoxaparin 100 MG/1 ML Syringe SUBCUT SCH (17:49)
[2021-05-14] MEDS: Temazepam 15 MG Cap PO PRN (20:59)
[2021-05-14] MEDS: Aspirin 81 MG Tab.Chew PO SCH (20:59)
[2021-05-15] MEDS: Enoxaparin 100 MG/1 ML Syringe SUBCUT SCH ×2 (06:13→17:50)
--- NOTE | 2021-05-15 07:10 | PCM.PN ---
- General Info Date of Service: 05/15/21 Admission Dx/Problem (Free Text): Admission Diagnosis/Problem Admission Diagnosis/Problem Pneumonia due to COVID-19 with acute respiratory failure. Functional Status: Reports: Pain Controlled, Tolerating Diet, Ambulating, Urinat ing, Incentive Spirometry, Other (Acapella ). Denies: New Symptoms - Review of Systems General: Reports: No Symptoms. Denies: Fever, Weakness, Fatigue, Malaise, Chills HEENT: Reports: No Symptoms. Denies: Dysphasia, Eye Pain, Headaches, Sinus Congestion, Sore Throat, Visual Changes Pulmonary: Reports: No Symptoms, Cough, Sputum (occasional ). Denies: Shortness of Breath, Pleuritic Chest Pain Cardiovascular: Reports: No Symptoms, Dyspnea on Exertion. Denies: Chest Pain, Palpitations, Edema, Lightheadedness Gastrointestinal: Reports: No Symptoms. Denies: Abdominal Pain, Constipation, Diarrhea, Nausea, Vomiting Genitourinary: Reports: No Symptoms. Denies: Other Musculoskeletal: Reports: No Symptoms Skin: Reports: No Symptoms. Denies: Cyanosis Neurological: Reports: No Symptoms. Denies: Confusion, Dizziness, Headache, Numbness, Pre-Existing Deficit, Seizure, Syncope, Tingling, Tremors, Difficulty Walking, Weakness, Gait Disturbance Psychiatric: Reports: No Symptoms - Patient Data Vitals - Most Recent: Last Vital Signs Temp 97.9 F 05/15/21 04:26 Pulse 86 05/15/21 04:26 Resp 18 05/15/21 04:26 BP 119/70 05/15/21 04:26 Pulse Ox 91 L 05/15/21 04:26 Weight - Most Recent: 209 lb 1.6 oz I&O - Last 24 Hours: Intake & Output 05/14/21 05/15/21 05/15/21 22:59 06:59 14:59 Intake Total 1700 400 Balance 1700 400 Lab Results Last 24 Hours: Laboratory Results - last 24 hr 05/14/21 05/14/21 05/14/21 Range/Units 06:16 06:16 06:16 WBC 17.08 H (4.23-9.07) K/mm3 RBC 5.76 (4.63-6.08) M/mm3 Hgb 17.2 (13.7-17.5) gm/dl Hct 50.4 (40.1-51.0) % MCV 87.5 (79.0-92.2) fl MCH 29.9 (25.7-32.2) pg MCHC 34.1 (32.2-35.5) g/dl RDW Std Deviation 41.6 (35.1-43.9) fL Plt Count 527 H (163-337) K/mm3 MPV 9.4 (9.4-12.3) fl Neut % (Auto) 79.6 H (34.0-67.9) % Lymph % (Auto) 11.5 L (21.8-53.1) % [place] % (Auto) 4.0 L (5.3-12.2) % Eos % (Auto) 1.0 (0.8-7.0) Baso % (Auto) 0.2 (0.1-1.2) % Neut # (Auto) 13.60 H (1.78-5.38) K/mm3 Lymph # (Auto) 1.97 (1.32-3.57) K/mm3 [place] # (Auto) 0.68 (0.30-0.82) K/mm3 Eos # (Auto) 0.17 (0.04-0.54) K/mm3 Baso # (Auto) 0.03 (0.01-0.08) K/mm3 Manual Slide Review Abnormal smear D-Dimer, Quantitative 3.67 H (0.19-0.50) mg/L Sodium 136 (136-145) mEq/L Potassium 4.5 (3.5-5.1) mEq/L Chloride 101 (98-107) mEq/L Carbon Dioxide 25 (21-32) mEq/L Anion Gap 14.5 (5-15) BUN 36 H (7-18) mg/dL Creatinine 1.0 (0.7-1.3) mg/dL Est Cr Clr Drug Dosing 85.50 mL/min Estimated GFR (MDRD) > 60 (>60) mL/min BUN/Creatinine Ratio 36.0 H (14-18) Glucose 104 H (70-99) mg/dL Calcium 8.6 (8.5-10.1) mg/dL Troponin I (0.00-0.056) ng/mL NT-Pro-B Natriuret Pep (0-125) pg/mL 05/14/21 05/14/21 05/15/21 Range/Units 06:16 06:16 05:16 WBC 14.42 H (4.23-9.07) K/mm3 RBC 5.53 (4.63-6.08) M/mm3 Hgb 16.7 (13.7-17.5) gm/dl Hct 48.9 (40.1-51.0) % MCV 88.4 (79.0-92.2) fl MCH 30.2 (25.7-32.2) pg MCHC 34.2 (32.2-35.5) g/dl RDW Std Deviation 41.8 (35.1-43.9) fL Plt Count 449 H D (163-337) K/mm3 MPV 9.2 L (9.4-12.3) fl Neut % (Auto) 79.0 H (34.0-67.9) % Lymph % (Auto) 12.3 L (21.8-53.1) % [place] % (Auto) 4.1 L (5.3-12.2) % Eos % (Auto) 0.8 (0.8-7.0) Baso % (Auto) 0.1 (0.1-1.2) % Neut # (Auto) 11.39 H (1.78-5.38) K/mm3 Lymph # (Auto) 1.78 (1.32-3.57) K/mm3 [place] # (Auto) 0.59 (0.30-0.82) K/mm3 Eos # (Auto) 0.11 (0.04-0.54) K/mm3 Baso # (Auto) 0.02 (0.01-0.08) K/mm3 Manual Slide Review Abnormal smear D-Dimer, Quantitative (0.19-0.50) mg/L Sodium (136-145) mEq/L Potassium (3.5-5.1) mEq/L Chloride (98-107) mEq/L Carbon Dioxide (21-32) mEq/L Anion Gap (5-15) BUN (7-18) mg/dL Creatinine (0.7-1.3) mg/dL Est Cr Clr Drug Dosing mL/min Estimated GFR (MDRD) (>60) mL/min BUN/Creatinine Ratio (14-18) Glucose (70-99) mg/dL Calcium (8.5-10.1) mg/dL Troponin I < 0.017 (0.00-0.056) ng/mL NT-Pro-B Natriuret Pep 106 (0-125) pg/mL 05/15/21 Range/Units 05:16 WBC (4.23-9.07) K/mm3 RBC (4.63-6.08) M/mm3 Hgb (13.7-17.5) gm/dl Hct (40.1-51.0) % MCV (79.0-92.2) fl MCH (25.7-32.2) pg MCHC (32.2-35.5) g/dl RDW Std Deviation (35.1-43.9) fL Plt Count (163-337) K/mm3 MPV (9.4-12.3) fl Neut % (Auto) (34.0-67.9) % Lymph % (Auto) (21.8-53.1) % [place] % (Auto) (5.3-12.2) % Eos % (Auto) (0.8-7.0) Baso % (Auto) (0.1-1.2) % Neut # (Auto) (1.78-5.38) K/mm3 Lymph # (Auto) (1.32-3.57) K/mm3 [place] # (Auto) (0.30-0.82) K/mm3 Eos # (Auto) (0.04-0.54) K/mm3 Baso # (Auto) (0.01-0.08) K/mm3 Manual Slide Review D-Dimer, Quantitative (0.19-0.50) mg/L Sodium 137 (136-145) mEq/L Potassium 4.4 (3.5-5.1) mEq/L Chloride 103 (98-107) mEq/L Carbon Dioxide 26 (21-32) mEq/L Anion Gap 12.4 (5-15) BUN 33 H (7-18) mg/dL Creatinine 1.0 (0.7-1.3) mg/dL Est Cr Clr Drug Dosing 85.50 mL/min Estimated GFR (MDRD) > 60 (>60) mL/min BUN/Creatinine Ratio 33.0 H (14-18) Glucose 111 H (70-99) mg/dL Calcium 8.3 L (8.5-10.1) mg/dL Troponin I (0.00-0.056) ng/mL NT-Pro-B Natriuret Pep (0-125) pg/mL Med Orders - Current: Current Medications Acetaminophen (Acetaminophen 325 Mg Tab) 650 mg PO Q4H PRN PRN Reason: Pain (Mild 1-3)/fever Albuterol (Albuterol 6.7 Gm Inhaler) 0 gm INH Q4H PRN PRN Reason: sob/wheezing Last Admin: 05/14/21 20:06 Dose: 2 puff Documented by: Albuterol/Ipratropium (Albuterol/Ipratropium 3.0-0.5 Mg/3 Ml Neb Soln) 3 ml NEB Q4H PRN PRN Reason: Shortness Of Breath/wheezing Last Admin: 05/07/21 20:25 Dose: 3 ml Documented by: Ascorbic Acid (Ascorbic Acid 500 Mg Tab) 1,000 mg PO DAILY [facility] Last Admin: 05/14/21 08:16 Dose: 1,000 mg Documented by: Aspirin (Aspirin 81 Mg Tab.Chew) 81 mg PO BEDTIME [facility] Last Admin: 05/14/21 20:59 Dose: 81 mg Documented by: Benzocaine/Menthol (Benzocaine/Cetylpyridinium/Menthol Lozenge) 1 lozenge MUCME M Q1H PRN PRN Reason: Sore Throat Last Admin: 05/09/21 21:25 Dose: 1 lozenge Documented by: Cholecalciferol (Cholecalciferol (Vitamin D3) 5,000 Unit Cap) 5,000 unit PO DAILY [facility] Last Admin: 05/14/21 08:16 Dose: 5,000 unit Documented by: Docusate Sodium (Docusate Sodium 100 Mg Cap) 100 mg PO BID PRN PRN Reason: Constipation Enoxaparin Sodium (Enoxaparin 100 Mg/1 Ml Syringe) 95 mg SUBCUT Q12H [facility] Last Admin: 05/15/21 06:13 Dose: 95 mg Documented by: Famotidine (Famotidine 20 Mg Tab) 20 mg PO BID [facility] Last Admin: 05/14/21 20:59 Dose: 20 mg Documented by: Guaifenesin (Guaifenesin 600 Mg Tab.Er) 600 mg PO BID [facility] Last Admin: 05/14/21 20:59 Dose: 600 mg Documented by: Ondansetron HCl (Ondansetron 4 Mg Tab.Dis) 4 mg PO Q4H PRN PRN Reason: nausea, able to take PO Oxycodone HCl (Oxycodone 5 Mg Tab) 5 mg PO Q4H PRN PRN Reason: Pain (moderate 4-6) Sodium Chloride (Sodium Chloride 0.9% 10 Ml Syringe) 10 ml FLUSH ASDIRECTED PRN PRN Reason: Keep Vein Open Last Admin: 05/14/21 10:31 Dose: 10 ml Documented by: Temazepam (Temazepam 15 Mg Cap) 15 mg PO BEDTIME PRN PRN Reason: Sleep Last Admin: 05/14/21 20:59 Dose: 15 mg Documented by: Zinc Sulfate (Zinc Sulfate 220 Mg Cap) 220 mg PO DAILY [facility] Last Admin: 05/14/21 08:16 Dose: 220 mg Documented by: Discontinued Medications Acetylcysteine (Acetylcysteine 20% 200 Mg/Ml 30 Ml Nebulizer Soln Sdv) 800 mg NEB ONETIME ONE Stop: 05/09/21 09:16 Last Admin: 05/09/21 13:42 Dose: Not Given Documented by: Acetylcysteine (Acetylcysteine 20% 200 Mg/Ml 4 Ml Nebulizer Soln Sdv) 800 mg NEB ONETIME ONE Stop: 05/09/21 09:46 Last Admin: 05/09/21 09:44 Dose: 800 mg Documented by: Dexamethasone (Dexamethasone 4 Mg/Ml Sdv) 6 mg IVPUSH ONETIME ONE Stop: 05/03/21 09:54 Last Admin: 05/03/21 10:12 Dose: 6 mg Documented by: Dexamethasone (Dexamethasone 4 Mg Tab) 6 mg PO DAILY [facility] Stop: 05/12/21 09:01 Last Admin: 05/12/21 09:11 Dose: 6 mg Documented by: Enoxaparin Sodium (Enoxaparin 40 Mg/0.4 Ml Syringe) 40 mg SUBCUT DAILY [facility] Last Admin: 05/06/21 09:41 Dose: 40 mg Documented by: Heparin Sodium (Porcine) (Heparin Sodium 5,000 Units/Ml Vial) 7,500 units SUBCUT Q8H [facility] Last Admin: 05/14/21 09:32 Dose: 7,500 units Documented by: Sodium Chloride (Normal Saline) 1,000 mls @ 1,000 mls/hr IV .BOLUS [facility] Last Admin: 05/03/21 10:12 Dose: 1,000 mls/hr Documented by: Remdesivir 200 mg/ Sodium (Chloride) 250 mls @ 250 mls/hr IV ONETIME ONE Stop: 05/03/21 09:54 Last Admin: 05/03/21 10:30 Dose: Not Given Documented by: Remdesivir 200 mg/ Sodium (Chloride) 250 mls @ 250 mls/hr IV ONETIME ONE Stop: 05/03/21 11:29 Last Admin: 05/03/21 10:30 Dose: 250 mls/hr Documented by: Sodium Chloride (Normal Saline) 45 mls @ 40 mls/hr IV ASDIRECTED [facility] Last Admin: 05/03/21 11:48 Dose: 40 mls/hr Documented by: Azithromycin 500 mg/ Sodium (Chloride) 250 mls @ 250 mls/hr IV Q24H [facility] Stop: 05/05/21 15:29 Last Admin: 05/05/21 14:38 Dose: 250 mls/hr Documented by: Remdesivir 100 mg/ Sodium (Chloride) 100 mls @ 100 mls/hr IV Q24H [facility] Stop: 05/07/21 11:29 Last Admin: 05/06/21 09:37 Dose: 100 mls/hr Documented by: Sodium Chloride (Normal Saline) Confirm Administered Dose 100 mls @ as directed .ROUTE .STK-MED ONE Stop: 05/04/21 10:56 Last Admin: 05/04/21 13:37 Dose: Not Given Documented by: Remdesivir 100 mg/ Sodium (Chloride) 100 mls @ 100 mls/hr IV Q24H [facility] Stop: 05/07/21 09:59 Last Admin: 05/07/21 09:41 Dose: 100 mls/hr Documented by: Sodium Chloride (Normal Saline) 100 mls @ 60 mls/hr IV ASDIRECTED [facility] Stop: 05/14/21 11:00 Last Admin: 05/14/21 10:32 Dose: 60 mls/hr Documented by: Iopamidol (Iopamidol 755 Mg/Ml 100 Ml Bottle) 100 ml IVPUSH ONETIME ONE Stop: 05/03/21 11:11 Last Admin: 05/03/21 11:47 Dose: 100 ml Documented by: Iopamidol (Iopamidol 755 Mg/Ml 100 Ml Bottle) 100 ml IVPUSH ONETIME ONE Stop: 05/14/21 09:33 Last Admin: 05/14/21 10:31 Dose: 100 ml Documented by: Morphine Sulfate (Morphine 2 Mg/Ml Syringe) 2 mg IVPUSH Q2H PRN PRN Reason: Pain (severe 7-10) Stop: 05/04/21 14:17 Nicotine (Nicotine 14 Mg/24 Hr Patch) 14 mg TRDERM DAILY [facility] Last Admin: 05/06/21 09:17 Dose: Not Given Documented by: Sodium Chloride (Sodium Chloride 0.9% 10 Ml Syringe) 10 ml FLUSH ONETIME PRN PRN Reason: Keep Vein Open Last Admin: 05/03/21 11:47 Dose: 10 ml Documented by: Sodium Chloride (Sodium Chloride 0.9% 10 Ml Syringe) 10 ml FLUSH ONETIME ONE Stop: 05/14/21 09:33 Last Admin: 05/14/21 15:14 Dose: Not Given Documented by: - Exam Quality Assessment: Supplemental Oxygen (2L), DVT Prophylaxis (lovenox 1mg/kg). No: Urine Catheter General: Alert, Oriented, Cooperative, No Acute Distress HEENT: Pupils Equal, Pupils Reactive, Mucous Membr. Moist/[place], Other (Significant swelling to eyes and face due to subcutaneous air. Left eye nearly completely swollen shut. Patient denies any eye pain. No vision changes. No headaches or eye pressure.) Neck: Trachea Midline, Other (Improved swelling due to subcutaneous air) Lungs: Clear to Auscultation, Normal Respiratory Effort, Other (Mild swelling to upper chest due to subcutaneous air) Cardiovascular: Regular Rate, Regular Rhythm GI/Abdominal Exam: Normal Bowel Sounds, Soft, Non-Tender, No Distention (Male) Exam: Deferred Back Exam: Normal Inspection, Full Range of Motion Extremities: Normal Inspection, Normal Range of Motion, Non-Tender, No Pedal Edema, Normal Capillary Refill Peripheral Pulses: 3+: Radial (L), Radial (R), Dorsalis Pedis (L), Dorsalis Pedis (R) Skin: Warm, Dry, Intact Neurological: No New Focal Deficit Psy/Mental Status: Alert, Normal Affect, Normal Mood - Patient Data Lab Results Last 24 hrs: Laboratory Results - last 24 hr 0905/14/21 05/14/21 Range/Units 06:16 06:16 06:16 WBC 17.08 H (4.23-9.07) K/mm3 RBC 5.76 (4.63-6.08) M/mm3 Hgb 17.2 (13.7-17.5) gm/dl Hct 50.4 (40.1-51.0) % MCV 87.5 (79.0-92.2) fl MCH 29.9 (25.7-32.2) pg MCHC 34.1 (32.2-35.5) g/dl RDW Std Deviation 41.6 (35.1-43.9) fL Plt Count 527 H (163-337) K/mm3 MPV 9.4 (9.4-12.3) fl Neut % (Auto) 79.6 H (34.0-67.9) % Lymph % (Auto) 11.5 L (21.8-53.1) % [place] % (Auto) 4.0 L (5.3-12.2) % Eos % (Auto) 1.0 (0.8-7.0) Baso % (Auto) 0.2 (0.1-1.2) % Neut # (Auto) 13.60 H (1.78-5.38) K/mm3 Lymph # (Auto) 1.97 (1.32-3.57) K/mm3 [place] # (Auto) 0.68 (0.30-0.82) K/mm3 Eos # (Auto) 0.17 (0.04-0.54) K/mm3 Baso # (Auto) 0.03 (0.01-0.08) K/mm3 Manual Slide Review Abnormal smear D-Dimer, Quantitative 3.67 H (0.19-0.50) mg/L Sodium 136 (136-145) mEq/L Potassium 4.5 (3.5-5.1) mEq/L Chloride 101 (98-107) mEq/L Carbon Dioxide 25 (21-32) mEq/L Anion Gap 14.5 (5-15) BUN 36 H (7-18) mg/dL Creatinine 1.0 (0.7-1.3) mg/dL Est Cr Clr Drug Dosing 85.50 mL/min Estimated GFR (MDRD) > 60 (>60) mL/min BUN/Creatinine Ratio 36.0 H (14-18) Glucose 104 H (70-99) mg/dL Calcium 8.6 (8.5-10.1) mg/dL Troponin I (0.00-0.056) ng/mL NT-Pro-B Natriuret Pep (0-125) pg/mL 05/14/21 05/14/21 05/15/21 Range/Units 06:16 06:16 05:16 WBC 14.42 H (4.23-9.07) K/mm3 RBC 5.53 (4.63-6.08) M/mm3 Hgb 16.7 (13.7-17.5) gm/dl Hct 48.9 (40.1-51.0) % MCV 88.4 (79.0-92.2) fl MCH 30.2 (25.7-32.2) pg MCHC 34.2 (32.2-35.5) g/dl RDW Std Deviation 41.8 (35.1-43.9) fL Plt Count 449 H D (163-337) K/mm3 MPV 9.2 L (9.4-12.3) fl Neut % (Auto) 79.0 H (34.0-67.9) % Lymph % (Auto) 12.3 L (21.8-53.1) % [place] % (Auto) 4.1 L (5.3-12.2) % Eos % (Auto) 0.8 (0.8-7.0) Baso % (Auto) 0.1 (0.1-1.2) % Neut # (Auto) 11.39 H (1.78-5.38) K/mm3 Lymph # (Auto) 1.78 (1.32-3.57) K/mm3 [place] # (Auto) 0.59 (0.30-0.82) K/mm3 Eos # (Auto) 0.11 (0.04-0.54) K/mm3 Baso # (Auto) 0.02 (0.01-0.08) K/mm3 Manual Slide Review Abnormal smear D-Dimer, Quantitative (0.19-0.50) mg/L Sodium (136-145) mEq/L Potassium (3.5-5.1) mEq/L Chloride (98-107) mEq/L Carbon Dioxide (21-32) mEq/L Anion Gap (5-15) BUN (7-18) mg/dL Creatinine (0.7-1.3) mg/dL Est Cr Clr Drug Dosing mL/min Estimated GFR (MDRD) (>60) mL/min BUN/Creatinine Ratio (14-18) Glucose (70-99) mg/dL Calcium (8.5-10.1) mg/dL Troponin I < 0.017 (0.00-0.056) ng/mL NT-Pro-B Natriuret Pep 106 (0-125) pg/mL 05/15/21 Range/Units 05:16 WBC (4.23-9.07) K/mm3 RBC (4.63-6.08) M/mm3 Hgb (13.7-17.5) gm/dl Hct (40.1-51.0) % MCV (79.0-92.2) fl MCH (25.7-32.2) pg MCHC (32.2-35.5) g/dl RDW Std Deviation (35.1-43.9) fL Plt Count (163-337) K/mm3 MPV (9.4-12.3) fl Neut % (Auto) (34.0-67.9) % Lymph % (Auto) (21.8-53.1) % [place] % (Auto) (5.3-12.2) % Eos % (Auto) (0.8-7.0) Baso % (Auto) (0.1-1.2) % Neut # (Auto) (1.78-5.38) K/mm3 Lymph # (Auto) (1.32-3.57) K/mm3 [place] # (Auto) (0.30-0.82) K/mm3 Eos # (Auto) (0.04-0.54) K/mm3 Baso # (Auto) (0.01-0.08) K/mm3 Manual Slide Review D-Dimer, Quantitative (0.19-0.50) mg/L Sodium 137 (136-145) mEq/L Potassium 4.4 (3.5-5.1) mEq/L Chloride 103 (98-107) mEq/L Carbon Dioxide 26 (21-32) mEq/L Anion Gap 12.4 (5-15) BUN 33 H (7-18) mg/dL Creatinine 1.0 (0.7-1.3) mg/dL Est Cr Clr Drug Dosing 85.50 mL/min Estimated GFR (MDRD) > 60 (>60) mL/min BUN/Creatinine Ratio 33.0 H (14-18) Glucose 111 H (70-99) mg/dL Calcium 8.3 L (8.5-10.1) mg/dL Troponin I (0.00-0.056) ng/mL NT-Pro-B Natriuret Pep (0-125) pg/mL Result Diagrams: 05/15/21 05:16 05/15/21 05:16 Sepsis Event Note - Evaluation Sepsis Screening Result: Possible Sepsis Risk - Focused Exam Vital Signs: Vital Signs Temp Pulse Resp BP Pulse Ox Pulse Ox 05/15/21 04:26 97.9 F 86 18 119/70 91 L 05/15/21 00:07 97.5 F 88 16 120/82 96 05/14/21 20:24 97.7 F 91 22 H 125/76 92 L 05/14/21 20:07 93 L - Problem List & Annotations (1) Elevated d-dimer SNOMED Code(s): 456314580 Code(s): R79.89 - OTHER SPECIFIED ABNORMAL FINDINGS OF BLOOD CHEMISTRY Status: Acute Priority: High Current Visit: Yes (2) Acute respiratory failure SNOMED Code(s): 90396180 Code(s): J96.00 - ACUTE RESPIRATORY FAILURE, UNSP W HYPOXIA OR HYPERCAPNIA Status: Acute Priority: High Current Visit: Yes Qualifiers: Respiratory failure complication: hypoxia Qualified Code(s): J96.01 - Acute respiratory failure with hypoxia (3) Hypoxia SNOMED Code(s): 564540657 Code(s): R09.02 - HYPOXEMIA Status: Acute Priority: High Current Visit: Yes (4) Pneumonia due to COVID-19 virus SNOMED Code(s): 782006356455027873 Code(s): U07.1 - COVID-19; J12.82 - PNEUMONIA DUE TO CORONAVIRUS DISEASE 2019 Status: Acute Priority: High Current Visit: Yes (5) Ascending aortic aneurysm Status: Chronic Priority: Medium Current Visit: Yes (6) Smokes tobacco daily SNOMED Code(s): 716036593 Code(s): F17.200 - NICOTINE DEPENDENCE, UNSPECIFIED, UNCOMPLICATED Status: Chronic Priority: Medium Current Visit: Yes (7) Mediastinal emphysema (pneumomediastinum) SNOMED Code(s): 94133453 Code(s): J98.2 - INTERSTITIAL EMPHYSEMA Status: Acute Priority: High Current Visit: Yes (8) Subcutaneous emphysema SNOMED Code(s): 8470607 Code(s): T79.7XXA - TRAUMATIC SUBCUTANEOUS EMPHYSEMA, INITIAL ENCOUNTER Status: Acute Priority: High Current Visit: Yes Qualifiers: Encounter type: initial encounter Qualified Code(s): T79.7XXA - Traumatic subcutaneous emphysema, initial encounter (9) Pneumothorax SNOMED Code(s): 58364073 Code(s): J93.9 - PNEUMOTHORAX, UNSPECIFIED Status: Acute Priority: High Current Visit: Yes Qualifiers: Pneumothorax type: other pneumothorax Qualified Code(s): J93.83 - Other pneumothorax (10) Multiple subsegmental pulmonary emboli without acute cor pulmonale SNOMED Code(s): 40594632 Code(s): I26.94 - MULT SUBSEGMENTAL PULMON EMBOLI WITHOUT ACUTE COR PULMONALE Status: Acute Priority: High Current Visit: Yes - Problem List Review Problem List Initiated/Reviewed/Updated: Yes - My Orders Last 24 Hours: My Active Orders 05/16/21 05:11 BASIC METABOLIC PANEL,BMP [CHEM] AM CBC WITH AUTO DIFF [HEME] AM DD [D-DIMER QUANTITATIVE] [COAG] Q48H 05/18/21 05:11 DD [D-DIMER QUANTITATIVE] [COAG] Q48H - Assessment Assessment:: Day of admission - 05/03/2021 The patient is a 50-year-old gentleman who has been admitted to acute inpatient hospitalization due to COVID-19 pneumonia. The patient is outside the window for remdesivir treatment. The patient will be started on remdesivir 6 mg p.o. daily. He will be maintained on oxygen titrated to keep his saturations around 92%. The patient will also be started on a azithromycin 500 mg IV daily for superimposed infection. The patient also has been anticoagulated with the use of Lovenox at 40 mg subcutaneously daily. Repeat laboratory studies to include D-dimer and CRP have also been ordered. The patient is to have a regular diet as tolerated. 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 Current guidelines have recommended that this be observed by annual CT scans. I have discussed the case of the aneurysm with the patient. The patient will need to follow-up with the primary care physician after discharge. He should be appropriate for discharge in 1 to 2 days depending upon his oxygen demands or symptoms. 05/04/2021 The patient is a 50-year-old gentleman who was initially admitted due to Covid pneumonia. The patient has had difficulty in maintaining his oxygen saturations around 92% and is on high flow oxygen. Regardless of the length of time for the patient's illness I have elected to place the patient on remdesivir 100 mg IV daily. He also meets qualifications for baricitinib and this was started with consultation from pharmacy. The patient is currently anticoagulated with Lovenox 40 mg subcutaneous daily. Continue with diet as tolerated. He is also on nicotine patch for smoking. The patient will be continued on telemetry. Repeat laboratory studies have been ordered. The patient should have a repeat chest x-ray in 1 to 2 days. The patient has been encouraged to ambulate in the room. The patient should be appropriate for discharge after finishing remdesivi r. 05/05/2021 Is a 50-year-old male who was admitted to the hospital for COVID-19 pneumonia. Incidentally on CTA he was noted to have an ascending aortic aneurysm. No signs of any rupture. Today labs show a WBC of 9.08. Hemoglobin 15.9. He is normocytic. Platelet 272,000. Neutrophils are elevated 87.7%. D-dimer is 1.22. Sodium 140. Potassium 4.6. Chloride 105. Carbon dioxide 25. Anion gap is 14.6. BUN is 21. Creatinine 0.8. GFR greater than 60. Glucose 128. Calcium 7.7. Magnesium 2.4. Bilirubin 0.6. AST is 58, ALT 85. Alkaline phosphatase 64. CRP is 6.8. Protein 6.4. Albumin 2.7. He is receiving azithromycin, dexamethasone, remdesivir, and Baricitinib. He is on 50 L with an FiO2 of 65% for high flow. Added aspirin 81 mg, 20 mg twice daily Pepcid, and we will check his vitamin D today as well. We will recheck daily labs tomorrow. He has been utilizing his incentive spirometer and Acapella. He was again encouraged to prone whenever possible. Unknown length of stay due to severity of symptoms. 05/06/2021 This is a 50-year-old male who was admitted for COVID-19 pneumonia. He is on day 4 of remdesivir and dexamethasone. Day 3 of Baricitinib. His oxygen demand has increased to 50 L with an FiO2 of 75%. He continues to prone and utilize incentive spirometer and Acapella. Nicotine patch is in place. Labs today show an elevated WBC of 12.27, likely secondary to steroid use. Platelets are 389,000. Neutrophils are elevated 89.5%. We will recheck D-dimer tomorrow. Sodium 138. Potassium 4.6. Chloride 103. Carbon dioxide 25. Anion gap 14.6. BUN is 23. Creatinine 1.0. GFR greater than 60. Glucose is 190. Calcium 8.2. Bilirubin 0.6. AST is 40, ALT is 97, alkaline phosphatase 76. CRP is down to 3.8. Protein is 6.9. Albumin is 2.9. Vitamin D was obtained and was on the low end of normal at 33.2. Patient is requesting a spiritual care consult and this will be placed. Unknown length of stay due to severity of CO VID-19 symptoms. We will continue to try to wean oxygen as patient tolerates. Overall he states he feels about the same as yesterday. He continues to have significant cough and sputum production. Reports his throat is sore from coughing so much so we will add Cepacol lozenges as needed. 05/07/2021 50-year-old male who is admitted with Covid pneumonia. He is on day 5 of remdesivir and dexamethasone. Day 4 of Baricitinib. His oxygen demand has increased to 55 L with an FiO2 of 70%. He tells me that he has not been proning. I have had a lengthy discussion with him regarding this and he states that he will try to do that more he has been using his I-S and Acapella. Labs today show a WBC of 12.03, hemoglobin 17.2, platelet count 392, D-dimer 3.76, C- reactive protein 4.3. Unknown length of stay due to severity of Covid. Continue to have respiratory therapy attempt to wean oxygen as tolerated. Patient states he feels a little worse today than yesterday. He states he has had not much of an appetite other than for a few fruits. He does continue to complain of cough which is productive of [place] sputum. 05/07/21 patient has been seen and examined. Patient has improved compared to yesterday. Patient is ambulating with less effort. No changes to present management, agree with assessment and plan. physical examination: cvs: [id number] Resp: Course soft lower bilateral Abd: sntnd Ext no edema 05/08/21 Covid 19 pneumonia/ acute respiratory failure with hypoxia- Patient has improved, now on high flow 60% sitting up and speech to through the window. He is eating better yet appetite is still decreased patient is trying to prone at night but difficult.Using IS and acapella. Wbc 11 this am. Cont with present management and RT therapy. Cont with ptot for strengthening. Complaint of productive sputum and may use Mucomyst to break this up further this afternoon. 05/09/21 patient is ambulating without sympotms but still desaturating, we should be able to start weaning more o2 due to saturating in high 90's today. requested to place between 88-92%. He is still this am on 60L 80%. Will get ABg this am and see how he is oxygenating. otherwise slow improvement but on track. Productive sputum and will try a one time mucomyst treatment.Patient is going over 96hour due to ongoing symptoms of covid pneumonia and acute respiratory failure. Will remain inpatient. 05/10/2021 Oxygen saturations have improved all day. He is currently on only 30 L of high flow nasal cannula at 60% FiO2. Oxygen saturations are staying in the mid 90s. Unfortunately patient developed a significant extravasation of air after having a severe coughing episode with a small right-sided pneumothorax. This is likely going to be a self-limiting condition, but it is very uncomfortable at this time. Neck measures 50 cm and we will continue to monitor this very closely. Goal will be to decrease or stop the high flow nasal cannula to decrease the trauma to the airway. Also, control his cough as well as possible and avoid Mucomyst. Labs were not done today and we will repeat routine COVID labs in the morning. Spoke with and explained to her his condition and him and his understand his current treatment plan. 05/11/2021 Patient has had continued improvement. He is down to 6 L nasal cannula and his neck circumference is also decreased. He has less next discomfort. Chest x-ray showed no pneumothorax, diffuse soft tissue air and mediastinal air, increased diffuse parenchymal densities from Covid pneumonia. Patient clinically much better. Hopefully over the next couple days patient will be able to be sent home on nasal cannula. We will continue on current treatment of dexamethasone and baricitinib. White count did increase to 15.5, but C-reactive protein dropped in half to 1.6. Also, D-dimer decreased to 2.1. 05/12/2021 This is a 50-year-old male admitted for COVID-19 pneumonia and incidentally found to have a stable aortic aneurysm. Patient has completed dexamethasone, remdesivir, and azithromycin. Unfortunately during his stay after a Mucomyst inhalation patient had a coughing fit resulting in small right-sided pneumothorax, subcutaneous emphysema, and pneumomediastinum. General surgery, Dr. Williamson, was consulted and does not feel this is a surgical problem at this time. Neck circumference has been going down since. Nursing instructed to take it twice daily and alert provider should it increase greater than 1 cm. He continues on baricitinib. He is down to 4 L of oxygen today. WBC is up to 18.08, likely steroid related. Hemoglobin 16.6. Platelet 532,000. D-dimer is 1.51. Sodium 138. Potassium 4.6. Chloride 103. Carbon dioxide 24. Anion gap is 15.6. BUN is 30. Creatinine 1.0. GFR in 60. Glucose is 170. Calcium 8.7. Phosphorus 3.9. Magnesium 2.2. Total bilirubin 0.6. AST is 32, ALT 117, alkaline phosphatase 70. CRP 0.7. Protein 6.7. Albumin is up to 2.9. Overa ll patient reports he feels better. He will remain hospitalized with goal oxygen therapy of 2 L or less. 05/13/2021 50-year-old male admitted to the floor with COVID-19. Unfortunately he was noted to have a small pneumothorax and subcutaneous emphysema, possibly due to possible airway rupture secondary to coughing fit. Yesterday patient's neck was noted to enlarge slightly however patient had no pain or difficulty breathing. Repeat chest x-ray today shows minimally worse pneumothorax. Subcutaneous emphysema has now moved up into patient's face is left eyelid is very large. Patient is still able to see well reports no eye pain. No acute changes in vision. Patient does have a somewhat high sounding voice. Otherwise patient states he feels better and he is looking forward to getting out of the hospital in the near future. He is down to 2 L of oxygen via nasal cannula today. WBC today is 20.53. Hemoglobin 16.7. Platelet 536,000. Neutrophils are elevated at 87.8%. Sodium is 136. Potassium 4.6. Chloride 100. Carbon dioxide 26. Anion gap is 14.6. BUN is 30. Creatinine 1.0. GFR greater than 60. Glucose is 141. CRP was not rechecked as it had been normal yesterday. Plan will be to continue to hospitalize patient pending improvement of subcutaneous emphysema. Hopeful for discharge in next 24 to 72 hours. 05/14/2021 50-year-old male admitted to the floor with COVID-19. History of small pneumothorax with subcu emphysema. Subcu emphysema noted to chest, neck and bilateral eyes with the left eye being almost completely swollen shut. Neck circumference is being measured daily per nursing staff. Patient did have an episode of tachycardia with associated hypoxia this morning. CTA of the lungs was ordered which showed: 1. Diffuse mediastinal air as well as chest wall air and air extending into the neck. This area has mildly increased from prior study. 2. No definite pneumothorax is appreciated. 3. Increasing densities are noted within both sides of the chest compatible with worsening Covid pneumonia. 4. Right ventricular pressures are likely increased as interventricular septum is slightly bowed. 5. Mild pulmonary emboli are seen within the subsegmental branches within the right lower lobe. 6. Stable mild aneurysm of the ascending aorta. Labs today reveal a WBC of 17.08, platelet count 527,000, D-dimer 3.67, sodium 136, potassium 4.5, anion gap 14.5, BUN 36, creatinine 1.0, GFR greater than 60, glucose 104, troponin less than 0.017, proBNP 106 Twelve-lead EKG was obtained which showed no changes from initial EKG. Echocardiogram was obtained. Report is pending. Patient's heparin was discontinued and patient was started on Lovenox 95 mg/kg every 12 hours. I spoke with [facility] machine stripper, Dr. Deleon, regarding this patient. He states that the patient does not need to be transferred to a higher level of care. He states that everything of that we are doing and have been doing for the patient is exactly what they would be doing in [place]. He states that these things are typical of what he has been seeing with Covid. He does state that we could change the patient to Eliquis 10 mg twice daily to treat the PE however while the patient's in the hospital Lovenox is appropriate. Case was discussed with Dr. Mehta, hospitalist, and he would like the patient to remain on Lovenox at this time as the patient could developed infection in the mediastinum or require surgery due to subcu swelling. Upon discharge the patient will need an anticoagulant to treat PEs. Patient's tachycardia did resolve on its own and oxygen has been titrated down to 3 L per nasal cannula. 05/15/2021 Is a 50-year-old male admitted to the floor with COVID-19 and a history of small pneumothorax with subcutaneous emphysema which is now noted in his chest, neck, face, and bilateral eyelids. Left eyelid remains almost completely swollen shut. Neck circumference has improved over the past few days. Patient denies any eye pain or vision changes. Patient was noted to have an episode of tachycardia and hypoxia yesterday and was found to have pulmonary emboli within the subsegmental branches of the right lower lobe. Echocardiogram was obtained on 05/14/2021 and shows 1. Normal pattern of LV diastolic filling. 2. Grossly normal left ventricular systolic function with estimated ejection fraction of 55 to 60%. Regional wall motion abnormalities cannot be excluded. 3. Very limited study. He remains on telemetry with no acute changes. He is now on 1 m g/kg of Lovenox every 12 hours. We will keep him on Lovenox until discharge from the hospital and then likely switch him to Eliquis or Xarelto. He is down to 2 L of oxygen currently. He is off of airborne and contact precautions and doing well. His is at bedside. He remains in good spirits. Labs today show a WBC down to 14.42. Platelet are down to 449,000. Neutrophils are elevated 79%. Sodium 137. Potassium 4.4. Chloride 103. Carbon dioxide 26. Anion gap is 12.4. BUN is 33. Creatinine 1.0. GFR greater than 60. Glucose 111. He will remain hospitalized pending improvement of his subcutaneous emphysema. - Plan Plan:: Pneumonia due to COVID-19 virus Elevated d-dimer Acute respiratory failure Hypoxia Multiple subsegmental pulmonary emboli without acute cor pulmonale * CTA positive for subsegmental PE in RLL 05/14/2021 * Completed Remdesivir * Completed Dexamethasone * O2 to keep saturation between 88 to 95%. * As needed albuterol MDI * As needed DuoNeb's * Daily labs * Check D-dimer every 48 hours * I-S/Acapella * RT consult * Lovenox 1mg/kg subq Q12 hrs * Prone whenever able * Ambulate * Completed Azithromycin * 81 mg daily aspirin * Baricitinib day 08/18 * Telemetry * Discontinue Airborne/contact isolation * Continuous pulse oximetry * Daily zinc supplementation * Famotidine 20 mg twice daily * Mucinex BID * Cepacol lozenges for sore throat Mediastinal emphysema Subcutaneous emphysema Pneumothorax * General surgery - Dr. Williamson consulted * No surgical interventions needed * Limit IS * Monitor * BID neck measurements by nursing - alert provider if >1cm increase. Ascending aortic aneurysm * 4.1 cm * No acute concerns * PCP follow-up/monitoring Smokes tobacco daily * Daily nicotine patch * Cessation counseling * Offered nicotine patches at discharge Code status: Full code PCP: None - needs to establish DVT prophylaxis: Lovenox Disposition: Patient will remain hospitalized for duration of COVID-19 treatment. Unknown length of stay due to severity of symptoms. Length of stay greater than 96 hours due to need for continued COVID-19 treatment.
[2021-05-15] MEDS: Zinc Sulfate 220 MG Cap PO SCH (08:15)
[2021-05-15] MEDS: Cholecalciferol (Vitamin D3) 5,000 UNIT Cap PO SCH (08:15)
[2021-05-15] MEDS: Famotidine 20 MG Tab PO SCH ×2 (08:15→21:44)
[2021-05-15] MEDS: guaiFENesin 600 MG Tab.ER PO SCH ×2 (08:15→21:45)
[2021-05-15] MEDS: Ascorbic Acid 500 MG Tab PO SCH (08:15)
[2021-05-15] MEDS: Albuterol 6.7 GM Inhaler INH PRN ×2 (09:31→19:47)
[2021-05-15] MEDS: Temazepam 15 MG Cap PO PRN (21:45)
[2021-05-15] MEDS: Aspirin 81 MG Tab.Chew PO SCH (21:45)
[2021-05-16] MEDS: Enoxaparin 100 MG/1 ML Syringe SUBCUT SCH ×2 (05:12→17:55)
[2021-05-16] MEDS: guaiFENesin 600 MG Tab.ER PO SCH ×2 (08:35→22:03)
[2021-05-16] MEDS: Ascorbic Acid 500 MG Tab PO SCH (08:35)
[2021-05-16] MEDS: Cholecalciferol (Vitamin D3) 5,000 UNIT Cap PO SCH (08:35)
[2021-05-16] MEDS: Zinc Sulfate 220 MG Cap PO SCH (08:35)
[2021-05-16] MEDS: Famotidine 20 MG Tab PO SCH ×2 (08:35→22:03)
--- NOTE | 2021-05-16 08:55 | PCM.PN ---
- General Info Date of Service: 05/16/21 Admission Dx/Problem (Free Text): Admission Diagnosis/Problem Admission Diagnosis/Problem Pneumonia due to COVID-19 with acute respiratory failure. Subjective Update: Steven continues to improve. Feels that his eyes are less swollen and his thinks his neck is less swollen. He has no difficulty swallowing. Breathing is improved. Functional Status: Reports: Pain Controlled - Review of Systems General: Reports: No Symptoms HEENT: Reports: No Symptoms Pulmonary: Reports: No Symptoms Cardiovascular: Reports: No Symptoms - Patient Data Vitals - Most Recent: Last Vital Signs Temp 98.2 F 05/16/21 05:10 Pulse 97 05/16/21 05:10 Resp 14 05/16/21 05:10 BP 120/74 05/16/21 05:10 Pulse Ox 92 L 05/16/21 06:20 Weight - Most Recent: 208 lb 1.6 oz I&O - Last 24 Hours: Intake & Output 05/15/21 05/16/21 05/16/21 22:59 06:59 14:59 Intake Total 1240 750 Output Total 800 Balance 1240 -50 Lab Results Last 24 Hours: Laboratory Results - last 24 hr 05/16/21 05/16/21 05/16/21 Range/Units 06:04 06:04 06:04 WBC 11.78 H (4.23-9.07) K/mm3 RBC 5.30 (4.63-6.08) M/mm3 Hgb 15.9 (13.7-17.5) gm/dl Hct 47.2 (40.1-51.0) % MCV 89.1 (79.0-92.2) fl MCH 30.0 (25.7-32.2) pg MCHC 33.7 (32.2-35.5) g/dl RDW Std Deviation 42.2 (35.1-43.9) fL Plt Count 406 H (163-337) K/mm3 MPV 9.0 L (9.4-12.3) fl Neut % (Auto) 77.6 H (34.0-67.9) % Lymph % (Auto) 13.1 L (21.8-53.1) % [place] % (Auto) 3.7 L (5.3-12.2) % Eos % (Auto) 1.3 (0.8-7.0) Baso % (Auto) 0.1 (0.1-1.2) % Neut # (Auto) 9.14 H (1.78-5.38) K/mm3 Lymph # (Auto) 1.54 (1.32-3.57) K/mm3 [place] # (Auto) 0.44 (0.30-0.82) K/mm3 Eos # (Auto) 0.15 (0.04-0.54) K/mm3 Baso # (Auto) 0.01 (0.01-0.08) K/mm3 D-Dimer, Quantitative 2.35 H (0.19-0.50) mg/L Sodium 138 (136-145) mEq/L Potassium 4.6 (3.5-5.1) mEq/L Chloride 104 (98-107) mEq/L Carbon Dioxide 24 (21-32) mEq/L Anion Gap 14.6 (5-15) BUN 28 H (7-18) mg/dL Creatinine 1.0 (0.7-1.3) mg/dL Est Cr Clr Drug Dosing 85.50 mL/min Estimated GFR (MDRD) > 60 (>60) mL/min BUN/Creatinine Ratio 28.0 H (14-18) Glucose 114 H (70-99) mg/dL Calcium 8.2 L (8.5-10.1) mg/dL Med Orders - Current: Current Medications Acetaminophen (Acetaminophen 325 Mg Tab) 650 mg PO Q4H PRN PRN Reason: Pain (Mild 1-3)/fever Albuterol (Albuterol 6.7 Gm Inhaler) 0 gm INH Q4H PRN PRN Reason: sob/wheezing Last Admin: 05/15/21 19:47 Dose: 2 puff Documented by: Albuterol/Ipratropium (Albuterol/Ipratropium 3.0-0.5 Mg/3 Ml Neb Soln) 3 ml NEB Q4H PRN PRN Reason: Shortness Of Breath/wheezing Last Admin: 05/07/21 20:25 Dose: 3 ml Documented by: Ascorbic Acid (Ascorbic Acid 500 Mg Tab) 1,000 mg PO DAILY [facility] Last Admin: 05/16/21 08:35 Dose: 1,000 mg Documented by: Aspirin (Aspirin 81 Mg Tab.Chew) 81 mg PO BEDTIME MOE Last Admin: 05/15/21 21:45 Dose: 81 mg Documented by: Benzocaine/Menthol (Benzocaine/Cetylpyridinium/Menthol Lozenge) 1 lozenge MUCMEM Q1H PRN PRN Reason: Sore Throat Last Admin: 05/09/21 21:25 Dose: 1 lozenge Documented by: Cholecalciferol (Cholecalciferol (Vitamin D3) 5,000 Unit Cap) 5,000 unit PO DAILY [facility] Last Admin: 05/16/21 08:35 Dose: 5,000 unit Documented by: Docusate Sodium (Docusate Sodium 100 Mg Cap) 100 mg PO BID PRN PRN Reason: Constipation Enoxaparin Sodium (Enoxaparin 100 Mg/1 Ml Syringe) 95 mg SUBCUT Q12H [facility] Last Admin: 05/16/21 05:12 Dose: 95 mg Documented by: Famotidine (Famotidine 20 Mg Tab) 20 mg PO BID [facility] Last Admin: 05/16/21 08:35 Dose: 20 mg Documented by: Guaifenesin (Guaifenesin 600 Mg Tab.Er) 600 mg PO BID [facility] Last Admin: 05/16/21 08:35 Dose: 600 mg Documented by: Ondansetron HCl (Ondansetron 4 Mg Tab.Dis) 4 mg PO Q4H PRN PRN Reason: nausea, able to take PO Oxycodone HCl (Oxycodone 5 Mg Tab) 5 mg PO Q4H PRN PRN Reason: Pain (moderate 4-6) Sodium Chloride (Sodium Chloride 0.9% 10 Ml Syringe) 10 ml FLUSH ASDIRECTED PRN PRN Reason: Keep Vein Open Last Admin: 05/14/21 10:31 Dose: 10 ml Documented by: Temazepam (Temazepam 15 Mg Cap) 15 mg PO BEDTIME PRN PRN Reason: Sleep Last Admin: 05/15/21 21:45 Dose: 15 mg Documented by: Zinc Sulfate (Zinc Sulfate 220 Mg Cap) 220 mg PO DAILY [facility] Last Admin: 05/16/21 08:35 Dose: 220 mg Documented by: Discontinued Medications Acetylcysteine (Acetylcysteine 20% 200 Mg/Ml 30 Ml Nebulizer Soln Sdv) 800 mg NEB ONETIME ONE Stop: 05/09/21 09:16 Last Admin: 05/09/21 13:42 Dose: Not Given Documented by: Acetylcysteine (Acetylcysteine 20% 200 Mg/Ml 4 Ml Nebulizer Soln Sdv) 800 mg NEB ONETIME ONE Stop: 05/09/21 09:46 Last Admin: 05/09/21 09:44 Dose: 800 mg Documented by: Dexamethasone (Dexamethasone 4 Mg/Ml Sdv) 6 mg IVPUSH ONETIME ONE Stop: 05/03/21 09:54 Last Admin: 05/03/21 10:12 Dose: 6 mg Documented by: Dexamethasone (Dexamethasone 4 Mg Tab) 6 mg PO DAILY [facility] Stop: 05/12/21 09:01 Last Admin: 05/12/21 09:11 Dose: 6 mg Documented by: Enoxaparin Sodium (Enoxaparin 40 Mg/0.4 Ml Syringe) 40 mg SUBCUT DAILY [facility] Last Admin: 05/06/21 09:41 Dose: 40 mg Documented by: Heparin Sodium (Porcine) (Heparin Sodium 5,000 Units/Ml Vial) 7,500 units SUBCUT Q8H [facility] Last Admin: 05/14/21 09:32 Dose: 7,500 units Documented by: Sodium Chloride (Normal Saline) 1,000 mls @ 1,000 mls/hr IV .BOLUS [facility] Last Admin: 05/03/21 10:12 Dose: 1,000 mls/hr Documented by: Remdesivir 200 mg/ Sodium (Chloride) 250 mls @ 250 mls/hr IV ONETIME ONE Stop: 05/03/21 09:54 Last Admin: 05/03/21 10:30 Dose: Not Given Documented by: Remdesivir 200 mg/ Sodium (Chloride) 250 mls @ 250 mls/hr IV ONETIME ONE Stop: 05/03/21 11:29 Last Admin: 05/03/21 10:30 Dose: 250 mls/hr Documented by: Sodium Chloride (Normal Saline) 45 mls @ 40 mls/hr IV ASDIRECTED [facility] Last Admin: 05/03/21 11:48 Dose: 40 mls/hr Documented by: Azithromycin 500 mg/ Sodium (Chloride) 250 mls @ 250 mls/hr IV Q24H [facility] Stop: 05/05/21 15:29 Last Admin: 05/05/21 14:38 Dose: 250 mls/hr Documented by: Remdesivir 100 mg/ Sodium (Chloride) 100 mls @ 100 mls/hr IV Q24H [facility] Stop: 05/07/21 11:29 Last Admin: 05/06/21 09:37 Dose: 100 mls/hr Documented by: Sodium Chloride (Normal Saline) Confirm Administered Dose 100 mls @ as directed .ROUTE .STK-MED ONE Stop: 05/04/21 10:56 Last Admin: 05/04/21 13:37 Dose: Not Given Documented by: Remdesivir 100 mg/ Sodium (Chloride) 100 mls @ 100 mls/hr IV Q24H [facility] Stop: 05/07/21 09:59 Last Admin: 05/07/21 09:41 Dose: 100 mls/hr Documented by: Sodium Chloride (Normal Saline) 100 mls @ 60 mls/hr IV ASDIRECTED [facility] Stop: 05/14/21 11:00 Last Admin: 05/14/21 10:32 Dose: 60 mls/hr Documented by: Iopamidol (Iopamidol 755 Mg/Ml 100 Ml Bottle) 100 ml IVPUSH ONETIME ONE Stop: 05/03/21 11:11 Last Admin: 05/03/21 11:47 Dose: 100 ml Documented by: Iopamidol (Iopamidol 755 Mg/Ml 100 Ml Bottle) 100 ml IVPUSH ONETIME ONE Stop: 05/14/21 09:33 Last Admin: 05/14/21 10:31 Dose: 100 ml Documented by: Morphine Sulfate (Morphine 2 Mg/Ml Syringe) 2 mg IVPUSH Q2H PRN PRN Reason: Pain (severe 7-10) Stop: 05/04/21 14:17 Nicotine (Nicotine 14 Mg/24 Hr Patch) 14 mg TRDERM DAILY [facility] Last Admin: 05/06/21 09:17 Dose: Not Given Documented by: Sodium Chloride (Sodium Chloride 0.9% 10 Ml Syringe) 10 ml FLUSH ONETIME PRN PRN Reason: Keep Vein Open Last Admin: 05/03/21 11:47 Dose: 10 ml Documented by: Sodium Chloride (Sodium Chloride 0.9% 10 Ml Syringe) 10 ml FLUSH ONETIME ONE Stop: 05/14/21 09:33 Last Admin: 05/14/21 15:14 Dose: Not Given Documented by: - Exam Quality Assessment: Supplemental Oxygen (2 L nasal cannula) General: Alert, Oriented HEENT: Pupils Equal, Mucous Membr. Moist/[place], Other (Bilateral eyelids swollen, left worse than right.) Neck: Supple Lungs: Normal Respiratory Effort, Crackles (Bibasilar) Cardiovascular: Regular Rate, Regular Rhythm GI/Abdominal Exam: Normal Bowel Sounds, Soft, Non-Tender, No Distention Extremities: Normal Inspection, Normal Range of Motion, Non-Tender, No Pedal Edema Skin: Warm, Dry, Intact, Other (Crepitus of the anterior chest wall. Neck measures 50 cm.) Psy/Mental Status: Alert, Normal Affect, Normal Mood - Patient Data Lab Results Last 24 hrs: Laboratory Results - last 24 hr 05/16/21 05/16/21 05/16/21 Range/Units 06:04 06:04 06:04 WBC 11.78 H (4.23-9.07) K/mm3 RBC 5.30 (4.63-6.08) M/mm3 Hgb 15.9 (13.7-17.5) gm/dl Hct 47.2 (40.1-51.0) % MCV 89.1 (79.0-92.2) fl MCH 30.0 (25.7-32.2) pg MCHC 33.7 (32.2-35.5) g/dl RDW Std Deviation 42.2 (35.1-43.9) fL Plt Count 406 H (163-337) K/mm3 MPV 9.0 L (9.4-12.3) fl Neut % (Auto) 77.6 H (34.0-67.9) % Lymph % (Auto) 13.1 L (21.8-53.1) % [place]ett % (Auto) 3.7 L (5.3-12.2) % Eos % (Auto) 1.3 (0.8-7.0) Baso % (Auto) 0.1 (0.1-1.2) % Neut # (Auto) 9.14 H (1.78-5.38) K/mm3 Lymph # (Auto) 1.54 (1.32-3.57) K/mm3 [place] # (Auto) 0.44 (0.30-0.82) K/mm3 Eos # (Auto) 0.15 (0.04-0.54) K/mm3 Baso # (Auto) 0.01 (0.01-0.08) K/mm3 D-Dimer, Quantitative 2.35 H (0.19-0.50) mg/L Sodium 138 (136-145) mEq/L Potassium 4.6 (3.5-5.1) mEq/L Chloride 104 (98-107) mEq/L Carbon Dioxide 24 (21-32) mEq/L Anion Gap 14.6 (5-15) BUN 28 H (7-18) mg/dL Creatinine 1.0 (0.7-1.3) mg/dL Est Cr Clr Drug Dosing 85.50 mL/min Estimated GFR (MDRD) > 60 (>60) mL/min BUN/Creatinine Ratio 28.0 H (14-18) Glucose 114 H (70-99) mg/dL Calcium 8.2 L (8.5-10.1) mg/dL Result Diagrams: 05/16/21 06:04 05/16/21 06:04 Sepsis Event Note - Evaluation Sepsis Screening Result: Possible Sepsis Risk - Focused Exam Vital Signs: Vital Signs Temp Pulse Resp BP Pulse Ox Pulse Ox 05/16/21 06:20 92 L 05/16/21 06:14 95 05/16/21 05:10 98.2 F 97 14 120/74 92 L 05/15/21 21:42 97.7 F 110 H 18 120/88 93 L - Problem List & Annotations (1) Mediastinal emphysema (pneumomediastinum) SNOMED Code(s): 29838865 Code(s): J98.2 - INTERSTITIAL EMPHYSEMA Status: Acute Priority: High Current Visit: Yes (2) COVID-19 SNOMED Code(s): 610430245 Code(s): U07.1 - COVID-19 Status: Acute Priority: High Current Visit: Yes (3) Pneumonia due to COVID-19 virus SNOMED Code(s): 247241056805507727 Code(s): U07.1 - COVID-19; J12.82 - PNEUMONIA DUE TO CORONAVIRUS DISEASE 2019 Status: Acute Priority: High Current Visit: Yes - Problem List Review Problem List Initiated/Reviewed/Updated: Yes - My Orders Last 24 Hours: My Active Orders 05/17/21 05:11 C-REACTIVE PROTEIN [CHEM] AM CBC WITH AUTO DIFF [HEME] AM CMP [COMPREHENSIVE METABOLIC PN,CMP] [CHEM] AM MAGNESIUM [CHEM] AM PHOSPHORUS [CHEM] AM - Assessment Assessment:: Day of admission - 05/03/2021 The patient is a 50-year-old gentleman who has been admitted to acute inpatient hospitalization due to COVID-19 pneumonia. The patient is outside the window for remdesivir treatment. The patient will be started on remdesivir 6 mg p.o. daily. He will be maintained on oxygen titrated to keep his saturations around 92%. The patient will also be started on a azithromycin 500 mg IV daily for superimposed infection. The patient also has been anticoagulated with the use of Lovenox at 40 mg subcutaneously daily. Repeat laboratory studies to include D-dimer and CRP have also been ordered. The patient is to have a regular diet as tolerated. 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 Current guidelines have recommended that this be observed by annual CT scans. I have discussed the case of the aneurysm with the patient. The patient will need to follow-up with the primary care physician after discharge. He should be appropriate for discharge in 1 to 2 days depending upon his oxygen demands or symptoms. 05/04/2021 The patient is a 50-year-old gentleman who was initially admitted due to Covid pneumonia. The patient has had difficulty in maintaining his oxygen saturations around 92% and is on high flow oxygen. Regardless of the length of time for the patient's illness I have elected to place the patient on remdesivir 100 mg IV daily. He also meets qualifications for baricitinib and this was started with consultation from pharmacy. The patient is currently anticoagulated with Lovenox 40 mg subcutaneous daily. Continue with diet as tolerated. He is also on nicotine patch for smoking. The patient will be continued on telemetry. Repeat laboratory studies have been ordered. The patient should have a repeat chest x-ray in 1 to 2 days. The patient has been encouraged to ambulate in the room. The patient should be appropriate for discharge after finishing remdesivir. 05/05/2021 Is a 50-year-old male who was admitted to the hospital for COVID-19 pneumonia. Incidentally on CTA he was noted to have an ascending aortic aneurysm. No signs of any rupture. Today labs show a WBC of 9.08. Hemoglobin 15.9. He is normocytic. Platelet 272,000. Neutrophils are elevated 87.7%. D-dimer is 1.22. Sodium 140. Potassium 4.6. Chloride 105. Carbon dioxide 25. Anion gap is 14.6. BUN is 21. Creatinine 0.8. GFR greater than 60. Glucose 128. Calcium 7.7. Magnesium 2.4. Bilirubin 0.6. AST is 58, ALT 85. Alkaline phosphatase 64. CRP is 6.8. Protein 6.4. Albumin 2.7. He is receiving azithromycin, dexamethasone, remdesivir, and Baricitinib. He is on 50 L with an FiO2 of 65% for high flow. Added aspirin 81 mg, 20 mg twice daily Pepcid, and we will check his vitamin D today as well. We will recheck daily labs tomorrow. He has been utilizing his incentive spirometer and Acapella. He was again encouraged to prone whenever possible. Unknown length of stay due to severity of symptoms. 05/06/2021 This is a 50-year-old male who was admitted for COVID-19 pneumonia. He is on day 4 of remdesivir and dexamethasone. Day 3 of Baricitinib. His oxygen demand has increased to 50 L with an FiO2 of 75%. He continues to prone and utilize incentive spirometer and Acapella. Nicotine patch is in place. Labs today show an elevated WBC of 12.27, likely secondary to steroid use. Platelets are 389,000. Neutrophils are elevated 89.5%. We will recheck D-dimer tomorrow. Sodium 138. Potassium 4.6. Chloride 103. Carbon dioxide 25. Anion gap 14.6. BUN is 23. Creatinine 1.0. GFR greater than 60. Glucose is 190. Calcium 8.2. Bilirubin 0.6. AST is 40, ALT is 97, alkaline phosphatase 76. CRP is down to 3.8. Protein is 6.9. Albumin is 2.9. Vitamin D was obtained and was on the low end of normal at 33.2. Patient is requesting a spiritual care consult and this will be placed. Unknown length of stay due to severity of COVID-19 symptoms. We will continue to try to wean oxygen as patient tolerates. Overall he states he feels about the same as yesterday. He continues to have significant cough and sputum production. Reports his throat is sore from coughing so much so we will add Cepacol lozenges as needed. 05/07/2021 50-year-old male who is admitted with Covid pneumonia. He is on day 5 of remdesivir and dexamethasone. Day 4 of Baricitinib. His oxygen demand has increased to 55 L with an FiO2 of 70%. He tells me that he has not been pro katerin. I have had a lengthy discussion with him regarding this and he states that he will try to do that more he has been using his I-S and Acapella. Labs today show a WBC of 12.03, hemoglobin 17.2, platelet count 392, D-dimer 3.76, C- reactive protein 4.3. Unknown length of stay due to severity of Covid. Continue to have respiratory therapy attempt to wean oxygen as tolerated. Patient states he feels a little worse today than yesterday. He states he has had not much of an appetite other than for a few fruits. He does continue to complain of cough which is productive of [place] sputum. 05/07/21 patient has been seen and examined. Patient has improved compared to yesterday. Patient is ambulating with less effort. No changes to present management, agree with assessment and plan. physical examination: cvs: [id number] Resp: Course soft lower bilateral Abd: sntnd Ext no edema 05/08/21 Covid 19 pneumonia/ acute respiratory failure with hypoxia- Patient has improved, now on high flow 60% sitting up and speech to through the window. He is eating better yet appetite is still decreased patient is trying to prone at night but difficult.Using IS and acapella. Wbc 11 this am. Cont with present management and RT therapy. Cont with ptot for strengthening. Complaint of productive sputum and may use Mucomyst to break this up further this afternoon. 05/09/21 patient is ambulating without sympotms but still desaturating, we should be able to start weaning more o2 due to saturating in high 90's today. requested to place between 88-92%. He is still this am on 60L 80%. Will get ABg this am and see how he is oxygenating. otherwise slow improvement but on track. Productive sputum and will try a one time mucomyst treatment.Patient is going over 96hour due to ongoing symptoms of covid pneumonia and acute respiratory failure. Will remain inpatient. 05/10/2021 Oxygen saturations have improved all day. He is currently on only 30 L of high flow nasal cannula at 60% FiO2. Oxygen saturations are staying in the mid 90s. Unfortunately patient developed a significant extravasation of air after having a severe coughing episode with a small right-sided pneumothorax. This is likely going to be a self-limiting condition, but it is very uncomfortable at this time. Neck measures 50 cm and we will continue to monitor this very closely. Goal will be to decrease or stop the high flow nasal cannula to decrease the trauma to the airway. Also, control his cough as well as possible and avoid Mucomyst. Labs were not done today and we will repeat routine COVID labs in the morning. Spoke with and explained to her his condition and him and his understand his current treatment plan. 05/11/2021 Patient has had continued improvement. He is down to 6 L nasal cannula and his neck circumference is also decreased. He has less next discomfort. Chest x-ray showed no pneumothorax, diffuse soft tissue air and mediastinal air, increased diffuse parenchymal densities from Covid pneumonia. Patient clinically much better. Hopefully over the next couple days patient will be able to be sent home on nasal cannula. We will continue on current treatment of dexamethasone and baricitinib. White count did increase to 15.5, but C-reactive protein dropped in half to 1.6. Also, D-dimer decreased to 2.1. 05/12/2021 This is a 50-year-old male admitted for COVID-19 pneumonia and incidentally found to have a stable aortic aneurysm. Patient has completed dexamethasone, remdesivir, and azithromycin. Unfortunately during his stay after a Mucomyst inhalation patient had a coughing fit resulting in small right-sided pneumothorax, subcutaneous emphysema, and pneumomediastinum. General surgery, Dr. Williamson, was consulted and does not feel this is a surgical problem at this time. Neck circumference has been going down since. Nursing instructed to take it twice daily and alert provider should it increase greater than 1 cm. He continues on baricitinib. He is down to 4 L of oxygen today. WBC is up to 18.08, likely steroid related. Hemoglobin 16.6. Platelet 532,000. D-dimer is 1.51. Sodium 138. Potassium 4.6. Chloride 103. Carbon dioxide 24. Anion gap is 15.6. BUN is 30. Creatinine 1.0. GFR in 60. Glucose is 170. Calcium 8.7. Phosphorus 3.9. Magnesium 2.2. Total bilirubin 0.6. AST is 32, ALT 117, alkaline phosphatase 70. CRP 0.7. Protein 6.7. Albumin is up to 2.9. Overall patient reports he feels better. He will remain hospitalized with goal oxygen therapy of 2 L or less. 05/13/2021 50-year-old male admitted to the floor with COVID-19. Unfortunately he was noted to have a small pneumothorax and subcutaneous emphysema, possibly due to possible airway rupture secondary to coughing fit. Yesterday patient's neck was noted to enlarge slightly however patient had no pain or difficulty breathing. Repeat chest x-ray today shows minimally worse pneumothorax. Subcutaneous emphysema has now moved up into patient's face is left eyelid is very large. Patient is still able to see well reports no eye pain. No acute changes in vision. Patient does have a somewhat high sounding voice. Otherwise patient states he feels better and he is looking forward to getting out of the hospital in the near future. He is down to 2 L of oxygen via nasal cannula today. WBC today is 20.53. Hemoglobin 16.7. Platelet 536,000. Neutrophils are elevated at 87.8%. Sodium is 136. Potassium 4.6. Chloride 100. Carbon dioxide 26. Anion gap is 14.6. BUN is 30. Creatinine 1.0. GFR greater than 60. Glucose is 141. CRP was not rechecked as it had been normal yesterday. Plan will be to continue to hospitalize patient pending improvement of subcutaneous emphysema. Hopeful for discharge in next 24 to 72 hours. 05/14/2021 50-year-old male admitted to the floor with COVID-19. History of small pneumothorax with subcu emphysema. Subcu emphysema noted to chest, neck and bilateral eyes with the left eye being almost completely swollen shut. Neck circumference is being measured daily per nursing staff. Patient did have an episode of tachycardia with associated hypoxia this morning. CTA of the lungs was ordered which showed: 1. Diffuse mediastinal air as well as chest wall air and air extending into the neck. This area has mildly increased from prior study. 2. No definite pneumothorax is appreciated. 3. Increasing densities are noted within both sides of the chest compatible with worsening Covid pneumonia. 4. Right ventricular pressures are likely increased as interventricular septum is slightly bowed. 5. Mild pulmonary emboli are seen within the subsegmental branches within the right lower lobe. 6. Stable mild aneurysm of the ascending aorta. Labs today reveal a WBC of 17.08, platelet count 527,000, D-dimer 3.67, sodium 136, potassium 4.5, anion gap 14.5, BUN 36, creatinine 1.0, GFR greater than 60, glucose 104, troponin less than 0.017, proBNP 106 Twelve-lead EKG was obtained which showed no changes from initial EKG. Echocardiogram was obtained. Report is pending. Patient's heparin was discontinued and patient was started on Lovenox 95 mg/kg every 12 hours. I spoke with [facility] mushroom cutter, Dr. Deleon, regarding this patient. He states that the patient does not need to be transferred to a higher level of care. He states that everything of that we are doing and have been doing for the patient is exactly what they would be doing in [place]. He states that these things are typical of what he has been seeing with [facility]. He does state that we could change the patient to Eliquis 10 mg twice daily to treat the PE however while the patient's in the hospital Lovenox is appropriate. Case was discussed with Dr. Mehta, hospitalist, and he would like the patient to remain on Lovenox at this time as the patient could developed infection in the mediastinum or require surgery due to subcu swelling. Upon discharge the patien t will need an anticoagulant to treat PEs. Patient's tachycardia did resolve on its own and oxygen has been titrated down to 3 L per nasal cannula. 05/15/2021 Is a 50-year-old male admitted to the floor with COVID-19 and a history of small pneumothorax with subcutaneous emphysema which is now noted in his chest, neck, face, and bilateral eyelids. Left eyelid remains almost completely swollen shut. Neck circumference has improved over the past few days. Patient denies any eye pain or vision changes. Patient was noted to have an episode of tachycardia and hypoxia yesterday and was found to have pulmonary emboli within the subsegmental branches of the right lower lobe. Echocardiogram was obtained on 05/14/2021 and shows 1. Normal pattern of LV diastolic filling. 2. Grossly normal left ventricular systolic function with estimated ejection fraction of 55 to 60%. Regional wall motion abnormalities cannot be excluded. 3. Very limited study. He remains on telemetry with no acute changes. He is now on 1 mg/kg of Lovenox every 12 hours. We will keep him on Lovenox until discharge from the hospital and then likely switch him to Eliquis or Xarelto. He is down to 2 L of oxygen currently. He is off of airborne and contact precautions and doing well. His is at bedside. He remains in good spirits. Labs today show a WBC down to 14.42. Platelet are down to 449,000. Neutrophils are elevated 79%. Sodium 137. Potassium 4.4. Chloride 103. Carbon dioxide 26. Anion gap is 12.4. BUN is 33. Creatinine 1.0. GFR greater than 60. Glucose 111. He will remain hospitalized pending improvement of his subcutaneous emphysema. 05/16/2021 Steven continues to improve. Oxygenation is improved as well as his subcutaneous emphysema. He is ambulating in the [place] with his . Continue to wean O2 and plan discharge in a day or 2. - Plan Plan:: Pneumonia due to COVID-19 virus Elevated d-dimer Acute respiratory failure Hypoxia Multiple subsegmental pulmonary emboli without acute cor pulmonale * CTA positive for subsegmental PE in RLL 05/14/2021 * Completed Remdesivir * Completed Dexamethasone * O2 to keep saturation between 88 to 95%. * As needed albuterol MDI * As needed DuoNeb's * Daily labs * Check D-dimer every 48 hours * I-S/Acapella * RT consult * Lovenox 1mg/kg subq Q12 hrs * Prone whenever able * Ambulate * Completed Azithromycin * 81 mg daily aspirin * Baricitinib day 08/18 * Telemetry * Discontinue Airborne/contact isolation * Continuous pulse oximetry * Daily zinc supplementation * Famotidine 20 mg twice daily * Mucinex BID * Cepacol lozenges for sore throat Mediastinal emphysema Subcutaneous emphysema Pneumothorax * General surgery - Dr. Williamson consulted * No surgical interventions needed * Limit IS * Monitor * BID neck measurements by nursing - alert provider if >1cm increase. Ascending aortic aneurysm * 4.1 cm * No acute concerns * PCP follow-up/monitoring Smokes tobacco daily * Daily nicotine patch * Cessation counseling * Offered nicotine patches at discharge Code status: Full code PCP: None - needs to establish DVT prophylaxis: Lovenox Disposition: Patient will remain hospitalized for duration of COVID-19 treatment. Unknown length of stay due to severity of symptoms. Length of stay greater than 96 hours due to need for continued COVID-19 treatment.
[2021-05-16] MEDS: Albuterol 6.7 GM Inhaler INH PRN (10:21)
[2021-05-16] MEDS: Aspirin 81 MG Tab.Chew PO SCH (22:03)
[2021-05-16] MEDS: Temazepam 15 MG Cap PO PRN (22:03)
[2021-05-17] MEDS: Enoxaparin 100 MG/1 ML Syringe SUBCUT SCH (05:04)
[2021-05-17] MEDS: guaiFENesin 600 MG Tab.ER PO SCH (08:53)
[2021-05-17] MEDS: Cholecalciferol (Vitamin D3) 5,000 UNIT Cap PO SCH (08:53)
[2021-05-17] MEDS: Zinc Sulfate 220 MG Cap PO SCH (08:53)
[2021-05-17] MEDS: Famotidine 20 MG Tab PO SCH (08:53)
[2021-05-17] MEDS: Ascorbic Acid 500 MG Tab PO SCH (08:53)
--- NOTE | 2021-05-17 10:17 | PCM.DCSUM1 ---
Discharge Summary - Hospital Course Free Text/Narrative:: Mr. Parson is a 50 y/o Obese male admitted with SOB due to Covid 19 pneumonia. He had a prolonged hospital stay and initially required high flow NC oxygen supplementation but was able to be weaned off the supplemental oxygen completely. He was treated with Decadron, albuterol INH and lovenox. During his stay he developed neck, chest subcutaneous and mediastinal emphysema. His CT chest also showed evidence of multiple subsegmental pulmonary emboli, free air in the mediastinum and chest. A small descending aortic aneurysm. Cardiology was consulted and recommended to keep the patient at our facility on anticoagulation. On 05/17 he felt well enough to go home. He had no more dyspnea . He was discharged home in a stable condition. Activity: As tolerated. Diet: Heart healthy diet Follow up with a PCP in -2 wks. Pt will need to have his aortic aneurysm periodically assessed for progression in size. Discharge time was 35 mins. Physical Exam: General: Obese middle aged male. In no distress HEENT: Face is swollen due to facial subcutaneous emphysema CVS: S1S2 appreciated. RRR lungs: clear bilaterally. Presence of subcutaneous chest wall emphysema PA: Soft, non tender. Bowel sounds present ext: no clubbing, cyanosis or edema neuro: no focal deficits. psych: stable mood and affect. Diagnosis: Stroke: No - Discharge Data Discharge Date: 05/17/21 Discharge Disposition: Home, Self-Care 01 Condition: Stable - Referral to Home Health Primary Care Physician: PCP None - Discharge Diagnosis/Problem(s) (1) Acute respiratory failure SNOMED Code(s): 71934970 ICD Code: J96.00 - ACUTE RESPIRATORY FAILURE, UNSP W HYPOXIA OR HYPERCAPNIA Status: Acute Priority: High Current Visit: Yes Qualifiers: Respiratory failure complication: hypoxia Qualified Code(s): J96.01 - Acute respiratory failure with hypoxia (2) COVID-19 SNOMED Code(s): 114384030 ICD Code: U07.1 - COVID-19 Status: Acute Priority: High Current Visit: Yes (3) Mediastinal emphysema (pneumomediastinum) SNOMED Code(s): 26506192 ICD Code: J98.2 - INTERSTITIAL EMPHYSEMA Status: Acute Priority: High Current Visit: Yes (4) Multiple subsegmental pulmonary emboli without acute cor pulmonale SNOMED Code(s): 68231475 ICD Code: I26.94 - MULT SUBSEGMENTAL PULMON EMBOLI WITHOUT ACUTE COR PULMONALE Status: Acute Priority: High Current Visit: Yes (5) Pneumonia due to COVID-19 virus SNOMED Code(s): 808975993092649946 ICD Code: U07.1 - COVID-19; J12.82 - PNEUMONIA DUE TO CORONAVIRUS DISEASE 2019 Status: Acute Priority: High Current Visit: Yes (6) Aortic aneurysm SNOMED Code(s): 58488611 ICD Code: I71.9 - AORTIC ANEURYSM OF UNSPECIFIED SITE, WITHOUT RUPTURE Status: Acute Current Visit: Yes (7) Descending aortic aneurysm SNOMED Code(s): 914185440 ICD Code: I71.9 - AORTIC ANEURYSM OF UNSPECIFIED SITE, WITHOUT RUPTURE Status: Acute Current Visit: Yes - Patient Summary/Data Consults: Consultations 05/05/21 13:50 Consult to Respiratory Therapy [Respiratory Care Assess and Treatment] [CONS] Routine 05/06/21 11:14 Consult to Spiritual Care [CONS] Routine 05/10/21 13:14 Consult to Physician [CONS] Routine - Patient Instructions Diet: Regular Diet as Tolerated Activity: As Tolerated Driving: May Drive Today - Discharge Plan *PRESCRIPTION DRUG MONITORING PROGRAM REVIEWED*: No *COPY OF PRESCRIPTION DRUG MONITORING REPORT IN PATIENT LEIDY: No Prescriptions/Med Rec: Apixaban [Eliquis] 5 mg PO BID #180 tablet Home Medications: Home Meds Ascorbic Acid [Vitamin C] 1,000 mg PO DAILY 05/03/21 [History] Aspirin [[place]] 80 mg PO DAILY 05/03/21 [History] Cholecalciferol (Vitamin D3) [Vitamin D] 5,000 unit PO DAILY 05/03/21 [History] Zinc 50 mg PO DAILY 05/03/21 [History] Apixaban [Eliquis] 5 mg PO BID #180 tablet 05/17/21 [Rx] Oxygen Therapy Mode: Room Air Patient Handouts: COVID-19 Frequently Asked Questions, 10 Things You Can Do to Manage Your COVID-19 Symptoms at Home - [facility] (03/05/2020), Pulmonary Embolism, Smokeless Tobacco Information, Adult, Steps to Quit Smoking, Sepsis, Self Care, Adult Forms: ED Department Discharge Referrals: Ani Sr PA-C [Ordering Only Provider] - - Discharge Summary/Plan Comment DC Time >30 min.: Yes Total # of Minutes for Discharge Time: 40 mins - Patient Data Vitals - Most Recent: Last Vital Signs Temp 97.0 F 05/17/21 07:49 Pulse 116 H 05/17/21 07:49 Resp 20 05/17/21 07:49 BP 126/75 05/17/21 07:49 Pulse Ox 92 L 05/17/21 07:49 Weight - Most Recent: 208 lb 6.4 oz I&O - Last 24 hours: Intake & Output 05/16/21 05/17/21 05/17/21 22:59 06:59 14:59 Intake Total 1425 800 Output Total 1150 Balance 1425 -350 Lab Results - Last 24 hrs: Laboratory Results - last 24 hr 05/17/21 05/17/21 Range/Units 05:10 05:10 WBC 9.90 H (4.23-9.07) K/mm3 RBC 5.25 (4.63-6.08) M/mm3 Hgb 16.0 (13.7-17.5) gm/dl Hct 46.8 (40.1-51.0) % MCV 89.1 (79.0-92.2) fl MCH 30.5 (25.7-32.2) pg MCHC 34.2 (32.2-35.5) g/dl RDW Std Deviation 42.8 (35.1-43.9) fL Plt Count 344 H (163-337) K/mm3 MPV 8.9 L (9.4-12.3) fl Neut % (Auto) 77.8 H (34.0-67.9) % Lymph % (Auto) 13.6 L (21.8-53.1) % Frederick % (Auto) 4.0 L (5.3-12.2) % Eos % (Auto) 1.3 (0.8-7.0) Baso % (Auto) 0.1 (0.1-1.2) % Neut # (Auto) 7.69 H (1.78-5.38) K/mm3 Lymph # (Auto) 1.35 (1.32-3.57) K/mm3 Frederick # (Auto) 0.40 (0.30-0.82) K/mm3 Eos # (Auto) 0.13 (0.04-0.54) K/mm3 Baso # (Auto) 0.01 (0.01-0.08) K/mm3 Sodium 136 (136-145) mEq/L Potassium 4.4 (3.5-5.1) mEq/L Chloride 104 (98-107) mEq/L Carbon Dioxide 26 (21-32) mEq/L Anion Gap 10.4 (5-15) BUN 22 H (7-18) mg/dL Creatinine 1.0 (0.7-1.3) mg/dL Est Cr Clr Drug Dosing 85.50 mL/min Estimated GFR (MDRD) > 60 (>60) mL/min BUN/Creatinine Ratio 22.0 H (14-18) Glucose 106 H (70-99) mg/dL Calcium 8.5 (8.5-10.1) mg/dL Phosphorus 3.5 (2.6-4.7) mg/dL Magnesium 2.1 (1.8-2.4) mg/dL Total Bilirubin 0.6 (0.2-1.0) mg/dL AST 52 H (15-37) U/L ALT 147 H (16-63) U/L Alkaline Phosphatase 63 (46-116) U/L C-Reactive Protein 1.8 H* (<1.0) mg/dL Total Protein 6.3 L (6.4-8.2) g/dl Albumin 2.9 L (3.4-5.0) g/dl Globulin 3.4 gm/dL Albumin/Globulin Ratio 0.9 L (1-2) Med Orders - Current: Current Medications Acetaminophen (Acetaminophen 325 Mg Tab) 650 mg PO Q4H PRN PRN Reason: Pain (Mild 1-3)/fever Albuterol (Albuterol 6.7 Gm Inhaler) 0 gm INH Q4H PRN PRN Reason: sob/wheezing Last Admin: 05/16/21 10:21 Dose: 2 puff Documented by: Albuterol/Ipratropium (Albuterol/Ipratropium 3.0-0.5 Mg/3 Ml Neb Soln) 3 ml NEB Q4H PRN PRN Reason: Shortness Of Breath/wheezing Last Admin: 05/07/21 20:25 Dose: 3 ml Documented by: Ascorbic Acid (Ascorbic Acid 500 Mg Tab) 1,000 mg PO DAILY MOE Last Admin: 05/17/21 08:53 Dose: 1,000 mg Documented by: Aspirin (Aspirin 81 Mg Tab.Chew) 81 mg PO BEDTIME [facility] Last Admin: 05/16/21 22:03 Dose: 81 mg Documented by: Benzocaine/Menthol (Benzocaine/Cetylpyridinium/Menthol Lozenge) 1 lozenge MUCMEM Q1H PRN PRN Reason: Sore Throat Last Admin: 05/09/21 21:25 Dose: 1 lozenge Documented by: Cholecalciferol (Cholecalciferol (Vitamin D3) 5,000 Unit Cap) 5,000 unit PO DAILY [facility] Last Admin: 05/17/21 08:53 Dose: 5,000 unit Documented by: Docusate Sodium (Docusate Sodium 100 Mg Cap) 100 mg PO BID PRN PRN Reason: Constipation Enoxaparin Sodium (Enoxaparin 100 Mg/1 Ml Syringe) 95 mg SUBCUT Q12H [facility] Last Admin: 05/17/21 05:04 Dose: 95 mg Documented by: Famotidine (Famotidine 20 Mg Tab) 20 mg PO BID [facility] Last Admin: 05/17/21 08:53 Dose: 20 mg Documented by: Guaifenesin (Guaifenesin 600 Mg Tab.Er) 600 mg PO BID [facility] Last Admin: 05/17/21 08:53 Dose: 600 mg Documented by: Ondansetron HCl (Ondansetron 4 Mg Tab.Dis) 4 mg PO Q4H PRN PRN Reason: nausea, able to take PO Oxycodone HCl (Oxycodone 5 Mg Tab) 5 mg PO Q4H PRN PRN Reason: Pain (moderate 4-6) Sodium Chloride (Sodium Chloride 0.9% 10 Ml Syringe) 10 ml FLUSH ASDIRECTED PRN PRN Reason: Keep Vein Open Last Admin: 05/14/21 10:31 Dose: 10 ml Documented by: Temazepam (Temazepam 15 Mg Cap) 15 mg PO BEDTIME PRN PRN Reason: Sleep Last Admin: 05/16/21 22:03 Dose: 15 mg Documented by: Zinc Sulfate (Zinc Sulfate 220 Mg Cap) 220 mg PO DAILY [facility] Last Admin: 05/17/21 08:53 Dose: 220 mg Documented by: Discontinued Medications Acetylcysteine (Acetylcysteine 20% 200 Mg/Ml 30 Ml Nebulizer Soln Sdv) 800 mg NEB ONETIME ONE Stop: 05/09/21 09:16 Last Admin: 05/09/21 13:42 Dose: Not Given Documented by: Acetylcysteine (Acetylcysteine 20% 200 Mg/Ml 4 Ml Nebulizer Soln Sdv) 800 mg NEB ONETIME ONE Stop: 05/09/21 09:46 Last Admin: 05/09/21 09:44 Dose: 800 mg Documented by: Dexamethasone (Dexamethasone 4 Mg/Ml Sdv) 6 mg IVPUSH ONETIME ONE Stop: 05/03/21 09:54 Last Admin: 05/03/21 10:12 Dose: 6 mg Documented by: Dexamethasone (Dexamethasone 4 Mg Tab) 6 mg PO DAILY [facility] Stop: 05/12/21 09:01 Last Admin: 05/12/21 09:11 Dose: 6 mg Documented by: Enoxaparin Sodium (Enoxaparin 40 Mg/0.4 Ml Syringe) 40 mg SUBCUT DAILY [facility] Last Admin: 05/06/21 09:41 Dose: 40 mg Documented by: Heparin Sodium (Porcine) (Heparin Sodium 5,000 Units/Ml Vial) 7,500 units SUBCUT Q8H [facility] Last Admin: 05/14/21 09:32 Dose: 7,500 units Documented by: Sodium Chloride (Normal Saline) 1,000 mls @ 1,000 mls/hr IV .BOLUS [facility] Last Admin: 05/03/21 10:12 Dose: 1,000 mls/hr Documented by: Remdesivir 200 mg/ Sodium (Chloride) 250 mls @ 250 mls/hr IV ONETIME ONE Stop: 05/03/21 09:54 Last Admin: 05/03/21 10:30 Dose: Not Given Documented by: Remdesivir 200 mg/ Sodium (Chloride) 250 mls @ 250 mls/hr IV ONETIME ONE Stop: 05/03/21 11:29 Last Admin: 05/03/21 10:30 Dose: 250 mls/hr Documented by: Sodium Chloride (Normal Saline) 45 mls @ 40 mls/hr IV ASDIRECTED [facility] Last Admin: 05/03/21 11:48 Dose: 40 mls/hr Documented by: Azithromycin 500 mg/ Sodium (Chloride) 250 mls @ 250 mls/hr IV Q24H [facility] Stop: 05/05/21 15:29 Last Admin: 05/05/21 14:38 Dose: 250 mls/hr Documented by: Remdesivir 100 mg/ Sodium (Chloride) 100 mls @ 100 mls/hr IV Q24H [facility] Stop: 05/07/21 11:29 Last Admin: 05/06/21 09:37 Dose: 100 mls/hr Documented by: Sodium Chloride (Normal Saline) Confirm Administered Dose 100 mls @ as directed .ROUTE .STK-MED ONE Stop: 05/04/21 10:56 Last Admin: 05/04/21 13:37 Dose: Not Given Documented by: Remdesivir 100 mg/ Sodium (Chloride) 100 mls @ 100 mls/hr IV Q24H [facility] Stop: 05/07/21 09:59 Last Admin: 05/07/21 09:41 Dose: 100 mls/hr Documented by: Sodium Chloride (Normal Saline) 100 mls @ 60 mls/hr IV ASDIRECTED [facility] Stop: 05/14/21 11:00 Last Admin: 05/14/21 10:32 Dose: 60 mls/hr Documented by: Iopamidol (Iopamidol 755 Mg/Ml 100 Ml Bottle) 100 ml IVPUSH ONETIME ONE Stop: 05/03/21 11:11 Last Admin: 05/03/21 11:47 Dose: 100 ml Documented by: Iopamidol (Iopamidol 755 Mg/Ml 100 Ml Bottle) 100 ml IVPUSH ONETIME ONE Stop: 05/14/21 09:33 Last Admin: 05/14/21 10:31 Dose: 100 ml Documented by: Morphine Sulfate (Morphine 2 Mg/Ml Syringe) 2 mg IVPUSH Q2H PRN PRN Reason: Pain (severe 7-10) Stop: 05/04/21 14:17 Nicotine (Nicotine 14 Mg/24 Hr Patch) 14 mg TRDERM DAILY [facility] Last Admin: 05/06/21 09:17 Dose: Not Given Documented by: Sodium Chloride (Sodium Chloride 0.9% 10 Ml Syringe) 10 ml FLUSH ONETIME PRN PRN Reason: Keep Vein Open Last Admin: 05/03/21 11:47 Dose: 10 ml Documented by: Sodium Chloride (Sodium Chloride 0.9% 10 Ml Syringe) 10 ml FLUSH ONETIME ONE Stop: 05/14/21 09:33 Last Admin: 05/14/21 15:14 Dose: Not Given Documented by:
== END 2021-05-17 11:34 | disposition home or self-care (01) | DRG 137 ==
LOC: JD.ED 09:24 → JD.MS 14:15
PROVIDERS: ADMIT Internal Medicine; ATTEND Internal Medicine
PROC: XW0DXM6 Introduction of Baricitinib into Mouth and Pharynx, External Approach, New Technology Group 6 (ICD-10-PCS; principal; 2021-05-03)
PROC: 5A0955A Assistance with Respiratory Ventilation, Greater than 96 Consecutive Hours, High Flow/Velocity Cannula (ICD-10-PCS; principal; 2021-05-03)
PROC: XW033E5 Introduction of Remdesivir Anti-infective into Peripheral Vein, Percutaneous Approach, New Technology Group 5 (ICD-10-PCS; principal; 2021-05-03)
PROC: 3E0DX3Z Introduction of Anti-inflammatory into Mouth and Pharynx, External Approach (ICD-10-PCS; principal; 2021-05-03)
DX: U07.1 COVID-19 (principal); J12.82 Pneumonia due to coronavirus disease 2019; J96.01 Acute respiratory failure with hypoxia; I26.94 Multiple subsegmental thrombotic pulmonary emboli without acute cor pulmonale; R53.83 Other fatigue; I71.4 Abdominal aortic aneurysm, without rupture; Z79.82 Long term (current) use of aspirin; Z79.899 Other long term (current) drug therapy; F17.210 Nicotine dependence, cigarettes, uncomplicated; J93.9 Pneumothorax, unspecified; J98.2 Interstitial emphysema; R79.89 Other specified abnormal findings of blood chemistry
CPT/HCPCS: 36415; 36600; 70490; 70490-26; 71045; 71045-26; 71275; 71275-26; 80048; 80053; 82306; 82728; 82803; 83605; 83615; 83735; 83880; 84100; 84484; 85025; 85379; 85610; 85730; 86140; 93005; 93010; 93306; 94640; 94667; 94668; 94762; 96374; 99222; 99232; 99233; 99239; 99285; 99285-25; A9270-GY; J0456; J1100; J1644; J1650; J7030; J7050; J7620-GY; J8540; Q9967; U0002

== ENCOUNTER 2023-08-22 07:09 | Day surgery (SDC) | payer BC ==
[~2023-08-22 07:09] MED LIST: Acetaminophen 325 MG Tab PO ONE; Lactated Ringers 1,000 ML IV SCH; Morphine 8 MG, EPINEPHrine 0.3 MG, Cefuroxime 750 MG, Ketorolac 30 MG, Sodium Chloride ... PRN; Pregabalin 25 MG Cap PO ONE; Sodium Chloride 0.9% 10 ML Syringe FLUSH PRN; Sodium Chloride 0.9% 10 ML Syringe FLUSH SCH; oxyCODONE ER 10 MG TAB.ER PO ONE
[2023-08-22] MEDS ORDERED: Vancomycin 1 GM SDV ONE ×2 (07:43→08:28)
[2023-08-22] MEDS ORDERED: Tranexamic Acid 1,000 MG/10 ML Vial ONE (07:43)
[2023-08-22] MEDS ORDERED: Bupivacaine 0.25% 10 ML SDV ONE (07:43)
[2023-08-22] MEDS ORDERED: Triamcinolone Acetonide 40 MG/ML 1 ML SDV ONE (07:43)
[2023-08-22] MEDS ORDERED: Ropivacaine 0.5% 5 MG/ML 30 ML SDV ONE (08:38)
[2023-08-22] MEDS ORDERED: fentaNYL 100 MCG/2 ML SDV ONE (08:43)
[2023-08-22] MEDS ORDERED: Lidocaine 1% PF 2 ML SDV ONE (08:45)
[2023-08-22] MEDS ORDERED: Lactated Ringers 1,000 ML IV ONE (09:00)
[2023-08-22] MEDS ORDERED: Midazolam 1 MG/ML 2 ML SDV ONE (09:06)
[2023-08-22] MEDS ORDERED: Propofol 200 MG/20 ML SDV ONE (09:06)
[2023-08-22] MEDS ORDERED: ceFAZolin 2 GM Vial ONE (09:11)
[2023-08-22] MEDS ORDERED: EPINEPHrine 1 MG/ML SDV ONE (09:47)
[2023-08-22] MEDS ORDERED: Dexamethasone 4 MG/ML 5 ML MDV ONE (09:47)
[2023-08-22] MEDS ORDERED: dexmedeTOMIDine HCl 200 MCG/2 ML SDV ONE (09:47)
== END 2023-08-22 14:30 | disposition home or self-care (01) ==
LOC: JD.SDS 07:09
PROVIDERS: ATTEND Orthopaedic Surgery
DX: M17.0 Bilateral primary osteoarthritis of knee (principal); I71.21 Aneurysm of the ascending aorta, without rupture; M10.9 Gout, unspecified; Z79.899 Other long term (current) drug therapy; Z87.891 Personal history of nicotine dependence
CPT/HCPCS: 0055T; 20610; 27447; 73560; 97116; 97161; A9270; C1713; C1776; J0171; J0690; J0697; J1100; J1885; J2250; J2270; J2704; J2795; J3010; J3301; J3370; J3490; J7030; J7120; 01402; 64447

== ENCOUNTER 2024-08-20 06:00 | Day surgery (SDC) | payer BC ==
[~2024-08-20 06:00] MED LIST changes: -Acetaminophen 325 MG Tab PO ONE; -Lactated Ringers 1,000 ML IV SCH; -Morphine 8 MG, EPINEPHrine 0.3 MG, Cefuroxime 750 MG, Ketorolac 30 MG, Sodium Chloride ... PRN; -Pregabalin 25 MG Cap PO ONE; -oxyCODONE ER 10 MG TAB.ER PO ONE
[2024-08-20] MEDS ORDERED: EPINEPHrine 1 MG/ML SDV ONE (06:11)
[2024-08-20] MEDS ORDERED: Propofol 200 MG/20 ML SDV ONE ×2 (06:14→07:37)
[2024-08-20] MEDS ORDERED: fentaNYL 100 MCG/2 ML SDV ONE (06:14)
[2024-08-20] MEDS ORDERED: ceFAZolin 2 GM Vial ONE (06:16)
[2024-08-20] MEDS: Lactated Ringers 1,000 ML IV SCH (06:20)
[2024-08-20] MEDS ORDERED: Midazolam 1 MG/ML 2 ML SDV ONE (06:38)
[2024-08-20] MEDS: Pregabalin 25 MG Cap PO ONE (07:13)
[2024-08-20] MEDS: Acetaminophen 325 MG Tab PO ONE (07:13)
[2024-08-20] MEDS: oxyCODONE ER 10 MG TAB.ER PO ONE (07:13)
[2024-08-20] MEDS ORDERED: dexmedeTOMIDine HCl 200 MCG/2 ML SDV ONE (07:28)
[2024-08-20] MEDS ORDERED: Dexamethasone 4 MG/ML 5 ML MDV ONE (07:28)
[2024-08-20] MEDS ORDERED: Ropivacaine 0.5% 5 MG/ML 30 ML SDV ONE (07:28)
[2024-08-20] MEDS ORDERED: Lactated Ringers 1,000 ML ONE (07:34)
[2024-08-20] MEDS: Morphine 8 MG, EPINEPHrine 0.3 MG, Cefuroxime 750 MG, Ketorolac 30 MG, Sodium Chloride ... PRN (07:57)
[2024-08-20] MEDS: Tranexamic Acid 1,000 MG/10 ML Vial ONE (08:03)
[2024-08-20] MEDS: VANCOmycin 1 GM SDV ONE (08:03)
[2024-08-20] MEDS ORDERED: HYDROmorphone 0.5 MG/0.5 ML Syringe IVPUSH PRN (08:47)
[2024-08-20] MEDS ORDERED: fentaNYL 100 MCG/2 ML SDV IVPUSH PRN (08:47)
[2024-08-20] MEDS: oxyCODONE 5 MG Tab PO PRN (09:57)
== END 2024-08-20 11:40 | disposition home or self-care (01) ==
LOC: JD.SDS 06:00
PROVIDERS: ATTEND Orthopaedic Surgery
DX: M17.12 Unilateral primary osteoarthritis, left knee (principal); I71.21 Aneurysm of the ascending aorta, without rupture; J44.9 Chronic obstructive pulmonary disease, unspecified; F41.8 Other specified anxiety disorders; Z87.891 Personal history of nicotine dependence; Z79.82 Long term (current) use of aspirin; Z79.899 Other long term (current) drug therapy
CPT/HCPCS: 0055T; 27447; 64447; 73560; 97116; 97161; A9270; C1713; C1776; J0171; J0690; J0697; J1100; J1885; J2250; J2272; J2704; J2795; J3010; J7120; J3490